=== PATIENT | male | born 1955 | race Caucasian/White ===

== ENCOUNTER 2020-04-14 16:57 | Outpatient (REF) | payer MEDICARE, MEDICAID, SELFPAY ==
--- NOTE | 2020-04-14 | XR_ITS ---
EXAMINATION: XR CHEST CLINICAL INFORMATION: Cough COMPARISON: 08/19/2018 TECHNIQUE: 2 views of the chest were obtained. FINDINGS: The cardiomediastinal silhouette is stable. There is some linear atelectasis in the lung bases and right middle lobe which is unchanged. There is no dense consolidation, pleural effusion or pneumothorax. No acute osseous abnormality. XR/XR chest 2V IMPRESSION: No acute cardiopulmonary process.
[2020-04-14 17:56] LABS: MANUAL DIFF FLAG NO
[2020-04-14 17:58] LABS: Basophils Percent Auto 0.3 % (0-2); Eosinophils Absolute Auto 0.2 X10*3/uL (0.0-0.4); Eosinophils Percent Auto 3.3 % (0-4); Hematocrit 42.4 % (42-52); Hemoglobin 14.4 g/dl (14.0-18.0); Imm Gran Abs Auto 0.02 X10*3/uL (0.00-0.03); Imm Gran Pct Auto 0.3 % (0.0-0.4); Lymphocytes Absolute Auto 2.2 X10*3/uL (1.2-4.9); Lymphocytes Percent Auto 29.6 % (20-40); Mean Corpuscular Hemoglobin 31.6 pg (27.0-33.0); Mean Corpuscular Volume 93.2 fL (80-98); Mean Platelet Volume 9.5 fL (9.4-12.4); Monocytes Absolute Auto 0.4 X10*3/uL (0.1-1.2); Monocytes Percent Auto 5.6 % (2-11); Neutrophils Absolute Auto 4.5 X10*3/uL (2.0-8.3); Neutrophils Percent Auto 60.9 % (45-73); Platelet Count 159 X10*3/uL (160-400); Red Blood Count 4.55 X10*6/uL (4.60-5.80); Red Cell Distribution Width 12.9 % (11.0-16.0); White Blood Count 7.3 X10*3/uL (4.8-10.8)
[2020-04-14 18:07] LABS: D Dimer 369 NG/ML
[2020-04-14 18:22] LABS: Alanine Aminotransferase 66 U/L (0-40); Albumin Level 4.2 g/dL (3.5-5.0); Alkaline Phosphatase 66 U/L (39-117); Anion Gap 14 (12-20); Aspartate Amino Transferase 54 U/L (5-37); Bilirubin Total 0.2 mg/dL (0.0-1.0); Blood Urea Nitrogen 17 mg/dL (9-16); Calcium 9.2 mg/dL (8.4-10.2); Carbon Dioxide 26 mmol/L (22-29); Chloride 100 mmol/L (96-108); Estimated Glomerular Filt Rate > 60; Glucose Random 133 mg/dL (60-115); Potassium 4.4 mmol/l (3.3-5.1); Sodium 136 mmol/L (135-145); Total Protein 6.9 g/dL (6.5-8.0)
== END 2020-04-14 16:58 | disposition home or self-care (01) ==
LOC: HO.LAB 16:57
PROVIDERS: PCP Internal Medicine; Visit Provider Internal Medicine
DX: E78.00 Pure hypercholesterolemia, unspecified (principal); I10 Essential (primary) hypertension; R07.9 Chest pain, unspecified; R05 Cough
CPT/HCPCS: 36415; 71046; 80053; 85025; 85379; 86140

== ENCOUNTER 2020-07-14 11:06 | Outpatient (REF) | payer MEDICARE, MEDICAID, SELFPAY ==
[2020-07-14 13:48] LABS: MANUAL DIFF FLAG NO
[2020-07-14 14:00] LABS: Basophils Percent Auto 0.4 % (0-2); Eosinophils Absolute Auto 0.3 X10*3/uL (0.0-0.4); Eosinophils Percent Auto 3.6 % (0-4); Hematocrit 42.8 % (42-52); Hemoglobin 14.3 g/dl (14.0-18.0); Imm Gran Abs Auto 0.04 X10*3/uL (0.00-0.03); Imm Gran Pct Auto 0.6 % (0.0-0.4); Lymphocytes Absolute Auto 2.1 X10*3/uL (1.2-4.9); Lymphocytes Percent Auto 30.6 % (20-40); Mean Corpuscular HGB Conc 33.4 g/dl (31.0-36.0); Mean Corpuscular Hemoglobin 31.2 pg (27.0-33.0); Mean Corpuscular Volume 93.2 fL (80-98); Mean Platelet Volume 9.6 fL (9.4-12.4); Monocytes Absolute Auto 0.3 X10*3/uL (0.1-1.2); Monocytes Percent Auto 4.8 % (2-11); Neutrophils Absolute Auto 4.2 X10*3/uL (2.0-8.3); Platelet Count 211 X10*3/uL (160-400); Red Blood Count 4.59 X10*6/uL (4.60-5.80); White Blood Count 6.9 X10*3/uL (4.8-10.8)
[2020-07-14 14:38] LABS: Creatinine Urine 155.72 mg/dL
[2020-07-14 14:46] LABS: Estimated Average Glucose 134 mg/dL; Hemoglobin A1c % 6.3 %
[2020-07-14 14:47] LABS: Alanine Aminotransferase 85 U/L (0-40); Albumin Level 4.4 g/dL (3.5-5.0); Alkaline Phosphatase 66 U/L (39-117); Anion Gap 15 (12-20); Aspartate Amino Transferase 68 U/L (5-37); Bilirubin Total 0.3 mg/dL (0.0-1.0); Blood Urea Nitrogen 19 mg/dL (9-16); Calcium 9.3 mg/dL (8.4-10.2); Carbon Dioxide 28 mmol/L (22-29); Chloride 99 mmol/L (96-108); Cholesterol 184 mg/dL; Estimated Glomerular Filt Rate > 60; Glucose Fasting 127 mg/dL (60-99); HDL Cholesterol 40 mg/dL; LDL Cholesterol Calculated 73 mg/dl; Potassium 4.6 mmol/L (3.3-5.1); Sodium 137 mmol/L (135-145); Total Protein 7.3 g/dL (6.5-8.0); Triglycerides 359 mg/dL
== END 2020-07-14 11:07 | disposition home or self-care (01) ==
LOC: HO.10HDL 11:06
PROVIDERS: Visit Provider Internal Medicine
DX: I10 Essential (primary) hypertension (principal); R94.5 Abnormal results of liver function studies; E78.00 Pure hypercholesterolemia, unspecified; E11.9 Type 2 diabetes mellitus without complications
CPT/HCPCS: 36415; 80053; 80061; 82043; 83036; 85025

== ENCOUNTER 2020-08-21 10:14 | Outpatient (REF) | payer MEDICARE, MEDICAID, SELFPAY ==
--- NOTE | ~2020-08-21 | XR_ITS ---
EXAMINATION: XR PELVIS CLINICAL INFORMATION: Pain in the hip COMPARISON: 06/01/2014 TECHNIQUE: AP view of the pelvis. FINDINGS: No fracture or dislocation. The hips are well aligned. Joint spaces are maintained. Mild subchondral sclerosis of the acetabula. The sacroiliac joints are symmetric. Degenerative changes at the lower lumbar spine noted. The bowel gas pattern is unremarkable. Vascular calcifications are seen. XR/XR pelvis 1-2V IMPRESSION: Mild degenerative changes of the hips.
== END 2020-08-21 10:15 | disposition home or self-care (01) ==
LOC: HO.HOSX 10:14
PROVIDERS: PCP Internal Medicine; Visit Provider Orthopaedic Surgery
DX: S76.312A Strain of muscle, fascia and tendon of the posterior muscle group at thigh level, left thigh, initial encounter (principal); M16.12 Unilateral primary osteoarthritis, left hip
CPT/HCPCS: 72170; 99202

== ENCOUNTER 2020-10-02 08:55 | Outpatient (REF) | payer MEDICARE, MEDICAID, SELFPAY ==
[2020-10-02 10:23] LABS: MANUAL DIFF FLAG NO
[2020-10-02 10:30] LABS: Basophils Percent Auto 0.5 % (0-2); Eosinophils Absolute Auto 0.3 X10*3/uL (0.0-0.4); Hematocrit 42.2 % (42-52); Hemoglobin 13.9 g/dl (14.0-18.0); Imm Gran Abs Auto 0.03 X10*3/uL (0.00-0.03); Imm Gran Pct Auto 0.5 % (0.0-0.4); Lymphocytes Absolute Auto 1.7 X10*3/uL (1.2-4.9); Lymphocytes Percent Auto 28.6 % (20-40); Mean Corpuscular HGB Conc 32.9 g/dl (31.0-36.0); Mean Corpuscular Hemoglobin 31.4 pg (27.0-33.0); Mean Corpuscular Volume 95.3 fL (80-98); Mean Platelet Volume 9.5 fL (9.4-12.4); Monocytes Absolute Auto 0.3 X10*3/uL (0.1-1.2); Monocytes Percent Auto 5.3 % (2-11); Neutrophils Absolute Auto 3.6 X10*3/uL (2.0-8.3); Neutrophils Percent Auto 60.1 % (45-73); Platelet Count 148 X10*3/uL (160-400); Red Blood Count 4.43 X10*6/uL (4.60-5.80); Red Cell Distribution Width 13.3 % (11.0-16.0)
[2020-10-02 10:47] LABS: Creatinine Urine 100.41 mg/dL; Microalbum/Creatinine Ratio Ur 186.2 ug/mg cr
[2020-10-02 10:51] LABS: Alanine Aminotransferase 79 U/L (0-40); Albumin Level 4.1 g/dL (3.5-5.0); Alkaline Phosphatase 59 U/L (39-117); Anion Gap 13 (12-20); Aspartate Amino Transferase 61 U/L (5-37); Bilirubin Total 0.3 mg/dL (0.0-1.0); Blood Urea Nitrogen 20 mg/dL (9-16); Carbon Dioxide 28 mmol/L (22-29); Chloride 101 mmol/L (96-108); Cholesterol 176 mg/dL; Estimated Glomerular Filt Rate > 60; Glucose Fasting 140 mg/dL (60-99); HDL Cholesterol 40 mg/dL; LDL Cholesterol Calculated 65 mg/dl; Potassium 4.5 mmol/L (3.3-5.1); Sodium 137 mmol/L (135-145); Total Protein 6.7 g/dL (6.5-8.0); Triglycerides 357 mg/dL
[2020-10-02 11:05] LABS: Estimated Average Glucose 134 mg/dL; Hemoglobin A1c % 6.3 %
[2020-10-02 11:24] LABS: Prostate Specific Antigen Scr 0.52 ng/mL (<0.05-4.0)
[2020-10-03 13:11] LABS: Absolute CD3 Count 1429 cells/uL (840-3060); Absolute CD4 Count 686 cells/uL (490-1740); Absolute CD8 Count 745 cells/uL (180-1170); Absolute Lymphocytes 1757 cells/uL (850-3900); CD4 CD8 Ratio 0.92 (0.86-5.00); Percent CD3 Cells 81 % (57-85); Percent CD4 Cells 39 % (30-61); Percent CD8 Cells 42 % (12-42)
[2020-10-03 17:41] LABS: HIV RNA PCR Qn Copies <20 NOT DETECTED copies/mL (NOT DETECTED); HIV RNA PCR Qn Log Copies <1.30 NOT DETECTED (NOT DETECTED)
== END 2020-10-02 08:56 | disposition home or self-care (01) ==
LOC: HO.10HDL 08:55
PROVIDERS: Visit Provider Internal Medicine
DX: S76.312D Strain of muscle, fascia and tendon of the posterior muscle group at thigh level, left thigh, subsequent encounter (principal); I10 Essential (primary) hypertension; E78.00 Pure hypercholesterolemia, unspecified; E11.9 Type 2 diabetes mellitus without complications; N40.0 Benign prostatic hyperplasia without lower urinary tract symptoms; B20 Human immunodeficiency virus [HIV] disease; Z12.5 Encounter for screening for malignant neoplasm of prostate
CPT/HCPCS: 36415; 80053; 80061; 82043; 83036; 84153; 85025; 86359; 86360; 87536; 99212

== ENCOUNTER 2020-11-20 11:00 | Outpatient (RCR) | payer MEDICARE, MEDICAID, SELFPAY ==
[2020-09-01 09:07] VITALS: BP 113/69; PULSE 75
--- NOTE | 2020-09-01 10:05 | MHC.PT.EP ---
[facility] [place] Office [place] Office [place] Office [address] Katherin Ortegamiesha [address] [phone] F: [phone] F: [phone] F: [phone] F: [phone] Physical Therapy Plan of Care Date of Evaluation: 08/29/20 Date of Surgery: NA Diagnosis: TEAR OF LEFT HAMSTRING (576.312A) Assessment: BORA IS A PLEASANT 65 YO GENTLEMAN WHO PRESENTS WITH PARTIAL TEAR OF HAMSTRING. UPON EXAM HE DEMONSTRATES DECREASED LE STRENGTH, DECREASED ROM, ALTERED GAIT AND BALANCE, INCREASED PAIN. 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 Manual therapy to restore motion and function. Therapeutic exercise to improve strength and flexibility. Neuromuscular re-education for posture and balance. Therapeutic activities to return to functional activities of daily living. Electronically signed by: BARRY LEBLANC PT, DPT Please sign and return to therapist. Thank you for your referral.
--- NOTE | 2020-11-28 08:51 | MHC.PT.DC ---
[facility] [place] Office [place] Office [place] Office [address] Lorena Cardoza [address] [phone] F: [phone] F: [phone] F: [phone] F: [phone] Physical Therapy Discharge Report Diagnosis: TEAR OF LEFT HAMSTRING (576.312A) Date of Surgery: DOI 07/05/2020 Date of Evaluation: 08/29/20 Date of Discharge: Treatments to Date: 16 Cancellations to Date: 0 No Shows to Date: 0 Discharge Status: Improved Function Independent with HEP Discharge Summary: Sneha progressed well in therapy. Progress was slow but he continued to work on range and strength and at this time has improved both areas. He also demonstrates improved transfers and gait with decreased reliance on assistive device. He does still report continued discomfort with more high demand functional tasks but is able to self manage any resideual symptoms at this time. He is independent with a home program and is to contact us with any questions or concerns. Electronically signed by: Vivien Mix PT, DPT Please sign and return to therapist. Thank you for your referral.
== END 2020-11-28 08:51 | disposition home or self-care (01) ==
LOC: HO.PT 11:00
PROVIDERS: PCP Internal Medicine; Visit Provider Orthopaedic Surgery
DX: S76.312A Strain of muscle, fascia and tendon of the posterior muscle group at thigh level, left thigh, initial encounter (principal)
CPT/HCPCS: 97014; 97110; 97140; 97161

== ENCOUNTER 2020-12-15 10:07 | Emergency (ER) | payer MEDICARE, MEDICAID, SELFPAY ==
--- NOTE | ~2020-12-15 | XR_ITS ---
EXAMINATION: XR CHEST CLINICAL INFORMATION: Chest pain/pressure COMPARISON: None TECHNIQUE: Frontal view of the chest was obtained. FINDINGS: The lungs are well-expanded and clear. There is minimal atelectatic changes in the right middle lobe. The heart size is enlarged. Pulmonary vascularity is normal. No gross bony abnormality seen. XR/XR chest 1V IMPRESSION: Minimal atelectatic changes right middle lobe. No acute consolidation seen.
--- NOTE | ~2020-12-15 | CT_ITS ---
EXAMINATION: CT ANGIOGRAM OF THE CHEST WITH AND WITHOUT CONTRAST (CT PULMONARY ANGIOGRAM FOR PE) CLINICAL INFORMATION: Reason for Exam troponin, D-dimer positive. PE? COMPARISON: None TECHNIQUE: Prior to contrast administration, noncontrast localization images were obtained. Subsequently, multidetector volumetric imaging was performed from the thoracic inlet to below the diaphragms following the administration of 80 mL Omnipaque 350 intravenous contrast. No contrast reaction reported Sagittal, coronal, and MIP oblique sagittal reformatted images were obtained on the CT workstation, uploaded to PACS, and reviewed. This CT examination was performed using dose optimization techniques as appropriate, variously including the following: *Automated exposure control *Adjustment of mA and/or kV according to patient size (this includes techniques or standardized protocols for targeted exams where dose is matched to indication/reason for exam; i.e. extremities or head) *Use of iterative reconstruction technique Total exam dose-length product 549 mGy-cm FINDINGS: QUALITY OF STUDY/CONTRAST BOLUS: Satisfactory. PULMONARY ARTERIES: No central or segmental pulmonary emboli. THORACIC AORTA: No aneurysm or dissection. LUNG: There is a 2.4 cm pleural-based lesion in the right upper lobe axial image 15/5 measuring -28 Hounsfield units likely a small pleural-based lipoma. Minimal atelectatic changes are seen in the right middle lobe. PLEURA: There is a bilateral lower lobe dependent scarring and/or atelectasis. MEDIASTINUM: Normal heart size. No pericardial effusion. No hilar or mediastinal lymphadenopathy. No evidence of septal bowing or right heart strain. CHEST WALL/AXILLA: No axillary or internal mammary lymphadenopathy. OSSEOUS STRUCTURES: No acute or suspicious osseous abnormality. UPPER ABDOMEN: Visualized liver, spleen, pancreas and bilateral adrenal glands unremarkable. There is evidence of previous cholecystectomy changes. A lobulated left adrenal gland is seen with small nodules in the range of 1 cm, approximately 3 in number. The right adrenal gland is normal. No reflux of contrast into the hepatic veins to suggest elevated right heart pressures. CT/CT angio chest PE protocol IMPRESSION: No evidence of PE. No evidence of aortic dissection or aneurysm. Subpleural based nodule right upper lobe likely small lipoma, pleural-based. Bilateral lower lobe dependent atelectasis/scarring. Nodular appearing left adrenal gland, stable. VTE: negative
[2020-12-15 10:11] VITALS: BP 114/80; BP 155/00; PULSE 95; RESP 18; TEMP 36.7; O2SAT 94; BMI 42.3
--- NOTE | 2020-12-15 10:18 | ECG_ITS ---
Test Reason : CHEST PAIN Blood Pressure : / mmHG Vent. Rate : 089 BPM Atrial Rate : 089 BPM P-R Int : 202 ms QRS Dur : 148 ms QT Int : 398 ms P-R-T Axes : 069 -71 000 degrees QTc Int : 484 ms Normal sinus rhythm Right bundle branch block Left anterior fascicular block Bifascicular block Abnormal ECG When compared with ECG of 12-AUG-2018 10:23, No significant changes seen Referred By: Generic ED Physician Electronically Signed By:ANDI MIRELES
[2020-12-15 10:22] VITALS: PULSE 92
[2020-12-15 10:52] LABS: MANUAL DIFF FLAG NO
[2020-12-15 10:55] LABS: Basophils Percent Auto 0.3 % (0-2); Eosinophils Absolute Auto 0.1 X10*3/uL (0.0-0.4); Eosinophils Percent Auto 2.3 % (0-4); Hematocrit 42.1 % (42-52); Hemoglobin 14.2 g/dl (14.0-18.0); Imm Gran Abs Auto 0.03 X10*3/uL (0.00-0.03); Imm Gran Pct Auto 0.5 % (0.0-0.4); Lymphocytes Absolute Auto 1.5 X10*3/uL (1.2-4.9); Lymphocytes Percent Auto 25.3 % (20-40); Mean Corpuscular HGB Conc 33.7 g/dl (31.0-36.0); Mean Corpuscular Hemoglobin 31.8 pg (27.0-33.0); Mean Corpuscular Volume 94.2 fL (80-98); Mean Platelet Volume 9.8 fL (9.4-12.4); Monocytes Absolute Auto 0.3 X10*3/uL (0.1-1.2); Monocytes Percent Auto 5.4 % (2-11); Neutrophils Absolute Auto 3.8 X10*3/uL (2.0-8.3); Neutrophils Percent Auto 66.2 % (45-73); Platelet Count 149 X10*3/uL (160-400); Red Blood Count 4.47 X10*6/uL (4.60-5.80); Red Cell Distribution Width 13.3 % (11.0-16.0); White Blood Count 5.7 X10*3/uL (4.8-10.8)
[2020-12-15 11:08] VITALS: BP 123/72; PULSE 88
[2020-12-15] MEDS: Nitroglycerin 0.4 MG TAB.SUBL SUBLINGUAL (11:08)
[2020-12-15 11:18] LABS: Anion Gap 16 (12-20); Blood Urea Nitrogen 17 mg/dL (9-16); Calcium 8.7 mg/dL (8.4-10.2); Carbon Dioxide 24 mmol/L (22-29); Chloride 102 mmol/L (96-108); Creatinine Clr Calc Pharmacy 108.4; Estimated Glomerular Filt Rate > 60; Glucose Random 162 mg/dL (60-115); Potassium 4.6 mmol/L (3.3-5.1); Sodium 137 mmol/L (135-145)
[2020-12-15 11:26] LABS: Troponin-I High Sensitivity 79.9 ng/L (<3.5-35.0)
[2020-12-15 11:33] LABS: INTERNATIONAL NORM RATIO 0.9 (0.9-1.1); Prothrombin Time 10.3 SEC (9.9-13.0)
[2020-12-15 11:34] LABS: B Type Natriuretic Peptide 31 pg/mL (<100)
[2020-12-15 11:35] LABS: Partial Thromboplastin Time 30.3 SEC (24.1-38.0)
[2020-12-15 11:44] LABS: D Dimer 4678 NG/ML
[2020-12-15] MEDS: Morphine Sulfate 4 MG/ML CARTRIDGE IVPUSH ×2 (11:49→13:56)
--- NOTE | 2020-12-15 11:50 | ED_ITS ---
HPI - Chest Pain General Chief Complaint: Chest Pain Stated Complaint: cp Time Seen by Provider: 12/15/20 10:54 Source: patient Mode of arrival: ambulatory Limitations: no limitations History of Present Illness HPI narrative: Patient presents to ED for left-sided chest pain since 06:00. Patient states he woke up with pressure-like chest pain that then went into sharp stabbing pain. Patient states he took 81 mg of aspirin at home and did not improve so he called EMS. EMS gave him 2 nitro pills and 325 of aspirin. Patient states chest pain went down from a 8 to a 4. Patient states presently chest pain goes between pressure and sharp. Patient states he stopped smoking 7 years ago but is diabetic and hypertensive. Patient states no history of heart attack in the past Related Data Home Medications Medication Instructions Recorded Confirmed lisinopril 2.5 mg tablet 2.5 mg PO DAILY 08/21/20 metformin 500 mg tablet 500 mg PO DAILY 08/21/20 omeprazole 10 mg capsule,delayed 10 mg PO DAILY 08/21/20 release simvastatin 5 mg tablet 5 mg PO DAILY 08/21/20 terazosin 1 mg capsule 1 mg PO DAILY 08/21/20 Previous Rx's Medication Instructions Recorded ibuprofen 800 mg tablet 800 mg PO TID PRN #90 tab 08/21/20 Allergies Allergy/AdvReac Type Severity Reaction Status Date / Time No Known Allergies Allergy Verified 10/02/20 10:27 Review of Systems Review of Systems: Yes all other systems are reviewed and are negative Constitutional: Constitutional: Reports as per HPI and Reports no additional constitutional complaints Eyes: Eyes: Reports as per HPI, Reports no additional eye complaints and Reports blind spots ENT: Reports system reviewed and no additional complaints, except as documented and Reports as per HPI Cardiovascular: Cardiovascular: Reports as per HPI, Reports no additional cardiovascular complaints, Reports chest pain and Reports chest pain with activity Respiratory: Respiratory: Reports as per HPI and Reports no additional respiratory complaints Gastrointestinal: Gastrointestinal: Reports as per HPI and Reports no additional gastrointestinal complaints Genitourinary: Genitourinary: Reports no additional male genitourinary complaints and Reports as per HPI Musculoskeletal: Musculoskeletal: Reports no additional musculoskeletal complaints and Reports as per HPI Neurologic: Reports system reviewed and no additional complaints, except as documented and Reports as per HPI Psychiatric: Psychiatric: Reports no additional psychiatric complaints and Reports as per HPI [facility] Past Medical History Medical History Diabetes High blood pressure High cholesterol Tear of left hamstring Social History Social History (Updated 08/21/20 @ 10:31 by Alexandria Gayle) Patient Tobacco Use Status: Former Tobacco user Substance Use Type: Marijuana Substance Use Frequency: Daily Advance Directives: Yes Advance Directives Information Provided: Yes Advance Directives on File: No Current occupational status: retired Current occupation: rt handed Physical Exam Vital Signs: Vital Signs: Last Vital Signs Temp 97.8 F 12/15/20 13:56 Pulse 82 12/15/20 15:14 Resp 18 12/15/20 15:14 BP 135/83 12/15/20 15:14 Pulse Ox 96 12/15/20 15:14 Body Mass Index 42.3 Const: General: cooperative, healthy appearing, comfortable, no acute distress, well developed, alert, awake and acute distress Orientation /consciousness: patient oriented x3 HENMT: Head: Yes normal to inspection, Yes No palpable skull fracture present, Yes normocephalic, Yes atraumatic and No abrasion Eyes: General: appearance normal, both eyes and all related structures Neck: Neck: Yes normal visual inspection, Yes full ROM, Yes no lymphadenopathy, Yes no meningeal signs, Yes trachea midline, Yes supple and No tender Chest: Chest palpation & inspection: normal inspection of the chest and normal palpation of entire chest wall Resp: Effort & Inspection: normal respiratory effort and able to speak in complete sentences Auscultation: clear to auscultation bilaterally Cardio: Jugular venous distension: no JVD Heart sounds: S1 normal heart sound present and S2 normal heart sound present GI: Inspection: Yes normal to inspection and No abdominal wall ecchymosis Palpation (GI): Soft to palpation, not firm, nontender, no guarding and not rigid : General: No CVA tenderness and Yes no CVA tenderness Back/Spine/Pelvis: Back: no CVA tenderness, No CVA tenderness and No back tenderness Skin: General skin exam: no rashes or lesions noted and elasticity normal Neuro: General: patient oriented x3, gait normal, no meningeal signs and CN's II-XI intact bilaterally Cranial nerves: Yes CN's II-XII intact bilaterally Extrem: Other: Lower extremities negative for any swelling, pitting edema, calf tenderness Psych: Appearance: grossly normal, well kempt and not disheveled Course Course Course Narrative: Due to risk factors patient will have a cardiac evaluation. Reevaluation(s) Reevaluation #1: EKG negative for STEMI and no new changes. Patient's 1st troponin came back positive. Patient given nitrates and morphine for pain relief. BNP came back negative. Chest x-ray does not show any pneumonia. Patient D-dimer elevated over 4000. Patient will be sent for chest CT A. Will contact Cardiology wants chest CT results come back Time: 12:04 Reevaluation #2: Dr. Brewer cardiology recommended IV heparin to be started in for patient to be transferred at [facility]. Patient still having pain after 3 rounds of nitro and [address] came back negative for PE Time: 13:50 Reevaluation #3: IV heparin drip started. Spoke with Dr. mallory of cardiology he was informed of patient's history, physical exam, and diagnostics he states patient may need to go to CCU. He called CCU and discussed with the senior resident and he agreed patient to be transferred to [facility] CCU. Accepting attending is . Patient's troponin increased to 400. Repeat EKG does not show any new changes. Dr. mallory recommended patient to be started on nitro drip. Patient states pain is at a 6 and doing Musa's sign Time: 15:23 MDM - Chest Pain MDM Narrative Medical decision making narrative: NSTEMI Lab Data Result diagrams: 12/15/20 10:28 12/15/20 10:28 Labs: Lab Results 12/15/20 12/15/20 12/15/20 Range/Units 10:28 10:28 10:28 WBC 5.7 (4.8-10.8) X10*3/uL RBC 4.47 L (4.60-5.80) X10*6/uL Hgb 14.2 (14.0-18.0) g/dl Hct 42.1 (42-52) % MCV 94.2 (80-98) fL MCH 31.8 (27.0-33.0) pg MCHC 33.7 (31.0-36.0) g/dl RDW 13.3 (11.0-16.0) % Plt Count 149 L (160-400) X10*3/uL MPV 9.8 (9.4-12.4) fL Immature Gran % (Auto) 0.5 H (0.0-0.4) % Neut % (Auto) 66.2 (45-73) % Lymph % (Auto) 25.3 (20-40) % [place] % (Auto) 5.4 (2-11) % Eos % (Auto) 2.3 (0-4) % Baso % (Auto) 0.3 (0-2) % Lymph # (Auto) 1.5 (1.2-4.9) X10*3/uL [place] # (Auto) 0.3 (0.1-1.2) X10*3/uL Eos # (Auto) 0.1 (0.0-0.4) X10*3/uL Baso # (Auto) 0.0 (0.0-0.2) X10*3/uL Abs Immat Gran (auto) 0.03 (0.00-0.03) X10*3/uL Absolute Neuts (auto) 3.8 (2.0-8.3) X10*3/uL Absolute Nucleated RBC 0.000 (0.0-0.012) X10*3/uL Nucleated RBC % (auto) 0.0 (0.0-0.2) /100WBC PT (9.9-13.0) SEC INR (0.9-1.1) APTT (24.1-38.0) SEC D-Dimer NG/ML Sodium 137 (135-145) mmol/L Potassium 4.6 (3.3-5.1) mmol/L Chloride 102 (96-108) mmol/L Carbon Dioxide 24 (22-29) mmol/L Anion Gap 16 (12-20) BUN 17 H (9-16) mg/dL Creatinine 0.84 (0.5-1.4) mg/dL Estim Creat Clear Calc 108.4 Estimated GFR > 60 Random Glucose 162 H (60-115) mg/dL Calcium 8.7 (8.4-10.2) mg/dL Troponin I High Sens 79.9 H* (<3.5-35.0) ng/L B-Natriuretic Peptide 31 (<100) pg/mL COVID-19 ([facility]) (Negative) COVID-19 Clin Com 07/12/15/20 12/15/20 Range/Units 11:15 13:41 15:15 WBC (4.8-10.8) X10*3/uL RBC (4.60-5.80) X10*6/uL Hgb (14.0-18.0) g/dl Hct (42-52) % MCV (80-98) fL MCH (27.0-33.0) pg MCHC (31.0-36.0) g/dl RDW (11.0-16.0) % Plt Count (160-400) X10*3/uL MPV (9.4-12.4) fL Immature Gran % (Auto) (0.0-0.4) % Neut % (Auto) (45-73) % Lymph % (Auto) (20-40) % [place] % (Auto) (2-11) % Eos % (Auto) (0-4) % Baso % (Auto) (0-2) % Lymph # (Auto) (1.2-4.9) X10*3/uL [place] # (Auto) (0.1-1.2) X10*3/uL Eos # (Auto) (0.0-0.4) X10*3/uL Baso # (Auto) (0.0-0.2) X10*3/uL Abs Immat Gran (auto) (0.00-0.03) X10*3/uL Absolute Neuts (auto) (2.0-8.3) X10*3/uL Absolute Nucleated RBC (0.0-0.012) X10*3/uL Nucleated RBC % (auto) (0.0-0.2) /100WBC PT 10.3 (9.9-13.0) SEC INR 0.9 (0.9-1.1) APTT 30.3 (24.1-38.0) SEC D-Dimer 4678 NG/ML Sodium (135-145) mmol/L Potassium (3.3-5.1) mmol/L Chloride (96-108) mmol/L Carbon Dioxide (22-29) mmol/L Anion Gap (12-20) BUN (9-16) mg/dL Creatinine (0.5-1.4) mg/dL Estim Creat Clear Calc Estimated GFR Random Glucose (60-115) mg/dL Calcium (8.4-10.2) mg/dL Troponin I High Sens 487.1 H* D (<3.5-35.0) ng/L B-Natriuretic Peptide (<100) pg/mL COVID-19 ([facility]) Negative (Negative) COVID-19 Clin Com See Note ECG Data ECG #1: Interpretation: EKG 1: Normal sinus rhythm. Bifascicular block. Ventricular rate 89. Parent of a 202. QRS 148. QTC 484. Negative STEMI EKG 2: Sinus rhythm with first-degree AV block. Bifascicular block. Ventricular rate 81. Pr interval 210. QRS 158. QTC 480. Negative STEMI Critical Care Time Critical Care Time Critical Care Time: Yes Total Critical Care Time: 60 Attestation: Patient's troponin came back positive and continued to have chest pain. Cardiology was consulted and recommended IV heparin. [facility] as400 administrator was contacted and recommended transfer to [facility] CCU. Patient started on heparin drip and nitro glycerin drip as recommended by 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 Discharge Plan Discharge Clinical Impression: Non-ST elevation OR (NSTEMI) Patient Disposition: Xfer Acute Care Hospital Transfer Details: [facility] Prescriptions: No Action ibuprofen 800 mg tablet 800 mg PO TID PRN (Reason: pain) Qty: 90 RF: 1
--- NOTE | 2020-12-15 11:56 | PC.NURSE ---
Morphine given for pain. Pt aware of labs per PA and aware for plan for CTA. EMS tubing changed to hospital tubing.
[2020-12-15 11:57] VITALS: BP 113/79; PULSE 83; RESP 19; O2SAT 98
[2020-12-15] MEDS: iohexoL 350 MG/ML 100 ML INFUS..BTL 71 ML IV (12:37)
[2020-12-15 13:56] VITALS: BP 113/69; PULSE 80; RESP 18; TEMP 36.6; O2SAT 98
--- NOTE | 2020-12-15 14:00 | PC.NURSE ---
Pt medicated for pain. Second troponin drawn and pending at this time.
[2020-12-15 14:27] LABS: Troponin-I High Sensitivity 487.1 ng/L (<3.5-35.0)
[2020-12-15] MEDS: Heparin Sodium,Porcine/1/2NS 25,000 UNIT/250 ML IV.SOLN 10 UNIT IVCONT (14:39)
[2020-12-15] MEDS: Heparin Sodium,Porcine 5,000 UNIT/ML VIAL 4000 UNIT IVPUSH (14:39)
--- NOTE | 2020-12-15 15:13 | PC.NURSE ---
Heparin drip started. VS remain stable. Nitro drip ordered and to be started per orders.
[2020-12-15 15:14] VITALS: BP 135/83; PULSE 82; RESP 18; O2SAT 96
[2020-12-15 15:37] LABS: COVID-19 Test Negative (Negative)
[2020-12-15] MEDS: Nitroglycerin/D5W 100 MG/250 ML INFUS..BTL IVCONT (15:44)
--- NOTE | 2020-12-15 16:05 | PC.NURSE ---
Report given to [facility] RN at [facility]. Awaiting EMS transport at this time.
== END 2020-12-15 16:39 | disposition short-term general hospital (02) ==
PROVIDERS: Physician Assistant; Emergency Provider Emergency Medicine; PCP Internal Medicine
DX: I21.4 Non-ST elevation (NSTEMI) myocardial infarction (principal); E11.9 Type 2 diabetes mellitus without complications; I10 Essential (primary) hypertension; E78.5 Hyperlipidemia, unspecified; Z79.84 Long term (current) use of oral hypoglycemic drugs; Z79.899 Other long term (current) drug therapy; Z79.02 Long term (current) use of antithrombotics/antiplatelets; F12.90 Cannabis use, unspecified, uncomplicated; Z87.891 Personal history of nicotine dependence; Z20.822 Contact with and (suspected) exposure to COVID-19
CPT/HCPCS: 36415; 71045; 71275; 80048; 83880; 84484; 85025; 85379; 85610; 85730; 87635; 93005; 96365; 96366; 96368; 96375; 99285; 99291; J2270; Q9967

== ENCOUNTER 2020-12-23 09:41 | Outpatient (REF) | payer MEDICARE, MEDICAID, SELFPAY ==
[2020-12-23 10:19] LABS: MANUAL DIFF FLAG NO
[2020-12-23 10:44] LABS: Basophils Percent Auto 0.3 % (0-2); Eosinophils Absolute Auto 0.3 X10*3/uL (0.0-0.4); Eosinophils Percent Auto 4.2 % (0-4); Hematocrit 41.6 % (42-52); Hemoglobin 13.8 g/dl (14.0-18.0); Imm Gran Abs Auto 0.02 X10*3/uL (0.00-0.03); Imm Gran Pct Auto 0.3 % (0.0-0.4); Lymphocytes Percent Auto 33.8 % (20-40); Mean Corpuscular HGB Conc 33.2 g/dl (31.0-36.0); Mean Corpuscular Hemoglobin 31.5 pg (27.0-33.0); Mean Platelet Volume 9.6 fL (9.4-12.4); Monocytes Absolute Auto 0.4 X10*3/uL (0.1-1.2); Monocytes Percent Auto 6.9 % (2-11); Neutrophils Absolute Auto 3.2 X10*3/uL (2.0-8.3); Neutrophils Percent Auto 54.5 % (45-73); Platelet Count 165 X10*3/uL (160-400); Red Blood Count 4.38 X10*6/uL (4.60-5.80); Red Cell Distribution Width 13.1 % (11.0-16.0); White Blood Count 5.9 X10*3/uL (4.8-10.8)
[2020-12-23 10:56] LABS: Estimated Average Glucose 137 mg/dL; Hemoglobin A1c % 6.4 %
[2020-12-23 11:20] LABS: Alanine Aminotransferase 99 U/L (0-40); Albumin Level 4.3 g/dL (3.5-5.0); Alkaline Phosphatase 61 U/L (39-117); Anion Gap 15 (12-20); Aspartate Amino Transferase 77 U/L (5-37); Bilirubin Total 0.4 mg/dL (0.0-1.0); Blood Urea Nitrogen 17 mg/dL (9-16); Calcium 9.2 mg/dL (8.4-10.2); Carbon Dioxide 26 mmol/L (22-29); Chloride 103 mmol/L (96-108); Cholesterol 142 mg/dL; Estimated Glomerular Filt Rate > 60; Glucose Fasting 120 mg/dL (60-99); HDL Cholesterol 36 mg/dL; LDL Cholesterol Calculated 77 mg/dl; Potassium 4.8 mmol/L (3.3-5.1); Sodium 139 mmol/L (135-145); Total Protein 7.1 g/dL (6.5-8.0); Triglycerides 146 mg/dL
[2020-12-23 11:50] LABS: Creatinine Urine 78.21 mg/dL; Microalbum/Creatinine Ratio Ur 44.7 ug/mg cr
== END 2020-12-23 09:42 | disposition home or self-care (01) ==
LOC: HO.10HDL 09:41
PROVIDERS: PCP Internal Medicine; Visit Provider Internal Medicine
DX: E11.9 Type 2 diabetes mellitus without complications (principal); I10 Essential (primary) hypertension; E78.5 Hyperlipidemia, unspecified
CPT/HCPCS: 36415; 80053; 80061; 82043; 83036; 85025

== ENCOUNTER 2021-01-27 11:16 | Outpatient (REF) | payer MEDICARE, MEDICAID, SELFPAY ==
--- NOTE | ~2021-01-27 | XR_ITS ---
EXAMINATION: XR KNEE, RIGHT CLINICAL INFORMATION: Right knee pain. COMPARISON: None TECHNIQUE: Four views of the right knee. FINDINGS: There is loss of tricompartment joint space with periarticular spurring. There is calcification of medial and lateral menisci. No fracture or bony erosive changes seen. There is minimal suprapatellar joint effusion. XR/XR knee RT 4V IMPRESSION: Degenerative arthritic changes right knee with mild periapical spurring. Minimal suprapatellar joint effusion. Chondrocalcinosis.
[2021-01-27 12:56] LABS: Alanine Aminotransferase 58 U/L (0-40); Albumin Level 4.3 g/dL (3.5-5.0); Alkaline Phosphatase 61 U/L (39-117); Aspartate Amino Transferase 42 U/L (5-37); Bilirubin Direct 0.2 mg/dL (0.0-0.5); Bilirubin Total 0.4 mg/dL (0.0-1.0)
== END 2021-01-27 11:17 | disposition home or self-care (01) ==
LOC: HO.XRAY 11:16
PROVIDERS: PCP Internal Medicine; Visit Provider Internal Medicine
DX: M25.561 Pain in right knee (principal); R79.89 Other specified abnormal findings of blood chemistry; I25.10 Atherosclerotic heart disease of native coronary artery without angina pectoris
CPT/HCPCS: 36415; 73564; 80076

== ENCOUNTER 2021-03-18 09:12 | Outpatient (REF) | payer MEDICARE, MEDICAID, SELFPAY ==
[2021-03-18 10:31] LABS: Blood Urea Nitrogen 17 mg/dL (9-16); Estimated Glomerular Filt Rate > 60
== END 2021-03-18 09:13 | disposition home or self-care (01) ==
LOC: HO.10HDL 09:12
PROVIDERS: Absent Provider Internal Medicine; Visit Provider Nurse Practitioner Family
DX: I21.4 Non-ST elevation (NSTEMI) myocardial infarction (principal)
CPT/HCPCS: 36415; 82565; 84520

== ENCOUNTER 2021-05-26 09:29 | Outpatient (REF) | payer MEDICARE, MEDICAID, SELFPAY ==
[2021-05-26 10:14] LABS: MANUAL DIFF FLAG NO
[2021-05-26 10:18] LABS: Basophils Percent Auto 0.5 % (0-2); Eosinophils Absolute Auto 0.2 X10*3/uL (0.0-0.4); Eosinophils Percent Auto 3.6 % (0-4); Hematocrit 43.3 % (42.0-52.0); Hemoglobin 14.6 g/dl (14.0-18.0); Imm Gran Abs Auto 0.03 X10*3/uL (0.00-0.03); Imm Gran Pct Auto 0.5 % (0.0-0.4); Lymphocytes Percent Auto 30.3 % (20-40); Mean Corpuscular HGB Conc 33.7 g/dl (31.0-36.0); Mean Corpuscular Hemoglobin 31.4 pg (27.0-33.0); Mean Corpuscular Volume 93.1 fL (80.0-98.0); Mean Platelet Volume 9.2 fL (9.4-12.4); Monocytes Absolute Auto 0.5 X10*3/uL (0.1-1.2); Monocytes Percent Auto 7.5 % (2-11); Neutrophils Absolute Auto 3.7 x10*3/uL (2.0-8.3); Neutrophils Percent Auto 57.6 % (45-73); Platelet Count 163 X10*3/uL (160-400); Red Blood Count 4.65 X10*6/uL (4.60-5.80); Red Cell Distribution Width 13.2 % (11.0-16.0); White Blood Count 6.4 X10*3/uL (4.8-10.8)
[2021-05-26 10:39] LABS: Estimated Average Glucose 140 mg/dL; Hemoglobin A1c % 6.5 %
[2021-05-26 11:20] LABS: Alanine Aminotransferase 99 U/L (0-40); Albumin Level 4.2 g/dL (3.5-5.0); Alkaline Phosphatase 61 U/L (39-117); Anion Gap 13 (12-20); Aspartate Amino Transferase 70 U/L (5-37); Blood Urea Nitrogen 26 mg/dL (9-16); Calcium 9.5 mg/dL (8.4-10.2); Carbon Dioxide 27 mmol/L (22-29); Chloride 101 mmol/L (96-108); Estimated Glomerular Filt Rate > 60; Glucose Random 129 mg/dL (60-115); Potassium 4.5 mmol/L (3.3-5.1); Sodium 136 mmol/L (135-145); Total Protein 7.3 g/dL (6.5-8.0)
[2021-05-26 11:36] LABS: Bilirubin Total 0.3 mg/dL (0.0-1.0)
[2021-05-26 12:41] LABS: Influenza A PCR NEGATIVE (Negative); Influenza B PCR NEGATIVE (Negative); Resp Syncy Virus RNA Qual PCR NEGATIVE (Negative); SARS COV2 PCR INHOUSE NEGATIVE (Negative)
== END 2021-05-26 09:30 | disposition home or self-care (01) ==
LOC: HO.10HDL 09:29
PROVIDERS: PCP Internal Medicine; Visit Provider Internal Medicine
DX: Z20.822 Contact with and (suspected) exposure to COVID-19 (principal); E11.9 Type 2 diabetes mellitus without complications; I10 Essential (primary) hypertension; I25.10 Atherosclerotic heart disease of native coronary artery without angina pectoris; J44.9 Chronic obstructive pulmonary disease, unspecified
CPT/HCPCS: 0241U; 36415; 80053; 83036; 85025

== ENCOUNTER 2021-08-24 13:04 | Outpatient (REF) | payer MEDICARE, MEDICAID, SELFPAY ==
--- NOTE | ~2021-08-24 | CT_ITS ---
EXAMINATION: CT ABDOMEN AND PELVIS WITHOUT CONTRAST CLINICAL INFORMATION: Abdominal pain. Question hernia. COMPARISON: None TECHNIQUE: Multidetector volumetric imaging was performed from the superior aspect of the liver through the pubic symphysis. Sagittal and coronal reformatted images were obtained on the technologist's workstation. This CT examination was performed using dose optimization techniques as appropriate, variously including the following: *Automated exposure control *Adjustment of mA and/or kV according to patient size (this includes techniques or standardized protocols for targeted exams where dose is matched to indication/reason for exam; i.e. extremities or head) *Use of iterative reconstruction technique DLP: 836 mGy-cm FINDINGS: LUNG BASES: The visualized lung bases are unremarkable. LIVER, GALLBLADDER, AND BILIARY TREE: The liver is normal in size, shape, and attenuation. No focal hepatic lesion or biliary ductal dilatation is present. The gallbladder has been surgically removed. PANCREAS: Unremarkable. SPLEEN: Unremarkable. ADRENAL GLANDS: A lobulated appearing left adrenal gland with small nodules are noted. The right adrenal gland is unremarkable. KIDNEYS AND URETERS: The kidneys are normal in size, shape, and attenuation. No hydronephrosis, hydroureter, or calculi seen. No perinephric stranding. There is a punctate calcification along the left renal hilum. There is a left lower pole dilated pelvic 1.9 cm cyst. BLADDER: Unremarkable. GASTROINTESTINAL TRACT: There is diffuse sigmoid colon diverticulosis with minimal mural thickening but no pericolic fat stranding seen. Few scattered diverticuli seen in the rest of the colon without colonic distention. The small bowel loops are normal caliber. Appendix is not visualized with certainty. ABDOMINAL WALL: No significant hernia is appreciated. LYMPH NODES: Normal. VASCULAR: The abdominal aorta is of normal caliber with mild atherosclerosis. PELVIC VISCERA: There is no free air or free fluid. No abnormal pelvic lymph nodes. OSSEOUS STRUCTURES: There are degenerative disc changes with vacuum disc phenomena and spondylosis at every disc level for lower thoracic to lumbosacral junction. No aggressive lytic or sclerotic process seen. CT/CT abdomen pelvis wo con IMPRESSION: Diffuse sigmoid colon diverticulosis with mild mural thickening but no pericolic fat stranding question early diverticulitis. Left peripelvic renal cysts. No radiopaque urolith or hydronephrosis. Fleischner guidelines were followed.
[2021-08-24 13:21] LABS: MANUAL DIFF FLAG NO
[2021-08-24 13:41] LABS: Basophils Percent Auto 0.1 % (0-2); Eosinophils Absolute Auto 0.2 X10*3/uL (0.0-0.4); Hematocrit 42.3 % (42.0-52.0); Hemoglobin 13.9 g/dl (14.0-18.0); Imm Gran Abs Auto 0.03 X10*3/uL (0.00-0.03); Imm Gran Pct Auto 0.4 % (0.0-0.4); Lymphocytes Absolute Auto 2.2 X10*3/uL (1.2-4.9); Mean Corpuscular HGB Conc 32.9 g/dl (31.0-36.0); Mean Corpuscular Hemoglobin 30.8 pg (27.0-33.0); Mean Corpuscular Volume 93.8 fL (80.0-98.0); Mean Platelet Volume 9.3 fL (9.4-12.4); Monocytes Absolute Auto 0.5 X10*3/uL (0.1-1.2); Monocytes Percent Auto 6.6 % (2-11); Neutrophils Percent Auto 57.9 % (45-73); Platelet Count 168 X10*3/uL (160-400); Red Blood Count 4.51 X10*6/uL (4.60-5.80); Red Cell Distribution Width 13.3 % (11.0-16.0); White Blood Count 6.9 X10*3/uL (4.8-10.8)
[2021-08-24 13:51] LABS: Estimated Average Glucose 137 mg/dL; Hemoglobin A1c % 6.4 %
[2021-08-24 14:15] LABS: Alanine Aminotransferase 86 U/L (0-40); Albumin Level 4.4 g/dL (3.5-5.0); Alkaline Phosphatase 59 U/L (39-117); Anion Gap 14 (12-20); Aspartate Amino Transferase 58 U/L (5-37); Bilirubin Total 0.3 mg/dL (0.0-1.0); Blood Urea Nitrogen 25 mg/dL (9-16); C Reactive Protein 0.35 mg/dL (< or = 0.50); Calcium 9.7 mg/dL (8.4-10.2); Carbon Dioxide 27 mmol/L (22-29); Chloride 101 mmol/L (96-108); Estimated Glomerular Filt Rate > 60; Glucose Random 105 mg/dL (60-115); Potassium 4.5 mmol/L (3.3-5.1); Sodium 137 mmol/L (135-145); Total Protein 7.3 g/dL (6.5-8.0)
== END 2021-08-24 13:05 | disposition home or self-care (01) ==
LOC: HO.CT 13:04
PROVIDERS: PCP Internal Medicine; Visit Provider Internal Medicine
DX: R10.9 Unspecified abdominal pain (principal); I10 Essential (primary) hypertension; R79.89 Other specified abnormal findings of blood chemistry
CPT/HCPCS: 36415; 74176; 80053; 83036; 85025; 86140

== ENCOUNTER 2021-12-18 09:39 | Outpatient (REF) | payer MEDICARE, MEDICAID, SELFPAY ==
[2021-12-18 11:05] LABS: Estimated Average Glucose 134 mg/dL; Hemoglobin A1c % 6.3 %
[2021-12-18 11:09] LABS: Alanine Aminotransferase 71 U/L (0-40); Albumin Level 4.4 g/dL (3.5-5.0); Alkaline Phosphatase 61 U/L (39-117); Anion Gap 14 (12-20); Aspartate Amino Transferase 65 U/L (5-37); Bilirubin Total 0.3 mg/dL (0.0-1.0); Blood Urea Nitrogen 22 mg/dL (9-16); Calcium 9.6 mg/dL (8.4-10.2); Carbon Dioxide 25 mmol/L (22-29); Chloride 103 mmol/L (96-108); Estimated Glomerular Filt Rate > 60; Glucose Random 120 mg/dL (60-115); Potassium 4.7 mmol/L (3.3-5.1); Sodium 137 mmol/L (135-145); Total Protein 7.4 g/dL (6.5-8.0)
[2021-12-18 11:31] LABS: Prostate Specific Antigen Scr 0.39 ng/mL (<0.05-4.0)
== END 2021-12-18 09:40 | disposition home or self-care (01) ==
LOC: HO.10HDL 09:39
PROVIDERS: Visit Provider Internal Medicine
DX: E11.9 Type 2 diabetes mellitus without complications (principal); J44.9 Chronic obstructive pulmonary disease, unspecified; I10 Essential (primary) hypertension; R35.1 Nocturia; Z12.5 Encounter for screening for malignant neoplasm of prostate
CPT/HCPCS: 36415; 80053; 83036; 84153

== ENCOUNTER 2022-03-26 09:35 | Outpatient (REF) | payer MEDICARE, MEDICAID, SELFPAY ==
[2022-03-26 10:37] LABS: MANUAL DIFF FLAG NO
[2022-03-26 10:42] LABS: Basophils Percent Auto 0.4 % (0-2); Eosinophils Absolute Auto 0.2 X10*3/uL (0.0-0.4); Eosinophils Percent Auto 3.5 % (0-4); Hematocrit 40.4 % (42.0-52.0); Hemoglobin 13.4 g/dl (14.0-18.0); Imm Gran Abs Auto 0.03 X10*3/uL (0.00-0.03); Imm Gran Pct Auto 0.6 % (0.0-0.4); Lymphocytes Absolute Auto 1.5 X10*3/uL (1.2-4.9); Lymphocytes Percent Auto 28.9 % (20-40); Mean Corpuscular HGB Conc 33.2 g/dl (31.0-36.0); Mean Corpuscular Hemoglobin 31.5 pg (27.0-33.0); Mean Corpuscular Volume 94.8 fL (80.0-98.0); Mean Platelet Volume 9.2 fL (9.4-12.4); Monocytes Absolute Auto 0.3 X10*3/uL (0.1-1.2); Monocytes Percent Auto 6.1 % (2-11); Neutrophils Absolute Auto 3.1 x10*3/uL (2.0-8.3); Neutrophils Percent Auto 60.5 % (45-73); Platelet Count 171 X10*3/uL (160-400); Red Blood Count 4.26 X10*6/uL (4.60-5.80); Red Cell Distribution Width 13.9 % (11.0-16.0); White Blood Count 5.1 X10*3/uL (4.8-10.8)
[2022-03-26 10:59] LABS: Estimated Average Glucose 128 mg/dL; Hemoglobin A1C 149.4554 umol/L; Hemoglobin A1c % 6.1 %
[2022-03-26 11:17] LABS: Alanine Aminotransferase 80 U/L (0-40); Albumin Level 4.2 g/dL (3.5-5.0); Alkaline Phosphatase 61 U/L (39-117); Anion Gap 17 (12-20); Aspartate Amino Transferase 66 U/L (5-37); Bilirubin Total 0.4 mg/dL (0.0-1.0); Blood Urea Nitrogen 19 mg/dL (9-16); Calcium 8.7 mg/dL (8.4-10.2); Carbon Dioxide 24 mmol/L (22-29); Chloride 101 mmol/L (96-108); Cholesterol 206 mg/dL; Estimated Glomerular Filt Rate > 60; Glucose Fasting 146 mg/dL (60-99); HDL Cholesterol 45 mg/dL; LDL Cholesterol Calculated 101 mg/dl; Potassium 4.6 mmol/L (3.3-5.1); Sodium 137 mmol/L (135-145); Total Protein 7.1 g/dL (6.5-8.0); Triglycerides 300 mg/dL
[2022-03-29 11:10] LABS: Appearance Urine Clear; Color Urine Dark Yellow; Glucose Urine UA Negative (Negative); Leukocyte Esterase Urine Negative (Negative); Nitrite Urine Negative (Negative); PH 5.5 (5.0-9.0); Specific Gravity - Urine >= 1.030 (1.005-1.025); UMIC TRIGGER UA YES; Urine Blood Negative (Negative); Urine Ketones Negative (Negative); Urine Protein 30 (1+) mg/dL (Neg-Trace)
[2022-03-29 11:16] LABS: Bacteria Urine None Seen (None Seen); Hyaline Casts Urine 0-2 /LPF (0-2); RBC Urine 0-2 /HPF (0-2); Squamous Epithelial Cell Urine 0-2 /HPF (0-2); WBC Urine 0-5 /HPF (0-5)
[2022-03-29 11:19] LABS: Creatinine Urine 132.19 mg/dL; Microalbum/Creatinine Ratio Ur 164.1 ug/mg cr
[2022-03-29 13:02] LABS: Absolute CD3 Count 1310 cells/uL (840-3060); Absolute CD4 Count 611 cells/uL (490-1740); Absolute CD8 Count 700 cells/uL (180-1170); Absolute Lymphocytes 1574 cells/uL (850-3900); CD4 CD8 Ratio 0.87 (0.86-5.00); Percent CD3 Cells 83 % (57-85); Percent CD4 Cells 39 % (30-61); Percent CD8 Cells 44 % (12-42)
[2022-03-30 09:21] LABS: HIV RNA PCR Qn Copies NOT DETECTED copies/mL (NOT DETECTED); HIV RNA PCR Qn Log Copies NOT DETECTED (NOT DETECTED)
== END 2022-03-26 09:36 | disposition home or self-care (01) ==
LOC: HO.10HDL 09:35
PROVIDERS: Visit Provider Internal Medicine
DX: Z11.4 Encounter for screening for human immunodeficiency virus [HIV] (principal); E11.9 Type 2 diabetes mellitus without complications; J44.9 Chronic obstructive pulmonary disease, unspecified; I25.10 Atherosclerotic heart disease of native coronary artery without angina pectoris; I10 Essential (primary) hypertension; N40.0 Benign prostatic hyperplasia without lower urinary tract symptoms; R75 Inconclusive laboratory evidence of human immunodeficiency virus [HIV]
CPT/HCPCS: 36415; 80053; 80061; 81001; 81003; 82043; 83036; 85025; 86359; 86360; 87536

== ENCOUNTER 2022-07-29 09:08 | Outpatient (REF) | payer MEDICARE, MEDICAID, SELFPAY ==
[2022-07-29 10:46] LABS: MANUAL DIFF FLAG NO
[2022-07-29 11:07] LABS: Basophils Percent Auto 0.5 % (0-2); Eosinophils Absolute Auto 0.2 X10*3/uL (0.0-0.4); Eosinophils Percent Auto 3.2 % (0-4); Hematocrit 43.3 % (42.0-52.0); Hemoglobin 14.3 g/dl (14.0-18.0); Imm Gran Abs Auto 0.02 X10*3/uL (0.00-0.03); Imm Gran Pct Auto 0.4 % (0.0-0.4); Lymphocytes Percent Auto 35.4 % (20-40); Mean Corpuscular Hemoglobin 31.4 pg (27.0-33.0); Mean Corpuscular Volume 95.2 fL (80.0-98.0); Mean Platelet Volume 9.5 fL (9.4-12.4); Monocytes Absolute Auto 0.3 X10*3/uL (0.1-1.2); Monocytes Percent Auto 5.9 % (2-11); Neutrophils Percent Auto 54.6 % (45-73); Platelet Count 172 X10*3/uL (160-400); Red Blood Count 4.55 X10*6/uL (4.60-5.80); Red Cell Distribution Width 13.1 % (11.0-16.0); White Blood Count 5.6 X10*3/uL (4.8-10.8)
[2022-07-29 11:31] LABS: Estimated Average Glucose 134 mg/dL; Hemoglobin A1c % 6.3 %
[2022-07-29 12:49] LABS: Creatinine Urine 108.95 mg/dL; Microalbum/Creatinine Ratio Ur 57.8 ug/mg cr
[2022-07-29 15:23] LABS: Alanine Aminotransferase 74 U/L (0-40); Albumin Level 4.2 g/dL (3.5-5.0); Alkaline Phosphatase 62 U/L (39-117); Anion Gap 16 (12-20); Aspartate Amino Transferase 55 U/L (5-37); Bilirubin Total 0.3 mg/dL (0.0-1.0); Blood Urea Nitrogen 18 mg/dL (9-16); Calcium 8.8 mg/dL (8.4-10.2); Carbon Dioxide 26 mmol/L (22-29); Chloride 102 mmol/L (96-108); Estimated Glomerular Filt Rate > 60; Glucose Random 155 mg/dL (60-115); Potassium 4.4 mmol/L (3.3-5.1); Sodium 140 mmol/L (135-145); Total Protein 6.7 g/dL (6.5-8.0)
== END 2022-07-29 09:09 | disposition home or self-care (01) ==
LOC: HO.10HDL 09:08
PROVIDERS: Visit Provider Internal Medicine
DX: Z13.89 Encounter for screening for other disorder (principal)
CPT/HCPCS: 36415; 80053; 82043; 83036; 85025

== ENCOUNTER 2022-10-14 07:37 | Outpatient (REF) | payer MEDICARE, MEDICAID, SELFPAY ==
[2022-10-14 10:43] LABS: MANUAL DIFF FLAG NO
[2022-10-14 10:45] LABS: Appearance Urine Clear; Color Urine Yellow; Glucose Urine UA Negative (Negative); Leukocyte Esterase Urine Negative (Negative); Nitrite Urine Negative (Negative); Specific Gravity - Urine 1.025 (1.005-1.025); Urine Blood Negative (Negative); Urine Ketones Negative (Negative); Urine Protein Trace mg/dL (Neg-Trace)
[2022-10-14 10:45] LABS: Basophils Percent Auto 0.3 % (0-2); Eosinophils Absolute Auto 0.2 X10*3/uL (0.0-0.4); Eosinophils Percent Auto 2.9 % (0-4); Hematocrit 41.7 % (42.0-52.0); Imm Gran Abs Auto 0.02 X10*3/uL (0.00-0.03); Imm Gran Pct Auto 0.3 % (0.0-0.4); Lymphocytes Absolute Auto 2.3 X10*3/uL (1.2-4.9); Lymphocytes Percent Auto 34.1 % (20-40); Mean Corpuscular HGB Conc 33.6 g/dl (31.0-36.0); Mean Corpuscular Hemoglobin 31.9 pg (27.0-33.0); Mean Platelet Volume 9.7 fL (9.4-12.4); Monocytes Absolute Auto 0.4 X10*3/uL (0.1-1.2); Monocytes Percent Auto 5.9 % (2-11); Neutrophils Absolute Auto 3.9 x10*3/uL (2.0-8.3); Neutrophils Percent Auto 56.5 % (45-73); Platelet Count 188 X10*3/uL (160-400); Red Blood Count 4.39 X10*6/uL (4.60-5.80); Red Cell Distribution Width 13.4 % (11.0-16.0); White Blood Count 6.8 X10*3/uL (4.8-10.8)
== END 2022-10-14 07:38 | disposition home or self-care (01) ==
LOC: HO.10HDL 07:37
PROVIDERS: Visit Provider Internal Medicine
DX: R30.0 Dysuria (principal)
CPT/HCPCS: 36415; 81003; 85025; 87086

== ENCOUNTER 2022-12-28 08:41 | Outpatient (REF) | payer OTHER, SELFPAY ==
--- NOTE | ~2022-12-28 | XR_ITS ---
EXAMINATION: XR WRIST, RIGHT CLINICAL INFORMATION: Right wrist pain COMPARISON: None available. TECHNIQUE: PA, lateral, and oblique views of the right wrist. FINDINGS: No evidence for acute fracture or dislocation. Scaphoid and lunate appear to be intact. Chondrocalcinosis is observed. No distinct erosive abnormality. There is slight narrowing at the first CMC joint on one view. There is mild eccentric narrowing laterally at the radiocarpal joint. XR/XR wrist RT min 3V IMPRESSION: 1. No acute process. Degenerative changes as noted above. 2. Chondrocalcinosis.
[2022-12-28 11:05] LABS: MANUAL DIFF FLAG NO
[2022-12-28 11:09] LABS: Basophils Percent Auto 0.4 % (0-2); Eosinophils Absolute Auto 0.2 X10*3/uL (0.0-0.4); Eosinophils Percent Auto 3.6 % (0-4); Hematocrit 39.5 % (42.0-52.0); Hemoglobin 13.3 g/dl (14.0-18.0); Imm Gran Abs Auto 0.02 X10*3/uL (0.00-0.03); Imm Gran Pct Auto 0.4 % (0.0-0.4); Lymphocytes Absolute Auto 1.8 X10*3/uL (1.2-4.9); Lymphocytes Percent Auto 34.1 % (20-40); Mean Corpuscular HGB Conc 33.7 g/dl (31.0-36.0); Mean Corpuscular Hemoglobin 31.5 pg (27.0-33.0); Mean Corpuscular Volume 93.6 fL (80.0-98.0); Mean Platelet Volume 9.8 fL (9.4-12.4); Monocytes Absolute Auto 0.3 X10*3/uL (0.1-1.2); Monocytes Percent Auto 5.6 % (2-11); Neutrophils Percent Auto 55.9 % (45-73); Platelet Count 168 X10*3/uL (160-400); Red Blood Count 4.22 X10*6/uL (4.60-5.80); Red Cell Distribution Width 13.4 % (11.0-16.0); White Blood Count 5.3 X10*3/uL (4.8-10.8)
[2022-12-28 11:50] LABS: Erythrocyte Sedimentation Rate 14 MM/HR (0-15)
[2022-12-28 11:52] LABS: Anion Gap 14 (12-20); Blood Urea Nitrogen 19 mg/dL (9-16); C Reactive Protein 0.32 mg/dL (< or = 0.50); Calcium 9.4 mg/dL (8.4-10.2); Carbon Dioxide 25 mmol/L (22-29); Chloride 102 mmol/L (96-108); Estimated Glomerular Filt Rate > 60; Glucose Random 169 mg/dL (60-115); Potassium 4.1 mmol/L (3.3-5.1); Sodium 137 mmol/L (135-145); Uric Acid 7.3 mg/dL (3.4-7.0)
== END 2022-12-28 08:42 | disposition home or self-care (01) ==
LOC: HO.10HDL 08:41
PROVIDERS: PCP Internal Medicine; Visit Provider Internal Medicine
DX: M25.531 Pain in right wrist (principal)
CPT/HCPCS: 36415; 73110; 80048; 84550; 85025; 85652; 86140

== ENCOUNTER 2023-03-02 08:32 | Outpatient (REF) | payer OTHER, SELFPAY ==
[2023-03-02 10:46] LABS: MANUAL DIFF FLAG NO
[2023-03-02 10:50] LABS: Basophils Percent Auto 0.4 % (0-2); Eosinophils Absolute Auto 0.2 X10*3/uL (0.0-0.4); Eosinophils Percent Auto 3.1 % (0-4); Hematocrit 42.5 % (42.0-52.0); Imm Gran Abs Auto 0.02 X10*3/uL (0.00-0.03); Imm Gran Pct Auto 0.4 % (0.0-0.4); Lymphocytes Absolute Auto 1.8 X10*3/uL (1.2-4.9); Lymphocytes Percent Auto 34.5 % (20-40); Mean Corpuscular HGB Conc 32.9 g/dl (31.0-36.0); Mean Corpuscular Hemoglobin 31.7 pg (27.0-33.0); Mean Corpuscular Volume 96.4 fL (80.0-98.0); Mean Platelet Volume 9.9 fL (9.4-12.4); Monocytes Absolute Auto 0.3 X10*3/uL (0.1-1.2); Monocytes Percent Auto 6.4 % (2-11); Neutrophils Absolute Auto 2.9 x10*3/uL (2.0-8.3); Neutrophils Percent Auto 55.2 % (45-73); Platelet Count 162 X10*3/uL (160-400); Red Blood Count 4.41 X10*6/uL (4.60-5.80); Red Cell Distribution Width 13.5 % (11.0-16.0); White Blood Count 5.2 X10*3/uL (4.8-10.8)
[2023-03-02 10:55] LABS: Appearance Urine Clear; Color Urine Yellow; Glucose Urine UA Negative (Negative); Leukocyte Esterase Urine Negative (Negative); Nitrite Urine Negative (Negative); PH 5.5 (5.0-9.0); Urine Blood Negative (Negative); Urine Ketones Negative (Negative); Urine Protein Trace mg/dL (Neg-Trace)
[2023-03-02 11:02] LABS: Estimated Average Glucose 131 mg/dL; Hemoglobin A1c % 6.2 % (<6.0)
[2023-03-02 11:11] LABS: Alanine Aminotransferase 92 U/L (0-40); Alkaline Phosphatase 56 U/L (39-117); Anion Gap 15 (12-20); Aspartate Amino Transferase 75 U/L (5-37); Bilirubin Total 0.3 mg/dL (0.0-1.0); Blood Urea Nitrogen 13 mg/dL (9-16); Calcium 9.3 mg/dL (8.4-10.2); Carbon Dioxide 23 mmol/L (22-29); Chloride 102 mmol/L (96-108); Cholesterol 136 mg/dL (<200); Estimated Glomerular Filt Rate > 60; Glucose Fasting 160 mg/dL (60-99); HDL Cholesterol 36 mg/dL (>40); Iron 84 mcg/dL (45-160); LDL Cholesterol Calculated 28 mg/dL (<100); Percent Iron Saturation 28 % (15-50); Potassium 4.3 mmol/L (3.3-5.1); Sodium 136 mmol/L (135-145); Total Iron Binding Capacity 296 mcg/dL (228-428); Triglycerides 361 mg/dL (<150); Unsaturated Iron Binding 212 ug/dL
[2023-03-02 11:20] LABS: Creatinine Urine 102.59 mg/dL; Microalbum/Creatinine Ratio Ur 136.4 ug/mg cr (<30)
[2023-03-02 11:31] LABS: Prostate Specific Antigen Scr 0.42 ng/mL (<0.05-4.0); Vitamin B12 516 pg/mL (200-900)
== END 2023-03-02 08:33 | disposition home or self-care (01) ==
LOC: HO.10HDL 08:32
PROVIDERS: Visit Provider Internal Medicine
DX: I25.10 Atherosclerotic heart disease of native coronary artery without angina pectoris (principal); E78.00 Pure hypercholesterolemia, unspecified; E11.9 Type 2 diabetes mellitus without complications; I10 Essential (primary) hypertension; D64.9 Anemia, unspecified; N40.0 Benign prostatic hyperplasia without lower urinary tract symptoms; Z12.5 Encounter for screening for malignant neoplasm of prostate
CPT/HCPCS: 36415; 80053; 80061; 81003; 82043; 82570; 82607; 83036; 83540; 84153; 85025

== ENCOUNTER 2023-06-15 10:12 | Inpatient (IN) | payer OTHER, SELFPAY ==
[2023-06-15] VITALS (10 sets, daily range): BP systolic 104–129; BP diastolic 65–89; PULSE 73–145; RESP 12–21; TEMP 36.3–36.8; O2SAT 92–97; BMI 42.8; BMI 42.7
--- NOTE | 2023-06-15 | ECG_ITS ---
Test Reason : TACHY Blood Pressure : / mmHG Vent. Rate : 140 BPM Atrial Rate : 000 BPM P-R Int : 000 ms QRS Dur : 146 ms QT Int : 364 ms P-R-T Axes : 000 264 057 degrees QTc Int : 555 ms Atrial flutter with variable block Right bundle branch block Abnormal ECG When compared with ECG of 15-JUN-2023 10:26, No significant change was found Referred By: France Tijerina Electronically Signed By:Erasmo Acosta
--- NOTE | ~2023-06-15 | XR_ITS ---
EXAMINATION: XR CHEST CLINICAL INFORMATION: Tachycardia COMPARISON: 12/15/2020 TECHNIQUE: Frontal view of the chest was obtained. FINDINGS: Heart mildly enlarged with left ventricular prominence. Slight distention of the pulmonary vessels. Mild congestive change could've such an appearance. No focal consolidations. There is degenerative change of both shoulder joints. XR/XR chest 1V IMPRESSION: Mild congestive change possibly exaggerated in appearance to upright lordotic technique. Recommend follow-up will centered PA and lateral when clinically feasible.
--- NOTE | ~2023-06-15 | CT_ITS ---
EXAMINATION: CT ABDOMEN AND PELVIS WITH CONTRAST CLINICAL INFORMATION: Abdominal pain. Diarrhea. COMPARISON: 08/24/2021 TECHNIQUE: Multidetector volumetric images were obtained from the superior aspect of the liver through the pubic symphysis following administration 85 mL of Omnipaque 350 intravenous contrast. Sagittal and coronal reformatted images were obtained on the technologist's workstation. Oral contrast: No This CT examination was performed using dose optimization techniques as appropriate, variously including the following: *Automated exposure control *Adjustment of mA and/or kV according to patient size (this includes techniques or standardized protocols for targeted exams where dose is matched to indication/reason for exam; i.e. extremities or head) *Use of iterative reconstruction technique DLP: 722 mGy-cm FINDINGS: LUNG BASES: Small hiatal hernia. Marked coronary artery calcifications. LIVER, GALLBLADDER, AND BILIARY TREE: The liver is enlarged and decreased in attenuation. No focal hepatic lesion or biliary ductal dilatation is present. The gallbladder is surgically absent. PANCREAS: Unremarkable. SPLEEN: Not enlarged. ADRENAL GLANDS: Stable 1.7 x 2.6 cm left adrenal nodule. Additional smaller nodules are also stable. Right adrenal gland is unremarkable. KIDNEYS AND URETERS: The kidneys are normal in size, shape, and attenuation. Bilateral renal cysts. No further routine follow-up is needed. No hydronephrosis or perinephric stranding. BLADDER: Decompressed. GASTROINTESTINAL TRACT: Wall thickening of the mid sigmoid colon with pericolonic stranding. There is extensive underlying diverticular disease. No small bowel obstruction. ABDOMINAL WALL: No significant hernia is appreciated. LYMPH NODES: No bulky lymphadenopathy. VASCULAR: Normal caliber abdominal aorta. PELVIC VISCERA: Unremarkable. OSSEOUS STRUCTURES: T12 vertebral body hemangioma. No destructive bone lesions. CT/CT abdomen pelvis w IV con IMPRESSION: Acute diverticulitis of the sigmoid colon. Follow-up imaging after treatment is advised. Hepatomegaly and hepatic steatosis. Indeterminate dominant left adrenal nodule with few smaller nodules also unchanged from 06/01/2014.
--- NOTE | 2023-06-15 10:17 | ECG_ITS ---
Test Reason : TACHY Blood Pressure : / mmHG Vent. Rate : 129 BPM Atrial Rate : 000 BPM P-R Int : 000 ms QRS Dur : 154 ms QT Int : 366 ms P-R-T Axes : 000 269 049 degrees QTc Int : 536 ms Atrial fibrillation with rapid ventricular response Right bundle branch block Abnormal ECG When compared with ECG of 15-DEC-2020 14:33, Atrial fibrillation has replaced Sinus rhythm Vent. rate has increased BY 48 BPM Nonspecific T wave abnormality has replaced inverted T waves in Inferior leads Referred By: Chet Gaitan Electronically Signed By:Erasmo Acosta
--- NOTE | 2023-06-15 10:17 | ED.GENADULT ---
HPI - General Adult General Chief complaint: Chest Pain Stated complaint: TACHY Time Seen by Provider: 06/15/23 10:17 Source: patient and EMS Mode of arrival: EMS Limitations: no limitations History of Present Illness HPI narrative: 68 year old male hx of HTN, DM, HLD, presenting w/ high blood pressure, L arm pain, and a racing heart described as a twitch in his chest all of which started this morning after waking up. Took his blood pressure and noted that his systolic pressure was high in the 140s and his heart was racing. Decided to call EMS and sx have not gone away. Denies CP, sob, nausea, vomiting, headache, vision changes, dizziness, weakness. Related Data Home Medications Medication Instructions Recorded Confirmed lisinopril 2.5 mg tablet 2.5 mg PO DAILY 08/21/20 metformin 500 mg tablet 500 mg PO DAILY 08/21/20 omeprazole 10 mg capsule,delayed 10 mg PO DAILY 08/21/20 release simvastatin 5 mg tablet 5 mg PO DAILY 08/21/20 terazosin 1 mg capsule 1 mg PO DAILY 08/21/20 Previous Rx's Medication Instructions Recorded ibuprofen 800 mg tablet 800 mg PO TID PRN pain #90 tabs 08/21/20 Allergies Allergy/AdvReac Type Severity Reaction Status Date / Time No Known Allergies Allergy Verified 06/15/23 10:21 Review of Systems Review of Systems: Yes all other systems are reviewed and are negative [facility] Past Medical History Attestation statement: The following information was validated with the patient. Source: old records reviewed and nursing notes reviewed Medical History Tear of left hamstring Diabetes High cholesterol High blood pressure Social History Social History Patient Tobacco Use Status: Former Tobacco user Smoked in Last 30 Days: No Use of substances other than those prescribed or required for medical reasons: Yes Substance Use Type: Marijuana Advance Directives: No Advance Directives Information Provided: Yes Current occupational status: retired Current occupation: rt handed Physical Exam ED Vital Signs: Vital Signs - 24 hr 06/15/23 10:21 06/15/23 10:36 06/15/23 10:48 Temperature 98.1 F Pulse Rate 140 H 131 H Respiratory Rate 16 18 Blood Pressure 127/89 Pulse Oximetry 97 96 96 Oxygen Delivery Method Room Air Nasal Cannula Nasal Cannula Oxygen Flow Rate 2 2 06/15/23 13:04 06/15/23 13:10 Temperature 98.1 F Pulse Rate 124 H 127 H Respiratory Rate 12 16 Blood Pressure 104/78 112/78 Pulse Oximetry 96 96 Oxygen Delivery Method Room Air Room Air Oxygen Flow Rate BMI result Body Mass Index 42.8 vss Appearance: Alert.? Oriented X3.? No acute distress.? Head: Normocephalic, atraumatic, no step-offs or deformities Eyes: Pupils equal, round and reactive to light.? CVS: tachycardia w/ irregularly irregular rythem noted. 140-150 beats per minute.? Pulses normal.? Respiratory: No respiratory distress.? Breath sounds normal.? Abdomen: Soft and nontender.? Skin: Skin warm and dry.? Normal skin color.? Normal skin turgor.? Extremities: No lower extremity edema.? No calf ttp. 5/5 strength to bilateral upper and lower extremities Neuro: Oriented X 3.? No motor deficit.? No sensory deficit. CN 2-12 intact Course Reevaluation(s) Reevaluation #1: EKG was immediately obtained upon arrival this is likely atrial flutter. Right bundle-branch block noted. Patient has no history of this in the past. He is not anticoagulated. Labs pending Time: 10:32 Reevaluation #2: CBC unremarkable. Chemistry no acute findings. BNP unremarkable. Troponin 18.7 repeat pending slight increase likely due to demand. EKG with atrial flutter versus atrial fib. Cardizem has been given slowed the rate down however not ideal will start Cardizem drip and admit patient to the hospitalist. I did discuss this with cardiology who will follow him while in the hospital. Time: 13:26 Medications Administered Generic Name Dose Route Start Last Admin Trade Name Freq PRN Reason Stop Dose Admin Diltiazem HCl 125 mg/ Sodium 125 mls @ 0 mls/hr 06/15/23 13:15 06/15/23 13:24 Chloride IVCONT 10 mg/hr .Q0M BETH 10 mls/hr Administration Protocol Per Protocol Discontinued Medications Generic Name Dose Route Start Last Admin Trade Name Freq PRN Reason Stop Dose Admin Diltiazem HCl 10 mg 06/15/23 10:29 06/15/23 10:40 Diltiazem Hcl 50 Mg/10 Ml Vial IVPUSH 06/15/23 10:30 10 mg STAT STA Administration Diltiazem HCl 10 mg 06/15/23 10:34 06/15/23 11:26 Diltiazem Hcl 50 Mg/10 Ml Vial IVPUSH 06/15/23 10:35 10 mg STAT STA Administration Diltiazem HCl 10 mg 06/15/23 12:23 06/15/23 13:03 Diltiazem Hcl 50 Mg/10 Ml Vial IVPUSH 06/15/23 12:24 10 mg STAT STA Administration Medical Decision Making Medical Decision Making [facility] Narrative: 1021 68 year old male presents w/ high blood pressure systolic pressure 140 and fast heart rate PE tachycardia w/ irregularly irregular rythem noted. History and physical exam concerning for poorly controlled hypertension versus afib/flutter vs anxiety versus noncardiac related chest pain. Will rule out ACS. Unlikely dissection, pulmonary embolism CHS. No signs of acute respiratory distress. Plan labs, EKG, imaging Differential Diagnosis Differential Diagnoses: The differential diagnosis associated with the presentation includes History and physical exam concerning for poorly controlled hypertension versus afib/flutter vs anxiety versus noncardiac related chest pain. Will rule out ACS. Unlikely dissection, pulmonary embolism CHS. No signs of acute respiratory distress. Admission/Observation Consideration of admission/observation: Escalation of care including admission/observation considered possible Consult Healthcare Provider Management of the patient was discussed with: Railroad Engineer (cardiology ) Lab Data [facility] Lab Attestation statement: I reviewed the patient's lab results. 06/15/23 10:29 06/15/23 10:29 Labs: Lab Results 06/15/23 Range/Units 10:29 WBC 5.6 (4.8-10.8) X10*3/uL RBC 4.71 (4.60-5.80) X10*6/uL Hgb 14.6 (14.0-18.0) g/dl Hct 43.1 (42.0-52.0) % MCV 91.5 (80.0-98.0) fL MCH 31.0 (27.0-33.0) pg MCHC 33.9 (31.0-36.0) g/dl RDW 13.1 (11.0-16.0) % Plt Count 147 L (160-400) X10*3/uL MPV 9.1 L (9.4-12.4) fL Immature Gran % (Auto) 0.4 (0.0-0.4) % Neut % (Auto) 58.6 (45-73) % Lymph % (Auto) 30.8 (20-40) % [place] % (Auto) 6.8 (2-11) % Eos % (Auto) 2.9 (0-4) % Baso % (Auto) 0.5 (0-2) % Lymph # (Auto) 1.7 (1.2-4.9) X10*3/uL [place] # (Auto) 0.4 (0.1-1.2) X10*3/uL Eos # (Auto) 0.2 (0.0-0.4) X10*3/uL Baso # (Auto) 0.0 (0.0-0.2) X10*3/uL Abs Immat Gran (auto) 0.02 (0.00-0.03) X10*3/uL Absolute Neuts (auto) 3.3 (2.0-8.3) x10*3/uL Absolute Nucleated RBC 0.000 (0.0-0.012) X10*3/uL Nucleated RBC % (auto) 0.0 (0.0-0.2) /100WBC PT 11.3 (11.1-13.3) SEC INR 0.9 (0.9-1.1) D-Dimer High Sensitivty < 150 NG/ML Sodium 136 (135-145) mmol/L Potassium 4.7 (3.3-5.1) mmol/L Chloride 100 (96-108) mmol/L Carbon Dioxide 24 (22-29) mmol/L Anion Gap 17 (12-20) BUN 13 (9-16) mg/dL Creatinine 0.77 (0.5-1.4) mg/dL Estim Creat Clear Calc 118.0 Estimated GFR > 60 Random Glucose 155 H (60-115) mg/dL Calcium 9.2 (8.4-10.2) mg/dL Magnesium 1.6 (1.6-2.6) mg/dL Total Bilirubin 0.4 (0.0-1.0) mg/dL AST 79 H (5-37) U/L ALT 88 H (0-40) U/L Alkaline Phosphatase 62 (39-117) U/L Troponin I High Sens 18.7 (<3.5-35.0) ng/L B-Natriuretic Peptide 31 (<100) pg/mL Total Protein 7.2 (6.5-8.0) g/dL Albumin 3.9 (3.5-5.0) g/dL Independent Interpretation I performed an independent interpretation of an: EKG (New afib vs flutter ) and Plain X-Ray (XR/XR chest 1V IMPRESSION: Mild congestive change possibly exaggerated in appearance to upright lordotic technique. Recommend follow-up will centered PA and lateral when clinically feasible.) Radiology Impression Discussion of test interpretation with radiology: I have reviewed the radiologist's reading. External Record Review External record reviewed: Inpatient record, Office record, Outpatient record, Prior outpatient labs, Prior outpatient radiology, Primary care record and Outside ED record Chronic Conditions Patient?s care impacted by: Hypertension and Other (obesity ) Core Measures AMI core measures followed: Yes Measure exclusions: not indicated Critical Care Time Critical Care Time Critical Care Time: Yes Total Critical Care Time: 45 Attestation: I attest to this time spent taking care of the patient, obtaining history, physical, reviewing labs, imaging, speaking to my attending, speaking to specialist. Discharge Plan Discharge Clinical Impression: Atrial fibrillation Patient Disposition: Admitted As Inpatient Prescriptions: No Action ibuprofen 800 mg tablet 800 mg PO TID PRN (Reason: pain) Qty: 90 1RF
[2023-06-15 10:33] LABS: MANUAL DIFF FLAG NO
[2023-06-15 10:35] LABS: Basophils Percent Auto 0.5 % (0-2); Eosinophils Absolute Auto 0.2 X10*3/uL (0.0-0.4); Eosinophils Percent Auto 2.9 % (0-4); Hematocrit 43.1 % (42.0-52.0); Hemoglobin 14.6 g/dl (14.0-18.0); Imm Gran Abs Auto 0.02 X10*3/uL (0.00-0.03); Imm Gran Pct Auto 0.4 % (0.0-0.4); Lymphocytes Absolute Auto 1.7 X10*3/uL (1.2-4.9); Lymphocytes Percent Auto 30.8 % (20-40); Mean Corpuscular HGB Conc 33.9 g/dl (31.0-36.0); Mean Corpuscular Volume 91.5 fL (80.0-98.0); Mean Platelet Volume 9.1 fL (9.4-12.4); Monocytes Absolute Auto 0.4 X10*3/uL (0.1-1.2); Monocytes Percent Auto 6.8 % (2-11); Neutrophils Absolute Auto 3.3 x10*3/uL (2.0-8.3); Neutrophils Percent Auto 58.6 % (45-73); Platelet Count 147 X10*3/uL (160-400); Red Blood Count 4.71 X10*6/uL (4.60-5.80); Red Cell Distribution Width 13.1 % (11.0-16.0); White Blood Count 5.6 X10*3/uL (4.8-10.8)
--- NOTE | 2023-06-15 10:36 | PC.NURSE ---
a&ox4. vss and up to date aside from being tachycardic. afib/sinus tachy displaying on potline monitor bedside at this time. pt presents to the ED w/ sudden onset of not feeling well, twitching in left side of chest that radiates to LUE and headache. pt denies n/v/d. pt verbalizes taking all home medications as prescribed. pt originally came in on RA w/o difficulties. sudden onset of feeling sob while conversating w/ pt. ED provider bedside verbalizing ok to place pt on 2L via NC to promote comfort. slight wob noted. respirations even/slightly labored. pt repositioned upward/to comfort. labs/obtained sent to lab. ekg performed by tech. plan of care ongoing. call guzman placed within reach.
[2023-06-15] MEDS: dilTIAZem HCL 50 MG/10 ML VIAL 10 MG IVPUSH ×3 (10:40→13:03)
--- NOTE | 2023-06-15 10:44 | PC.NURSE ---
medication administered per provider order. pt speaking w/ ED provider at this time.
[2023-06-15 10:51] LABS: Alanine Aminotransferase 88 U/L (0-40); Albumin Level 3.9 g/dL (3.5-5.0); Alkaline Phosphatase 62 U/L (39-117); Anion Gap 17 (12-20); Aspartate Amino Transferase 79 U/L (5-37); Bilirubin Total 0.4 mg/dL (0.0-1.0); Blood Urea Nitrogen 13 mg/dL (9-16); Calcium 9.2 mg/dL (8.4-10.2); Carbon Dioxide 24 mmol/L (22-29); Chloride 100 mmol/L (96-108); Estimated Glomerular Filt Rate > 60; Glucose Random 155 mg/dL (60-115); Magnesium 1.6 mg/dL (1.6-2.6); Potassium 4.7 mmol/L (3.3-5.1); Sodium 136 mmol/L (135-145); Total Protein 7.2 g/dL (6.5-8.0)
[2023-06-15 10:57] LABS: B Type Natriuretic Peptide 31 pg/mL (<100); Troponin-I High Sensitivity 18.7 ng/L (<3.5-35.0)
[2023-06-15 11:03] LABS: INTERNATIONAL NORM RATIO 0.9 (0.9-1.1); Prothrombin Time 11.3 SEC (11.1-13.3)
[2023-06-15 11:19] LABS: D Dimer High Sensitivity < 150 NG/ML
--- NOTE | 2023-06-15 11:19 | PC.NURSE ---
pt's HR slowly starting to decrease post cardizem IVP administration. resting between 115-125 but still displaying afib at this time. provider aware at this time. wob decreasing at this time. respirations even and unlabored. call guzman placed within reach.
--- NOTE | 2023-06-15 11:27 | PC.NURSE ---
2nd round of cardizem administered via IVP per provider order. plan of care ongoing.
--- NOTE | 2023-06-15 12:21 | PC.NURSE ---
HR continues to stay between 120s-130s on the bus driver/monitor. pt still in afib/sinus tachy on the bus driver/monitor. family now bedside w/ pt for support. call guzman placed within reach.
[2023-06-15] MEDS: dilTIAZem HCL 125 MG in 0.9 % Sodium Chloride 100 ML 10 MG IVCONT (13:24)
--- NOTE | 2023-06-15 13:24 | PC.NURSE ---
vss and up to date. sinus tachy/afib on the environmental monitoring specialist. medication administered per provider order. cardizem drip initiated per protocol. family remains bedside. call guzman placed within reach.
--- NOTE | 2023-06-15 13:55 | PHA.MEDREC ---
Pharmacy Consult ? Medication Reconciliation Pharmacy has completed the medication reconciliation. Patient able to name most medications unprompted with dosing, states he is adamant about taking them correctly every day.
--- NOTE | 2023-06-15 13:56 | PC.NURSE ---
cardizem drip titrated/increased per protocol at this time.
--- NOTE | 2023-06-15 14:52 | PC.NURSE ---
pt able to ambulate independently w/ steady gait w/o assistance. pt states that he became lightheaded upon ambulation but was able to get back to his room without difficulty. pt now sitting in his bed in no apparent distress. respirations remain even and unlabored. pt aware of plan of care at this time in regards to admission. call guzman placed within reach.
[2023-06-15 15:08] LABS: Troponin-I High Sensitivity 50.2 ng/L (<3.5-35.0)
--- NOTE | 2023-06-15 15:27 | PM.IMHP ---
History of Present Illness Date of Service: 06/15/23 Attending physician on admission: Eron Em Chief Complaint: Tachycardia Pt is a 68-year-old male with a PMH significant for?HTN, CAD, hx of [place] 2021, HIV, hoo-eqrlctv-fssdtbnxg diabetes type 2, KENYON not on CPAP, and GERD who presents to the ED with?tachycardia into the 140s and constant ?fluttering? in his chest since this morning. Patient states that he is noticed an intermittent ?weird? sensation in the left side of his chest the past couple of weeks. Reports would come and go. This morning pt was monitoring his BP and noticed his HR was up into the 140s. Also reported the weird/fluttering feeling in his chest was more persistent and that he didn't feel right , which prompted his visit to the ED for further evaluation. Has also had increased fatigue lately. Chronic SOB and CASANOVA at baseline. Denies chest pain/pressure. No fever, chills, N/V, abd pain. Pt also notes he was diagnosed with KENYON two years ago but never fitted with or given CPAP. In the ED pt was tachycardic up to 140 with all either vital signs WNL. Labs were significant for initial troponin 18.7 with repeat 50.2, otherwise grossly unremarkable. No leukocytosis. Stable H&H. No electrolyte abnormalities. Renal and hepatic function baseline. CXR showed mild congestive change possibly exaggerated in appearance from upright lordotic technique. EKG demonstrated AFib with RVR of 129 and RBBB but no significant ST elevations or depressions. Pt was treated with diltiazem 10 mg IV push x3 doses and then started on a diltiazem drip. Pt will be admitted to the hospital for treatment and further evaluation of new onset AFib with RVR. [facility] Medical History (Updated 06/15/23 @ 16:56 by JASPAL Hooper) Non-insulin dependent type 2 diabetes mellitus CAD (coronary artery disease) HIV (human immunodeficiency virus infection) KENYON (obstructive sleep apnea) Tear of left hamstring Diabetes High cholesterol High blood pressure Social History Patient Tobacco Use Status: Former Tobacco user Substance Use Type: Marijuana Current occupational status: retired Current occupation: rt handed Meds Allergies Allergy/AdvReac Type Severity Reaction Status Date / Time No Known Allergies Allergy Verified 06/15/23 10:21 Active Medications: Current Medications Diltiazem HCl 125 mg/ Sodium (Chloride) 125 mls @ 0 mls/hr IVCONT .Q0M [facility]; Protocol Last Titration: 06/15/23 13:55 Dose: 15 mg/hr, 15 mls/hr Home Medications Medication Instructions Recorded Confirmed Last Taken Type aspirin 81 mg tablet,delayed 81 mg PO DAILY 06/15/23 06/15/23 06/15/23 History release efavirenz 600 mg-emtricitabine 200 1 tab PO BEDTIME 06/15/23 06/15/23 06/14/23 History mg-tenofovir disoprox 300 mg tablet lisinopril 40 mg tablet 40 mg PO DAILY 06/15/23 06/15/23 06/15/23 History melatonin 3 mg tablet 9 mg PO BEDTIME PRN Sleep 06/15/23 06/15/23 06/14/23 History metformin 500 mg tablet 500 mg PO DAILY 06/15/23 06/15/23 06/15/23 History metoprolol tartrate 50 mg tablet 50 mg PO BID 06/15/23 06/15/23 06/15/23 History multivitamin 1 tab PO DAILY 06/15/23 06/15/23 06/15/23 History omega 5-jnn-uak-fish oil 60 mg-90 2 cap PO DAILY 06/15/23 06/15/23 06/15/23 History mg-500 mg capsule (Fish Oil) omeprazole 20 mg capsule,delayed 20 mg PO DAILY@0630 06/15/23 06/15/23 06/15/23 History release rosuvastatin 20 mg tablet 20 mg PO BEDTIME 06/15/23 06/15/23 06/14/23 History terazosin 5 mg capsule 5 mg PO BEDTIME 06/15/23 06/15/23 06/14/23 History Physical Exam Vital Signs and Narrative: Vital Signs: Last Vital Signs Temp 98.1 F 06/15/23 13:04 Pulse 127 H 06/15/23 13:10 Resp 16 06/15/23 13:10 BP 112/78 06/15/23 13:10 Pulse Ox 96 06/15/23 13:10 O2 Del Method Room Air 06/15/23 13:10 O2 Flow Rate 2 06/15/23 10:48 BMI result Body Mass Index 42.8 Results Labs 06/15/23 10:29 06/15/23 10:29 Labs: Laboratory Results - last 24 hr 06/15/23 10:29 MCV 91.5 MCH 31.0 MCHC 33.9 RDW 13.1 Plt Count 147 L MPV 9.1 L Immature Gran % (Auto) 0.4 Neut % (Auto) 58.6 Lymph % (Auto) 30.8 [place] % (Auto) 6.8 Eos % (Auto) 2.9 Baso % (Auto) 0.5 Lymph # (Auto) 1.7 [place] # (Auto) 0.4 Eos # (Auto) 0.2 Baso # (Auto) 0.0 Abs Immat Gran (auto) 0.02 Absolute Neuts (auto) 3.3 Absolute Nucleated RBC 0.000 Nucleated RBC % (auto) 0.0 PT 11.3 INR 0.9 D-Dimer High Sensitivty < 150 Anion Gap 17 Estim Creat Clear Calc 118.0 Estimated GFR > 60 Random Glucose 155 H Calcium 9.2 Magnesium 1.6 Total Bilirubin 0.4 AST 79 H ALT 88 H Alkaline Phosphatase 62 B-Natriuretic Peptide 31 Total Protein 7.2 Albumin 3.9 Imaging Radiologist's Impressions: Impressions Chest X-Ray 06/15/23 11:14 IMPRESSION: Mild congestive change possibly exaggerated in appearance to upright lordotic technique. Recommend follow-up will centered PA and lateral when clinically feasible. Assessment and Plan (1) Atrial fibrillation with RVR: Status: Acute Plan Pt is a 68-year-old male with a PMH significant for?HTN, CAD, hx of [place] 2021, HIV, wml-cywjrvg-ovcocgbbm diabetes type 2, KENYON not on CPAP, and GERD who presents to the ED with?tachycardia into the 140s and constant ?fluttering? in his chest since this morning. Pt will be admitted to the hospital for treatment and further evaluation of new onset AFib with RVR. AFib with RVR Pt with weird fluttering sensation in chest on and off past few weeks, persistent since this morning with HR in the 140s EKG showed AFib with RVR of 129 Patient received diltiazem 10 mg IV in ED x3 doses with little rate improvement and placed on diltiazem drip Continue diltiazem drip Will start on Eliquis 5 mg b.i.d. Echocardiogram Cardiology consult Will keep NPO for now, possible SHAWNA tomorrow with cardioversion, per Cardiology Monitor on telemetry Elevated troponins Likely type 2 in the setting of increased demand Pt without chest pain/pressure, no significant EKG changes Monitor on telemetry HLD/CAD Continue aspirin, statin HTN Continue lisinopril, metoprolol Vjd-nridsfc-qqoojeoon diabetes type [address] on sliding scale insulin Diabetic diet KENYON Diagnosed 2 years ago, not on CPAP Will have to f/u outpatient to get fitted with CPAP BPH Continue terazosin GERD Continue omeprazole Full Code Attending:?Dr. Em DVT Prophylaxis: On Eliquis Pt will require a hospitalization of at least two nights for treatment of?new onset AFib with RVR that failed initial ED management with diltiazem IV push. Pt will require in-hospital treatment with IV diltiazem drip, additional cardiac monitoring and testing, and specialist consultation. Quality Stroke Does the patient have a stroke diagnosis?: No VTE Prior VTE?: No VTE Risk Level:: Medical - moderate - high VTE Device Contraindication: Treatment Not Indicated VTE Drug Contraindication: N/A - Med Ordered
--- NOTE | 2023-06-15 16:24 | PC.NURSE ---
vss and up to date. pt remains sinus tachy on the ekg monitor tech between 120s-130s. pt denies chest pain/palpitations at. denies any other sx. cardizem continues to infuse via pump at this time. respirations remain even and unlabored. pt pending admission at this time. call guzman placed within reach.
--- NOTE | 2023-06-15 18:59 | PC.NURSE ---
pt's remains sinus tachy/afib on the awake overnight monitor despite while at rest. repeat ekg performed by tech. admitting provider notified/aware of ekg results. plan of care ongoing.
[2023-06-15] MEDS: Metoprolol Tartrate 50 MG TABLET PO (19:41)
[2023-06-15] MEDS: Apixaban 5 MG TABLET PO (19:41)
--- NOTE | 2023-06-15 19:44 | PC.NURSE ---
pt medicated per mar. pt tolerated well with water. per give medications earlier than Jul.
--- NOTE | 2023-06-15 21:14 | PC.NURSE ---
pt transported upstairs by this rn.
[2023-06-15 21:27] LABS: Glucose, Whole Blood 128 mg/dL (60-115)
[2023-06-15] MEDS: Atorvastatin Calcium 80 MG TABLET PO (21:30)
[2023-06-15] MEDS: Doxazosin Mesylate 2 MG TABLET 4 MG PO (21:30)
[2023-06-15] MEDS: Melatonin 3 MG TABLET 6 MG PO (21:30)
[2023-06-15] MEDS: dilTIAZem HCL 125 MG in 0.9 % Sodium Chloride 100 ML 15 MG IVCONT (21:31)
[2023-06-15] MEDS: 0.9 % Sodium Chloride Flush 3 ML SYRINGE IVFLUSH (21:33)
[2023-06-16] VITALS (7 sets, daily range): BP systolic 96–148; BP diastolic 63–88; PULSE 72–136; RESP 18–21; TEMP 36.2–36.7; O2SAT 92–96
--- NOTE | 2023-06-16 | ECG_ITS ---
Test Reason : AFIB Blood Pressure : / mmHG Vent. Rate : 075 BPM Atrial Rate : 286 BPM P-R Int : 000 ms QRS Dur : 164 ms QT Int : 430 ms P-R-T Axes : 000 -73 001 degrees QTc Int : 480 ms Atrial flutter with variable A-V block Left axis deviation Right bundle branch block Abnormal ECG When compared with ECG of 15-JUN-2023 18:52, Vent. rate has decreased BY 65 BPM Referred By: France Tijerina Electronically Signed By:Erasmo Acosta
[2023-06-16] MEDS: Omeprazole 20 MG CAPSULE.DR PO (05:37)
[2023-06-16] MEDS: Metoprolol Tartrate 50 MG TABLET PO ×2 (05:37→20:07)
[2023-06-16] MEDS: dilTIAZem HCL 125 MG in 0.9 % Sodium Chloride 100 ML 15 MG IVCONT ×2 (05:38→13:57)
--- NOTE | 2023-06-16 07:00 | CA_ITS ---
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 There is severely increased left ventricular wall thickness. The left ventricular systolic function is normal. The visually estimated ejection fraction is between 55-60%. - Mildly increased right ventricular cavity size. There is borderline right ventricular systolic function. - There is mild dilatation of the ascending aorta measuring 4.10 cm. Findings Procedure Information Contrast agent, definity, is being given per protocol without apparent complications. The quality of the study was technically difficult. The study quality is limited by patients body habitus. Left Ventricle Normal left ventricular cavity size. There is severely increased left ventricular wall thickness. The left ventricular systolic function is normal. The visually estimated ejection fraction is between 55-60%. There is no evidence of regional wall motion abnormalities. Diastolic function is indeterminate on the basis of available data. There is severe septal asymmetric hypertrophy. Right Ventricle Mildly increased right ventricular cavity size. There is borderline right ventricular systolic function. Atria The left atrium is normal in size. Aortic Valve There is a normal trileaflet aortic valve. There is mild calcification of the aortic valve. There is no aortic valve stenosis. There is no aortic valve regurgitation. Mitral Valve The mitral valve appears normal. There is no mitral valve regurgitation. There is no mitral valve stenosis. Pulmonic Valve The pulmonic valve is likely normal. Tricuspid Valve Likely normal tricuspid valve structure and function. Tricuspid regurgitation envelope is inadequate for calculation of right ventricular systolic pressure. Normal right atrial pressure. Great Vessels There is mild dilatation of the ascending aorta measuring 4.10 cm. The visualized portions of the pulmonary artery and branches are normal. Venous The inferior vena cava was not well visualized. Pericardium/Pleural Prominent epicardial adipose tissue noted. There is no evidence of pericardial effusion. Prior Study Comparison No prior study available for comparison. Measurements 2D Linear Measurements IVSd: 2.15 0.6-0.9/0.6-1.0 cm LVIDd: 4.70 3.9-5.3/4.2-5.9 cm LVIDd Index: 1.99 2.4-3.2/2.2-3.1 cm/m2 LVIDs: 3.41 2.0-3.6 cm LVPWd: 1.63 0.7-1.1 cm LA Diam: 3.80 2.7-3.8/3.0-4.0 cm LAIDs Index: 1.61 1.5-2.3 cm/m2 LV Mass: 526.22 67-162/88-224 g LV Mass Index: 222.97 43-95/49-115 g/m2 LVOT Diam: 2.60 3.0+(-)1.3 cm 2D Systolic Function EF 4C: 58.00 >55% Mitral Valve MV Pk E: 0.88 MV PK A: 0.40 MV Decel Time: 157.00 E/A: 2.20 E'Medial: 4.68 E/E' Med: 18.80 PHT: 46.00 MVA PHT: 4.78 Decel Sutton: 5.61 Aortic Valve AoV Pk Kumar: 1.28 AoV Pk Grad: 7.00 DIAZ: 4.64 LVOT LVOT Pk Kumar: 1.14 LVOT Mn Kumar: 0.80 LVOT VTI: 0.19 LVOT Pk Grad: 5.00 LVOT Mn Grad: 3.00 LVOT Diam: 2.60 LVOT Area: 5.31 Diastolic Function MV Pk E: 0.88 MV Pk A: 0.40 E/A: 2.20 E'Medial: 4.68 E/E' Med: 18.80 Right Ventricle TAPSE (mm): 15.20 TVS' Kumar: 14.50 Tricuspid Valve TR Pk Kumar: 2.23 TR Pk Grad: 20.00 Great Vessels Aorta Sinus of Valsalva: 3.70 2.0-3.5 cm Ao Asc: 4.10 2.1-3.4 cm Pulmonary Valve PV Pk Kumar: 0.80 Peak PV Grad: 3.00 Updated in Other Vendor System with Status of Final Erasmo Acosta MD electronically signed on 06/16/2023 3:52:43 PM with status of Final
[2023-06-16 07:51] LABS: Glucose, Whole Blood 152 mg/dL (60-115)
--- NOTE | 2023-06-16 07:52 | PC.NURSE ---
Patient arrived from ED to [facility] at 21:00 on dilt gtt max rate for new onset afib. A&Ox4. Denied symptoms including chest pain, sob, n/v, dizziness, h/a. HR controlled (less than 100) while patient is at rest, though HR increases up to 140's when up to the bathroom which resolves with return to bed. Pt was educated on HR with activity and was offered a urinal and bedside commode though he refused, insisting to ambulate to the bathroom. Pt is on scheduled eliquis. This morning pt's HR began sustaining in 140's at rest, c/o palpitations though otherwise asymptomatic with even and unlabored breathing, no chest pain. BP obtained and MD notified; written orders to give scheduled morning metoprolol early. +Effect, HR improved to 80's. HS POC on arrival was 128, no ISS given though diabetic snack was given, tolerated without n/v. Patient has been NPO since midnight as ordered. Echo previously ordered and pending obtaining in morning. 06:36 Pt made new complaints of LUQ pain, abdomen soft, appropriately tender to palpation. Denies n/v. Imaging reviewed, showing only CXR had been previously obtained. Dr. Neal Tijerina notified. Further imaging deferred by provider to attending MD, due to arrive soon. EKG ordered though due to equipment malfunction of unit machine, cardiology was called and requested and on their way to bedside to obtain. Pain meds ordered and pending pharmacy verification at time of nursing handoff report 06:45.
[2023-06-16] MEDS: HYDROmorphone HCl 0.5 MG/0.5 ML SYRINGE IVPUSH (08:47)
[2023-06-16] MEDS: Multivitamin TABLET 1 TAB PO (08:48)
[2023-06-16] MEDS: lisinopriL 40 MG TABLET PO (08:48)
[2023-06-16] MEDS: Aspirin Enteric Coated 81 MG TABLET.DR PO (08:48)
[2023-06-16] MEDS: Apixaban 5 MG TABLET PO ×2 (08:48→20:07)
[2023-06-16 11:46] LABS: Glucose, Whole Blood 143 mg/dL (60-115)
--- NOTE | 2023-06-16 13:35 | HO.PM.IMPN ---
Subjective Subjective Date of Service: 06/16/23 Interval History: Seen and evaluated this morning A.Flutter heart rate better controlled on cardizem drip denies any chest pain but reports abdominal pain no other events Review of Systems Review of Systems: Yes all other systems are reviewed and are negative Physical Exam Vital Signs: Vital Signs: Last Vital Signs Temp 97.5 F 06/16/23 11:04 Pulse 78 06/16/23 11:04 Resp 20 06/16/23 11:04 BP 115/67 06/16/23 11:04 Pulse Ox 96 06/16/23 11:04 O2 Del Method Room Air 06/16/23 11:04 O2 Flow Rate 2 06/15/23 10:48 BMI result Body Mass Index 42.7 Const: Other: Constitutional : Awake, interactive, not in distress Neck : Normal inspection, Supple Cardiovascular : irregular irregular, no JVP, no lower extremity edema Respiratory : good bilateral air entry, no crackles, wheezes or rhonchi Gastrointestinal: soft, lax, Normal bowel sounds, mild epigastric tenderness Skin : Warm, Dry Neurological : Alert & oriented x3, No focal deficit Objective Data Active Medications Acetaminophen (Acetaminophen 325 Mg Tablet) 650 mg PO Q6H PRN PRN Reason: Pain, Mild (Pain Scale 1-3) Apixaban (Apixaban 5 Mg Tablet) 5 mg PO BID [facility] Last Admin: 06/16/23 08:48 Dose: 5 mg Documented By: GARY Aspirin (Aspirin Enteric Coated 81 Mg Tablet.) 81 mg PO DAILY [facility] Last Admin: 06/16/23 08:48 Dose: 81 mg Documented By: GARY Atorvastatin Calcium (Atorvastatin Calcium 80 Mg Tablet) 80 mg PO BEDTIME [facility] Last Admin: 06/15/23 21:30 Dose: 80 mg Documented By: MIRIAN Benzonatate (Benzonatate 100 Mg Capsule) 100 mg PO TID PRN PRN Reason: Cough Dextrose (Dextrose 50 % 25 Gm/50 Ml Syringe) 25 gm IVPUSH Q15M PRN; Protocol PRN Reason: per Hypoglycemia Standing Ord. Docusate Sodium (Docusate Sodium 100 Mg Capsule) 100 mg PO DAILY PRN PRN Reason: Constipation Doxazosin Mesylate (Doxazosin Mesylate 2 Mg Tablet) 4 mg PO BEDTIME [facility] Last Admin: 06/15/23 21:30 Dose: 4 mg Documented By: MIRIAN Efavirenz/Emtricitabine/Tenofovir (Efavirenz/Emtricitab/Tenof Df 600/200/300 Tablet) 1 tab PO BEDTIME [facility] Last Admin: 06/15/23 21:30 Dose: 1 tab Documented By: MIRIAN Glucose (Glucose Gel 15 Gm Gel..Gram.) 15 gm PO Q15M PRN; Protocol PRN Reason: per Hypoglycemia Standing Ord. Diltiazem HCl 125 mg/ Sodium (Chloride) 125 mls @ 0 mls/hr IVCONT .Q0M [facility]; Protocol Last Admin: 06/16/23 05:38 Dose: 15 mg/hr, 15 mls/hr Documented By: MIRIAN Insulin Human Lispro (Insulin Lispro 100 Unit/Ml 3 Ml Vial) 0 unit SUBCUT QIDACHS [facility]; Protocol Last Admin: 06/16/23 11:49 Dose: Not Given Documented By: GARY Non-Admin Reason: No Insulin Coverage Lisinopril (Lisinopril 40 Mg Tablet) 40 mg PO DAILY [facility]; Protocol Last Admin: 06/16/23 08:48 Dose: 40 mg Documented By: GARY Melatonin (Melatonin 3 Mg Tablet) 6 mg PO BEDTIME PRN PRN Reason: Insomnia Last Admin: 06/15/23 21:30 Dose: 6 mg Documented By: MIRIAN Metoprolol Tartrate (Metoprolol Tartrate 50 Mg Tablet) 50 mg PO BID [facility]; Protocol Last Admin: 06/16/23 05:37 Dose: 50 mg Documented By: MIRIAN Multivitamins/Vitamin C (Multivitamin Tablet) 1 tab PO DAILY [facility] Last Admin: 06/16/23 08:48 Dose: 1 tab Documented By: GARY Omeprazole (Omeprazole 20 Mg Capsule.Dr) 20 mg PO DAILY@0630 [facility] Last Admin: 06/16/23 05:37 Dose: 20 mg Documented By: MIRIAN Ondansetron HCl (Ondansetron Hcl 4 Mg/2 Ml Vial) 4 mg IVPUSH Q8H PRN PRN Reason: Nausea and Vomiting Sodium Chloride (0.9 % Sodium Chloride Flush 3 Ml Syringe) 3 ml IVFLUSH QSHIFT [facility] Last Admin: 06/16/23 07:42 Dose: Not Given Documented By: GARY Non-Admin Reason: IV Running Labs 06/15/23 10:29 06/15/23 10:29 Labs: Laboratory Results - last 24 hr 06/15/23 06/16/23 06/16/23 21:17 07:30 11:02 POC Glucose 128 H 152 H 143 H Assessment and Plan (1) Atrial fibrillation with RVR: Status: Acute Plan Pt is a 68-year-old male with a PMH significant for?HTN, CAD, hx of DC 2021, HIV, [id number]-uyqxcofgc diabetes type 2, KENYON not on CPAP, and GERD who presents to the ED with?tachycardia into the 140s and constant ?fluttering? in his chest since this morning. Pt will be admitted to the hospital for treatment and further evaluation of new onset AFib with RVR. New onset A.Fib\Flutter with RVR rate better control wean down diltiazem drip, start PO Cardizem Eliquis 5 mg b.i.d. Echo pending Cardiology input appreciated Monitor on telemetry Elevated troponins Likely type 2 in the setting of increased demand no significant EKG changes Monitor on telemetry Cardiology consult, likely type II HLD/CAD Continue aspirin, statin HTN Continue lisinopril, metoprolol Mwg-oywdlqg-gazjsbcvt diabetes type [address] on sliding scale insulin Diabetic diet KENYON Diagnosed 2 years ago, not on CPAP Will have to f/u outpatient to get fitted with CPAP BPH Continue terazosin GERD Continue omeprazole Full Code DVT Prophylaxis: On Eliquis Pt will require a hospitalization of overnight for treatment of?new onset AFib with RVR on IV Cardizem drip pending clinical improvement. Quality Stroke Does the patient have a stroke diagnosis?: No VTE Prior VTE?: No VTE Risk Level:: Medical - moderate - high VTE Device Contraindication: Treatment Not Indicated VTE Drug Contraindication: N/A - Med Ordered
--- NOTE | 2023-06-16 14:46 | MHC.CM.PN ---
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 PT REPORTS HIS GOAL FOR DC IS HOME NO SERVICES. PT REPORTS TO CM THAT HIS AFIB W/RVR IS CAUSED D/T NOT GETTING HIS CPAP AND THAT HE HAD A SLEEP STUDY 2 YRS AGO AND NO ONE TOLD HIM HE HAD SLEEP APNEA, CM OFFERED TO SEE IF HE IS A CANDIDATE FOR AN INPT SLEEP STUDY SO HE COULD HAVE A CPAP DELIVERED ON DAY OF DC HOWEVER PT ADAMANTLY DECLINES REPORTING HE SAW HIS CARDILOGIST TUESDAY AT [facility] AND THEY ARE ARRANGING FOR CPAP FOR PT. PT'S PCP ON FILE VERIFIED AND PT EDUCATED ON AND DECLINES TO COMPLETE A HCP.
--- NOTE | 2023-06-16 15:11 | P.CONCA_ITS ---
History of Present Illness History of Present Illness Date of Service: 06/16/23 Requesting physician: Daquan Palacios Chief complaint: New onset atrial flutter Narrative: 59-year-old gentleman who follows up with Dr. Swain at [facility]. He has background history of hypertrophic cardiomyopathy and as per his notes at [facility] had a cardiac MRI which showed septal thickness of 1.9 cm. He never had any arrhythmia or aborted sudden in the past. He has obesity and obstructive sleep apnea. He is in the process of getting a CPAP mask. He said he randomly checked his heart rate and was 140s and he called his java developer architect office and was advised to go to the emergency department. He called EMS and came to [facility]. Here his EKG showed atrial flutter. He was started on Cardizem drip. His home dose of metoprolol 50 mg twice a day was continued as before. He has history of previous inferior wall SD and PCI. No bleeding issues. No chest discomfort or shortness of breath. Not clinically in heart failure. [facility] Past Medical History Medical History (Updated 06/16/23 @ 15:14 by Erasmo Acosta MD) Non-insulin dependent type 2 diabetes mellitus CAD (coronary artery disease) HIV (human immunodeficiency virus infection) KENYON (obstructive sleep apnea) Tear of left hamstring Diabetes High cholesterol High blood pressure Social History Social History Household Members: None Household Members Other:: none; lives alone with his cat (Conrad) Housing: Apartment Do you presently have visiting nurse or other home services: No Comment: pt refuses bed alarm Patient Tobacco Use Status: Former Tobacco user Smoked in Last 30 Days: No Use of substances other than those prescribed or required for medical reasons: No Substance Use Type: Marijuana Substance Use Type Other:: nightly marijuana use Currently Displaying Signs/Symptoms of Drug Intoxication Withdrawal: No Any prior treatment program specific to substance use: No Have you been hit, kicked, punched, or otherwise hurt by someone within the past year? If so, by whom?: No Do you feel safe in your current relationship?: No Current Relationship Is there a partner from a previous relationship who is making you feel unsafe now?: No Are you made to feel afraid or neglected: No Amish Healthcare Practices: Yazidi Advance Directives: No Advance Directives Information Provided: Yes Do you have thoughts of harming others: None Do you have a plan to hurt others: No Plan Recently lost weight without trying: No How much weight loss: Not applicable Eating poorly because of decreased appetite: No Nutrition screen score: 0 Nutrition Risks: No Nutritional Risk Poor oral hygiene: No service: No Current occupational status: retired Current occupation: rt handed Meds Allergies Allergy/AdvReac Type Severity Reaction Status Date / Time No Known Allergies Allergy Verified 06/15/23 10:21 Active Medications: Current Medications Acetaminophen (Acetaminophen 325 Mg Tablet) 650 mg PO Q6H PRN PRN Reason: Pain, Mild (Pain Scale 1-3) Apixaban (Apixaban 5 Mg Tablet) 5 mg PO BID [facility] Last Admin: 06/16/23 08:48 Dose: 5 mg Aspirin (Aspirin Enteric Coated 81 Mg Tablet.) 81 mg PO DAILY [facility] Last Admin: 06/16/23 08:48 Dose: 81 mg Atorvastatin Calcium (Atorvastatin Calcium 80 Mg Tablet) 80 mg PO BEDTIME [facility] Last Admin: 06/15/23 21:30 Dose: 80 mg Benzonatate (Benzonatate 100 Mg Capsule) 100 mg PO TID PRN PRN Reason: Cough Dextrose (Dextrose 50 % 25 Gm/50 Ml Syringe) 25 gm IVPUSH Q15M PRN; Protocol PRN Reason: per Hypoglycemia Standing Ord. Diltiazem HCl (Diltiazem Hcl 30 Mg Tablet) 30 mg PO QID [facility]; Protocol Docusate Sodium (Docusate Sodium 100 Mg Capsule) 100 mg PO DAILY PRN PRN Reason: Constipation Doxazosin Mesylate (Doxazosin Mesylate 2 Mg Tablet) 4 mg PO BEDTIME [facility] Last Admin: 06/15/23 21:30 Dose: 4 mg Efavirenz/Emtricitabine/Tenofovir (Efavirenz/Emtricitab/Tenof Df 600/200/300 Tablet) 1 tab PO BEDTIME [facility] Last Admin: 06/15/23 21:30 Dose: 1 tab Glucose (Glucose Gel 15 Gm Gel..Gram.) 15 gm PO Q15M PRN; Protocol PRN Reason: per Hypoglycemia Standing Ord. Diltiazem HCl 125 mg/ Sodium (Chloride) 125 mls @ 0 mls/hr IVCONT .Q0M [facility]; Protocol Last Admin: 06/16/23 13:57 Dose: 15 mg/hr, 15 mls/hr Insulin Human Lispro (Insulin Lispro 100 Unit/Ml 3 Ml Vial) 0 unit SUBCUT QIDACHS [facility]; Protocol Last Admin: 06/16/23 11:49 Dose: Not Given Lisinopril (Lisinopril 40 Mg Tablet) 40 mg PO DAILY [facility]; Protocol Last Admin: 06/16/23 08:48 Dose: 40 mg Melatonin (Melatonin 3 Mg Tablet) 6 mg PO BEDTIME PRN PRN Reason: Insomnia Last Admin: 06/15/23 21:30 Dose: 6 mg Metoprolol Tartrate (Metoprolol Tartrate 50 Mg Tablet) 50 mg PO BID [facility]; Protocol Last Admin: 06/16/23 05:37 Dose: 50 mg Morphine Sulfate (Morphine Sulfate 2 Mg/Ml Cartridge) 2 mg IVPUSH Q4H PRN; Protocol PRN Reason: Pain, Severe (Pain Scale 7-10) Multivitamins/Vitamin C (Multivitamin Tablet) 1 tab PO DAILY [facility] Last Admin: 06/16/23 08:48 Dose: 1 tab Omeprazole (Omeprazole 20 Mg Capsule.Dr) 20 mg PO DAILY@0630 [facility] Last Admin: 06/16/23 05:37 Dose: 20 mg Ondansetron HCl (Ondansetron Hcl 4 Mg/2 Ml Vial) 4 mg IVPUSH Q8H PRN PRN Reason: Nausea and Vomiting Sodium Chloride (0.9 % Sodium Chloride Flush 3 Ml Syringe) [facility] Last Admin: 06/16/23 07:42 Dose: Not Given Home Medications Medication Instructions Recorded Confirmed Last Taken Type aspirin 81 mg tablet,delayed 81 mg PO DAILY 06/15/23 06/15/23 06/15/23 History release efavirenz 600 mg-emtricitabine 200 1 tab PO BEDTIME 06/15/23 06/15/23 06/14/23 History mg-tenofovir disoprox 300 mg tablet lisinopril 40 mg tablet 40 mg PO DAILY 06/15/23 06/15/23 06/15/23 History melatonin 3 mg tablet 9 mg PO BEDTIME PRN Sleep 06/15/23 06/15/23 06/14/23 History metformin 500 mg tablet 500 mg PO DAILY 06/15/23 06/15/23 06/15/23 History metoprolol tartrate 50 mg tablet 50 mg PO BID 06/15/23 06/15/23 06/15/23 History multivitamin 1 tab PO DAILY 06/15/23 06/15/23 06/15/23 History omega 4-biq-awg-fish oil 60 mg-90 2 cap PO DAILY 06/15/23 06/15/23 06/15/23 History mg-500 mg capsule (Fish Oil) omeprazole 20 mg capsule,delayed 20 mg PO DAILY@0630 06/15/23 06/15/23 06/15/23 History release rosuvastatin 20 mg tablet 20 mg PO BEDTIME 06/15/23 06/15/23 06/14/23 History terazosin 5 mg capsule 5 mg PO BEDTIME 06/15/23 06/15/23 06/14/23 History Physical Exam 2 Vital Signs: Vital Signs: Last Vital Signs Temp 97.5 F 06/16/23 11:04 Pulse 78 06/16/23 11:04 Resp 20 06/16/23 11:04 BP 115/67 06/16/23 11:04 Pulse Ox 96 06/16/23 11:04 O2 Del Method Room Air 06/16/23 11:04 O2 Flow Rate 2 06/15/23 10:48 BMI result Body Mass Index 42.7 GENERAL APPEARANCE: in no acute distress, obese. NECK: no carotid bruit, no jugular venous distention. SKIN: no suspicious lesions, warm and dry. HEART: no murmurs, regular rate and rhythm. LUNGS: clear to auscultation bilaterally. ABDOMEN: soft, left-sided abdominal tenderness. EXTREMITIES: no edema. PERIPHERAL PULSES: equal. NEUROLOGIC: No gross deficits, AAO X 3 Objective Labs and Meds 06/15/23 10:29 06/15/23 10:29 Lab results: Laboratory Results - last 24 hr 06/15/23 06/16/23 06/16/23 21:17 07:30 11:02 POC Glucose 128 H 152 H 143 H Assessment and Plan (1) Atrial flutter: Status: Acute Plan Pleasant 68 gentleman presenting for tachycardia and was diagnosed with atrial flutter. He has been started on Cardizem drip with good rate control at this point. Continue metoprolol 50 mg twice a day. Stop the Cardizem drip and start him on oral Cardizem 240 mg daily. Agree with Eliquis for anticoagulation. We have discussed with the patient and he prefers to do rate control strategy for now. He can follow-up with Dr. Swain and consider cardioversion in 4-6 weeks while staying on Eliquis. Given history of coronary disease, would favor leaving him on baby aspirin as he does not have any significant bleeding issues. If any concerns arise about leading then would stop the aspirin and leave him on apixaban monotherapy. Thank you for allowing me to participate in the care of your patient. Please feel free to contact me if you have any questions. Procedures Date of Service Date of Service: 06/16/23
[2023-06-16] MEDS: iohexoL 350 MG/ML 100 ML INFUS..BTL IV (15:22)
[2023-06-16] MEDS: dilTIAZem HCL 30 MG TABLET PO ×3 (15:40→22:06)
[2023-06-16] MEDS: 0.9 % Sodium Chloride Flush 3 ML SYRINGE IVFLUSH ×2 (15:41→23:56)
[2023-06-16 16:21] LABS: Glucose, Whole Blood 135 mg/dL (60-115)
[2023-06-16] MEDS: cefTRIAXone sodium 2 GM in 0.9 % Sodium Chloride 50 ML IV (17:47)
[2023-06-16] MEDS: metroNIDAZOLE/NS 500 MG/100 ML PIGGYBACK 100 MG IV (18:24)
[2023-06-16] MEDS: Atorvastatin Calcium 80 MG TABLET PO (20:07)
[2023-06-16] MEDS: Doxazosin Mesylate 2 MG TABLET 4 MG PO (20:07)
[2023-06-16 20:09] LABS: Glucose, Whole Blood 131 mg/dL (60-115)
[2023-06-16] MEDS: Morphine Sulfate 2 MG/ML CARTRIDGE IVPUSH (22:26)
--- NOTE | 2023-06-16 22:56 | PC.RT ---
Pt placed on overnight sleep study on RA. Pt sats 94% HR 107. RN aware
[2023-06-17] VITALS (8 sets, daily range): BP systolic 92–138; BP diastolic 59–91; PULSE 58–136; RESP 18–20; TEMP 36.1–37.1; O2SAT 92–98
--- NOTE | 2023-06-17 | ECG_ITS ---
Test Reason : tachycardia Blood Pressure : / mmHG Vent. Rate : 129 BPM Atrial Rate : 000 BPM P-R Int : 000 ms QRS Dur : 166 ms QT Int : 362 ms P-R-T Axes : 000 268 046 degrees QTc Int : 530 ms Atrial flutter with variable block Right bundle branch block Abnormal ECG When compared with ECG of 16-JUN-2023 07:04, Vent. rate has increased BY 54 BPM T wave inversion now evident in Anterior leads Referred By: France Tijerina Electronically Signed By:Erasmo Acosta
[2023-06-17] MEDS: metroNIDAZOLE/NS 500 MG/100 ML PIGGYBACK 100 MG IV ×3 (01:49→17:05)
[2023-06-17] MEDS: Morphine Sulfate 2 MG/ML CARTRIDGE IVPUSH ×5 (01:54→22:39)
[2023-06-17] MEDS: Omeprazole 20 MG CAPSULE.DR PO (05:32)
[2023-06-17] MEDS: dilTIAZem HCL 30 MG TABLET PO (05:37)
[2023-06-17] MEDS: Acetaminophen 325 MG TABLET 650 MG PO (05:39)
[2023-06-17] MEDS: Metoprolol Tartrate 5 MG in 0.9 % Sodium Chloride 50 ML 220 MG IV (05:47)
--- NOTE | 2023-06-17 06:00 | PC.NURSE ---
pt's HR was in the 140's. tiger text to Dr. De Jesus, 5 mg of IV metoprolol given, and 0900 PO cardizem given early. IV morphine given for 8/10 pain in abdomen. EKG done.
[2023-06-17] MEDS: LORazepam 0.5 MG TABLET PO ×2 (06:35→17:04)
[2023-06-17 06:55] LABS: Hematocrit 44.4 % (42.0-52.0); Hemoglobin 14.9 g/dl (14.0-18.0); Mean Corpuscular HGB Conc 33.6 g/dl (31.0-36.0); Mean Corpuscular Hemoglobin 31.4 pg (27.0-33.0); Mean Corpuscular Volume 93.7 fL (80.0-98.0); Mean Platelet Volume 9.2 fL (9.4-12.4); Platelet Count 166 X10*3/uL (160-400); Red Blood Count 4.74 X10*6/uL (4.60-5.80); Red Cell Distribution Width 13.4 % (11.0-16.0)
[2023-06-17 07:06] LABS: Anion Gap 17 (12-20); Blood Urea Nitrogen 15 mg/dL (9-16); Calcium 9.3 mg/dL (8.4-10.2); Carbon Dioxide 23 mmol/L (22-29); Chloride 103 mmol/L (96-108); Creatinine Clr Calc Pharmacy 93.5; Estimated Glomerular Filt Rate > 60; Glucose Random 149 mg/dL (60-115); Potassium 4.2 mmol/L (3.3-5.1); Sodium 139 mmol/L (135-145)
[2023-06-17 07:17] LABS: Troponin-I High Sensitivity 33.2 ng/L (<3.5-35.0)
[2023-06-17 07:37] LABS: Glucose, Whole Blood 154 mg/dL (60-115)
[2023-06-17] MEDS: lisinopriL 40 MG TABLET PO (08:17)
[2023-06-17] MEDS: Multivitamin TABLET 1 TAB PO (08:17)
[2023-06-17] MEDS: Apixaban 5 MG TABLET PO ×2 (08:17→20:04)
[2023-06-17] MEDS: Aspirin Enteric Coated 81 MG TABLET.DR PO (08:17)
[2023-06-17] MEDS: Metoprolol Tartrate 50 MG TABLET PO ×2 (08:17→20:04)
[2023-06-17] MEDS: 0.9 % Sodium Chloride Flush 3 ML SYRINGE IVFLUSH ×3 (08:22→20:06)
[2023-06-17] MEDS: dilTIAZem HCL 125 MG in 0.9 % Sodium Chloride 100 ML 10 MG IVCONT (09:24)
--- NOTE | 2023-06-17 10:36 | HO.PM.IMPN ---
Subjective Subjective Date of Service: 06/17/23 Interval History: Seen and evaluated this morning rate was fairly controlled on night, now back to tachycardia in 140s this morning Improving abdominal pain , tolerating liquids no other events Review of Systems Review of Systems: Yes all other systems are reviewed and are negative Physical Exam Vital Signs: Vital Signs: Last Vital Signs Temp 98.7 F 06/17/23 07:24 Pulse 86 06/17/23 07:24 Resp 18 06/17/23 07:24 BP 115/63 06/17/23 07:24 Pulse Ox 98 06/17/23 07:24 O2 Del Method Room Air 06/17/23 07:24 O2 Flow Rate 2 06/15/23 10:48 BMI result Body Mass Index 42.7 Const: Other: Constitutional : Awake, interactive, not in distress Neck : Normal inspection, Supple Cardiovascular : irregular irregular, no JVP, no lower extremity edema Respiratory : good bilateral air entry, no crackles, wheezes or rhonchi Gastrointestinal: soft, lax, Normal bowel sounds, no significant tenderness Skin : Warm, Dry Neurological : Alert & oriented x3, No focal deficit Objective Data Active Medications Acetaminophen (Acetaminophen 325 Mg Tablet) 650 mg PO Q6H PRN PRN Reason: Pain, Mild (Pain Scale 1-3) Last Admin: 06/17/23 05:39 Dose: 650 mg Documented By: BANDAR Apixaban (Apixaban 5 Mg Tablet) 5 mg PO BID [facility] Last Admin: 06/17/23 08:17 Dose: 5 mg Documented By: MELITON Aspirin (Aspirin Enteric Coated 81 Mg Tablet.) 81 mg PO DAILY [facility] Last Admin: 06/17/23 08:17 Dose: 81 mg Documented By: MELITON Atorvastatin Calcium (Atorvastatin Calcium 80 Mg Tablet) 80 mg PO BEDTIME [facility] Last Admin: 06/16/23 20:07 Dose: 80 mg Documented By: TERRI Benzonatate (Benzonatate 100 Mg Capsule) 100 mg PO TID PRN PRN Reason: Cough Dextrose (Dextrose 50 % 25 Gm/50 Ml Syringe) 25 gm IVPUSH Q15M PRN; Protocol PRN Reason: per Hypoglycemia Standing Ord. Diltiazem HCl (Diltiazem Hcl Cd 240 Mg Cap.Er.Deg) 240 mg PO DAILY [facility]; Protocol Docusate Sodium (Docusate Sodium 100 Mg Capsule) 100 mg PO DAILY PRN PRN Reason: Constipation Doxazosin Mesylate (Doxazosin Mesylate 2 Mg Tablet) 4 mg PO BEDTIME [facility] Last Admin: 06/16/23 20:07 Dose: 4 mg Documented By: TERRI Efavirenz/Emtricitabine/Tenofovir (Efavirenz/Emtricitab/Tenof Df 600/200/300 Tablet) 1 tab PO BEDTIME BETH Last Admin: 06/16/23 20:08 Dose: 1 tab Documented By: TERRI Glucose (Glucose Gel 15 Gm Gel..Gram.) 15 gm PO Q15M PRN; Protocol PRN Reason: per Hypoglycemia Standing Ord. Diltiazem HCl 125 mg/ Sodium (Chloride) 125 mls @ 0 mls/hr IVCONT .Q0M [facility]; Protocol Last Titration: 06/17/23 10:22 Dose: 5 mg/hr, 5 mls/hr Documented By: MELITON Ceftriaxone Sodium 2 gm/ (Sodium Chloride) 50 mls @ 100 mls/hr IV Q24H [facility] Last Infusion: 06/16/23 18:48 Dose: Infused Documented By: TERRI Metronidazole (Flagyl) 500 mg in 100 mls @ 100 mls/hr IV Q8H [facility] Last Infusion: 06/17/23 02:56 Dose: Infused Documented By: BANDAR Insulin Human Lispro (Insulin Lispro 100 Unit/Ml 3 Ml Vial) 0 unit SUBCUT QIDACHS [facility]; Protocol Last Admin: 06/17/23 08:23 Dose: Not Given Documented By: MELITON Non-Admin Reason: No Insulin Coverage Lisinopril (Lisinopril 40 Mg Tablet) 40 mg PO DAILY [facility]; Protocol Last Admin: 06/17/23 08:17 Dose: 40 mg Documented By: MELITON Melatonin (Melatonin 3 Mg Tablet) 6 mg PO BEDTIME PRN PRN Reason: Insomnia Last Admin: 06/15/23 21:30 Dose: 6 mg Documented By: MIRIAN Metoprolol Tartrate (Metoprolol Tartrate 50 Mg Tablet) 50 mg PO BID [facility]; Protocol Last Admin: 06/17/23 08:17 Dose: 50 mg Documented By: MELITON Morphine Sulfate (Morphine Sulfate 2 Mg/Ml Cartridge) 2 mg IVPUSH Q4H PRN; Protocol PRN Reason: Pain, Severe (Pain Scale 7-10) Last Admin: 06/17/23 05:58 Dose: 2 mg Documented By: BANDAR Multivitamins/Vitamin C (Multivitamin Tablet) 1 tab PO DAILY [facility] Last Admin: 06/17/23 08:17 Dose: 1 tab Documented By: MELITON Omeprazole (Omeprazole 20 Mg Capsule.Dr) 20 mg PO DAILY@0630 [facility] Last Admin: 06/17/23 05:32 Dose: 20 mg Documented By: JANICE Ondansetron HCl (Ondansetron Hcl 4 Mg/2 Ml Vial) 4 mg IVPUSH Q8H PRN PRN Reason: Nausea and Vomiting Sodium Chloride (0.9 % Sodium Chloride Flush 3 Ml Syringe) 3 ml IVFLUSH QSHIFT [facility] Last Admin: 06/17/23 08:22 Dose: 3 ml Documented By: MELITON Labs 06/17/23 06:41 06/17/23 06:41 Labs: Laboratory Results - last 24 hr 06/16/23 06/16/23 06/16/23 11:02 16:07 20:05 MCV MCH MCHC RDW Plt Count MPV Absolute Nucleated RBC Nucleated RBC % (auto) Anion Gap Estim Creat Clear Calc Estimated GFR POC Glucose 143 H 135 H 131 H Random Glucose Calcium 06/17/23 06/17/23 06:41 07:32 MCV 93.7 MCH 31.4 MCHC 33.6 RDW 13.4 Plt Count 166 MPV 9.2 L Absolute Nucleated RBC 0.000 Nucleated RBC % (auto) 0.0 Anion Gap 17 Estim Creat Clear Calc 93.5 Estimated GFR > 60 POC Glucose 154 H Random Glucose 149 H Calcium 9.3 Assessment and Plan (1) Atrial flutter: Status: Acute (2) Atrial flutter with rapid ventricular response: Status: Acute (3) Acute diverticulitis: Status: Acute Plan Pt is a 68-year-old male with a PMH significant for?HTN, CAD, hx of [place] 2021, HIV, [id number] diabetes type 2, KENYON not on CPAP, and GERD who presents to the ED with?tachycardia into the 140s and constant ?fluttering? in his chest since this morning. Pt will be admitted to the hospital for treatment and further evaluation of new onset AFib with RVR. New onset A.Fib\Flutter with RVR went back to 140s this morning wean down diltiazem drip, Start long acting PO Cardizem Eliquis 5 mg b.i.d. Echo showing LVH w EF 55-60% Cardiology input appreciated Monitor on telemetry Acute diverticulitis seen on CT scan abd. treat with IV Ceftriaxone and Flagyl pain meds advance diet as tolerated Elevated troponins Likely type 2 in the setting of increased demand no significant EKG changes Monitor on telemetry Cardiology consult, likely type II HLD/CAD Continue aspirin, statin HTN Continue lisinopril, metoprolol [id number] diabetes type [address] on sliding scale insulin Diabetic diet KENYON Diagnosed 2 years ago, not on CPAP Will have to f/u outpatient to get fitted with CPAP BPH Continue terazosin GERD Continue omeprazole Full Code DVT Prophylaxis: On Eliquis Pt will require a hospitalization of overnight for treatment of?new onset AFib with RVR on IV Cardizem drip and acute diverticulitis on IV antibiotics pending clinical improvement. Quality Stroke Does the patient have a stroke diagnosis?: No VTE Prior VTE?: No VTE Risk Level:: Medical - moderate - high VTE Device Contraindication: Treatment Not Indicated VTE Drug Contraindication: N/A - Med Ordered
[2023-06-17 10:38] LABS: Troponin-I High Sensitivity 32.6 ng/L (<3.5-35.0)
[2023-06-17 11:10] LABS: Glucose, Whole Blood 152 mg/dL (60-115)
[2023-06-17] MEDS: dilTIAZem HCL CD 240 MG CAP.ER.DEG PO (11:21)
--- NOTE | 2023-06-17 11:52 | PM.PNCARD ---
Subjective Subjective Date of Service: 06/17/23 Interval history: Saying abdominal pain is better. Diagnosed with diverticulitis. Heart rate was fast this morning and is currently on 5 mg of Cardizem drip. Physical Exam Vital Signs: Last Vital Signs Temp 98.7 F 06/17/23 07:24 Pulse 86 06/17/23 07:24 Resp 18 06/17/23 07:24 BP 115/63 06/17/23 07:24 Pulse Ox 98 06/17/23 07:24 O2 Del Method Room Air 06/17/23 07:24 O2 Flow Rate 2 06/15/23 10:48 BMI result Body Mass Index 42.7 GENERAL APPEARANCE: in no acute distress, obese. NECK: no carotid bruit, no jugular venous distention. SKIN: no suspicious lesions, warm and dry. HEART: no murmurs, regular rate and rhythm. LUNGS: clear to auscultation bilaterally. ABDOMEN: soft, no tenderness. EXTREMITIES: no edema. PERIPHERAL PULSES: equal. NEUROLOGIC: No gross deficits, AAO X 3 Objective Labs and Meds 06/17/23 06:41 06/17/23 06:41 Lab results: Laboratory Results - last 24 hr 06/16/23 06/16/23 06/17/23 16:07 20:05 06:41 WBC 8.0 RBC 4.74 Hgb 14.9 Hct 44.4 MCV 93.7 MCH 31.4 MCHC 33.6 RDW 13.4 Plt Count 166 MPV 9.2 L Absolute Nucleated RBC 0.000 Nucleated RBC % (auto) 0.0 Sodium 139 Potassium 4.2 Chloride 103 Carbon Dioxide 23 Anion Gap 17 BUN 15 Creatinine 0.97 Estim Creat Clear Calc 93.5 Estimated GFR > 60 POC Glucose 135 H 131 H Random Glucose 149 H Calcium 9.3 Troponin I High Sens 33.2 06/17/23 06/17/23 06/17/23 07:32 09:37 11:06 WBC RBC Hgb Hct MCV MCH MCHC RDW Plt Count MPV Absolute Nucleated RBC Nucleated RBC % (auto) Sodium Potassium Chloride Carbon Dioxide Anion Gap BUN Creatinine Estim Creat Clear Calc Estimated GFR POC Glucose 154 H 152 H Random Glucose Calcium Troponin I High Sens 32.6 Imaging Radiologist's impression: Impressions Abdomen/Pelvis CT 06/16/23 15:20 IMPRESSION: Acute diverticulitis of the sigmoid colon. Follow-up imaging after treatment is advised. Hepatomegaly and hepatic steatosis. Indeterminate dominant left adrenal nodule with few smaller nodules also unchanged from 06/01/2014. Progress Note: A&P Assessment and plan (1) Atrial flutter with rapid ventricular response: Status: Acute (2) Hypertrophic cardiomyopathy: Status: Acute Plan [age] gentleman with known hypertrophic cardiomyopathy presenting for atrial flutter. He has been diagnosed with acute diverticulitis and is on antibiotics. It is possible that diverticulitis triggered the tachycardia. Other possibility is that he has sleep apnea which is untreated currently. Advise 240 mg of Cardizem. Cardizem drip can be stopped. Continue oral metoprolol. Plan is rate control strategy specially in the setting of infection. As he improves and heart rates are stable he can be discharged in can see Dr. Jayda Swain at [facility]. Thank you for allowing me to participate in the care of your patient. Please feel free to contact me if you have any questions. Time Spent With Patient Time: Total time managing care of this patient today ____ minutes. Progress Note: Quality Stroke Does the patient have a stroke diagnosis?: No Procedures Date of Service Date of Service: 06/17/23
--- NOTE | 2023-06-17 13:34 | P.CDIM_ITS ---
PROVIDER RESPONSE TEXT: To clarify, the appropriate diagnosis supported by the clinical indicators: Type 2 OH QUERY TEXT: PHYSICIAN'S DOCUMENTATION REQUEST Date of Query: 06/17/2023 08:25 AM EST Patient Name: Sneha Buenrostro Admit Date: 06/15/2023 Dear Daquan Palacios, A review of the medical record indicates additional documentation may be needed. Please review below and update the documentation accordingly. Clinical Indicators: Progress note dated 06/16 - Elevated troponins likely type 2 in the setting of increased demand No significant EKG changes Monitor on telemetry Cardiology consult, likely Type 2 Troponins 50.2 H History of Myocardial infarction Please clarify the specifics of the type 2 elevated troponin if possible: Type 2 OH Elevated troponins Other diagnosis related to the lab results Other (explain) Clinically unable to determine (explain) Thank you, Clara Montiel, CCS, CDIS Use of terms such as suspected, likely, concern for, or probable (associated with a specific diagnosi s that is being evaluated, monitored, or treated as if it exists) are acceptable and can be coded in the inpatient se tting, when documented at the time of discharge. Please use your independent medical judgment in providing your response. THIS QUERY IS PART OF THE PERMANENT MEDICAL RECORD
--- NOTE | 2023-06-17 13:34 | P.CDIM_ITS ---
PROVIDER RESPONSE TEXT: To clarify, the appropriate diagnosis supported by the clinical indicators: Obesity Due to excess calories QUERY TEXT: PHYSICIAN'S DOCUMENTATION REQUEST Date of Query: 06/17/2023 08:30 AM EST Patient Name: Sneha Buenrostro Admit Date: 06/15/2023 Dear Daquan Palacios, A review of the medical record indicates additional documentation may be needed. Please review below and update the documentation accordingly. Clinical Indicators: Nursing notes Height and Weight: Extreme obesity class III with BMI 42.8 127.4kg If possible, please provide an associated diagnosis related to the abnormal BMI, such as: Obesity Due to excess calories Obesity Drug induced Obesity Due to other cause Specify the other cause Severe or Morbid Obesity With alveolar hypoventilation Severe or Morbid Obesity Without alveolar hypoventilation Other (explain) Clinically unable to determine (explain) Thank you, Clara Montiel, CCS, CDIS Use of terms such as suspected, likely, concern for, or probable (associated with a specific diagnosi s that is being evaluated, monitored, or treated as if it exists) are acceptable and can be coded in the inpatient se tting, when documented at the time of discharge. Please use your independent medical judgment in providing your response. THIS QUERY IS PART OF THE PERMANENT MEDICAL RECORD
--- NOTE | 2023-06-17 13:50 | MHC.CM.PN ---
EMR REVIEWED, PER CARDIO PT CHANGED FROM CARDIZEM DRIP TO ORAL CARDIZEM, PT IMPROVING HOWEVER NOT READY FOR DC, CM WILL CONT TO FOLLOW DC NEEDS.
[2023-06-17 16:06] LABS: Glucose, Whole Blood 131 mg/dL (60-115)
[2023-06-17] MEDS: cefTRIAXone sodium 2 GM in 0.9 % Sodium Chloride 50 ML IV (16:17)
[2023-06-17] MEDS: dilTIAZem HCL 50 MG/10 ML VIAL IVPUSH (17:05)
--- NOTE | 2023-06-17 17:52 | PC.NURSE ---
Pt resting comfortably in bed. HR improving. Denies pain
[2023-06-17] MEDS: Atorvastatin Calcium 80 MG TABLET PO (20:02)
[2023-06-17] MEDS: Doxazosin Mesylate 2 MG TABLET 4 MG PO (20:04)
[2023-06-17 20:14] LABS: Glucose, Whole Blood 132 mg/dL (60-115)
[2023-06-18] VITALS (7 sets, daily range): BP systolic 90–129; BP diastolic 62–89; PULSE 76–148; RESP 16–19; TEMP 36–36.6; O2SAT 94–98
[2023-06-18] MEDS: metroNIDAZOLE/NS 500 MG/100 ML PIGGYBACK 100 MG IV ×3 (02:17→17:30)
[2023-06-18] MEDS: Morphine Sulfate 2 MG/ML CARTRIDGE IVPUSH ×3 (03:04→18:36)
[2023-06-18] MEDS: Omeprazole 20 MG CAPSULE.DR PO (05:28)
[2023-06-18] MEDS: Metoprolol Tartrate 50 MG TABLET PO (06:12)
[2023-06-18 07:42] LABS: Glucose, Whole Blood 146 mg/dL (60-115)
[2023-06-18] MEDS: Multivitamin TABLET 1 TAB PO (08:30)
[2023-06-18] MEDS: dilTIAZem HCL 50 MG/10 ML VIAL 10 MG IVPUSH (08:30)
[2023-06-18] MEDS: LORazepam 0.5 MG TABLET PO (08:30)
[2023-06-18] MEDS: 0.9 % Sodium Chloride Flush 3 ML SYRINGE IVFLUSH ×2 (08:31→17:31)
[2023-06-18] MEDS: Aspirin Enteric Coated 81 MG TABLET.DR PO (08:31)
[2023-06-18] MEDS: Apixaban 5 MG TABLET PO ×2 (08:31→20:30)
--- NOTE | 2023-06-18 08:41 | P.PNIM_ITS ---
Subjective Subjective Date of Service: 06/18/23 Interval History: Seen and evaluated this morning Feels anxious and worried Was fairly controlled on night, now back to tachycardia in 140s this morning Improving abdominal pain , tolerating regular diet no other events Review of Systems Review of Systems: Yes all other systems are reviewed and are negative Physical Exam 2 Vital Signs: Vital Signs: Last Vital Signs Temp 96.9 F 06/18/23 08:00 Pulse 145 H 06/18/23 08:00 Resp 18 06/18/23 08:00 BP 111/62 06/18/23 08:00 Pulse Ox 96 06/18/23 08:00 O2 Del Method Room Air 06/18/23 08:00 O2 Flow Rate 2 06/15/23 10:48 BMI result Body Mass Index 42.7 Const: Other: Constitutional : Awake, interactive, not in distress Neck : Normal inspection, Supple Cardiovascular : irregular irregular, no JVP, no lower extremity edema, tachycardia Respiratory : good bilateral air entry, no crackles, wheezes or rhonchi Gastrointestinal: soft, lax, Normal bowel sounds, no significant tenderness Skin : Warm, Dry Neurological : Alert & oriented x3, No focal deficit Objective Data Active Medications Acetaminophen (Acetaminophen 325 Mg Tablet) 650 mg PO Q6H PRN PRN Reason: Pain, Mild (Pain Scale 1-3) Last Admin: 06/17/23 05:39 Dose: 650 mg Documented By: BANDAR Apixaban (Apixaban 5 Mg Tablet) 5 mg PO BID [facility] Last Admin: 06/18/23 08:31 Dose: 5 mg Documented By: LEYDA Aspirin (Aspirin Enteric Coated 81 Mg Tablet.) 81 mg PO DAILY [facility] Last Admin: 06/18/23 08:31 Dose: 81 mg Documented By: LEYDA Atorvastatin Calcium (Atorvastatin Calcium 80 Mg Tablet) 80 mg PO BEDTIME [facility] Last Admin: 06/17/23 20:02 Dose: 80 mg Documented By: DARRELL Benzonatate (Benzonatate 100 Mg Capsule) 100 mg PO TID PRN PRN Reason: Cough Dextrose (Dextrose 50 % 25 Gm/50 Ml Syringe) 25 gm IVPUSH Q15M PRN; Protocol PRN Reason: per Hypoglycemia Standing Ord. Diltiazem HCl (Diltiazem Hcl Cd 240 Mg Cap.Er.Deg) 240 mg PO DAILY [facility]; Protocol Last Admin: 06/18/23 07:48 Dose: Not Given Documented By: LEYDA Non-Admin Reason: IV push given Docusate Sodium (Docusate Sodium 100 Mg Capsule) 100 mg PO DAILY PRN PRN Reason: Constipation Doxazosin Mesylate (Doxazosin Mesylate 2 Mg Tablet) 4 mg PO BEDTIME BETH Last Admin: 06/17/23 20:04 Dose: 4 mg Documented By: DARRELL Efavirenz/Emtricitabine/Tenofovir (Efavirenz/Emtricitab/Tenof Df 600/200/300 Tablet) 1 tab PO BEDTIME BETH Last Admin: 06/17/23 20:04 Dose: 1 tab Documented By: DARRELL Glucose (Glucose Gel 15 Gm Gel..Gram.) 15 gm PO Q15M PRN; Protocol PRN Reason: per Hypoglycemia Standing Ord. Ceftriaxone Sodium 2 gm/ (Sodium Chloride) 50 mls @ 100 mls/hr IV Q24H [facility] Last Infusion: 06/17/23 17:05 Dose: Infused Documented By: TUSHAR Metronidazole (Flagyl) 500 mg in 100 mls @ 100 mls/hr IV Q8H [facility] Last Infusion: 06/18/23 03:17 Dose: Infused Documented By: DARRELL Insulin Human Lispro (Insulin Lispro 100 Unit/Ml 3 Ml Vial) 0 unit SUBCUT QIDACHS [facility]; Protocol Last Admin: 06/18/23 07:40 Dose: Not Given Documented By: LEYDA Non-Admin Reason: No Insulin Coverage Lisinopril (Lisinopril 40 Mg Tablet) 40 mg PO DAILY [facility]; Protocol Last Admin: 06/17/23 08:17 Dose: 40 mg Documented By: BROAlida Lorazepam (Lorazepam 0.5 Mg Tablet) 0.5 mg PO Q8H PRN PRN Reason: anxiety/restlessness Melatonin (Melatonin 3 Mg Tablet) 6 mg PO BEDTIME PRN PRN Reason: Insomnia Last Admin: 06/15/23 21:30 Dose: 6 mg Documented By: MIRIAN Metoprolol Succinate (Metoprolol Succinate Er 100 Mg Tab.Er.24h) 100 mg PO DAILY [facility]; Protocol Morphine Sulfate (Morphine Sulfate 2 Mg/Ml Cartridge) 2 mg IVPUSH Q4H PRN; Protocol PRN Reason: Pain, Severe (Pain Scale 7-10) Last Admin: 06/18/23 03:04 Dose: 2 mg Documented By: DARRELL Multivitamins/Vitamin C (Multivitamin Tablet) 1 tab PO DAILY [facility] Last Admin: 06/18/23 08:30 Dose: 1 tab Documented By: LEYDA Omeprazole (Omeprazole 20 Mg Capsule.Dr) 20 mg PO DAILY@0630 [facility] Last Admin: 06/18/23 05:28 Dose: 20 mg Documented By: DARRELL Ondansetron HCl (Ondansetron Hcl 4 Mg/2 Ml Vial) 4 mg IVPUSH Q8H PRN PRN Reason: Nausea and Vomiting Sodium Chloride (0.9 % Sodium Chloride Flush 3 Ml Syringe) 3 ml IVFLUSH QSHIFT [facility] Last Admin: 06/18/23 08:31 Dose: 3 ml Documented By: LEYDA Labs 06/17/23 06:41 06/17/23 06:41 Labs: Laboratory Results - last 24 hr 06/17/23 06/17/23 06/17/23 11:06 15:54 20:10 POC Glucose 152 H 131 H 132 H 06/18/23 07:38 POC Glucose 146 H Assessment and Plan (1) Hypertrophic cardiomyopathy: Status: Acute (2) Acute diverticulitis: Status: Acute (3) Atrial flutter with rapid ventricular response: Status: Acute Plan Pt is a 68-year-old male with a PMH significant for?HTN, CAD, hx of [place] 2021, HIV, [id number]-ioacmczyk diabetes type 2, KENYON not on CPAP, and GERD who presents to the ED with?tachycardia into the 140s and constant ?fluttering? in his chest since this morning. Pt will be admitted to the hospital for treatment and further evaluation of new onset AFib with RVR. New onset A.Fib\Flutter with RVR went back to 140s this morning IV Cardizem once PO Cardizem CD 240 mg Change Metoprolol to Toprol XL 100 mg Eliquis 5 mg b.i.d. Echo showing LVH w EF 55-60% Cardiology input appreciated Monitor on telemetry today Acute diverticulitis Improving seen on CT scan abd. IV Ceftriaxone and Flagyl pain meds advance diet as tolerated Elevated troponins Likely type 2 in the setting of increased demand no significant EKG changes Monitor on telemetry Cardiology consult, likely type II HLD/CAD Continue aspirin, statin HTN Continue lisinopril, metoprolol [id number] diabetes type [address] on sliding scale insulin Diabetic diet KENYON Diagnosed 2 years ago, not on CPAP Will have to f/u outpatient to get fitted with CPAP BPH Continue terazosin GERD Continue omeprazole Full Code DVT Prophylaxis: On Eliquis Pt will require a hospitalization of overnight for treatment of?new onset AFib with RVR on IV Cardizem drip and acute diverticulitis on IV antibiotics pending clinical improvement. Quality Stroke Does the patient have a stroke diagnosis?: No VTE Prior VTE?: No VTE Risk Level:: Medical - moderate - high VTE Device Contraindication: Treatment Not Indicated VTE Drug Contraindication: N/A - Med Ordered
[2023-06-18] MEDS: Digoxin 0.5 MG/2 ML AMPUL 0.25 MG IVPUSH ×2 (11:05→17:31)
--- NOTE | 2023-06-18 11:12 | PM.PNCARD ---
Subjective Subjective Date of Service: 06/18/23 Interval history: Seen examined at bedside. He has been tachycardic. He said he tried to walk to bathroom and became really tachycardic after that. He is saying his abdomen is feeling better. His appetite is improving. Physical Exam Vital Signs: Last Vital Signs Temp 96.9 F 06/18/23 08:00 Pulse 145 H 06/18/23 08:00 Resp 18 06/18/23 08:00 BP 111/62 06/18/23 08:00 Pulse Ox 96 06/18/23 08:00 O2 Del Method Room Air 06/18/23 08:00 O2 Flow Rate 2 06/15/23 10:48 BMI result Body Mass Index 42.7 GENERAL APPEARANCE: in no acute distress, obese. NECK: no carotid bruit, no jugular venous distention. SKIN: no suspicious lesions, warm and dry. HEART: no murmurs, regular rate and rhythm. Tachycardic. LUNGS: clear to auscultation bilaterally. ABDOMEN: soft, no tenderness. EXTREMITIES: no edema. PERIPHERAL PULSES: equal. NEUROLOGIC: No gross deficits, AAO X 3 Objective Labs and Meds 06/17/23 06:41 06/17/23 06:41 Lab results: Laboratory Results - last 24 hr 06/17/23 06/17/23 06/18/23 15:54 20:10 07:38 POC Glucose 131 H 132 H 146 H Progress Note: A&P Assessment and plan (1) Atrial flutter with rapid ventricular response: Status: Acute (2) Hypertrophic cardiomyopathy: Status: Acute Plan [age] gentleman with known hypertrophic cardiomyopathy presenting for atrial flutter. He has been diagnosed with acute diverticulitis and is on antibiotics. It is possible that diverticulitis triggered the tachycardia. Other possibility is that he has sleep apnea which is untreated currently. He was initially on Cardizem drip with good rate control and we transitioned him to p.o. Cardizem 240 mg along with his home metoprolol dose of 50 twice a day. Heart rate today are quite uncontrolled. This happened after ambulation. He has not received any metoprolol today. Our plan is to change Toprol-XL in the evening. We will avoid further Cardizem. Give him a load of digoxin. I discussed with him that his rates are difficult to control and although we discussed before about cardioversion, maybe that is what will be the best way to go forward. He is agreeable and we will arrange this for Tuesday as he will require SHAWNA cardioversion. Usually a combination of digoxin and metoprolol works better for atrial flutter, we will try this. Thank you for allowing me to participate in the care of your patient. Please feel free to contact me if you have any questions. Time Spent With Patient Time: Total time managing care of this patient today ____ minutes. Progress Note: Quality Stroke Does the patient have a stroke diagnosis?: No Procedures Date of Service Date of Service: 06/18/23
[2023-06-18 11:44] LABS: Glucose, Whole Blood 132 mg/dL (60-115)
[2023-06-18 12:04] LABS: Magnesium 1.7 mg/dL (1.6-2.6)
[2023-06-18] MEDS: diazePAM 10 MG/2 ML CARTRIDGE 5 MG IVPUSH (12:06)
[2023-06-18] MEDS: Magnesium Sulfate/H2O 2 GM/50 ML PIGGYBACK IV (12:06)
[2023-06-18] MEDS: Metoprolol Tartrate 5 MG/5 ML VIAL IVPUSH (12:06)
[2023-06-18] MEDS: Metoprolol Tartrate 25 MG TABLET PO (14:57)
[2023-06-18 16:35] LABS: Glucose, Whole Blood 123 mg/dL (60-115)
[2023-06-18] MEDS: cefTRIAXone sodium 2 GM in 0.9 % Sodium Chloride 50 ML IV (17:30)
[2023-06-18 19:48] LABS: Glucose, Whole Blood 146 mg/dL (60-115)
[2023-06-18] MEDS: Atorvastatin Calcium 80 MG TABLET PO (20:29)
[2023-06-18] MEDS: Doxazosin Mesylate 2 MG TABLET 4 MG PO (20:29)
[2023-06-18] MEDS: Metoprolol Succinate ER 100 MG TAB.ER.24H PO (20:30)
[2023-06-19] MEDS: Morphine Sulfate 2 MG/ML CARTRIDGE IVPUSH ×4 (00:26→21:13)
[2023-06-19] MEDS: metroNIDAZOLE/NS 500 MG/100 ML PIGGYBACK 100 MG IV ×3 (00:27→17:22)
[2023-06-19] MEDS: 0.9 % Sodium Chloride Flush 3 ML SYRINGE IVFLUSH ×3 (03:11→17:23)
[2023-06-19 03:35] VITALS: BP 107/65; PULSE 80; RESP 16; TEMP 36.4; O2SAT 96
[2023-06-19] MEDS: Omeprazole 20 MG CAPSULE.DR PO (05:49)
[2023-06-19] MEDS: Metoprolol Tartrate 5 MG/5 ML VIAL IVPUSH ×2 (05:50→08:56)
[2023-06-19 07:05] VITALS: BP 100/62; PULSE 88; RESP 20; TEMP 36.4; O2SAT 95
[2023-06-19 07:28] LABS: Glucose, Whole Blood 138 mg/dL (60-115)
[2023-06-19 07:44] LABS: Anion Gap 14 (12-20); Blood Urea Nitrogen 19 mg/dL (9-16); Calcium 9.1 mg/dL (8.4-10.2); Carbon Dioxide 23 mmol/L (22-29); Chloride 105 mmol/L (96-108); Creatinine Clr Calc Pharmacy 97.5; Estimated Glomerular Filt Rate > 60; Glucose Random 131 mg/dL (60-115); Potassium 4.2 mmol/L (3.3-5.1); Sodium 138 mmol/L (135-145)
[2023-06-19 07:45] LABS: Magnesium 1.9 mg/dL (1.6-2.6)
[2023-06-19 08:15] LABS: Digoxin 0.4 ng/mL (0.8-2.0)
[2023-06-19] MEDS: FLUoxetine HCl 10 MG CAPSULE PO (08:56)
[2023-06-19] MEDS: Apixaban 5 MG TABLET PO ×2 (08:56→21:14)
[2023-06-19] MEDS: Aspirin Enteric Coated 81 MG TABLET.DR PO (08:56)
[2023-06-19] MEDS: Multivitamin TABLET 1 TAB PO (08:56)
[2023-06-19] MEDS: diazePAM 10 MG/2 ML CARTRIDGE 5 MG IVPUSH (08:56)
[2023-06-19] MEDS: Digoxin 0.25 MG TABLET PO (10:03)
[2023-06-19 10:49] VITALS: BP 143/79; PULSE 81; RESP 20; TEMP 36.1; O2SAT 96
[2023-06-19] MEDS: Metoprolol Succinate ER 100 MG TAB.ER.24H PO (11:05)
[2023-06-19 11:25] LABS: Glucose, Whole Blood 119 mg/dL (60-115)
--- NOTE | 2023-06-19 11:49 | P.PNIM_ITS ---
Subjective Subjective Date of Service: 06/19/23 Interval History: Seen and evaluated this morning Controlled overnight back to tachycardia in 140s this morning Improving abdominal pain , tolerating regular diet no other events Review of Systems Review of Systems: Yes all other systems are reviewed and are negative Physical Exam 2 Vital Signs: Vital Signs: Last Vital Signs Temp 96.9 F 06/19/23 10:49 Pulse 81 06/19/23 10:49 Resp 20 06/19/23 10:49 BP 143/79 H 06/19/23 10:49 Pulse Ox 96 06/19/23 10:49 O2 Del Method Room Air 06/19/23 10:49 O2 Flow Rate 2 06/15/23 10:48 BMI result Body Mass Index 42.7 Const: Other: Constitutional : Awake, interactive, not in distress Neck : Normal inspection, Supple Cardiovascular : irregular irregular, no JVP, no lower extremity edema, tachycardia Respiratory : good bilateral air entry, no crackles, wheezes or rhonchi Gastrointestinal: soft, lax, Normal bowel sounds, no significant tenderness Skin : Warm, Dry Neurological : Alert & oriented x3, No focal deficit Objective Data Active Medications Acetaminophen (Acetaminophen 325 Mg Tablet) 650 mg PO Q6H PRN PRN Reason: Pain, Mild (Pain Scale 1-3) Last Admin: 06/17/23 05:39 Dose: 650 mg Documented By: BANDAR Apixaban (Apixaban 5 Mg Tablet) 5 mg PO BID [facility] Last Admin: 06/19/23 08:56 Dose: 5 mg Documented By: LEYDA Aspirin (Aspirin Enteric Coated 81 Mg Tablet.) 81 mg PO DAILY [facility] Last Admin: 06/19/23 08:56 Dose: 81 mg Documented By: LEYDA Atorvastatin Calcium (Atorvastatin Calcium 80 Mg Tablet) 80 mg PO BEDTIME [facility] Last Admin: 06/18/23 20:29 Dose: 80 mg Documented By: TERRI Benzonatate (Benzonatate 100 Mg Capsule) 100 mg PO TID PRN PRN Reason: Cough Dextrose (Dextrose 50 % 25 Gm/50 Ml Syringe) 25 gm IVPUSH Q15M PRN; Protocol PRN Reason: per Hypoglycemia Standing Ord. Digoxin (Digoxin 0.25 Mg Tablet) 0.25 mg PO DAILY [facility] Last Admin: 06/19/23 10:03 Dose: 0.25 mg Documented By: LEYDA Docusate Sodium (Docusate Sodium 100 Mg Capsule) 100 mg PO DAILY PRN PRN Reason: Constipation Doxazosin Mesylate (Doxazosin Mesylate 2 Mg Tablet) 4 mg PO BEDTIME [facility] Last Admin: 06/18/23 20:29 Dose: 4 mg Documented By: TERRI Efavirenz/Emtricitabine/Tenofovir (Efavirenz/Emtricitab/Tenof Df 600/200/300 Tablet) 1 tab PO BEDTIME [facility] Last Admin: 06/18/23 20:28 Dose: 1 tab Documented By: TERRI Fluoxetine HCl (Fluoxetine Hcl 10 Mg Capsule) 10 mg PO DAILY [facility] Last Admin: 06/19/23 08:56 Dose: 10 mg Documented By: LEYDA Glucose (Glucose Gel 15 Gm Gel..Gram.) 15 gm PO Q15M PRN; Protocol PRN Reason: per Hypoglycemia Standing Ord. Ceftriaxone Sodium 2 gm/ (Sodium Chloride) 50 mls @ 100 mls/hr IV Q24H [facility] Last Infusion: 06/18/23 18:03 Dose: Infused Documented By: LEYDA Metronidazole (Flagyl) 500 mg in 100 mls @ 100 mls/hr IV Q8H [facility] Last Infusion: 06/19/23 10:00 Dose: Infused Documented By: LEYDA Insulin Human Lispro (Insulin Lispro 100 Unit/Ml 3 Ml Vial) 0 unit SUBCUT QIDACHS [facility]; Protocol Last Admin: 06/19/23 11:32 Dose: Not Given Documented By: LEYDA Non-Admin Reason: No Insulin Coverage Lisinopril (Lisinopril 40 Mg Tablet) 40 mg PO DAILY [facility]; Protocol Last Admin: 06/17/23 08:17 Dose: 40 mg Documented By: BROAlida Lorazepam (Lorazepam 0.5 Mg Tablet) 0.5 mg PO Q8H PRN PRN Reason: anxiety/restlessness Melatonin (Melatonin 3 Mg Tablet) 6 mg PO BEDTIME PRN PRN Reason: Insomnia Last Admin: 06/15/23 21:30 Dose: 6 mg Documented By: MIRIAN Metoprolol Succinate (Metoprolol Succinate Er 100 Mg Tab.Er.24h) 100 mg PO DAILY [facility]; Protocol Last Admin: 06/19/23 11:05 Dose: 100 mg Documented By: LEYDA Metoprolol Tartrate (Metoprolol Tartrate 5 Mg/5 Ml Vial) 5 mg IVPUSH Q6H PRN PRN Reason: HR >140 Morphine Sulfate (Morphine Sulfate 2 Mg/Ml Cartridge) 2 mg IVPUSH Q4H PRN; Protocol PRN Reason: Pain, Severe (Pain Scale 7-10) Last Admin: 06/19/23 10:05 Dose: 2 mg Documented By: LEYDA Multivitamins/Vitamin C (Multivitamin Tablet) 1 tab PO DAILY [facility] Last Admin: 06/19/23 08:56 Dose: 1 tab Documented By: LEYDA Omeprazole (Omeprazole 20 Mg Capsule.) 20 mg PO DAILY@0630 [facility] Last Admin: 06/19/23 05:49 Dose: 20 mg Documented By: SHREYAS Ondansetron HCl (Ondansetron Hcl 4 Mg/2 Ml Vial) 4 mg IVPUSH Q8H PRN PRN Reason: Nausea and Vomiting Sodium Chloride (0.9 % Sodium Chloride Flush 3 Ml Syringe) 3 ml IVFLUSH QSHIFT [facility] Last Admin: 06/19/23 08:57 Dose: 3 ml Documented By: LEYDA Labs 06/17/23 06:41 06/19/23 06:53 Labs: Laboratory Results - last 24 hr 06/18/23 06/18/23 06/18/23 06:41 16:29 19:35 Anion Gap Estim Creat Clear Calc Estimated GFR POC Glucose 123 H 146 H Random Glucose Calcium Magnesium 1.7 Digoxin 06/19/23 06/19/23 06/19/23 06:53 07:21 11:18 Anion Gap 14 Estim Creat Clear Calc 97.5 Estimated GFR > 60 POC Glucose 138 H 119 H Random Glucose 131 H Calcium 9.1 Magnesium 1.9 Digoxin 0.4 L Assessment and Plan (1) Acute diverticulitis: Status: Acute (2) Atrial flutter with rapid ventricular response: Status: Acute Plan Pt is a 68-year-old male with a PMH significant for?HTN, CAD, hx of [place] 2021, HIV, [id number] diabetes type 2, KENYON not on CPAP, and GERD who presents to the ED with?tachycardia into the 140s and constant ?fluttering? in his chest since this morning. Pt will be admitted to the hospital for treatment and further evaluation of new onset AFib with RVR. New onset A.Fib\Flutter with RVR went back to 140s this morning IV Metoprolol Loaded with Digoxin, continue 0.25 mg daily DC Cardizem CD 240 mg Toprol XL 100 mg Eliquis 5 mg b.i.d. Echo showing LVH w EF 55-60% Cardiology input appreciated, keep NPO post midnight for cardioversion tomorrow Monitor on telemetry today Acute diverticulitis Improving seen on CT scan abd. IV Ceftriaxone and Flagyl pain meds advance diet as tolerated Elevated troponins Likely type 2 in the setting of increased demand no significant EKG changes Monitor on telemetry Cardiology consult, likely type II HLD/CAD Continue aspirin, statin HTN Continue lisinopril, metoprolol [id number] diabetes type [address] on sliding scale insulin Diabetic diet KENYON Diagnosed 2 years ago, not on CPAP Will have to f/u outpatient to get fitted with CPAP BPH Continue terazosin GERD Continue omeprazole Full Code DVT Prophylaxis: On Eliquis Pt will require a hospitalization of overnight for treatment of?new onset AFib with RVR on IV Cardizem drip and acute diverticulitis on IV antibiotics pending clinical improvement. Quality Stroke Does the patient have a stroke diagnosis?: No VTE Prior VTE?: No VTE Risk Level:: Medical - moderate - high VTE Device Contraindication: Treatment Not Indicated VTE Drug Contraindication: N/A - Med Ordered
--- NOTE | 2023-06-19 12:22 | PM.PNCARD ---
Subjective Subjective Date of Service: 06/19/23 Interval history: Seen examined at bedside. Has been having RVR with his atrial flutter. Overall feeling better. Physical Exam Vital Signs: Last Vital Signs Temp 96.9 F 06/19/23 10:49 Pulse 81 06/19/23 10:49 Resp 20 06/19/23 10:49 BP 143/79 H 06/19/23 10:49 Pulse Ox 96 06/19/23 10:49 O2 Del Method Room Air 06/19/23 10:49 O2 Flow Rate 2 06/15/23 10:48 BMI result Body Mass Index 42.7 GENERAL APPEARANCE: in no acute distress, obese. NECK: no carotid bruit, no jugular venous distention. SKIN: no suspicious lesions, warm and dry. HEART: no murmurs, regular rate and rhythm. LUNGS: clear to auscultation bilaterally. ABDOMEN: soft, no tenderness. EXTREMITIES: no edema. PERIPHERAL PULSES: equal. NEUROLOGIC: No gross deficits, AAO X 3 Objective Labs and Meds 06/17/23 06:41 06/19/23 06:53 Lab results: Laboratory Results - last 24 hr 06/18/23 06/18/23 06/19/23 16:29 19:35 06:53 Sodium 138 Potassium 4.2 Chloride 105 Carbon Dioxide 23 Anion Gap 14 BUN 19 H Creatinine 0.93 Estim Creat Clear Calc 97.5 Estimated GFR > 60 POC Glucose 123 H 146 H Random Glucose 131 H Calcium 9.1 Magnesium 1.9 Digoxin 0.4 L 06/19/23 06/19/23 07:21 11:18 Sodium Potassium Chloride Carbon Dioxide Anion Gap BUN Creatinine Estim Creat Clear Calc Estimated GFR POC Glucose 138 H 119 H Random Glucose Calcium Magnesium Digoxin Progress Note: A&P Assessment and plan (1) Hypertrophic cardiomyopathy: Status: Acute (2) Atrial flutter with rapid ventricular response: Status: Acute Plan [age] gentleman with known history of hypertrophic cardiomyopathy. No history or evidence of LVOT obstruction in the past or on echocardiography recently. Presented with atrial flutter and diverticulitis. Improving from diverticulitis at this point. Continues to have poorly controlled atrial flutter despite trying Cardizem, metoprolol and digoxin. Cardizem has been discontinued. Continue digoxin 250 mcg daily and Toprol-XL 100 mg daily. Keep NPO after midnight for potential [place] cardioversion tomorrow. Eliquis should not be interrupted. Thank you for allowing me to participate in the care of your patient. Please feel free to contact me if you have any questions. Time Spent With Patient Time: Total time managing care of this patient today ____ minutes. Progress Note: Quality Stroke Does the patient have a stroke diagnosis?: No Procedures Date of Service Date of Service: 06/19/23
[2023-06-19 15:56] VITALS: BP 107/67; PULSE 71; RESP 16; TEMP 36.1; O2SAT 96
[2023-06-19 16:12] LABS: Glucose, Whole Blood 132 mg/dL (60-115)
[2023-06-19] MEDS: cefTRIAXone sodium 2 GM in 0.9 % Sodium Chloride 50 ML IV (17:22)
[2023-06-19 19:21] VITALS: BP 152/108; PULSE 87; RESP 18; TEMP 36.1; O2SAT 96
[2023-06-19 21:14] LABS: Glucose, Whole Blood 122 mg/dL (60-115)
[2023-06-19] MEDS: Doxazosin Mesylate 2 MG TABLET 4 MG PO (21:14)
[2023-06-19] MEDS: Atorvastatin Calcium 80 MG TABLET PO (21:14)
[2023-06-19 23:53] VITALS: BP 101/66; PULSE 69; RESP 18; TEMP 36.2; O2SAT 95
[2023-06-20] VITALS (12 sets, daily range): BP systolic 107–146; BP diastolic 55–101; PULSE 69–147; RESP 16–20; TEMP 36.1–36.6; O2SAT 90–99; BMI 42.7
[2023-06-20] MEDS: metroNIDAZOLE/NS 500 MG/100 ML PIGGYBACK 100 MG IV ×3 (02:57→19:45)
[2023-06-20] MEDS: Omeprazole 20 MG CAPSULE.DR PO (06:32)
[2023-06-20 07:38] LABS: Glucose, Whole Blood 132 mg/dL (60-115)
[2023-06-20] MEDS: Multivitamin TABLET 1 TAB PO (07:58)
[2023-06-20] MEDS: Metoprolol Succinate ER 100 MG TAB.ER.24H PO (07:58)
[2023-06-20] MEDS: 0.9 % Sodium Chloride Flush 3 ML SYRINGE IVFLUSH ×2 (07:59→22:23)
[2023-06-20] MEDS: FLUoxetine HCl 10 MG CAPSULE PO (07:59)
[2023-06-20] MEDS: Apixaban 5 MG TABLET PO ×2 (07:59→19:46)
[2023-06-20] MEDS: Digoxin 0.25 MG TABLET PO (07:59)
--- NOTE | 2023-06-20 10:38 | P.PNIM_ITS ---
Subjective Subjective Date of Service: 06/20/23 Interval History: Seen and evaluated this morning Controlled overnight, back to tachycardia in 140s this morning Plan for SHAW[place] and cardioversion no other events Review of Systems Review of Systems: Yes all other systems are reviewed and are negative Physical Exam 2 Vital Signs: Vital Signs: Last Vital Signs Temp 97.5 F 06/20/23 07:12 Pulse 121 H 06/20/23 07:12 Resp 20 06/20/23 07:12 BP 146/69 H 06/20/23 07:12 Pulse Ox 93 06/20/23 07:12 O2 Del Method Room Air 06/20/23 07:12 O2 Flow Rate 2 06/15/23 10:48 BMI result Body Mass Index 42.7 Const: Other: Constitutional : Awake, interactive, not in distress Neck : Normal inspection, Supple Cardiovascular : irregular irregular, no JVP, no lower extremity edema, tachycardia Respiratory : good bilateral air entry, no crackles, wheezes or rhonchi Gastrointestinal: soft, lax, Normal bowel sounds, no significant tenderness Skin : Warm, Dry Neurological : Alert & oriented x3, No focal deficit Objective Data Active Medications Acetaminophen (Acetaminophen 325 Mg Tablet) 650 mg PO Q6H PRN PRN Reason: Pain, Mild (Pain Scale 1-3) Last Admin: 06/17/23 05:39 Dose: 650 mg Documented By: BANDAR Apixaban (Apixaban 5 Mg Tablet) 5 mg PO BID [facility] Last Admin: 06/20/23 07:59 Dose: 5 mg Documented By: MOI Aspirin (Aspirin Enteric Coated 81 Mg Tablet.) 81 mg PO DAILY [facility] Last Admin: 06/20/23 08:10 Dose: Not Given Documented By: MOI Non-Admin Reason: Physician Held Med Atorvastatin Calcium (Atorvastatin Calcium 80 Mg Tablet) 80 mg PO BEDTIME [facility] Last Admin: 06/19/23 21:14 Dose: 80 mg Documented By: ALICE Benzonatate (Benzonatate 100 Mg Capsule) 100 mg PO TID PRN PRN Reason: Cough Dextrose (Dextrose 50 % 25 Gm/50 Ml Syringe) 25 gm IVPUSH Q15M PRN; Protocol PRN Reason: per Hypoglycemia Standing Ord. Digoxin (Digoxin 0.25 Mg Tablet) 0.25 mg PO DAILY [facility] Last Admin: 06/20/23 07:59 Dose: 0.25 mg Documented By: MOI Docusate Sodium (Docusate Sodium 100 Mg Capsule) 100 mg PO DAILY PRN PRN Reason: Constipation Doxazosin Mesylate (Doxazosin Mesylate 2 Mg Tablet) 4 mg PO BEDTIME [facility] Last Admin: 06/19/23 21:14 Dose: 4 mg Documented By: ALICE Efavirenz/Emtricitabine/Tenofovir (Efavirenz/Emtricitab/Tenof Df 600/200/300 Tablet) 1 tab PO BEDTIME [facility] Last Admin: 06/19/23 21:14 Dose: 1 tab Documented By: ALICE Fluoxetine HCl (Fluoxetine Hcl 10 Mg Capsule) 10 mg PO DAILY [facility] Last Admin: 06/20/23 07:59 Dose: 10 mg Documented By: MOI Glucose (Glucose Gel 15 Gm Gel..Gram.) 15 gm PO Q15M PRN; Protocol PRN Reason: per Hypoglycemia Standing Ord. Ceftriaxone Sodium 2 gm/ (Sodium Chloride) 50 mls @ 100 mls/hr IV Q24H [facility] Last Infusion: 06/19/23 17:54 Dose: Infused Documented By: LEYDA Metronidazole (Flagyl) 500 mg in 100 mls @ 100 mls/hr IV Q8H [facility] Last Admin: 06/20/23 09:40 Dose: 100 mls/hr Documented By: MOI Insulin Human Lispro (Insulin Lispro 100 Unit/Ml 3 Ml Vial) 0 unit SUBCUT QIDACHS [facility]; Protocol Last Admin: 06/20/23 08:12 Dose: Not Given Documented By: MOI Non-Admin Reason: No Insulin Coverage Lisinopril (Lisinopril 40 Mg Tablet) 40 mg PO DAILY [facility]; Protocol Last Admin: 06/17/23 08:17 Dose: 40 mg Documented By: DOBROAlida Lorazepam (Lorazepam 0.5 Mg Tablet) 0.5 mg PO Q8H PRN PRN Reason: anxiety/restlessness Melatonin (Melatonin 3 Mg Tablet) 6 mg PO BEDTIME PRN PRN Reason: Insomnia Last Admin: 06/15/23 21:30 Dose: 6 mg Documented By: MIRIAN Metoprolol Succinate (Metoprolol Succinate Er 100 Mg Tab.Er.24h) 100 mg PO DAILY [facility]; Protocol Last Admin: 06/20/23 07:58 Dose: 100 mg Documented By: MOI Metoprolol Tartrate (Metoprolol Tartrate 5 Mg/5 Ml Vial) 5 mg IVPUSH Q6H PRN PRN Reason: HR >140 Morphine Sulfate (Morphine Sulfate 2 Mg/Ml Cartridge) 2 mg IVPUSH Q4H PRN; Protocol PRN Reason: Pain, Severe (Pain Scale 7-10) Last Admin: 06/19/23 21:13 Dose: 2 mg Documented By: ALICE Multivitamins/Vitamin C (Multivitamin Tablet) 1 tab PO DAILY [facility] Last Admin: 06/20/23 07:58 Dose: 1 tab Documented By: MOI Omeprazole (Omeprazole 20 Mg Capsule.) 20 mg PO DAILY@0630 [facility] Last Admin: 06/20/23 06:32 Dose: 20 mg Documented By: ALICE Ondansetron HCl (Ondansetron Hcl 4 Mg/2 Ml Vial) 4 mg IVPUSH Q8H PRN PRN Reason: Nausea and Vomiting Sodium Chloride (0.9 % Sodium Chloride Flush 3 Ml Syringe) 3 ml IVFLUSH QSHIFT [facility] Last Admin: 06/20/23 07:59 Dose: 3 ml Documented By: MOI Labs 06/17/23 06:41 06/19/23 06:53 Labs: Laboratory Results - last 24 hr 06/19/23 06/19/23 06/19/23 11:18 15:55 20:44 POC Glucose 119 H 132 H 122 H 06/20/23 07:09 POC Glucose 132 H Assessment and Plan (1) Atrial flutter with rapid ventricular response: Status: Acute (2) Acute diverticulitis: Status: Acute Plan Pt is a 68-year-old male with a PMH significant for?HTN, CAD, hx of [place] 2021, HIV, [id number] diabetes type 2, KENYON not on CPAP, and GERD who presents to the ED with?tachycardia into the 140s and constant ?fluttering? in his chest since this morning. Pt will be admitted to the hospital for treatment and further evaluation of new onset AFib with RVR. New onset A.Fib\Flutter with RVR went back to 140s this morning IV Metoprolol Loaded with Digoxin, continue 0.25 mg daily DC Cardizem CD 240 mg Toprol XL 100 mg Eliquis 5 mg b.i.d. Echo showing LVH w EF 55-60% Cardiology input appreciated, keep NPO post midnight for cardioversion tomorrow Monitor on telemetry today Acute diverticulitis Improving seen on CT scan abd. IV Ceftriaxone and Flagyl pain meds advance diet as tolerated Elevated troponins Likely type 2 in the setting of increased demand no significant EKG changes Monitor on telemetry Cardiology consult, likely type II HLD/CAD Continue aspirin, statin HTN Continue lisinopril, metoprolol [id number] diabetes type [address] on sliding scale insulin Diabetic diet KENYON Diagnosed 2 years ago, not on CPAP Will have to f/u outpatient to get fitted with CPAP BPH Continue terazosin GERD Continue omeprazole Full Code DVT Prophylaxis: On Eliquis Pt will require a hospitalization of overnight for treatment of?new onset AFib with RVR on IV Cardizem drip and acute diverticulitis on IV antibiotics pending clinical improvement. Quality Stroke Does the patient have a stroke diagnosis?: No VTE Prior VTE?: No VTE Risk Level:: Medical - moderate - high VTE Device Contraindication: Treatment Not Indicated VTE Drug Contraindication: N/A - Med Ordered
--- NOTE | 2023-06-20 11:34 | PC.NURSE ---
Pt returned to floor as case time is changed to 5pm. Nallely NAVARRO notified of pt return and plan for continued care.
--- NOTE | 2023-06-20 11:53 | P.CONAN_ITS ---
HPI - Anesthesia Eval Consult details Narrative: 68yo male patient for SHAWNA, [facility] Active Problems Active Problems: All Active Problems (Updated 06/20/23 @ 11:53 by Margie Henry MD) Hypertrophic cardiomyopathy (Acute) Acute diverticulitis (Acute) Atrial flutter with rapid ventricular response (Acute)- symptomatic Tear of left hamstring (Acute) CAD- cardiac cath 2020. 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 Last dose this morning 06/20/23 Morbid Obesity. BMI 42.7 Past Medical History Medical History (Updated 06/20/23 @ 16:45 by Margie Henry MD) Non-insulin dependent type 2 diabetes mellitus CAD (coronary artery disease) HIV (human immunodeficiency virus infection) KENYON (obstructive sleep apnea) Tear of left hamstring Diabetes High cholesterol High blood pressure Family History Family history of problems with anesthesia: No Surgical History History of Problems with Anesthesia: No Social History Social History (Updated 06/20/23 @ 16:48 by Margie Henry MD) Household Members: None Household Members Other:: none; lives alone with his cat () Housing: Apartment Do you presently have visiting nurse or other home services: No Comment: pt refuses bed alarm Patient Tobacco Use Status: Former Tobacco user Quit Date: 10 years ago Substance Use Type: Marijuana service: No Current occupational status: retired Current occupation: rt handed Meds Allergies Allergy/AdvReac Type Severity Reaction Status Date / Time No Known Allergies Allergy Verified 06/15/23 10:21 Active Medications: Current Medications Acetaminophen (Acetaminophen 325 Mg Tablet) 650 mg PO Q6H PRN PRN Reason: Pain, Mild (Pain Scale 1-3) Last Admin: 06/17/23 05:39 Dose: 650 mg Apixaban (Apixaban 5 Mg Tablet) 5 mg PO BID [facility] Last Admin: 06/20/23 07:59 Dose: 5 mg Aspirin (Aspirin Enteric Coated 81 Mg Tablet.) 81 mg PO DAILY [facility] Last Admin: 06/20/23 08:10 Dose: Not Given Atorvastatin Calcium (Atorvastatin Calcium 80 Mg Tablet) 80 mg PO BEDTIME [facility] Last Admin: 06/19/23 21:14 Dose: 80 mg Benzonatate (Benzonatate 100 Mg Capsule) 100 mg PO TID PRN PRN Reason: Cough Dextrose (Dextrose 50 % 25 Gm/50 Ml Syringe) 25 gm IVPUSH Q15M PRN; Protocol PRN Reason: per Hypoglycemia Standing Ord. Digoxin (Digoxin 0.25 Mg Tablet) 0.25 mg PO DAILY [facility] Last Admin: 06/20/23 07:59 Dose: 0.25 mg Docusate Sodium (Docusate Sodium 100 Mg Capsule) 100 mg PO DAILY PRN PRN Reason: Constipation Doxazosin Mesylate (Doxazosin Mesylate 2 Mg Tablet) 4 mg PO BEDTIME [facility] Last Admin: 06/19/23 21:14 Dose: 4 mg Efavirenz/Emtricitabine/Tenofovir (Efavirenz/Emtricitab/Tenof Df 600/200/300 Tablet) 1 tab PO BEDTIME [facility] Last Admin: 06/19/23 21:14 Dose: 1 tab Fluoxetine HCl (Fluoxetine Hcl 10 Mg Capsule) 10 mg PO DAILY [facility] Last Admin: 06/20/23 07:59 Dose: 10 mg Glucose (Glucose Gel 15 Gm Gel..Gram.) 15 gm PO Q15M PRN; Protocol PRN Reason: per Hypoglycemia Standing Ord. Ceftriaxone Sodium 2 gm/ (Sodium Chloride) 50 mls @ 100 mls/hr IV Q24H [facility] Last Infusion: 06/19/23 17:54 Dose: Infused Metronidazole (Flagyl) 500 mg in 100 mls @ 100 mls/hr IV Q8H [facility] Last Infusion: 06/20/23 10:52 Dose: Infused Insulin Human Lispro (Insulin Lispro 100 Unit/Ml 3 Ml Vial) 0 unit SUBCUT QIDACHS [facility]; Protocol Last Admin: 06/20/23 08:12 Dose: Not Given Lisinopril (Lisinopril 40 Mg Tablet) 40 mg PO DAILY [facility]; Protocol Last Admin: 06/17/23 08:17 Dose: 40 mg Lorazepam (Lorazepam 0.5 Mg Tablet) 0.5 mg PO Q8H PRN PRN Reason: anxiety/restlessness Melatonin (Melatonin 3 Mg Tablet) 6 mg PO BEDTIME PRN PRN Reason: Insomnia Last Admin: 06/15/23 21:30 Dose: 6 mg Metoprolol Succinate (Metoprolol Succinate Er 100 Mg Tab.Er.24h) 100 mg PO DAILY [facility]; Protocol Last Admin: 06/20/23 07:58 Dose: 100 mg Metoprolol Tartrate (Metoprolol Tartrate 5 Mg/5 Ml Vial) 5 mg IVPUSH Q6H PRN PRN Reason: HR >140 Morphine Sulfate (Morphine Sulfate 2 Mg/Ml Cartridge) 2 mg IVPUSH Q4H PRN; Protocol PRN Reason: Pain, Severe (Pain Scale 7-10) Last Admin: 06/19/23 21:13 Dose: 2 mg Multivitamins/Vitamin C (Multivitamin Tablet) 1 tab PO DAILY [facility] Last Admin: 06/20/23 07:58 Dose: 1 tab Omeprazole (Omeprazole 20 Mg Capsule.) 20 mg PO DAILY@0630 [facility] Last Admin: 06/20/23 06:32 Dose: 20 mg Ondansetron HCl (Ondansetron Hcl 4 Mg/2 Ml Vial) 4 mg IVPUSH Q8H PRN PRN Reason: Nausea and Vomiting Sodium Chloride (0.9 % Sodium Chloride Flush 3 Ml Syringe) 3 ml IVFLUSH QSHIFT [facility] Last Admin: 06/20/23 07:59 Dose: 3 ml Home Medications Medication Instructions Recorded Confirmed Last Taken Type aspirin 81 mg tablet,delayed 81 mg PO DAILY 06/15/23 06/15/23 06/15/23 History release efavirenz 600 mg-emtricitabine 200 1 tab PO BEDTIME 06/15/23 06/15/23 06/14/23 History mg-tenofovir disoprox 300 mg tablet lisinopril 40 mg tablet 40 mg PO DAILY 06/15/23 06/15/23 06/15/23 History melatonin 3 mg tablet 9 mg PO BEDTIME PRN Sleep 06/15/23 06/15/23 06/14/23 History metformin 500 mg tablet 500 mg PO DAILY 06/15/23 06/15/23 06/15/23 History metoprolol tartrate 50 mg tablet 50 mg PO BID 06/15/23 06/15/23 06/15/23 History multivitamin 1 tab PO DAILY 06/15/23 06/15/23 06/15/23 History omega 1-kcr-utz-fish oil 60 mg-90 2 cap PO DAILY 06/15/23 06/15/23 06/15/23 History mg-500 mg capsule (Fish Oil) omeprazole 20 mg capsule,delayed 20 mg PO DAILY@0630 06/15/23 06/15/23 06/15/23 History release rosuvastatin 20 mg tablet 20 mg PO BEDTIME 06/15/23 06/15/23 06/14/23 History terazosin 5 mg capsule 5 mg PO BEDTIME 06/15/23 06/15/23 06/14/23 History Exam Height,Weight and Vital Signs: Height 5 ft 8 in Weight 127.4 kg Last Vital Signs Temp 97.8 F 06/20/23 11:27 Pulse 147 H 06/20/23 11:27 Resp 16 06/20/23 11:27 BP 139/101 H 06/20/23 11:27 Pulse Ox 97 06/20/23 11:27 O2 Del Method Room Air 06/20/23 11:27 O2 Flow Rate 2 06/15/23 10:48 Vital Signs Temp Pulse Resp BP Pulse Ox O2 Del Method 06/20/23 16:11 97.8 F 111 H 16 95 Room Air 06/20/23 15:20 97.5 F 76 20 127/79 95 Room Air 06/20/23 12:00 97.3 F 92 19 134/85 94 Room Air 06/20/23 11:27 97.8 F 147 H 16 139/101 H 97 Room Air 06/20/23 07:12 97.5 F 121 H 20 146/69 H 93 Room Air 06/20/23 03:39 97.6 F 69 18 113/55 L 90 L Room Air 06/20/23 00:30 70 16 06/19/23 23:53 97.2 F 69 18 101/66 95 Room Air 06/19/23 19:21 97 F 87 18 152/108 H 96 Room Air Pertinent Lab Results Pertinent Lab Results: Laboratory Tests 06/15/23 06/15/23 06/15/23 10:29 14:36 21:17 WBC 5.6 RBC 4.71 Hgb 14.6 Hct 43.1 MCV 91.5 MCH 31.0 MCHC 33.9 RDW 13.1 Plt Count 147 L MPV 9.1 L Immature Gran % (Auto) 0.4 Neut % (Auto) 58.6 Lymph % (Auto) 30.8 [place] % (Auto) 6.8 Eos % (Auto) 2.9 Baso % (Auto) 0.5 Lymph # (Auto) 1.7 [place] # (Auto) 0.4 Eos # (Auto) 0.2 Baso # (Auto) 0.0 Abs Immat Gran (auto) 0.02 Absolute Neuts (auto) 3.3 Absolute Nucleated RBC 0.000 Nucleated RBC % (auto) 0.0 PT 11.3 INR 0.9 D-Dimer High Sensitivty < 150 Sodium 136 Potassium 4.7 Chloride 100 Carbon Dioxide 24 Anion Gap 17 BUN 13 Creatinine 0.77 Estim Creat Clear Calc 118.0 Estimated GFR > 60 POC Glucose 128 H Random Glucose 155 H Calcium 9.2 Magnesium 1.6 Total Bilirubin 0.4 AST 79 H ALT 88 H Alkaline Phosphatase 62 Troponin I High Sens 18.7 50.2 H D B-Natriuretic Peptide 31 Total Protein 7.2 Albumin 3.9 Digoxin 06/16/23 06/16/23 06/16/23 07:30 11:02 16:07 WBC RBC Hgb Hct MCV MCH MCHC RDW Plt Count MPV Immature Gran % (Auto) Neut % (Auto) Lymph % (Auto) [place] % (Auto) Eos % (Auto) Baso % (Auto) Lymph # (Auto) [place] # (Auto) Eos # (Auto) Baso # (Auto) Abs Immat Gran (auto) Absolute Neuts (auto) Absolute Nucleated RBC Nucleated RBC % (auto) PT INR D-Dimer High Sensitivty Sodium Potassium Chloride Carbon Dioxide Anion Gap BUN Creatinine Estim Creat Clear Calc Estimated GFR POC Glucose 152 H 143 H 135 H Random Glucose Calcium Magnesium Total Bilirubin AST ALT Alkaline Phosphatase Troponin I High Sens B-Natriuretic Peptide Total Protein Albumin Digoxin 06/16/23 06/17/23 06/17/23 20:05 06:41 07:32 WBC 8.0 RBC 4.74 Hgb 14.9 Hct 44.4 MCV 93.7 MCH 31.4 MCHC 33.6 RDW 13.4 Plt Count 166 MPV 9.2 L Immature Gran % (Auto) Neut % (Auto) Lymph % (Auto) [place] % (Auto) Eos % (Auto) Baso % (Auto) Lymph # (Auto) [place] # (Auto) Eos # (Auto) Baso # (Auto) Abs Immat Gran (auto) Absolute Neuts (auto) Absolute Nucleated RBC 0.000 Nucleated RBC % (auto) 0.0 PT INR D-Dimer High Sensitivty Sodium 139 Potassium 4.2 Chloride 103 Carbon Dioxide 23 Anion Gap 17 BUN 15 Creatinine 0.97 Estim Creat Clear Calc 93.5 Estimated GFR > 60 POC Glucose 131 H 154 H Random Glucose 149 H Calcium 9.3 Magnesium Total Bilirubin AST ALT Alkaline Phosphatase Troponin I High Sens 33.2 B-Natriuretic Peptide Total Protein Albumin Digoxin 06/17/23 06/17/23 06/17/23 09:37 11:06 15:54 WBC RBC Hgb Hct MCV MCH MCHC RDW Plt Count MPV Immature Gran % (Auto) Neut % (Auto) Lymph % (Auto) [place] % (Auto) Eos % (Auto) Baso % (Auto) Lymph # (Auto) [place] # (Auto) Eos # (Auto) Baso # (Auto) Abs Immat Gran (auto) Absolute Neuts (auto) Absolute Nucleated RBC Nucleated RBC % (auto) PT INR D-Dimer High Sensitivty Sodium Potassium Chloride Carbon Dioxide Anion Gap BUN Creatinine Estim Creat Clear Calc Estimated GFR POC Glucose 152 H 131 H Random Glucose Calcium Magnesium Total Bilirubin AST ALT Alkaline Phosphatase Troponin I High Sens 32.6 B-Natriuretic Peptide Total Protein Albumin Digoxin 06/17/23 06/18/23 06/18/23 20:10 06:41 07:38 WBC RBC Hgb Hct MCV MCH MCHC RDW Plt Count MPV Immature Gran % (Auto) Neut % (Auto) Lymph % (Auto) [place] % (Auto) Eos % (Auto) Baso % (Auto) Lymph # (Auto) [place] # (Auto) Eos # (Auto) Baso # (Auto) Abs Immat Gran (auto) Absolute Neuts (auto) Absolute Nucleated RBC Nucleated RBC % (auto) PT INR D-Dimer High Sensitivty Sodium Potassium Chloride Carbon Dioxide Anion Gap BUN Creatinine Estim Creat Clear Calc Estimated GFR POC Glucose 132 H 146 H Random Glucose Calcium Magnesium 1.7 Total Bilirubin AST ALT Alkaline Phosphatase Troponin I High Sens B-Natriuretic Peptide Total Protein Albumin Digoxin 06/18/23 06/18/23 06/18/23 11:06 16:29 19:35 WBC RBC Hgb Hct MCV MCH MCHC RDW Plt Count MPV Immature Gran % (Auto) Neut % (Auto) Lymph % (Auto) [place] % (Auto) Eos % (Auto) Baso % (Auto) Lymph # (Auto) [place] # (Auto) Eos # (Auto) Baso # (Auto) Abs Immat Gran (auto) Absolute Neuts (auto) Absolute Nucleated RBC Nucleated RBC % (auto) PT INR D-Dimer High Sensitivty Sodium Potassium Chloride Carbon Dioxide Anion Gap BUN Creatinine Estim Creat Clear Calc Estimated GFR POC Glucose 132 H 123 H 146 H Random Glucose Calcium Magnesium Total Bilirubin AST ALT Alkaline Phosphatase Troponin I High Sens B-Natriuretic Peptide Total Protein Albumin Digoxin 06/19/23 06/19/23 06/19/23 06:53 07:21 11:18 WBC RBC Hgb Hct MCV MCH MCHC RDW Plt Count MPV Immature Gran % (Auto) Neut % (Auto) Lymph % (Auto) [place] % (Auto) Eos % (Auto) Baso % (Auto) Lymph # (Auto) [place] # (Auto) Eos # (Auto) Baso # (Auto) Abs Immat Gran (auto) Absolute Neuts (auto) Absolute Nucleated RBC Nucleated RBC % (auto) PT INR D-Dimer High Sensitivty Sodium 138 Potassium 4.2 Chloride 105 Carbon Dioxide 23 Anion Gap 14 BUN 19 H Creatinine 0.93 Estim Creat Clear Calc 97.5 Estimated GFR > 60 POC Glucose 138 H 119 H Random Glucose 131 H Calcium 9.1 Magnesium 1.9 Total Bilirubin AST ALT Alkaline Phosphatase Troponin I High Sens B-Natriuretic Peptide Total Protein Albumin Digoxin 0.4 L 06/19/23 06/19/23 06/20/23 15:55 20:44 07:09 WBC RBC Hgb Hct MCV MCH MCHC RDW Plt Count MPV Immature Gran % (Auto) Neut % (Auto) Lymph % (Auto) [place] % (Auto) Eos % (Auto) Baso % (Auto) Lymph # (Auto) [place] # (Auto) Eos # (Auto) Baso # (Auto) Abs Immat Gran (auto) Absolute Neuts (auto) Absolute Nucleated RBC Nucleated RBC % (auto) PT INR D-Dimer High Sensitivty Sodium Potassium Chloride Carbon Dioxide Anion Gap BUN Creatinine Estim Creat Clear Calc Estimated GFR POC Glucose 132 H 122 H 132 H Random Glucose Calcium Magnesium Total Bilirubin AST ALT Alkaline Phosphatase Troponin I High Sens B-Natriuretic Peptide Total Protein Albumin Digoxin Airway Mallampati Class: II (Large tongue) TM Dist: >3cm Neck ROM: Full Denture: Upper and Lower Loose/Missing/Broken Teeth: Yes (Full dentures. At home) Heart: Irregular Lungs: CTAB Assessment and Plan Assessment Anesthesia Assessment: Anesthesia Plan Discussed and Chart Reviewed Final Anesthetic Review Family History of Problems with Anesthesia: No History of Problems with Anesthesia: No NPO: Yes ASA Class: IV and Emergency Final Preanesthetic Review: No Changes in Pt Med Stat, Meds/Allgs Chart Reviewed, Consent Obtained/Reviewed and Anes Risks/Benef Reviewed Patient Risk: High Procedure Risk: Intermediate Assessment/Block/Sedation in SS: Assess/Block/Sedation-SS Anesthetic Plan Anesthetic Plan: GA and MAC: Disposition: Standard PACU and Inp. Admit - IMC
[2023-06-20 11:58] LABS: Glucose, Whole Blood 120 mg/dL (60-115)
[2023-06-20] MEDS: Morphine Sulfate 2 MG/ML CARTRIDGE IVPUSH ×2 (12:09→19:46)
--- NOTE | 2023-06-20 12:39 | PM.PNCARD ---
Subjective Subjective Date of Service: 06/20/23 Principal diagnosis: Atrial flutter, hypertrophic cardiomyopathy, CAD Interval history: Patient remains in atrial flutter with difficult to control rate despite triple therapy. He gets symptoms when he is walking and feels palpitations. Denies any shortness of breath or lightheadedness. Diverticulitis is getting better. Patient is NPO for SHAWNA guided cardioversion. Review of Systems Constitutional: Reports no additional constitutional complaints Eyes: Reports no additional eye complaints Cardiovascular: Denies chest pain, Denies lightheadedness, Denies Loss of Consciousness, Reports palpitations and Denies dyspnea Respiratory: Reports no additional respiratory complaints and Denies dyspnea Gastrointestinal: Reports no additional gastrointestinal complaints Genitourinary: Reports no additional male genitourinary complaints Musculoskeletal: Reports no additional musculoskeletal complaints Endocrine: Reports palpitations Physical Exam Vital Signs: Last Vital Signs Temp 97.3 F 06/20/23 12:00 Pulse 92 06/20/23 12:00 Resp 19 06/20/23 12:00 BP 134/85 06/20/23 12:00 Pulse Ox 94 06/20/23 12:00 O2 Del Method Room Air 06/20/23 12:00 O2 Flow Rate 2 06/15/23 10:48 BMI result Body Mass Index 42.7 GENERAL APPEARANCE: in no acute distress, obese. NECK: no carotid bruit, no jugular venous distention. SKIN: no suspicious lesions, warm and dry. HEART: no murmurs, regular rate and rhythm. LUNGS: clear to auscultation bilaterally. ABDOMEN: soft, no tenderness. EXTREMITIES: no edema. PERIPHERAL PULSES: equal. NEUROLOGIC: No gross deficits, AAO X 3 Objective Labs and Meds 06/17/23 06:41 06/19/23 06:53 Lab results: Laboratory Results - last 24 hr 06/19/23 06/19/23 06/20/23 15:55 20:44 07:09 POC Glucose 132 H 122 H 132 H 06/20/23 11:53 POC Glucose 120 H Progress Note: A&P Assessment and plan (1) Atrial flutter with rapid ventricular response: Status: Acute Assessment and Plan: Atrial flutter with rapid ventricular response despite multiple medications. Can not discharge him home without risk for cardiac decompensation as outpatient. Given unclear etiology and duration of atrial flutter will pursue SHAWNA guided synchronized cardioversion. Will most likely require antiarrhythmic drug therapy to pursue rhythm control approach given his underlying cardiac issues including hypertrophic cardiomyopathy and CAD. Continue full oral anticoagulation, currently on Eliquis 5 mg b.i.d.. Discussed with him the SHAWNA as well as synchronized cardioversion including risk, benefits and alternatives. He understands and agrees. Please keep him NPO Will follow up with you. Time Spent With Patient Time: Total time managing care of this patient today ____ minutes. Progress Note: Quality Stroke Does the patient have a stroke diagnosis?: No Procedures Date of Service Date of Service: 06/20/23
--- NOTE | 2023-06-20 13:53 | MHC.CM.PN ---
Pt. is not yet ready for DC. He requires further treatment for new onset AFib with RVR and acute Diverticulitis. CM to follow and assist as needed with DC plan.
[2023-06-20] MEDS: LORazepam 0.5 MG TABLET PO (14:22)
[2023-06-20 16:07] LABS: Glucose, Whole Blood 124 mg/dL (60-115)
--- NOTE | 2023-06-20 16:53 | MHC.SHP ---
Pre-Procedural Eval Section A - 24 Hr Update-Section A only Date of Service: 06/20/23 The patient is an INPATIENT: Yes Changes since office visit: Yes Patient answered all questions; No Cold of Flu in the past 2 weeks, No New Medical Problems and No Changes in Medication The patient has been examined within 24 hours of the surgical procedure. The History & Physical has been completed within 30 days and I have reviewed it.: Yes Section B - Complete if H&P > 30 days Chief Complaint: New onset atrial flutter Allergies: Allergies Allergy/AdvReac Type Severity Reaction Status Date / Time No Known Allergies Allergy Verified 06/15/23 10:21 Plan I have reviewed the history and physical and performed a pertinent physical examination on my patient. No changes have occurred unless specified. Time Spent With Patient Time: Total time managing care of this patient today ____ minutes.
--- NOTE | 2023-06-20 17:01 | CA_ITS ---
Transesophageal Echocardiogram Patient (Last, First, Middle): Sneha Buenrostro H Gender: Male Date of : 1955 Age: 68 Procedure Date: 06/20/2023 Procedure Type: Transesophageal Echocardiogram [place] [facility] [place]: 172.72 cm Weight: 127.01 kg BSA: 2.36 m2 Heart Rate: bpm Tactical Air Control Party: [facility] Referring MD: Huey Alexander MD Senior Account Director: Huey Alexander MD Symptoms: Afib, Pre cardioversion Conclusion: ??? 1. No intracardiac thrombi or masses 2. Normal LV ejection fraction 55-60% with suggestion of left ventricular hypertrophy, consistent with his prior diagnosis of hypertrophic cardiomyopathy 3. Biatrial enlargement, left greater than right 4. Mild mitral regurgitation 5. No gross pericardial effusion Findings Procedure Information Consent was obtained prior to the procedure. Pre SHAWNA oral cavity was checked and revealed significant overcrowding. The adult 3D probe was passed with no difficulty. Left Ventricle Normal left ventricular size and systolic function. There is moderately increased left ventricular wall thickness. The visually estimated ejection fraction is between 55-60%. Diastolic function is indeterminate on the basis of available data. Right Ventricle Normal right ventricular cavity size. Atria The left atrium is moderately dilated. There is no evidence of interatrial shunt. There is no evidence of a patent foramen ovale. There is no evidence of an atrial septal defect. There is no evidence of thrombus or mass in the left atrium. Left atrium is dilated. Does smoke formation seen within the left atrium and left atrial appendage. There are no clots or masses seen. Left atrial appendage was also identified multiple views and there is no evidence of thrombi in the left atrial appendage. Left atrial appendage ejection velocities within normal limits. The left upper, right upper and right lower pulmonary veins drain normally into the left atrium. The right atrium is mildly dilated. The right atrial free of any thrombi or masses. The IVC and SVC drain normally into the right atrium. Aortic Valve Normal aortic valve structure and function. There is no evidence of a mass on the aortic valve. There is no aortic valve regurgitation. Mitral Valve There is mild anterior and posterior mitral leaflet thickening. There is mild mitral valve regurgitation. There is no mitral valve stenosis. There is no mass noted on the mitral valve. Pulmonic Valve The pulmonic valve is likely normal. There is trace pulmonic valve regurgitation. Tricuspid Valve Normal tricuspid valve structure. There is trace tricuspid valve regurgitation. There is no evidence of a mass on the tricuspid valve. The right ventricular systolic pressure is not calculated. Great Vessels All visible segments of the aorta are normal in size. The visualized portions of the pulmonary artery and branches are normal. Venous The inferior vena cava is normal in size and collapses greater than 50% with inspiration. Pericardium/Pleural There is no evidence of pericardial effusion. Updated by Huey Alexander on 03:37 PM with Status of Final Huey Alexander MD electronically signed on 06/22/2023 3:37:27 PM with status of Final
--- NOTE | 2023-06-20 17:43 | ECG_ITS ---
Test Reason : Status post cardioversion Blood Pressure : / mmHG Vent. Rate : 078 BPM Atrial Rate : 078 BPM P-R Int : 212 ms QRS Dur : 176 ms QT Int : 414 ms P-R-T Axes : -22 -77 071 degrees QTc Int : 471 ms Sinus rhythm with 1st degree A-V block Right bundle branch block Left anterior fascicular block Bifascicular block Abnormal ECG When compared to the previous EKG of Normal sinus rhythm has replaced atrial flutter Referred By: Huey Alexander Electronically Signed By:HUEY ALEXANDER MD
--- NOTE | 2023-06-20 17:43 | HO.CARDIVERS ---
Cardioversion Procedure Note Cardioversion Date of Procedure: Today Ordering Provider: Myself Performing Provider: Myself Indication for Procedure: Persistent atrial flutter with difficult control rate with hypertrophic cardiomyopathy Pre-Op Diagnosis: Same Post-Op Diagnosis: Same Performed with Transesophageal Echo: Yes SHAWNA findings (if SHAWNA Performed): Dictated separately History: See the consult note Consent: Verbal and Written consent was obtained from the patient before starting and after confirming oral anticoagulation use and performing SHAWNA. The patient was made aware of the risk of synchronized cardioversion including benefits and alternatives Procedure: After consent obtained, cardioversion pads were attached in anteroposterior and the patient was sedated by the anesthesia team. Once adequate sedation achieved, patient was delivered 200 joules of biphasic synchronized energy in anteroposterior configuration x2 Complications: None Impression: Unsuccessful conversion Recommendations: 1. 12 lead EKG 2. Start on IV amiodarone protocol 3. Continue full oral anticoagulation 4. Continue other rate control regimen as well.
[2023-06-20] MEDS: cefTRIAXone sodium 2 GM in 0.9 % Sodium Chloride 50 ML IV (18:24)
[2023-06-20] MEDS: Doxazosin Mesylate 2 MG TABLET 4 MG PO (19:46)
[2023-06-20] MEDS: Atorvastatin Calcium 80 MG TABLET PO (19:46)
[2023-06-20 20:49] LABS: Glucose, Whole Blood 124 mg/dL (60-115)
[2023-06-20] MEDS: Dronedarone HCl 400 MG TABLET PO (22:32)
[2023-06-21] MEDS: metroNIDAZOLE/NS 500 MG/100 ML PIGGYBACK 100 MG IV ×2 (01:55→09:18)
[2023-06-21 03:15] VITALS: BP 130/61; PULSE 71; RESP 20; TEMP 36.8; O2SAT 95
[2023-06-21] MEDS: Omeprazole 20 MG CAPSULE.DR PO (05:34)
[2023-06-21 06:59] LABS: Glucose, Whole Blood 126 mg/dL (60-115)
[2023-06-21 07:06] VITALS: BP 136/77; PULSE 74; RESP 20; TEMP 36.7; O2SAT 94
[2023-06-21 07:33] LABS: Anion Gap 13 (12-20); Blood Urea Nitrogen 17 mg/dL (9-16); Calcium 9.2 mg/dL (8.4-10.2); Carbon Dioxide 25 mmol/L (22-29); Chloride 105 mmol/L (96-108); Creatinine Clr Calc Pharmacy 98.6; Estimated Glomerular Filt Rate > 60; Glucose Random 118 mg/dL (60-115); Sodium 139 mmol/L (135-145)
--- NOTE | 2023-06-21 08:44 | HO.POSTANES ---
Post Anesthesia Evaluation Post Anesthesia Evaluation Date of Service: 06/21/23 Vital Signs: Vital Signs Temp Pulse Resp BP Pulse Ox O2 Del Method 06/21/23 07:06 98.1 F 74 20 136/77 94 Room Air 06/21/23 03:15 98.3 F 71 20 130/61 95 CPAP 06/20/23 23:06 97.6 F 75 20 111/55 L 92 Room Air Anesthesia: Monitored Mental Status: Awake Pain Control: Satisfactory Nausea/Vomiting: None Hydration: Adequate Anesthesia-Related Issues: No Anes. Related Issues
[2023-06-21] MEDS: Digoxin 0.25 MG TABLET PO (09:18)
[2023-06-21] MEDS: Dronedarone HCl 400 MG TABLET PO (09:18)
[2023-06-21] MEDS: FLUoxetine HCl 10 MG CAPSULE PO (09:18)
[2023-06-21] MEDS: Aspirin Enteric Coated 81 MG TABLET.DR PO (09:18)
[2023-06-21] MEDS: Apixaban 5 MG TABLET PO (09:18)
[2023-06-21] MEDS: Multivitamin TABLET 1 TAB PO (09:18)
[2023-06-21] MEDS: 0.9 % Sodium Chloride Flush 3 ML SYRINGE IVFLUSH (09:18)
[2023-06-21] MEDS: Metoprolol Succinate ER 100 MG TAB.ER.24H PO (09:18)
--- NOTE | 2023-06-21 09:56 | P.DS_ITS ---
DS: Providers Provider Date of Service: 06/21/23 Date of admission: 06/15/23 16:21 Primary care physician: Harris Ash MD Consults: 06/15/23 16:34 Consult to Cardiology Routine Consulting Provider: [facility] Cardiovascular Services Reason for consultation: New onset AFib w/RVR DS: Diagnosis Discharge Diagnosis (1) Atrial flutter with rapid ventricular response: Status: Acute (2) Acute diverticulitis: Status: Acute DS: Summary Hospital Course Hospital Course: from initial hpi: 68-year-old male with a PMH significant for?HTN, CAD, hx of FL 2021, HIV, non -insulin-dependent diabetes type 2, KENYON not on CPAP, and GERD who presents to the ED with?tachycardia into the 140s and constant ?fluttering? in his chest since this morning. Patient states that he is noticed an intermittent ?weird? sensation in the left side of his chest the past couple of weeks. Reports would come and go. This morning pt was monitoring his BP and noticed his HR was up into the 140s. Also reported the weird/fluttering feeling in his chest was more persistent and that he didn't feel right , which prompted his visit to the ED for further evaluation. Has also had increased fatigue lately. Chronic SOB and CASANOVA at baseline. Denies chest pain/pressure. No fever, chills, N/V, abd pain. Pt also notes he was diagnosed with KENYON two years ago but never fitted with or given CPAP. In the ED pt was tachycardic up to 140 with all either vital signs WNL. Labs were significant for initial troponin 18.7 with repeat 50.2, otherwise grossly unremarkable. No leukocytosis. Stable H&H. No electrolyte abnormalities. Renal and hepatic function baseline. CXR showed mild congestive change possibly exaggerated in appearance from upright lordotic technique. EKG demonstrated AFib with RVR of 129 and RBBB but no significant ST elevations or depressions. Pt was treated with diltiazem 10 mg IV push x3 doses and then started on a diltiazem drip. Pt will be admitted to the hospital for treatment and further evaluation of new onset AFib with RVR. hospital course: Patient was admitted for new onset atrial fib/flutter with rapid ventricular response. He was treated with metoprolol, digoxin, apixaban. Continued to be symptomatic and poorly controlled, underwent SHAWNA and cardioversion successfully. Started on Multaq. Also noted to have acute diverticulitis. Was treated with ceftriaxone Flagyl with significant improvement. Will be discharged on 7 more days of Augmentin. Patient noted to have elevated troponin, likely demand ischemia from AFib and diverticulitis. For hyperlipidemia/coronary disease was continued on aspirin statin. For hypertension was continued on lisinopril metoprolol. For diabetes was given insulin sliding scale. For KENYON he will follow-up outpatient to get fitted for CPAP. For BPH was continued on terazosin. For GERD was continue on omeprazole. Patient is feeling better will be discharged home. Time Attestation Discharge coordination time: Greater than 30 minutes Quality: Safe Use of Opioids Does Pt have an Active Cancer Diagnosis on the Problem List?: No Quality: Stroke Does the patient have a stroke diagnosis?: No Physical Exam Vital Signs: Vital Signs: Last Vital Signs Temp 98.1 F 06/21/23 07:06 Pulse 74 06/21/23 07:06 Resp 20 06/21/23 07:06 BP 136/77 06/21/23 07:06 Pulse Ox 94 06/21/23 07:06 O2 Del Method Room Air 06/21/23 07:06 O2 Flow Rate 2 06/20/23 19:17 BMI result Body Mass Index 42.7 General: AO X 3, no acute distress Resp: CTA bilateral, no accessory muscles used CVS: S1,S2,RRR GI: soft, non tender, non distended Neuro: motor grossly intact, alert Psych: appropriate affect, appropriate insight DS: Data Data Completed and Pending Labs on day of discharge: Laboratory Results - last 24 hr 06/20/23 06/20/23 06/20/23 11:53 16:03 20:42 Hold Purple Top Sodium Potassium Chloride Carbon Dioxide Anion Gap BUN Creatinine Estim Creat Clear Calc Estimated GFR POC Glucose 120 H 124 H 124 H Random Glucose Calcium 06/21/23 06/21/23 06:08 06:55 Hold Purple Top SEE NOTE Sodium 139 Potassium 4.0 Chloride 105 Carbon Dioxide 25 Anion Gap 13 BUN 17 H Creatinine 0.92 Estim Creat Clear Calc 98.6 Estimated GFR > 60 POC Glucose 126 H Random Glucose 118 H Calcium 9.2 Discharge Plan Discharge Anticipated Discharge Date/Time: 06/21/23 09:53 Patient Disposition: Home, Self-Care Discharge Diagnosis: afib, diverticulitis Referrals: Harris Ash MD [Primary Care Provider] - 1 Week Discharge Medications: New Eliquis 5 mg Tablet 5 mg PO BID Qty: 60 0RF digoxin 250 mcg (0.25 mg) Tablet 0.25 mg PO DAILY Qty: 30 0RF Multaq 400 mg Tablet 400 mg PO BID Qty: 60 0RF metoprolol succinate 100 mg Tablet Extended Release 24 Hr 100 mg PO DAILY Qty: 30 0RF Protocol: Hold for SBP/HR < HOLD for SBP < : 90 HOLD for HR < : 60 amoxicillin-pot clavulanate 875-125 mg tablet 1 tab PO BID Qty: 14 0RF Continued multivitamin Tablet 1 tab PO DAILY terazosin 5 mg capsule 5 mg PO BEDTIME metformin 500 mg tablet 500 mg PO DAILY melatonin 3 mg Tablet 9 mg PO BEDTIME PRN (Reason: Sleep) aspirin 81 mg Tablet,Delayed Release (Dr/Ec) 81 mg PO DAILY omeprazole 20 mg capsule,delayed release(DR/EC) 20 mg PO DAILY@0630 lisinopril 40 mg tablet 40 mg PO DAILY rosuvastatin 20 mg tablet 20 mg PO BEDTIME facacowzy-dkkzojpzotdd-bkczojj 600-200-300 mg tablet 1 tab PO BEDTIME omega 1-vjf-jwu-fish oil [Fish Oil] 60-90-500 mg Capsule 2 cap PO DAILY Discontinued metoprolol tartrate 50 mg tablet 50 mg PO BID Discharge Orders: Discharge Order (Routine); Ordered 06/21/23 Ordered By: Cale Denny Diet: Advance to usual diet Activity on Discharge: As tolerated Stand Alone Forms: Patient Portal Discharge page Care Plan Goals: stay in [facility] Concerns: afib, diverticulitis Plan of Treatment: meds as prescribed, follow up with cardiology Assessment: see above
--- NOTE | 2023-06-21 10:29 | P.PNCA_ITS ---
Subjective Subjective Date of Service: 06/21/23 Principal diagnosis: Atrial flutter, hypertrophic cardiomyopathy, CAD Interval history: Patient feeling a lot better today. Underwent SHAWNA with no thrombus and to attempt to synchronized cardioversion which failed. However after half an hour he converted on his own to sinus rhythm. Was started on Multaq today. Tolerating this therapy well. Feeling better. Review of Systems Constitutional: Reports no additional constitutional complaints Eyes: Reports no additional eye complaints Cardiovascular: Reports no additional cardiovascular complaints Respiratory: Reports no additional respiratory complaints Gastrointestinal: Reports no additional gastrointestinal complaints Genitourinary: Reports no additional male genitourinary complaints Musculoskeletal: Reports no additional musculoskeletal complaints Skin/Breast: Reports system reviewed and no additional complaints, except as docu Physical Exam Vital Signs: Last Vital Signs Temp 98.1 F 06/21/23 07:06 Pulse 74 06/21/23 07:06 Resp 20 06/21/23 07:06 BP 136/77 06/21/23 07:06 Pulse Ox 94 06/21/23 07:06 O2 Del Method Room Air 06/21/23 07:06 O2 Flow Rate 2 06/20/23 19:17 BMI result Body Mass Index 42.7 Const General: cooperative, comfortable, no acute distress, alert and awake Nutritional Appearance: obese Orientation/consciousness: patient oriented x3 Neck Neck: Yes trachea midline, Yes supple and Yes no JVD Resp Effort & Inspection: normal respiratory effort Auscultation: clear to auscultation bilaterally Cardio Jugular venous distension: no JVD Palpation: normal PMI Rate: regular rate Rhythm: regular rhythm Heart sounds: S1 normal heart sound present, S2 normal heart sound present, no click, no gallops and no murmurs Skin General skin exam: no rashes or lesions noted Neuro General: patient oriented x3 and no focal motor deficits Extrem General: Yes no clubbing, cyanosis or edema Objective Labs and Meds 06/17/23 06:41 06/21/23 06:08 Lab results: Laboratory Results - last 24 hr 06/20/23 06/20/23 06/20/23 11:53 16:03 20:42 Hold Purple Top Sodium Potassium Chloride Carbon Dioxide Anion Gap BUN Creatinine Estim Creat Clear Calc Estimated GFR POC Glucose 120 H 124 H 124 H Random Glucose Calcium 06/21/23 06/21/23 06:08 06:55 Hold Purple Top SEE NOTE Sodium 139 Potassium 4.0 Chloride 105 Carbon Dioxide 25 Anion Gap 13 BUN 17 H Creatinine 0.92 Estim Creat Clear Calc 98.6 Estimated GFR > 60 POC Glucose 126 H Random Glucose 118 H Calcium 9.2 Progress Note: A&P Assessment and plan (1) Atrial flutter: Status: Acute Assessment and Plan: Atrial flutter with difficult control rate with underlying hypertrophic cardiomyopathy. Status post SHAWNA guided cardioversion. Currently maintaining rhythm. Would continue with Multaq 400 mg b.i.d.. Lifelong oral anticoagulation given his underlying hypertrophic cardiomyopathy with Eliquis. This was discussed with him. Most likely etiology being also underlying untreated sleep apnea. Recommend starting CPAP therapy as soon as possible. Aggressive weight loss program to be pursued. Continue aggressive blood pressure control as well. Continue metoprolol therapy. Discontinue aspirin therapy. (2) Hypertrophic cardiomyopathy: Status: Acute Assessment and Plan: Hypertrophic cardiomyopathy with no obstructive physiology. Continue aggressive blood pressure control. Continue aggressive weight loss program. 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 Will sign of the case Time Spent With Patient Time: Total time managing care of this patient today ____ minutes. Progress Note: Quality Stroke Does the patient have a stroke diagnosis?: No Procedures Date of Service Date of Service: 06/21/23
--- NOTE | 2023-06-21 10:30 | MHC.CM.PN ---
Second IMM 06/21/23, Pt has been medically cleared for DC. He is arranging transport home, and no home care services were referred, patient is able to care for himself.
[2023-06-21 10:51] LABS: Glucose, Whole Blood 110 mg/dL (60-115)
[2023-06-21 10:56] VITALS: BP 149/80; PULSE 77; RESP 20; TEMP 36.7; O2SAT 95
== END 2023-06-21 11:53 | disposition home or self-care (01) | DRG 281 ==
LOC: HO.ED 13:29 → HO.EDOVER 16:34 → HO.IMC 19:15
PROVIDERS: Internal Medicine; Internal Medicine Cardiovascular Disease; Physician Assistant; Student in an Organized Health Care Education/Training Program; Admitting Provider Student in an Organized Health Care Education/Training Program; Emergency Provider Emergency Medicine; PCP Internal Medicine; Visit Provider Internal Medicine
PROC: 5A2204Z Restoration of Cardiac Rhythm, Single (ICD-10-PCS; CPT 93312; principal; 2023-06-20 17:00)
PROC: 5A2204Z Restoration of Cardiac Rhythm, Single (ICD-10-PCS; 2023-06-20 17:00)
DX: I48.92 Unspecified atrial flutter (principal); I21.A1 Myocardial infarction type 2; K57.32 Diverticulitis of large intestine without perforation or abscess without bleeding; Z68.41 Body mass index [BMI] 40.0-44.9, adult; I48.91 Unspecified atrial fibrillation; E66.09 Other obesity due to excess calories; G47.33 Obstructive sleep apnea (adult) (pediatric); E78.5 Hyperlipidemia, unspecified; E11.9 Type 2 diabetes mellitus without complications; I42.2 Other hypertrophic cardiomyopathy; N40.0 Benign prostatic hyperplasia without lower urinary tract symptoms; K21.9 Gastro-esophageal reflux disease without esophagitis; I25.10 Atherosclerotic heart disease of native coronary artery without angina pectoris; Z21 Asymptomatic human immunodeficiency virus [HIV] infection status; Z79.84 Long term (current) use of oral hypoglycemic drugs; Z79.899 Other long term (current) drug therapy
CPT/HCPCS: 36415; 71045; 74177; 80048; 80053; 80162; 82947; 83735; 83880; 84484; 85025; 85027; 85379; 85610; 92960; 93005; 93306; 94660; 94799; 95806; 99285; J0696; J1160; J1170; J1836; J2270; J2704; J3010; J3360; J3475; Q9957; Q9967

== ENCOUNTER → 2023-06-15 10:17 | Outpatient (BNV) | payer OTHER, SELFPAY | PROVIDERS: Emergency Provider Emergency Medicine; PCP Internal Medicine; Visit Provider Internal Medicine Cardiovascular Disease | DX: R94.31 Abnormal electrocardiogram [ECG] [EKG] (principal) | CPT/HCPCS: 93010 ==

== ENCOUNTER 2023-06-15 16:21 | Outpatient (BNV) | payer OTHER, SELFPAY | END 2023-06-20 17:43 | PROVIDERS: Admitting Provider Student in an Organized Health Care Education/Training Program; Emergency Provider Emergency Medicine; PCP Internal Medicine; Visit Provider Internal Medicine Cardiovascular Disease | DX: R94.31 Abnormal electrocardiogram [ECG] [EKG] (principal) | CPT/HCPCS: 93010; 93312; 93320; 93325 ==

== ENCOUNTER 2023-06-15 16:21 | Outpatient (BNV) | payer OTHER, SELFPAY | END 2023-06-17 05:41 | PROVIDERS: Admitting Provider Student in an Organized Health Care Education/Training Program; Emergency Provider Emergency Medicine; PCP Internal Medicine; Visit Provider Internal Medicine Cardiovascular Disease | DX: I48.0 Paroxysmal atrial fibrillation (principal); I45.10 Unspecified right bundle-branch block; R94.31 Abnormal electrocardiogram [ECG] [EKG] | CPT/HCPCS: 93010 ==

== ENCOUNTER 2023-06-15 16:21 | Outpatient (BNV) | payer OTHER, SELFPAY | END 2023-06-16 13:45 | PROVIDERS: Admitting Provider Student in an Organized Health Care Education/Training Program; Emergency Provider Emergency Medicine; PCP Internal Medicine; Visit Provider Internal Medicine | DX: G47.33 Obstructive sleep apnea (adult) (pediatric) (principal) | CPT/HCPCS: 95806 ==

== ENCOUNTER 2023-06-15 16:21 | Outpatient (BNV) | payer OTHER, SELFPAY | END 2023-06-16 07:00 | PROVIDERS: Admitting Provider Student in an Organized Health Care Education/Training Program; Emergency Provider Emergency Medicine; PCP Internal Medicine; Visit Provider Internal Medicine Cardiovascular Disease | DX: I48.0 Paroxysmal atrial fibrillation (principal) | CPT/HCPCS: 93010; 93306 ==

== ENCOUNTER → 2023-06-15 16:21 | Outpatient (BNV) | payer OTHER, SELFPAY | PROVIDERS: Admitting Provider Student in an Organized Health Care Education/Training Program; Emergency Provider Emergency Medicine; PCP Internal Medicine; Visit Provider Student in an Organized Health Care Education/Training Program | DX: I48.91 Unspecified atrial fibrillation (principal); I48.92 Unspecified atrial flutter; K57.92 Diverticulitis of intestine, part unspecified, without perforation or abscess without bleeding; E11.8 Type 2 diabetes mellitus with unspecified complications | CPT/HCPCS: 99223; 99232; 99233; 99239 ==

== ENCOUNTER → 2023-06-15 16:21 | Outpatient (BNV) | payer OTHER, SELFPAY | PROVIDERS: Admitting Provider Student in an Organized Health Care Education/Training Program; Emergency Provider Emergency Medicine; PCP Internal Medicine; Visit Provider Internal Medicine Cardiovascular Disease | DX: I48.92 Unspecified atrial flutter (principal); I42.2 Other hypertrophic cardiomyopathy | CPT/HCPCS: 92960; 99223; 99232; 99233 ==

== ENCOUNTER 2023-07-14 08:56 | Outpatient (REF) | payer OTHER, SELFPAY ==
[2023-07-14 10:30] LABS: MANUAL DIFF FLAG NO
[2023-07-14 10:35] LABS: Basophils Percent Auto 0.6 % (0-2); Eosinophils Absolute Auto 0.2 X10*3/uL (0.0-0.4); Eosinophils Percent Auto 4.1 % (0-4); Hematocrit 39.1 % (42.0-52.0); Hemoglobin 13.6 g/dl (14.0-18.0); Imm Gran Abs Auto 0.03 X10*3/uL (0.00-0.03); Imm Gran Pct Auto 0.6 % (0.0-0.4); Lymphocytes Absolute Auto 1.8 X10*3/uL (1.2-4.9); Lymphocytes Percent Auto 32.3 % (20-40); Mean Corpuscular HGB Conc 34.8 g/dl (31.0-36.0); Mean Corpuscular Hemoglobin 31.8 pg (27.0-33.0); Mean Corpuscular Volume 91.4 fL (80.0-98.0); Monocytes Absolute Auto 0.3 X10*3/uL (0.1-1.2); Monocytes Percent Auto 5.9 % (2-11); Neutrophils Absolute Auto 3.1 x10*3/uL (2.0-8.3); Neutrophils Percent Auto 56.5 % (45-73); Platelet Count 140 X10*3/uL (160-400); Red Blood Count 4.28 X10*6/uL (4.60-5.80); Red Cell Distribution Width 13.2 % (11.0-16.0); White Blood Count 5.4 X10*3/uL (4.8-10.8)
[2023-07-14 10:59] LABS: Digoxin 1.7 ng/mL (0.8-2.0)
[2023-07-14 11:03] LABS: Estimated Average Glucose 137 mg/dL; Hemoglobin A1c % 6.4 % (<6.0)
[2023-07-14 11:25] LABS: Alanine Aminotransferase 84 U/L (0-40); Albumin Level 3.9 g/dL (3.5-5.0); Alkaline Phosphatase 59 U/L (39-117); Anion Gap 17 (12-20); Aspartate Amino Transferase 67 U/L (5-37); Bilirubin Total 0.3 mg/dL (0.0-1.0); Blood Urea Nitrogen 15 mg/dL (9-16); Calcium 9.4 mg/dL (8.4-10.2); Carbon Dioxide 27 mmol/L (22-29); Chloride 99 mmol/L (96-108); Estimated Glomerular Filt Rate > 60; Glucose Random 230 mg/dL (60-115); Sodium 139 mmol/L (135-145); Total Protein 6.8 g/dL (6.5-8.0)
== END 2023-07-14 08:57 | disposition home or self-care (01) ==
LOC: HO.10HDL 08:56
PROVIDERS: Visit Provider Internal Medicine
DX: E11.9 Type 2 diabetes mellitus without complications (principal); I10 Essential (primary) hypertension; J44.9 Chronic obstructive pulmonary disease, unspecified; K57.90 Diverticulosis of intestine, part unspecified, without perforation or abscess without bleeding; I48.0 Paroxysmal atrial fibrillation
CPT/HCPCS: 36415; 80053; 80162; 83036; 85025

== ENCOUNTER 2023-09-25 14:08 | Emergency (ER) | payer OTHER, SELFPAY ==
--- NOTE | ~2023-09-25 | XR_ITS ---
EXAMINATION: XR CHEST CLINICAL INFORMATION: Cough, Covid positive COMPARISON: Chest radiograph 06/15/2023. TECHNIQUE: Frontal view of the chest was obtained. FINDINGS: Mild hazy bilateral lower lung predominant reticular opacities with suggestion of bronchial wall thickening. No confluent consolidation.. No pleural effusion or pneumothorax. Cardiomediastinal silhouette is unchanged. XR/XR chest 1V IMPRESSION: Mild hazy bilateral lower lung predominant reticular opacities with suggestion of bronchial wall thickening, which can be seen in the setting of of atypical and/or airways infection.
[2023-09-25 14:24] VITALS: PULSE 77; O2SAT 95
[2023-09-25 14:28] VITALS: BP 131/69; PULSE 74; RESP 23; TEMP 36.9; O2SAT 97; BMI 91.6
--- NOTE | 2023-09-25 14:34 | ED.URI ---
HPI - URI/Sore Throat General Chief Complaint: Upper Respiratory Symptoms Stated Complaint: Covid + Time Seen by Provider: 09/25/23 14:12 Source: patient and EMS Mode of arrival: EMS Limitations: no limitations History of Present Illness HPI Narrative: 68-year-old male with history of morbid obesity, KENYON on CPAP, hypertension, AFib on Eliquis, history of diverticulitis, HIV on HAART and hypertrophic cardiomyopathy who presents to the ER from home via EMS for evaluation of not feeling well for the last 8 days. Patient states he has had COVID for the last 8 days with shortness of breath, fatigue, weakness, cough, general malaise. 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 When he went to change his sheets today he became lightheaded and dizzy, felt like he was going to pass out. No shortness of breath or chest pain but he has had chest tightness with coughing. Not bringing up any phlegm. He has had a headache and generalized body aches. He was only able to tolerate his CPAP for a couple hours at a time last night because of shortness of breath and congestion. He is up-to-date on his COVID vaccines and this is his 1st time having the illness. MD elicited complaint: cough and other (Chest congestion, lightheadedness, weakness) Pertinent past history: HIV and other (KENYON, AFib) Onset (ago): day(s) (8) Consistency: constant Description of mucous: clear Able to tolerate fluids by mouth: Yes Exacerbating factors: exertion Relieving factors: rest Associated symptoms: chills, myalgias, headache, nasal congestion, cough, shortness of breath and other (Decreased appetite) Treatments prior to arrival: none Related Data Home Medications ?Medication ?Instructions ?Recorded ?Confirmed aspirin 81 mg tablet,delayed 81 mg PO DAILY 06/15/23 06/15/23 release efavirenz 600 mg-emtricitabine 200 1 tab PO BEDTIME 06/15/23 06/15/23 mg-tenofovir disoprox 300 mg tablet lisinopril 40 mg tablet 40 mg PO DAILY 06/15/23 06/15/23 melatonin 3 mg tablet 9 mg PO BEDTIME PRN Sleep 06/15/23 06/15/23 metformin 500 mg tablet 500 mg PO DAILY 06/15/23 06/15/23 multivitamin 1 tab PO DAILY 06/15/23 06/15/23 omega 1-aty-mbz-fish oil 60 mg-90 2 cap PO DAILY 06/15/23 06/15/23 mg-500 mg capsule (Fish Oil) omeprazole 20 mg capsule,delayed 20 mg PO DAILY@0630 06/15/23 06/15/23 release rosuvastatin 20 mg tablet 20 mg PO BEDTIME 06/15/23 06/15/23 terazosin 5 mg capsule 5 mg PO BEDTIME 06/15/23 06/15/23 Previous Rx's ?Medication ?Instructions ?Recorded amoxicillin 875 mg-potassium 1 tab PO BID #14 tabs 06/21/23 clavulanate 125 mg tablet apixaban 5 mg tablet (Eliquis) 5 mg PO BID #60 tabs 06/21/23 digoxin 250 mcg (0.25 mg) tablet 0.25 mg PO DAILY #30 tabs 06/21/23 dronedarone 400 mg tablet (Multaq) 400 mg PO BID #60 tabs 06/21/23 metoprolol succinate 100 mg 100 mg PO DAILY #30 tabs 06/21/23 tablet,extended release 24 hr Allergies Allergy/AdvReac Type Severity Reaction Status Date / Time No Known Allergies Allergy Verified 09/25/23 14:29 Review of Systems Review of Systems: Yes all other systems are reviewed and are negative [facility] Past Medical History Medical History (Updated 09/25/23 @ 15:41 by JASPAL Glynn) Non-insulin dependent type 2 diabetes mellitus CAD (coronary artery disease) HIV (human immunodeficiency virus infection) KENYON (obstructive sleep apnea) Tear of left hamstring Diabetes High cholesterol High blood pressure Social History Social History (Updated 06/20/23 @ 16:48 by Margie Henry MD) Household Members: None Household Members Other:: none; lives alone with his cat () Housing: Apartment Do you presently have visiting nurse or other home services: No Comment: pt refuses bed alarm Patient Tobacco Use Status: Former Tobacco user Quit Date: 10 years ago Smoked in Last 30 Days: No Use of substances other than those prescribed or required for medical reasons: No Substance Use Type: Marijuana Advance Directives: No Advance Directives Information Provided: Yes service: No Current occupational status: retired Current occupation: rt handed Physical Exam Vital Signs: Vital Signs: Last Vital Signs Temp 98.4 F 09/25/23 14:28 Pulse 74 09/25/23 14:28 Resp 21 H 09/25/23 14:35 BP 131/69 09/25/23 14:28 Pulse Ox 96 09/25/23 14:35 O2 Del Method Room Air 09/25/23 14:35 BMI result Body Mass Index 91.6 Appearance: Alert. Oriented X3. No acute distress. Head: normocephalic, atraumatic. Eyes: Pupils equal, round and reactive to light. ENT: Pharynx normal. No tonsillar swelling or exudate. Neck: Normal inspection. Neck supple. CVS: Normal heart rate and rhythm. Pulses normal. Respiratory: No respiratory distress. Breath sounds diminished throughout. Abdomen: Morbidly obese, Soft and nontender. +BS x4 Skin: Skin warm and dry. Normal skin color. Normal skin turgor. No rashes. Extremities: No lower extremity edema. No joint swelling. No calf tenderness Neuro/psych: Oriented X 3. No motor deficit. No sensory deficit. CN II-XII intact. Normal speech and cognition. Medical Decision Making Medical Decision Making [facility] Narrative: 68-year-old male with multiple comorbidities presents the ER for evaluation after he has been home with COVID for the last 8 days. He wanted to make sure ?everything was okay? after he felt like he was going to pass out today while changing his bed she is. He feels weak and fatigued. He denies any current chest pain or difficulty breathing. He has had difficulty wearing a CPAP due to shortness of breath and cough along with congestion. On arrival to the ER SpO2 96%. Speaking in complete sentences. No wheezing or rhonchi on examination. Heart rates in the 70s normal sinus. Low clinical suspicion for PE given he started anticoagulated. Differential Diagnosis Differential Diagnoses: The differential diagnosis associated with the presentation includes COVID, viral pneumonia, bacterial pneumonia, decompensated heart failure, COPD exacerbation, CHF exacerbation Admission/Observation Consideration of admission/observation: Escalation of care including admission/observation considered Multiple comorbidity used, elderly male with COVID, however reassured with workup and oxygenation remained stable Lab Data [facility] Lab Attestation statement: I reviewed the patient's lab results. 09/25/23 15:28 09/25/23 15:28 Labs: Lab Results 05/05/24 Range/Units 15:28 WBC 6.8 (4.8-10.8) X10*3/uL RBC 3.97 L (4.60-5.80) X10*6/uL Hgb 12.7 L (14.0-18.0) g/dl Hct 36.7 L (42.0-52.0) % MCV 92.4 (80.0-98.0) fL MCH 32.0 (27.0-33.0) pg MCHC 34.6 (31.0-36.0) g/dl RDW 13.1 (11.0-16.0) % Plt Count 149 L (160-400) X10*3/uL MPV 9.0 L (9.4-12.4) fL Immature Gran % (Auto) 0.6 H (0.0-0.4) % Neut % (Auto) 66.0 (45-73) % Lymph % (Auto) 23.7 (20-40) % [place] % (Auto) 5.6 (2-11) % Eos % (Auto) 3.8 (0-4) % Baso % (Auto) 0.3 (0-2) % Lymph # (Auto) 1.6 (1.2-4.9) X10*3/uL [place] # (Auto) 0.4 (0.1-1.2) X10*3/uL Eos # (Auto) 0.3 (0.0-0.4) X10*3/uL Baso # (Auto) 0.0 (0.0-0.2) X10*3/uL Abs Immat Gran (auto) 0.04 H (0.00-0.03) X10*3/uL Absolute Neuts (auto) 4.5 (2.0-8.3) x10*3/uL Absolute Nucleated RBC 0.000 (0.0-0.012) X10*3/uL Nucleated RBC % (auto) 0.0 (0.0-0.2) /100WBC Sodium 137 (135-145) mmol/L Potassium 4.3 (3.3-5.1) mmol/L Chloride 105 (96-108) mmol/L Carbon Dioxide 21 L (22-29) mmol/L Anion Gap 15 (12-20) BUN 17 H (9-16) mg/dL Creatinine 0.84 (0.5-1.4) mg/dL Estim Creat Clear Calc 171.1 Estimated GFR > 60 Random Glucose 172 H (60-115) mg/dL Calcium 9.8 (8.4-10.2) mg/dL Troponin I High Sens 17.4 (<3.5-35.0) ng/L B-Natriuretic Peptide 44 (<100) pg/mL Independent Interpretation I performed an independent interpretation of an: EKG and Plain X-Ray Interpretation: Normal sinus rhythm, P waves present, ventricular rate 61 beats per minute, bifascicular block, no ST segment elevations or depressions Chest x-ray with no focal pneumonia, agree with radiology read Radiology Impression Discussion of test interpretation with radiology: I have reviewed the radiologist's reading. Radiologist Impression: EXAMINATION: XR CHEST CLINICAL INFORMATION: Cough, Covid positive COMPARISON: Chest radiograph 06/15/2023. TECHNIQUE: Frontal view of the chest was obtained. FINDINGS: Mild hazy bilateral lower lung predominant reticular opacities with suggestion of bronchial wall thickening. No confluent consolidation.. No pleural effusion or pneumothorax. Cardiomediastinal silhouette is unchanged. XR/XR chest 1V IMPRESSION: Mild hazy bilateral lower lung predominant reticular opacities with suggestion of bronchial wall thickening, which can be seen in the setting of of atypical and/or airways infection. Independent Historian Clinical information obtained from an independent historian. History obtained from or confirmed by: EMS External Record Review External record reviewed: Office record, Outpatient record, Prior outpatient labs and Prior outpatient radiology Prescription Management I considered prescription management with: Antiviral Too late in his symptoms/disease process for [facility] Chronic Conditions Patient?s care impacted by: Hypertension and Other (KENYON, HIV, AFib) Critical Care Time Critical Care Time Critical Care Time: No Discharge Plan Discharge Clinical Impression: COVID-19 Patient Disposition: Home, Self-Care Instructions: COVID-19 (Coronavirus Disease 2019) (ED) Additional Instructions: Your lab workup was reassuring today. Your x-ray showed findings consistent with COVID, no evidence of bacterial pneumonia. Continue over the counter cold/flu medications as needed for your symptoms. Rest and drink plenty of fluids. Follow up with your doctor next week If you develop new or worsening symptoms call 911 or come back to the ER for further evaluation. Prescriptions: No Action multivitamin Tablet 1 tab PO DAILY terazosin 5 mg capsule 5 mg PO BEDTIME metformin 500 mg tablet 500 mg PO DAILY melatonin 3 mg Tablet 9 mg PO BEDTIME PRN (Reason: Sleep) aspirin 81 mg Tablet,Delayed Release (Dr/Ec) 81 mg PO DAILY omeprazole 20 mg capsule,delayed release(DR/EC) 20 mg PO DAILY@0630 lisinopril 40 mg tablet 40 mg PO DAILY rosuvastatin 20 mg tablet 20 mg PO BEDTIME smmfrgclf-ltatkqzgtnyk-kqlazaz 600-200-300 mg tablet 1 tab PO BEDTIME omega 1-tuu-jky-fish oil [Fish Oil] 60-90-500 mg Capsule 2 cap PO DAILY Eliquis 5 mg Tablet 5 mg PO BID Qty: 60 0RF digoxin 250 mcg (0.25 mg) Tablet 0.25 mg PO DAILY Qty: 30 0RF Multaq 400 mg Tablet 400 mg PO BID Qty: 60 0RF metoprolol succinate 100 mg Tablet Extended Release 24 Hr 100 mg PO DAILY Qty: 30 0RF Protocol: Hold for SBP/HR < HOLD for SBP < : 90 HOLD for HR < : 60 amoxicillin-pot clavulanate 875-125 mg tablet 1 tab PO BID Qty: 14 0RF Referrals: Harris Ash MD [Primary Care Provider] - Print Language: Kazakh
[2023-09-25 14:35] VITALS: RESP 21; O2SAT 96
[2023-09-25 14:41] VITALS: PULSE 68
--- NOTE | 2023-09-25 15:05 | ECG_ITS ---
Test Reason : SOB Blood Pressure : / mmHG Vent. Rate : 061 BPM Atrial Rate : 061 BPM P-R Int : 236 ms QRS Dur : 178 ms QT Int : 438 ms P-R-T Axes : 000 -78 -03 degrees QTc Int : 440 ms Sinus rhythm with marked sinus arrhythmia with 1st degree A-V block Right bundle branch block Left anterior fascicular block Bifascicular block Abnormal ECG When compared with ECG of 20-JUN-2023 18:38, T wave inversion now evident in Inferior leads Referred By: Carmen Mcguire Electronically Signed By:Erasmo Acosta
--- NOTE | 2023-09-25 15:09 | PC.NURSE ---
Pt VIKRAMA, from home, took an at home covid test last tuesday, showing positive results. Pt has been showing increase symptoms for past week. Reports SOB/Chest tightness/nasal sinus.
[2023-09-25 15:34] LABS: MANUAL DIFF FLAG NO
[2023-09-25 15:35] LABS: Basophils Percent Auto 0.3 % (0-2); Eosinophils Absolute Auto 0.3 X10*3/uL (0.0-0.4); Eosinophils Percent Auto 3.8 % (0-4); Hematocrit 36.7 % (42.0-52.0); Hemoglobin 12.7 g/dl (14.0-18.0); Imm Gran Abs Auto 0.04 X10*3/uL (0.00-0.03); Imm Gran Pct Auto 0.6 % (0.0-0.4); Lymphocytes Absolute Auto 1.6 X10*3/uL (1.2-4.9); Lymphocytes Percent Auto 23.7 % (20-40); Mean Corpuscular HGB Conc 34.6 g/dl (31.0-36.0); Mean Corpuscular Volume 92.4 fL (80.0-98.0); Monocytes Absolute Auto 0.4 X10*3/uL (0.1-1.2); Monocytes Percent Auto 5.6 % (2-11); Neutrophils Absolute Auto 4.5 x10*3/uL (2.0-8.3); Platelet Count 149 X10*3/uL (160-400); Red Blood Count 3.97 X10*6/uL (4.60-5.80); Red Cell Distribution Width 13.1 % (11.0-16.0); White Blood Count 6.8 X10*3/uL (4.8-10.8)
[2023-09-25 15:57] LABS: Anion Gap 15 (12-20); Blood Urea Nitrogen 17 mg/dL (9-16); Calcium 9.8 mg/dL (8.4-10.2); Carbon Dioxide 21 mmol/L (22-29); Chloride 105 mmol/L (96-108); Creatinine Clr Calc Pharmacy 171.1; Estimated Glomerular Filt Rate > 60; Glucose Random 172 mg/dL (60-115); Potassium 4.3 mmol/L (3.3-5.1); Sodium 137 mmol/L (135-145)
[2023-09-25 16:01] LABS: B Type Natriuretic Peptide 44 pg/mL (<100)
[2023-09-25 16:05] LABS: Troponin-I High Sensitivity 17.4 ng/L (<3.5-35.0)
[2023-09-25 16:34] VITALS: BP 135/81; PULSE 77; RESP 20; TEMP 36.7; O2SAT 95
== END 2023-09-25 16:39 | disposition home or self-care (01) ==
PROVIDERS: Physician Assistant; Emergency Provider Emergency Medicine; PCP Internal Medicine
DX: U07.1 COVID-19 (principal); I10 Essential (primary) hypertension; E11.9 Type 2 diabetes mellitus without complications; I48.91 Unspecified atrial fibrillation; Z21 Asymptomatic human immunodeficiency virus [HIV] infection status; Z79.01 Long term (current) use of anticoagulants; Z79.899 Other long term (current) drug therapy
CPT/HCPCS: 36415; 71045; 80048; 83880; 84484; 85025; 93005; 99283; 99285

== ENCOUNTER → 2023-09-25 15:05 | Outpatient (BNV) | payer OTHER, SELFPAY | PROVIDERS: Emergency Provider Emergency Medicine; PCP Internal Medicine; Visit Provider Internal Medicine Cardiovascular Disease | DX: I45.2 Bifascicular block (principal) | CPT/HCPCS: 93010 ==

== ENCOUNTER 2023-09-30 09:43 | Outpatient (REF) | payer OTHER, SELFPAY ==
[2023-09-30 10:53] LABS: MANUAL DIFF FLAG NO
[2023-09-30 11:07] LABS: Basophils Percent Auto 0.3 % (0-2); Eosinophils Absolute Auto 0.2 X10*3/uL (0.0-0.4); Eosinophils Percent Auto 3.2 % (0-4); Hematocrit 38.2 % (42.0-52.0); Imm Gran Abs Auto 0.03 X10*3/uL (0.00-0.03); Imm Gran Pct Auto 0.5 % (0.0-0.4); Lymphocytes Absolute Auto 1.7 X10*3/uL (1.2-4.9); Lymphocytes Percent Auto 27.6 % (20-40); Mean Corpuscular Hemoglobin 31.3 pg (27.0-33.0); Mean Platelet Volume 9.1 fL (9.4-12.4); Monocytes Absolute Auto 0.3 X10*3/uL (0.1-1.2); Monocytes Percent Auto 4.5 % (2-11); Neutrophils Absolute Auto 3.8 x10*3/uL (2.0-8.3); Neutrophils Percent Auto 63.9 % (45-73); Platelet Count 179 X10*3/uL (160-400); Red Blood Count 4.15 X10*6/uL (4.60-5.80); Red Cell Distribution Width 13.1 % (11.0-16.0)
[2023-09-30 11:24] LABS: Estimated Average Glucose 157 mg/dL; Hemoglobin A1c % 7.1 % (<6.0)
[2023-09-30 12:02] LABS: Alanine Aminotransferase 64 U/L (0-40); Albumin Level 4.1 g/dL (3.5-5.0); Alkaline Phosphatase 51 U/L (39-117); Anion Gap 18 (12-20); Aspartate Amino Transferase 61 U/L (5-37); Bilirubin Total 0.3 mg/dL (0.0-1.0); Blood Urea Nitrogen 18 mg/dL (9-16); Calcium 9.9 mg/dL (8.4-10.2); Carbon Dioxide 21 mmol/L (22-29); Chloride 101 mmol/L (96-108); Estimated Glomerular Filt Rate > 60; Glucose Random 252 mg/dL (60-115); Potassium 4.2 mmol/L (3.3-5.1); Sodium 136 mmol/L (135-145); Total Protein 7.4 g/dL (6.5-8.0)
== END 2023-09-30 09:44 | disposition home or self-care (01) ==
LOC: HO.10HDL 09:43
PROVIDERS: Visit Provider Internal Medicine
DX: E11.9 Type 2 diabetes mellitus without complications (principal); I10 Essential (primary) hypertension; J44.9 Chronic obstructive pulmonary disease, unspecified; K21.9 Gastro-esophageal reflux disease without esophagitis; N40.0 Benign prostatic hyperplasia without lower urinary tract symptoms
CPT/HCPCS: 36415; 80053; 82043; 82570; 83036; 85025

== ENCOUNTER 2023-10-18 18:23 | Inpatient (IN) | payer OTHER, SELFPAY ==
--- NOTE | ~2023-10-18 | XR_ITS ---
EXAMINATION: XR CHEST CLINICAL INFORMATION: Chest pain. COMPARISON: Chest radiograph dated 09/25/2023. TECHNIQUE: Frontal view of the chest was obtained. FINDINGS: The cardiac silhouette appears mildly enlarged, although this may be secondary to portable AP technique. There is no consolidation within either lung. There is no large pleural effusion. No pneumothorax. No acute osseous abnormality. XR/XR chest 1V IMPRESSION: Apparent cardiomegaly may be secondary to portable AP technique and low inspiratory volumes. Otherwise no acute disease.
--- NOTE | ~2023-10-18 | CT_ITS ---
EXAMINATION: CT ANGIOGRAM OF THE CHEST WITH AND WITHOUT CONTRAST (CT PULMONARY ANGIOGRAM FOR PE) CLINICAL INFORMATION: Reason for Exam Hypoxia COMPARISON: CT angiogram chest from 12/15/2020 TECHNIQUE: Prior to contrast administration, noncontrast localization images were obtained. Subsequently, multidetector volumetric imaging was performed from the thoracic inlet to below the diaphragms following the administration of 80 mL Omnipaque 350 intravenous contrast. No contrast reaction reported Sagittal, coronal, and MIP oblique sagittal reformatted images were obtained on the CT workstation, uploaded to PACS, and reviewed. This CT examination was performed using dose optimization techniques as appropriate, variously including the following: *Automated exposure control *Adjustment of mA and/or kV according to patient size (this includes techniques or standardized protocols for targeted exams where dose is matched to indication/reason for exam; i.e. extremities or head) *Use of iterative reconstruction technique Total exam dose-length product 573 mGy-cm FINDINGS: QUALITY OF STUDY/CONTRAST BOLUS: Satisfactory. PULMONARY ARTERIES: No pulmonary emboli. THORACIC AORTA: Aneurysmal dilatation of the ascending aorta measuring up to 4.1 cm at the level of main pulmonary artery. Descending aorta at this level measures 2.3 cm. LUNG/PLEURA: Redemonstrated lobular pleural-based nodular focus along the anterior aspect of the right lung apex (series 7, image 108) measuring 1.6 cm demonstrating fat attenuation potentially representing herniated intercostal fat versus lipoma. Additional pleural-based nodular focus along the lateral aspect of the right upper lobe (series 7, image 150) measuring 2.3 cm demonstrating fat attenuation, also potentially representing a lipoma. Emphysematous changes. No new enlarged or suspicious pulmonary nodules or masses are noted. Central airways are patent. No pneumothorax. No large pleural effusion. Bibasilar atelectasis. MEDIASTINUM: Heart is not enlarged. No pericardial effusion. Coronary calcifications are noted. No enlarged lymph nodes per size criteria. Visualized portions of the thyroid are unremarkable. No evidence of septal bowing or right heart strain. CHEST WALL/AXILLA: No axillary or internal mammary lymphadenopathy. OSSEOUS STRUCTURES: Multilevel degenerative changes of the thoracolumbar spine. UPPER ABDOMEN: Liver is enlarged measuring at least 28 cm AP dimension. Decreased hepatic attenuation suggesting hepatic steatosis. Spleen is enlarged measuring at least 14.1 cm. Status post cholecystectomy. Nonnodular thickening of the left adrenal gland. Small hiatal hernia. No reflux of contrast into the hepatic veins to suggest elevated right heart pressures. CT/CT angio chest PE protocol IMPRESSION: 1. No pulmonary emboli. 2. Aneurysmal dilatation of the ascending aorta measuring up to 4.1 cm at the level of main pulmonary artery. 3. Redemonstrated lobular pleural-based nodular focus along the anterior aspect of the right lung apex measuring 1.6 cm demonstrating fat attenuation potentially representing herniated intercostal fat versus lipoma. Additional pleural-based nodular focus along the lateral aspect of the right upper lobe measuring 2.3 cm demonstrating fat attenuation, also potentially representing a lipoma. 4. No new enlarged or suspicious pulmonary nodules or masses are noted. 5. Liver is enlarged measuring at least 28 cm AP dimension. Decreased hepatic attenuation suggesting hepatic steatosis. 6. Spleen is enlarged measuring at least 14.1 cm. 7. Status post cholecystectomy. 8. Small hiatal hernia.
--- NOTE | 2023-10-18 18:30 | ECG_ITS ---
Test Reason : Chest pain Blood Pressure : / mmHG Vent. Rate : 065 BPM Atrial Rate : 065 BPM P-R Int : 258 ms QRS Dur : 174 ms QT Int : 444 ms P-R-T Axes : 045 -70 020 degrees QTc Int : 461 ms Sinus rhythm with 1st degree A-V block Left axis deviation Right bundle branch block Septal infarct , age undetermined Abnormal ECG When compared with ECG of 25-SEP-2023 15:12, No significant changes seen Referred By: Opal Bhatti Electronically Signed By:ANDI MIRELES
[2023-10-18 18:31] VITALS: BP 140/79; BP 147/73; PULSE 70; RESP 15; TEMP 37; O2SAT 93; BMI 42.6
--- NOTE | 2023-10-18 19:08 | ED_ITS ---
HPI - Chest Pain General Chief Complaint: Chest Pain Stated Complaint: CHEST PRESSURE L ARM PAIN Time Seen by Provider: 10/18/23 18:29 History of Present Illness HPI narrative: 68 y/o M patient; PMH atrial flutter on Eliquis, hypertrophic cardiomyopathy, KENYON on CPAP, HTN, CAD, hx [place] 2021, T2DM, GERD; presents from home reporting left-sided chest pain radiating into his left arm. He states it feels similar to his prior [place] but less intense. He states his symptoms started while he was grilling and he had to sit down. He took his blood pressure and noticed it was high. Then took his oxygen and noticed it was lower than normal. He denies: nausea/vomiting, diaphoresis, shortness of breath, cough/congestion, fever. He is an ex-smoker, quit over 10 years ago. He was diagnosed with COVID at the beginning of this month. Related Data Home Medications ?Medication ?Instructions ?Recorded ?Confirmed aspirin 81 mg tablet,delayed 81 mg PO DAILY 06/15/23 06/15/23 release efavirenz 600 mg-emtricitabine 200 1 tab PO BEDTIME 06/15/23 06/15/23 mg-tenofovir disoprox 300 mg tablet lisinopril 40 mg tablet 40 mg PO DAILY 06/15/23 06/15/23 melatonin 3 mg tablet 9 mg PO BEDTIME PRN Sleep 06/15/23 06/15/23 metformin 500 mg tablet 500 mg PO DAILY 06/15/23 06/15/23 multivitamin 1 tab PO DAILY 06/15/23 06/15/23 omega 2-ezt-puv-fish oil 60 mg-90 2 cap PO DAILY 06/15/23 06/15/23 mg-500 mg capsule (Fish Oil) omeprazole 20 mg capsule,delayed 20 mg PO DAILY@0630 06/15/23 06/15/23 release rosuvastatin 20 mg tablet 20 mg PO BEDTIME 06/15/23 06/15/23 terazosin 5 mg capsule 5 mg PO BEDTIME 06/15/23 06/15/23 Previous Rx's ?Medication ?Instructions ?Recorded amoxicillin 875 mg-potassium 1 tab PO BID #14 tabs 06/21/23 clavulanate 125 mg tablet apixaban 5 mg tablet (Eliquis) 5 mg PO BID #60 tabs 01/30/24 digoxin 250 mcg (0.25 mg) tablet 0.25 mg PO DAILY #30 tabs 06/21/23 dronedarone 400 mg tablet (Multaq) 400 mg PO BID #60 tabs 06/21/23 metoprolol succinate 100 mg 100 mg PO DAILY #30 tabs 06/21/23 tablet,extended release 24 hr Allergies Allergy/AdvReac Type Severity Reaction Status Date / Time No Known Allergies Allergy Verified 10/18/23 18:42 Review of Systems 2 Review of Systems: Yes all other systems are reviewed and are negative [facility] Past Medical History Attestation statement: The following information was validated with the patient. Source: old records reviewed Medical History Non-insulin dependent type 2 diabetes mellitus CAD (coronary artery disease) HIV (human immunodeficiency virus infection) KENYON (obstructive sleep apnea) Tear of left hamstring Diabetes High cholesterol High blood pressure Social History Social History Household Members: None Household Members Other:: none; lives alone with his cat () Housing: Apartment Do you presently have visiting nurse or other home services: No Comment: pt refuses bed alarm Patient Tobacco Use Status: Former Tobacco user Quit Date: 10 years ago Substance Use Type: Marijuana Advance Directives: No Advance Directives Information Provided: No Do you have a plan to hurt others: No Plan service: No Current occupational status: retired Current occupation: rt handed Physical Exam 2 Vital Signs: Vital Signs: Last Vital Signs Temp 98.6 F 10/18/23 18:31 Pulse 70 10/18/23 18:31 Resp 15 10/18/23 18:31 BP 147/73 H 10/18/23 18:31 Pulse Ox 93 10/18/23 18:31 O2 Del Method Room Air 10/18/23 18:31 BMI result Body Mass Index 42.6 Patient is afebrile, with mild hypertension and severe hypoxia requiring 6L NC. Const: General: cooperative Orientation/consciousness: patient oriented x3 HEENT: Head: Yes normal to inspection and Yes atraumatic Eyes: General: appearance normal, both eyes and all related structures Neck: Neck: Yes normal visual inspection, Yes full ROM, Yes supple and No tender Chest: Chest palpation & inspection: normal inspection of the chest and normal palpation of entire chest wall Resp: Effort & Inspection: normal respiratory effort, able to speak in complete sentences, no cough and no respiratory distress Auscultation: clear to auscultation bilaterally Cardio: Rate: Other (irregular) Rhythm: other (irregular) Peripheral pulses: Peripheral pulses 2+ throughout GI: Inspection: No Abdominal wall edema and No distended Palpation (GI): S oft to palpation, not firm, nontender, no guarding and not rigid A uscultation: normal bowel sounds Neuro: General: patient oriented x3 Course Course Course Narrative: Patient is afebrile, mildly hypertensive, severely hypoxic requiring 6L NC. Ordered for EKG, laboratory studies, CXR, d-dimer with CTA Chest. Reevaluation(s) Reevaluation #1: Laboratory studies reviewed. No leukocytosis. Baseline Hgb. Baseline thrombocytopenia. VBG with respiratory alkalosis. Troponin 15.9. Provided additional ASA as patient took 81mg at home. Baseline transaminitis. Possible infectious component with severe hypoxia. CXR appears to have new infiltrates. Will treat with Ceftriaxone and Azithromycin pending CTA Chest. Plan: Transition care to Dr. Rivas pending CTA Chest, re-evaluation, and admission. Condition: Stable Medications Administered Discontinued Medications Generic Name Dose Route Start Last Admin Trade Name Freq PRN Reason Stop Dose Admin Iohexol 100 ml 10/18/23 20:37 10/18/23 20:37 Iohexol 350 Mg/Ml 100 Ml Infus..Btl IV 10/18/23 20:38 65 ml ONCE ONE Administration Medical Decision Making Lab Data 10/18/23 19:22 10/18/23 19:22 Labs: Lab Results 10/18/23 10/18/23 Range/Units 19:22 19:23 WBC 7.1 (4.8-10.8) X10*3/uL RBC 4.10 L (4.60-5.80) X10*6/uL Hgb 12.8 L (14.0-18.0) g/dl Hct 37.9 L (42.0-52.0) % MCV 92.4 (80.0-98.0) fL MCH 31.2 (27.0-33.0) pg MCHC 33.8 (31.0-36.0) g/dl RDW 13.6 (11.0-16.0) % Plt Count 142 L (160-400) X10*3/uL MPV 9.5 (9.4-12.4) fL Immature Gran % (Auto) 0.6 H (0.0-0.4) % Neut % (Auto) 65.2 (45-73) % Lymph % (Auto) 24.2 (20-40) % [place] % (Auto) 6.6 (2-11) % Eos % (Auto) 3.1 (0-4) % Baso % (Auto) 0.3 (0-2) % Lymph # (Auto) 1.7 (1.2-4.9) X10*3/uL [place] # (Auto) 0.5 (0.1-1.2) X10*3/uL Eos # (Auto) 0.2 (0.0-0.4) X10*3/uL Baso # (Auto) 0.0 (0.0-0.2) X10*3/uL Abs Immat Gran (auto) 0.04 H (0.00-0.03) X10*3/uL Absolute Neuts (auto) 4.7 (2.0-8.3) x10*3/uL Absolute Nucleated RBC 0.000 (0.0-0.012) X10*3/uL Nucleated RBC % (auto) 0.0 (0.0-0.2) /100WBC D-Dimer High Sensitivty < 150 NG/ML VBG pH 7.56 H (7.32-7.43) VBG pCO2 26 mmHg VBG pO2 122 mmHg VBG HCO3 24 (22-26) mmol/L VBG O2 Saturation 100.0 % VBG Base Excess 3.4 mmol/L Sodium 137 (135-145) mmol/L Potassium 4.8 (3.3-5.1) mmol/L Chloride 106 (96-108) mmol/L Carbon Dioxide 20 L (22-29) mmol/L Anion Gap 16 (12-20) BUN 22 H (9-16) mg/dL Creatinine 0.96 (0.5-1.4) mg/dL Estim Creat Clear Calc 91.4 Estimated GFR > 60 Random Glucose 142 H (60-115) mg/dL Calcium 9.3 D (8.4-10.2) mg/dL Magnesium 1.8 (1.6-2.6) mg/dL Total Bilirubin 0.2 (0.0-1.0) mg/dL Direct Bilirubin < 0.2 (0.0-0.5) mg/dL AST 89 H (5-37) U/L ALT 77 H (0-40) U/L Alkaline Phosphatase 45 (39-117) U/L Troponin I High Sens 15.9 (<3.5-35.0) ng/L Total Protein 7.0 (6.5-8.0) g/dL Albumin 3.9 (3.5-5.0) g/dL Lipase 55 (8-78) U/L Radiology Impression Discussion of test interpretation with radiology: I have reviewed the radiologist's reading. Radiologist Impression: EXAMINATION: XR CHEST CLINICAL INFORMATION: Chest pain. COMPARISON: Chest radiograph dated 09/25/2023. TECHNIQUE: Frontal view of the chest was obtained. FINDINGS: The cardiac silhouette appears mildly enlarged, although this may be secondary to portable AP technique. There is no consolidation within either lung. There is no large pleural effusion. No pneumothorax. No acute osseous abnormality. XR/XR chest 1V IMPRESSION: Apparent cardiomegaly may be secondary to portable AP technique and low inspiratory volumes. Otherwise no acute disease. Discharge Plan Discharge Clinical Impression: Chest pain, Hypoxia Patient Disposition: Still a Patient Prescriptions: No Action multivitamin Tablet 1 tab PO DAILY terazosin 5 mg capsule 5 mg PO BEDTIME metformin 500 mg tablet 500 mg PO DAILY melatonin 3 mg Tablet 9 mg PO BEDTIME PRN (Reason: Sleep) aspirin 81 mg Tablet,Delayed Release (Dr/Ec) 81 mg PO DAILY omeprazole 20 mg capsule,delayed release(DR/EC) 20 mg PO DAILY@0630 lisinopril 40 mg tablet 40 mg PO DAILY rosuvastatin 20 mg tablet 20 mg PO BEDTIME esxcnhiov-bnafwnsmsiec-ywsebnd 600-200-300 mg tablet 1 tab PO BEDTIME omega 8-nkd-iwk-fish oil [Fish Oil] 60-90-500 mg Capsule 2 cap PO DAILY Eliquis 5 mg Tablet 5 mg PO BID Qty: 60 0RF digoxin 250 mcg (0.25 mg) Tablet 0.25 mg PO DAILY Qty: 30 0RF Multaq 400 mg Tablet 400 mg PO BID Qty: 60 0RF metoprolol succinate 100 mg Tablet Extended Release 24 Hr 100 mg PO DAILY Qty: 30 0RF Protocol: Hold for SBP/HR < HOLD for SBP < : 90 HOLD for HR < : 60 amoxicillin-pot clavulanate 875-125 mg tablet 1 tab PO BID Qty: 14 0RF Print Language: Frisian
[2023-10-18 19:27] LABS: Basophils Percent Auto 0.3 % (0-2); Eosinophils Absolute Auto 0.2 X10*3/uL (0.0-0.4); Eosinophils Percent Auto 3.1 % (0-4); Hematocrit 37.9 % (42.0-52.0); Hemoglobin 12.8 g/dl (14.0-18.0); Imm Gran Abs Auto 0.04 X10*3/uL (0.00-0.03); Imm Gran Pct Auto 0.6 % (0.0-0.4); Lymphocytes Absolute Auto 1.7 X10*3/uL (1.2-4.9); Lymphocytes Percent Auto 24.2 % (20-40); MANUAL DIFF FLAG NO; Mean Corpuscular HGB Conc 33.8 g/dl (31.0-36.0); Mean Corpuscular Hemoglobin 31.2 pg (27.0-33.0); Mean Corpuscular Volume 92.4 fL (80.0-98.0); Mean Platelet Volume 9.5 fL (9.4-12.4); Monocytes Absolute Auto 0.5 X10*3/uL (0.1-1.2); Monocytes Percent Auto 6.6 % (2-11); Neutrophils Absolute Auto 4.7 x10*3/uL (2.0-8.3); Neutrophils Percent Auto 65.2 % (45-73); Platelet Count 142 X10*3/uL (160-400); Red Cell Distribution Width 13.6 % (11.0-16.0); White Blood Count 7.1 X10*3/uL (4.8-10.8)
[2023-10-18 19:31] LABS: VBG Base Excess 3.4 mmol/L; VBG HCO3 24 mmol/L (22-26); VBG pCO2 26 mmHg; VBG pH 7.56 (7.32-7.43); VBG pO2 122 mmHg
[2023-10-18 19:35] LABS: Venous Blood Gas Refer to POC result
[2023-10-18 19:47] LABS: Alanine Aminotransferase 77 U/L (0-40); Albumin Level 3.9 g/dL (3.5-5.0); Alkaline Phosphatase 45 U/L (39-117); Anion Gap 16 (12-20); Aspartate Amino Transferase 89 U/L (5-37); Bilirubin Direct < 0.2 mg/dL (0.0-0.5); Bilirubin Total 0.2 mg/dL (0.0-1.0); Blood Urea Nitrogen 22 mg/dL (9-16); Calcium 9.3 mg/dL (8.4-10.2); Carbon Dioxide 20 mmol/L (22-29); Chloride 106 mmol/L (96-108); Creatinine Clr Calc Pharmacy 91.4; D Dimer High Sensitivity < 150 NG/ML; Estimated Glomerular Filt Rate > 60; Glucose Random 142 mg/dL (60-115); Lipase 55 U/L (8-78); Magnesium 1.8 mg/dL (1.6-2.6); Potassium 4.8 mmol/L (3.3-5.1); Sodium 137 mmol/L (135-145)
[2023-10-18 19:49] LABS: Troponin-I High Sensitivity 15.9 ng/L (<3.5-35.0)
--- NOTE | 2023-10-18 20:01 | PC.NURSE ---
PT sating ay 80-87% on 8L NC, t moved to bed 11. RT at bedside. Lung sounds clear so MD Bhatti declined nebu tx
[2023-10-18] MEDS: iohexoL 350 MG/ML 100 ML INFUS..BTL IV (20:37)
[2023-10-18] MEDS: Aspirin 81 MG TAB.CHEW 243 MG PO (21:06)
[2023-10-18] MEDS: cefTRIAXone sodium 1 GM in 0.9 % Sodium Chloride 50 ML IV (21:09)
[2023-10-18] MEDS: Azithromycin 500 MG in 0.9 % Sodium Chloride 250 ML 125 MG IV (22:11)
[2023-10-18 22:32] VITALS: BP 142/62; PULSE 87; RESP 13; TEMP 36.6; O2SAT 97
[2023-10-18] MEDS: Nitroglycerin 2 % Oint 1 GM Packet 1 INCH TRANSDERMA (23:41)
[2023-10-18 23:49] LABS: Troponin-I High Sensitivity 46.4 ng/L (<3.5-35.0)
--- NOTE | 2023-10-19 00:05 | ECG_ITS ---
Test Reason : NON STEMI Blood Pressure : / mmHG Vent. Rate : 070 BPM Atrial Rate : 070 BPM P-R Int : 240 ms QRS Dur : 174 ms QT Int : 450 ms P-R-T Axes : 000 -73 014 degrees QTc Int : 486 ms Sinus rhythm with 1st degree A-V block Left axis deviation Right bundle branch block Abnormal ECG When compared with ECG of 18-OCT-2023 18:30, No significant changes seen Referred By: Al Bowers Electronically Signed By:ANDI MIRELES
[2023-10-19 00:30] LABS: Prothrombin Time 12.6 SEC (11.1-13.3)
[2023-10-19 00:33] LABS: Partial Thromboplastin Time 31.6 SEC (26.0-36.8)
--- NOTE | 2023-10-19 01:45 | P.HPHOSP_ITS ---
History of Present Illness Date of Service: 10/19/23 Attending physician on admission: France Tijerina Chief Complaint: Chest pain Sneha Buenrostro is a 68 years old man with past medical history significant for Aflutter on chronic anticoagulation with Eliquis, KENYON on CPAP, HCM, hyperlipidemia, obesity, coronary artery disease (hx of CA and PCI) and type 2 diabetes mellitus on metformin was brought to the emergency department via EMS due to left-sided chest pain that started 1 hour prior to presentation to the emergency department. Pain is described as a pressure and similar to the chest pain that he had when he was diagnosed with CA. It radiates to the left arm. He received treatment with nitroglycerin which improved the pain. He denied any associated symptoms such as cough, shortness for breath, palpitations, nausea, diaphoresis, fevers or chills. He denied tobacco smoking, alcohol abuse or illicit drug use. In the ED, he was found to have stable vital signs. Blood workup showed no leukocytosis. There is anemia of 12.8 (similar to baseline) and thrombocytopenia 142. There are no significant electrolyte imbalances. Glucose is 142. Transaminases are elevated. Lipase is normal. Troponin increased from 15.9-46.4. ECG showed right bundle eder block and first-degree AV block; no obvious ischemic changes. Chest CTA showed no pulmonary emboli and aneurysmal dilatation of the ascending aorta measuring up to 4.1 cm at the level of the main pulmonary artery, no new enlarged or suspicious pulmonary nodules or masses, hepatomegaly suggesting hepatic steatosis, splenomegaly and small hiatal hernia. ED tx: Ceftriaxone 1 g IV, azithromycin 500 mg IV, aspirin 243 mg p.o., IV contrast, nitro ointment Review of Systems 2 Review of Systems: All 12 systems were reviewed and normal except as noted in HPI. [facility] Medical History Non-insulin dependent type 2 diabetes mellitus CAD (coronary artery disease) HIV (human immunodeficiency virus infection) KENYON (obstructive sleep apnea) Tear of left hamstring Diabetes High cholesterol High blood pressure Social History Household Members: None Household Members Other:: none; lives alone with his cat (Conrad) Housing: Apartment Do you presently have visiting nurse or other home services: No Comment: pt refuses bed alarm Patient Tobacco Use Status: Former Tobacco user Quit Date: 10 years ago Substance Use Type: Marijuana Advance Directives: No Advance Directives Information Provided: No Do you have a plan to hurt others: No Plan service: No Current occupational status: retired Current occupation: rt handed Meds Allergies Allergy/AdvReac Type Severity Reaction Status Date / Time No Known Allergies Allergy Verified 10/18/23 18:42 Active Medications: Current Medications Acetaminophen (Acetaminophen 325 Mg Tablet) 975 mg PO Q6H PRN PRN Reason: Pain, Mild (Pain Scale 1-3) Aspirin (Aspirin Enteric Coated 81 Mg Tablet.) 81 mg PO DAILY BETH Glucose (Glucose Gel 15 Gm Gel..Gram.) 15 gm PO Q15M PRN; Protocol PRN Reason: per Hypoglycemia Standing Ord. Heparin Sodium (Porcine) (Heparin Sodium,Porcine 5,000 Unit/Ml Vial) 4,900 unit 40 unit/kg (4900 unit) IVPUSH PROTOCOL BOLUS PRN; Protocol PRN Reason: 40 unit/kg - Heparin Protocol Heparin Sodium (Porcine) (Heparin Sodium,Porcine 5,000 Unit/Ml Vial) 9,900 unit 80 unit/kg (9900 unit) IVPUSH PROTOCOL BOLUS PRN; Protocol PRN Reason: 80 unit/kg - Heparin Protocol Heparin Sodium/Sodium Chloride (Heparin Sodium,Porcine/1/2ns) 25,000 unit in 250 mls @ 0 mls/hr IVCONT .Q0M BETH; Protocol Dextrose (D10) 250 mls @ 750 mls/hr IV Q15M PRN; Protocol PRN Reason: per Hypoglycemia Standing Ord. Insulin Human Lispro (Insulin Lispro 100 Unit/Ml 3 Ml Vial) 0 unit SUBCUT QIDACHS [facility]; Protocol Lisinopril (Lisinopril 40 Mg Tablet) 40 mg PO ONCE ONE; Protocol Stop: 10/19/23 08:01 Metoprolol Succinate (Metoprolol Succinate Er 100 Mg Tab.Er.24h) 100 mg PO ONCE ONE; Protocol Stop: 10/19/23 09:01 Nitroglycerin (Nitroglycerin 0.4 Mg Tab.Subl) 0.4 mg SUBLINGUAL Q5MX3 PRN PRN Reason: Chest Pain Omeprazole (Omeprazole 40 Mg Capsule.) 40 mg PO ONCE ONE Stop: 10/19/23 09:01 Sodium Chloride (0.9 % Sodium Chloride Flush 3 Ml Syringe) 3 ml IVFLUSH QSHIFT [facility] Home Medications ?Medication ?Instructions ?Recorded ?Confirmed ?Last Taken ?Type aspirin 81 mg tablet,delayed 81 mg PO DAILY 06/15/23 06/15/23 06/15/23 History release efavirenz 600 mg-emtricitabine 200 1 tab PO BEDTIME 06/15/23 06/15/23 06/14/23 History mg-tenofovir disoprox 300 mg tablet lisinopril 40 mg tablet 40 mg PO DAILY 06/15/23 06/15/23 06/15/23 History melatonin 3 mg tablet 9 mg PO BEDTIME PRN Sleep 06/15/23 06/15/23 06/14/23 History metformin 500 mg tablet 500 mg PO DAILY 06/15/23 06/15/23 06/15/23 History multivitamin 1 tab PO DAILY 06/15/23 06/15/23 06/15/23 History omega 6-cgl-hku-fish oil 60 mg-90 2 cap PO DAILY 06/15/23 06/15/23 06/15/23 History mg-500 mg capsule (Fish Oil) omeprazole 20 mg capsule,delayed 20 mg PO DAILY@0630 06/15/23 06/15/23 06/15/23 History release rosuvastatin 20 mg tablet 20 mg PO BEDTIME 06/15/23 06/15/23 06/14/23 History terazosin 5 mg capsule 5 mg PO BEDTIME 06/15/23 06/15/23 06/14/23 History Physical Exam 2 Vital Signs and Narrative: Vital Signs: Last Vital Signs Temp 97.8 F 10/18/23 22:32 Pulse 87 10/18/23 22:32 Resp 13 10/18/23 22:32 BP 142/62 H 10/18/23 22:32 Pulse Ox 97 10/18/23 22:32 O2 Del Method Oxymask 10/18/23 22:32 O2 Flow Rate 2 10/18/23 22:32 BMI result Body Mass Index 42.6 Constitutional - Awake and Alert, No apparent distress. Pleasant. Cooperative. Obese. HEENT - Pupils equally round. Normal sclerae. Heart - S1S2, RRR. Lungs - Normal lung expansion, Normal respiratory effort, No respiratory distress, CTA bilaterally Abdomen - NT / ND; +BS; No rebound or guarding Extremities - no calf tenderness bilaterally, no swelling Skin - Warm/Dry Neurological - Alert & oriented x3. No focal weakness grossly noted. Normal speech. Psychological - Appropriate affect Results Labs 10/18/23 19:22 10/18/23 19:22 Labs: Laboratory Results - last 24 hr 10/18/23 10/18/23 10/18/23 19:22 19:23 23:21 MCV 92.4 MCH 31.2 MCHC 33.8 RDW 13.6 Plt Count 142 L MPV 9.5 Immature Gran % (Auto) 0.6 H Neut % (Auto) 65.2 Lymph % (Auto) 24.2 [place] % (Auto) 6.6 Eos % (Auto) 3.1 Baso % (Auto) 0.3 Lymph # (Auto) 1.7 [place] # (Auto) 0.5 Eos # (Auto) 0.2 Baso # (Auto) 0.0 Abs Immat Gran (auto) 0.04 H Absolute Neuts (auto) 4.7 Absolute Nucleated RBC 0.000 Nucleated RBC % (auto) 0.0 PT INR APTT D-Dimer High Sensitivty < 150 VBG pH 7.56 H VBG pCO2 26 VBG pO2 122 VBG HCO3 24 VBG O2 Saturation 100.0 VBG Base Excess 3.4 Anion Gap 16 Estim Creat Clear Calc 91.4 Estimated GFR > 60 Random Glucose 142 H Calcium 9.3 D Magnesium 1.8 Total Bilirubin 0.2 Direct Bilirubin < 0.2 AST 89 H ALT 77 H Alkaline Phosphatase 45 Troponin I High Sens 15.9 46.4 H D Total Protein 7.0 Albumin 3.9 Lipase 55 10/19/23 00:16 MCV MCH MCHC RDW Plt Count MPV Immature Gran % (Auto) Neut % (Auto) Lymph % (Auto) [place] % (Auto) Eos % (Auto) Baso % (Auto) Lymph # (Auto) [place] # (Auto) Eos # (Auto) Baso # (Auto) Abs Immat Gran (auto) Absolute Neuts (auto) Absolute Nucleated RBC Nucleated RBC % (auto) PT 12.6 INR 1.0 APTT 31.6 D-Dimer High Sensitivty VBG pH VBG pCO2 VBG pO2 VBG HCO3 VBG O2 Saturation VBG Base Excess Anion Gap Estim Creat Clear Calc Estimated GFR Random Glucose Calcium Magnesium Total Bilirubin Direct Bilirubin AST ALT Alkaline Phosphatase Troponin I High Sens Total Protein Albumin Lipase Imaging Radiologist's Impressions: Impressions Chest X-Ray 10/18/23 18:56 IMPRESSION: Apparent cardiomegaly may be secondary to portable AP technique and low inspiratory volumes. Otherwise no acute disease. Chest CTA 10/18/23 20:36 IMPRESSION: 1. No pulmonary emboli. 2. Aneurysmal dilatation of the ascending aorta measuring up to 4.1 cm at the level of main pulmonary artery. 3. Redemonstrated lobular pleural-based nodular focus along the anterior aspect of the right lung apex measuring 1.6 cm demonstrating fat attenuation potentially representing herniated intercostal fat versus lipoma. Additional pleural-based nodular focus along the lateral aspect of the right upper lobe measuring 2.3 cm demonstrating fat attenuation, also potentially representing a lipoma. 4. No new enlarged or suspicious pulmonary nodules or masses are noted. 5. Liver is enlarged measuring at least 28 cm AP dimension. Decreased hepatic attenuation suggesting hepatic steatosis. 6. Spleen is enlarged measuring at least 14.1 cm. 7. Status post cholecystectomy. 8. Small hiatal hernia. Assessment and Plan (1) Hypertrophic cardiomyopathy: Status: Acute Plan Sneha Buenrostro is a 68 y/o man with PMHx significant for CAD/CA s/p PCI admitted with: * NSTEMI. Admit to hospitalist service. Telemetry. Start therapy with heparin IV infusion ( cardiology) per protocol. Eliquis on hold as the patient will receive heparin IV infusion. Continue aspirin, statin, TIMA-inhibitor and beta-blockers. Check TTE. Recheck troponin. Cardiology consult. * History of A-flutter, currently rate and rhythm controlled. Continue home rate control agents. Eliquis on hold for now as the patient will be receiving tx with heparin IV infusion. Telemetry. * Essential hypertension. Continue metoprolol and lisinopril. * Hyperlipidemia. Continue statin. * Type 2 diabetes mellitus. Metformin hold -recent administration of IV contrast. BG checks before meals at bedtime. Insulin sliding scale. Diabetic diet. * Morbid obesity. BMI 42.6 kg/m2. Weight loss. * KENYON. Nocturnal CPAP. * GERD. Continue omeprazole. * Herniated intercostal fat versus lipoma. * Chronic anemia. Continue to monitor. * Mild thrombocytopenia. Likely due to splenomegaly. Continue to monitor * Ascending aorta aneurysm, 4.1 cm. Outpatient follow up. * Elevated transaminases. Likely secondary to hepatic steatosis. Continue to monitor. DVT prophylaxis: Heparin IV infusion GI prophylaxis: PPI Code status: Full Precautions: Fall Patient will need hospitalization for at least 2 midnights for non STEMI treatment with IV heparin, aspirin, statin, TIMA inhibitors and beta blockers; close cardiac monitoring. Patient will also need evaluation by subspecialty. Quality Stroke Does the patient have a stroke diagnosis?: No VTE Prior VTE?: No VTE Risk Level:: Medical - moderate - high VTE Device Contraindication: Treatment Not Indicated VTE Drug Contraindication: N/A - Med Ordered
[2023-10-19] MEDS: Heparin Sodium,Porcine/1/2NS 25,000 UNIT/250 ML IV.SOLN 10 UNIT IVCONT (01:48)
[2023-10-19] MEDS: Dronedarone HCl 400 MG TABLET PO (02:32)
[2023-10-19 04:09] VITALS: BP 139/61; PULSE 80; RESP 20; TEMP 36.4; O2SAT 94
[2023-10-19 05:25] LABS: MANUAL DIFF FLAG NO
[2023-10-19 05:27] LABS: Basophils Percent Auto 0.3 % (0-2); Eosinophils Absolute Auto 0.2 X10*3/uL (0.0-0.4); Eosinophils Percent Auto 3.5 % (0-4); Hematocrit 35.6 % (42.0-52.0); Hemoglobin 12.2 g/dl (14.0-18.0); Imm Gran Abs Auto 0.04 X10*3/uL (0.00-0.03); Imm Gran Pct Auto 0.6 % (0.0-0.4); Lymphocytes Absolute Auto 1.9 X10*3/uL (1.2-4.9); Mean Corpuscular HGB Conc 34.3 g/dl (31.0-36.0); Mean Corpuscular Hemoglobin 31.5 pg (27.0-33.0); Mean Platelet Volume 9.4 fL (9.4-12.4); Monocytes Absolute Auto 0.4 X10*3/uL (0.1-1.2); Monocytes Percent Auto 5.7 % (2-11); Neutrophils Absolute Auto 4.2 x10*3/uL (2.0-8.3); Neutrophils Percent Auto 61.9 % (45-73); Platelet Count 141 X10*3/uL (160-400); Red Blood Count 3.87 X10*6/uL (4.60-5.80); Red Cell Distribution Width 13.7 % (11.0-16.0); White Blood Count 6.8 X10*3/uL (4.8-10.8)
[2023-10-19 05:44] LABS: Alanine Aminotransferase 73 U/L (0-40); Albumin Level 3.8 g/dL (3.5-5.0); Alkaline Phosphatase 46 U/L (39-117); Anion Gap 14 (12-20); Aspartate Amino Transferase 88 U/L (5-37); Bilirubin Total 0.3 mg/dL (0.0-1.0); Blood Urea Nitrogen 17 mg/dL (9-16); Carbon Dioxide 25 mmol/L (22-29); Chloride 105 mmol/L (96-108); Creatinine Clr Calc Pharmacy 100.9; Estimated Glomerular Filt Rate > 60; Glucose Random 140 mg/dL (60-115); Potassium 4.2 mmol/L (3.3-5.1); Sodium 140 mmol/L (135-145); Total Protein 6.7 g/dL (6.5-8.0)
[2023-10-19 05:47] LABS: Troponin-I High Sensitivity 41.8 ng/L (<3.5-35.0)
[2023-10-19 06:17] VITALS: BP 124/55; PULSE 63; RESP 16; TEMP 36.7; O2SAT 96
--- NOTE | 2023-10-19 06:28 | PC.NURSE ---
It appears that previous [facility] lab order was entered for incorrect time. Lab draw should be obtained by 0748 (6 hours after admin time- per protocol)
[2023-10-19 07:20] LABS: Glucose, Whole Blood 131 mg/dL (60-115)
[2023-10-19 08:10] LABS: PTT Heparin Drip 36.1 SEC (53-77.9)
[2023-10-19 08:41] VITALS: BP 134/79; PULSE 72; RESP 17; O2SAT 97
[2023-10-19 08:43] VITALS: BP 134/79; PULSE 64
[2023-10-19] MEDS: Metoprolol Succinate ER 100 MG TAB.ER.24H PO (08:43)
[2023-10-19] MEDS: Omeprazole 40 MG CAPSULE.DR PO (08:43)
[2023-10-19] MEDS: lisinopriL 40 MG TABLET PO (08:43)
[2023-10-19] MEDS: Aspirin Enteric Coated 81 MG TABLET.DR PO (08:43)
[2023-10-19] MEDS: Heparin Sodium,Porcine 5,000 UNIT/ML VIAL 9900 UNIT IVPUSH (08:44)
--- NOTE | 2023-10-19 09:22 | PM.CNCAR ---
History of Present Illness History of Present Illness Date of Service: 10/19/23 Chief complaint: NSTEMI Narrative: This is a cardiology consultation regarding chest pain. Patient is seen at [facility] cardiology. He has a history of coronary artery disease, paroxysmal atrial flutter, status post cardioversion in 06/11/2023, hypertrophic cardiomyopathy, diabetes and many comorbidities. He presents to the hospital with left-sided chest discomfort since last night. He feels like it is similar to the prior episode of chest pain that he had in 2020 when he had a myocardial infarction. There is some left arm numbness/radiation. He got nitroglycerin and there was improvement in pain. No other symptoms at this time. He just states that he feels tired after being in the ER. Apart from the current episode of chest pain, he states he has not had any other recent episodes. Review of Systems Review of Systems: Yes all other systems are reviewed and are negative Constitutional: Constitutional: Reports as per HPI and Reports no additional constitutional complaints Eyes: Eyes: Reports as per HPI and Denies no additional eye complaints ENT: Denies system reviewed and no additional complaints, except as documented and Reports as per HPI Cardiovascular: Cardiovascular: Reports as per HPI, Reports no additional cardiovascular complaints, Denies acrocyanosis, Denies cool extremities, Reports chest pain, Denies leg edema, Denies lightheadedness, Denies palpitations and Denies dyspnea Respiratory: Respiratory: Reports as per HPI, Denies no additional respiratory complaints and Denies dyspnea Gastrointestinal: Gastrointestinal: Reports as per HPI and Denies no additional gastrointestinal complaints Genitourinary: Genitourinary: Reports no additional male genitourinary complaints and Reports as per HPI Musculoskeletal: Musculoskeletal: Reports no additional musculoskeletal complaints and Reports as per HPI Integumentary/Breasts: Skin/Breast: Reports system reviewed and no additional complaints, except as docu Neurologic: Reports system reviewed and no additional complaints, except as documented and Reports as per HPI Psychiatric: Psychiatric: Reports no additional psychiatric complaints and Reports as per HPI Endocrine: Endocrine: Reports no additional endocrine complaints, Reports as per HPI and Denies palpitations Hematologic/Lymphatic: Hematologic/Lymphatic: Reports no additional hematologic/lymphatic complaints and Reports as per HPI Allergic/Immunologic: Allergic/Immunologic: Reports no additional allergic/immunologic complaints and Reports as per HPI [facility] Past Medical History Medical History Non-insulin dependent type 2 diabetes mellitus CAD (coronary artery disease) HIV (human immunodeficiency virus infection) KENYON (obstructive sleep apnea) Tear of left hamstring Diabetes High cholesterol High blood pressure Family History Pertinent family history: No pertinent family history Social History Social History Household Members: None Household Members Other:: none; lives alone with his cat () Housing: Apartment Do you presently have visiting nurse or other home services: No Alcohol intake: former Comment: pt refuses bed alarm Patient Tobacco Use Status: Former Tobacco user Quit Date: 10 years ago Smoked in Last 30 Days: No Use of substances other than those prescribed or required for medical reasons: No Substance Use Type: Marijuana Advance Directives: No Advance Directives Information Provided: No Do you have a plan to hurt others: No Plan service: No Current occupational status: retired Current occupation: rt handed Meds Allergies Allergy/AdvReac Type Severity Reaction Status Date / Time No Known Allergies Allergy Verified 10/18/23 18:42 Active Medications: Current Medications Acetaminophen (Acetaminophen 325 Mg Tablet) 975 mg PO Q6H PRN PRN Reason: Pain, Mild (Pain Scale 1-3) Aspirin (Aspirin Enteric Coated 81 Mg Tablet.Dr) 81 mg PO DAILY [facility] Last Admin: 10/19/23 08:43 Dose: 81 mg Glucose (Glucose Gel 15 Gm Gel..Gram.) 15 gm PO Q15M PRN; Protocol PRN Reason: per Hypoglycemia Standing Ord. Heparin Sodium (Porcine) (Heparin Sodium,Porcine 5,000 Unit/Ml Vial) 4,900 unit 40 unit/kg (4900 unit) IVPUSH PROTOCOL BOLUS PRN; Protocol PRN Reason: 40 unit/kg - Heparin Protocol Heparin Sodium (Porcine) (Heparin Sodium,Porcine 5,000 Unit/Ml Vial) 9,900 unit 80 unit/kg (9900 unit) IVPUSH PROTOCOL BOLUS PRN; Protocol PRN Reason: 80 unit/kg - Heparin Protocol Last Admin: 10/19/23 08:44 Dose: 9,900 unit Heparin Sodium/Sodium Chloride (Heparin Sodium,Porcine/1/2ns) 25,000 unit in 250 mls @ 0 mls/hr IVCONT .Q0M BETH; Protocol Last Titration: 10/19/23 08:44 Dose: 12.097 units/kg/hr, 14.94 mls/hr Dextrose (D10) 250 mls @ 750 mls/hr IV Q15M PRN; Protocol PRN Reason: per Hypoglycemia Standing Ord. Insulin Human Lispro (Insulin Lispro 100 Unit/Ml 3 Ml Vial) [facility]; Protocol Last Admin: 10/19/23 08:20 Dose: Not Given Nitroglycerin (Nitroglycerin 0.4 Mg Tab.Subl) 0.4 mg SUBLINGUAL Q5MX3 PRN PRN Reason: Chest Pain Sodium Chloride (0.9 % Sodium Chloride Flush 3 Ml Syringe) [facility] Last Admin: 10/19/23 08:43 Dose: Not Given Home Medications ?Medication ?Instructions ?Recorded ?Confirmed ?Last Taken ?Type aspirin 81 mg tablet,delayed 81 mg PO DAILY 06/15/23 06/15/23 06/15/23 History release efavirenz 600 mg-emtricitabine 200 1 tab PO BEDTIME 06/15/23 06/15/23 06/14/23 History mg-tenofovir disoprox 300 mg tablet lisinopril 40 mg tablet 40 mg PO DAILY 06/15/23 06/15/23 06/15/23 History melatonin 3 mg tablet 9 mg PO BEDTIME PRN Sleep 06/15/23 06/15/23 06/14/23 History metformin 500 mg tablet 500 mg PO DAILY 06/15/23 06/15/23 06/15/23 History multivitamin 1 tab PO DAILY 06/15/23 06/15/23 06/15/23 History omega 8-pli-she-fish oil 60 mg-90 2 cap PO DAILY 06/15/23 06/15/23 06/15/23 History mg-500 mg capsule (Fish Oil) omeprazole 20 mg capsule,delayed 20 mg PO DAILY@0630 06/15/23 06/15/23 06/15/23 History release rosuvastatin 20 mg tablet 20 mg PO BEDTIME 06/15/23 06/15/23 06/14/23 History terazosin 5 mg capsule 5 mg PO BEDTIME 06/15/23 06/15/23 06/14/23 History Physical Exam Vital Signs: Vital Signs: Last Vital Signs Temp 98.1 F 10/19/23 06:17 Pulse 64 10/19/23 08:43 Resp 17 10/19/23 08:41 BP 134/79 10/19/23 08:43 Pulse Ox 97 10/19/23 08:41 O2 Del Method Room Air 10/19/23 08:41 O2 Flow Rate 2 10/18/23 22:32 BMI result Body Mass Index 42.6 Const: General: comfortable and no acute distress Orientation/consciousness: patient oriented x3 HEENT: Other: Unremarkable Head: Yes normal to inspection Neck: Neck: Yes normal visual inspection Chest: Chest palpation & inspection: normal inspection of the chest Resp: Auscultation: clear to auscultation bilaterally Cardio: Palpation: normal PMI Heart sounds: S1 normal heart sound present, S2 normal heart sound present, no gallops, no murmurs and no rubs GI: Palpation (GI): Soft to palpation Back/Spine/Pelvis: Other: unremarkable Skin: General skin exam: no rashes or lesions noted Neuro: General: patient oriented x3 Extrem: General: Yes normal to inspection Psych: Mental Status: mental status grossly normal Objective Labs and Meds 10/19/23 05:19 10/19/23 05:19 Lab results: Laboratory Results - last 24 hr 10/18/23 10/18/23 10/18/23 19:22 19:23 23:21 WBC 7.1 RBC 4.10 L Hgb 12.8 L Hct 37.9 L MCV 92.4 MCH 31.2 MCHC 33.8 RDW 13.6 Plt Count 142 L MPV 9.5 Immature Gran % (Auto) 0.6 H Neut % (Auto) 65.2 Lymph % (Auto) 24.2 Esmeralda % (Auto) 6.6 Eos % (Auto) 3.1 Baso % (Auto) 0.3 Lymph # (Auto) 1.7 Esmeralda # (Auto) 0.5 Eos # (Auto) 0.2 Baso # (Auto) 0.0 Abs Immat Gran (auto) 0.04 H Absolute Neuts (auto) 4.7 Absolute Nucleated RBC 0.000 Nucleated RBC % (auto) 0.0 PT INR APTT aPTT Heparin Protocol D-Dimer High Sensitivty < 150 VBG pH 7.56 H VBG pCO2 26 VBG pO2 122 VBG HCO3 24 VBG O2 Saturation 100.0 VBG Base Excess 3.4 Sodium 137 Potassium 4.8 Chloride 106 Carbon Dioxide 20 L Anion Gap 16 BUN 22 H Creatinine 0.96 Estim Creat Clear Calc 91.4 Estimated GFR > 60 POC Glucose Random Glucose 142 H Calcium 9.3 D Magnesium 1.8 Total Bilirubin 0.2 Direct Bilirubin < 0.2 AST 89 H ALT 77 H Alkaline Phosphatase 45 Troponin I High Sens 15.9 46.4 H D Total Protein 7.0 Albumin 3.9 Lipase 55 10/19/23 10/19/23 10/19/23 00:16 05:19 07:16 WBC 6.8 RBC 3.87 L Hgb 12.2 L Hct 35.6 L MCV 92.0 MCH 31.5 MCHC 34.3 RDW 13.7 Plt Count 141 L MPV 9.4 Immature Gran % (Auto) 0.6 H Neut % (Auto) 61.9 Lymph % (Auto) 28.0 Esmeralda % (Auto) 5.7 Eos % (Auto) 3.5 Baso % (Auto) 0.3 Lymph # (Auto) 1.9 Esmeralda # (Auto) 0.4 Eos # (Auto) 0.2 Baso # (Auto) 0.0 Abs Immat Gran (auto) 0.04 H Absolute Neuts (auto) 4.2 Absolute Nucleated RBC 0.000 Nucleated RBC % (auto) 0.0 PT 12.6 INR 1.0 APTT 31.6 aPTT Heparin Protocol TNP D-Dimer High Sensitivty VBG pH VBG pCO2 VBG pO2 VBG HCO3 VBG O2 Saturation VBG Base Excess Sodium 140 Potassium 4.2 Chloride 105 Carbon Dioxide 25 Anion Gap 14 BUN 17 H Creatinine 0.87 Estim Creat Clear Calc 100.9 Estimated GFR > 60 POC Glucose 131 H Random Glucose 140 H Calcium 9.0 Magnesium Total Bilirubin 0.3 Direct Bilirubin AST 88 H ALT 73 H Alkaline Phosphatase 46 Troponin I High Sens 41.8 H Total Protein 6.7 Albumin 3.8 Lipase 10/19/23 07:49 WBC RBC Hgb Hct MCV MCH MCHC RDW Plt Count MPV Immature Gran % (Auto) Neut % (Auto) Lymph % (Auto) Esmeralda % (Auto) Eos % (Auto) Baso % (Auto) Lymph # (Auto) Esmeralda # (Auto) Eos # (Auto) Baso # (Auto) Abs Immat Gran (auto) Absolute Neuts (auto) Absolute Nucleated RBC Nucleated RBC % (auto) PT INR APTT aPTT Heparin Protocol 36.1 L D-Dimer High Sensitivty VBG pH VBG pCO2 VBG pO2 VBG HCO3 VBG O2 Saturation VBG Base Excess Sodium Potassium Chloride Carbon Dioxide Anion Gap BUN Creatinine Estim Creat Clear Calc Estimated GFR POC Glucose Random Glucose Calcium Magnesium Total Bilirubin Direct Bilirubin AST ALT Alkaline Phosphatase Troponin I High Sens Total Protein Albumin Lipase ECG Interpretation: EKG with sinus rhythm at 65/Min; WI prolongation to 258 millisecond; right bundle-branch block pattern and leftward axis. Overall, similar to prior. Imaging Radiologist's impression: Impressions Chest X-Ray 10/18/23 18:56 IMPRESSION: Apparent cardiomegaly may be secondary to portable AP technique and low inspiratory volumes. Otherwise no acute disease. Chest CTA 10/18/23 20:36 IMPRESSION: 1. No pulmonary emboli. 2. Aneurysmal dilatation of the ascending aorta measuring up to 4.1 cm at the level of main pulmonary artery. 3. Redemonstrated lobular pleural-based nodular focus along the anterior aspect of the right lung apex measuring 1.6 cm demonstrating fat attenuation potentially representing herniated intercostal fat versus lipoma. Additional pleural-based nodular focus along the lateral aspect of the right upper lobe measuring 2.3 cm demonstrating fat attenuation, also potentially representing a lipoma. 4. No new enlarged or suspicious pulmonary nodules or masses are noted. 5. Liver is enlarged measuring at least 28 cm AP dimension. Decreased hepatic attenuation suggesting hepatic steatosis. 6. Spleen is enlarged measuring at least 14.1 cm. 7. Status post cholecystectomy. 8. Small hiatal hernia. Assessment and Plan (1) Non-ST elevation [place] (NSTEMI): Status: Acute Plan Cardiac catheterization 2020-occluded right coronary artery, treated by medical therapy only. Otherwise mild disease. In the echocardiogram from May of this year, LVEF is 55-60%. Severely increased left ventricular wall thickness. Severe septal hypertrophy. No significant valvular findings and ascending aortic size 4.1 cm. High sensitivity troponin levels are 15.9 followed by 46.4 and 41.8. There is a rise and fall. Overall, many comorbidities, acute episode of chest pain/left arm pain and according to him, similar to the last episode of prior myocardial infarction. Recommended diagnostic catheterization for further evaluation. Discussed with the patient and he is agreeable. He is generally on Eliquis and last dose was today. Now he is on IV heparin. Otherwise, it seems he is comfortable at this time and pain-free. Will coordinate with [facility] [place]. Primary manager consumer-Dr. Swain. Procedures Date of Service Date of Service: 10/19/23
--- NOTE | 2023-10-19 10:03 | PC.NURSE ---
Attempted to call nurse to nurse report to [facility], RN currently unavailable.
[2023-10-19 10:36] VITALS: BP 134/79; PULSE 64; RESP 17; TEMP 36.7; O2SAT 97
--- NOTE | 2023-10-19 10:38 | P.DS_ITS ---
DS: Providers Provider Date of Service: 10/19/23 Date of admission: 10/19/23 01:34 Date of discharge: 10/19/23 Primary care physician: Harris Ash MD Consults: 10/19/23 01:41 Consult to Cardiology Routine Consulting Provider: [facility] Reason for consultation: NSTEMI Has provider been notified: Yes Attending physician on discharge: Dong Melgoza Discharging clinician: Dong Melgoza DS: Diagnosis Discharge Diagnosis (1) Non-ST elevation MT (NSTEMI): Status: Acute DS: Summary Hospital Course Hospital Course: 68 years old man with past medical history significant for Aflutter on chronic anticoagulation with Eliquis, hiv,KENYON on CPAP, HCM, hyperlipidemia, obesity, coronary artery disease (hx of MT and PCI) and type 2 diabetes mellitus on metformin was brought to the emergency department via EMS due to left-sided chest pain that started 1 hour prior to presentation to the emergency departm ent. Pain is described as a pressure and similar to the chest pain that he had when he was diagnosed with MT. It radiates to the left arm. He received treatment with nitroglycerin which improved the pain. He denied any associated symptoms such as cough, shortness for breath, palpitations, nausea, diaphoresis, fevers or chills. He denied tobacco smoking, alcohol abuse or illicit drug use. In the ED, he was found to have stable vital signs. Blood workup showed no leukocytosis. There is anemia of 12.8 (similar to baseline) and thrombocytopenia 142. There are no significant electrolyte imbalances. Glucose is 142. Transaminases are elevated. Lipase is normal. Troponin increased from 15.9-46.4. ECG showed right bundle eder block and first-degree AV block; no obvious ischemic changes. Chest CTA showed no pulmonary emboli and aneurysmal dilatation of the ascending aorta measuring up to 4.1 cm at the level of the main pulmonary artery, no new enlarged or suspicious pulmonary nodules or masses, hepatomegaly suggesting hepatic steatosis, splenomegaly and small hiatal hernia. ED tx: Ceftriaxone 1 g IV, azithromycin 500 mg IV, aspirin 243 mg p.o., IV contrast, nitro ointment. Hospital course: Patient admitted to the hospital because of left-sided chest pain has history of CAD and PCI-found to have elevated troponin in 40's , patient was started on IV heparin drip and Eliquis was placed on hold since on IV heparin drip. CTA negative for pulmonary embolism, Continued aspirin, nitrobid,statin, beta- blockers. Seen by Cardiology recommended transfer patient to the [facility] [place] cardiac workup possible cardiac catheterization. History of A-flutter, currently rate and rhythm controlled. Continue home rate control agents. Eliquis on hold for now as the patient will be receiving tx with heparin IV infusion and continue Telemetry monitering . Patient also has chronically elevated LFTs,cta-showed : hepatomegaly suggesting hepatic steatosis, splenomegaly . moniter lft ,consider further workup as needed. Chronic thrombocytopenia: Platelets fluctuating from 140-180 range. Monitor CBC closely. Type 2 diabetes mellitus. Metformin hold -recent administration of IV contrast. BG checks before meals at bedtime. Insulin sliding scale. Diabetic diet. Ascending aorta aneurysm, 4.1 cm. Outpatient follow up. Herniated intercostal fat versus lipoma -further management outpatient. Above management discussed with the patient detail length he understand and in agreement with the plan, time spent 50 minute. Time Attestation Total time managing care of this patient today: 50 mintues. Discharge Coordination Time (in mins): 50 min. Quality: Safe Use of Opioids Does Pt have an Active Cancer Diagnosis on the Problem List?: No Quality: Stroke Does the patient have a stroke diagnosis?: No Physical Exam Vital Signs: Vital Signs: Last Vital Signs Temp 98.1 F 10/19/23 10:36 Pulse 64 10/19/23 10:36 Resp 17 10/19/23 10:36 BP 134/79 10/19/23 10:36 Pulse Ox 97 10/19/23 10:36 O2 Del Method Room Air 10/19/23 10:36 O2 Flow Rate 2 10/18/23 22:32 BMI result Body Mass Index 42.6 Appearance: Alert.? Oriented X3. cvs: rrr, [id number] . res: air entry fair ,no rales or wheezing abd: no rebound or guarding ,nt, bs present. ext pulses present , no cyanosis,no edema . neuro: axo3 , nonfocal. DS: Data Data Completed and Pending Completed studies during hospitalization [Text1]: Procedures Taoism of Cardiac Rhythm, Single (06/15/23) Ultrasonography of Heart with Aorta, Transesophageal (06/15/23) Labs on day of discharge: Laboratory Results - last 24 hr 10/18/23 10/18/23 10/18/23 19:22 19:23 23:21 WBC 7.1 RBC 4.10 L Hgb 12.8 L Hct 37.9 L MCV 92.4 MCH 31.2 MCHC 33.8 RDW 13.6 Plt Count 142 L MPV 9.5 Immature Gran % (Auto) 0.6 H Neut % (Auto) 65.2 Lymph % (Auto) 24.2 Irion % (Auto) 6.6 Eos % (Auto) 3.1 Baso % (Auto) 0.3 Lymph # (Auto) 1.7 Irion # (Auto) 0.5 Eos # (Auto) 0.2 Baso # (Auto) 0.0 Abs Immat Gran (auto) 0.04 H Absolute Neuts (auto) 4.7 Absolute Nucleated RBC 0.000 Nucleated RBC % (auto) 0.0 PT INR APTT aPTT Heparin Protocol D-Dimer High Sensitivty < 150 VBG pH 7.56 H VBG pCO2 26 VBG pO2 122 VBG HCO3 24 VBG O2 Saturation 100.0 VBG Base Excess 3.4 Sodium 137 Potassium 4.8 Chloride 106 Carbon Dioxide 20 L Anion Gap 16 BUN 22 H Creatinine 0.96 Estim Creat Clear Calc 91.4 Estimated GFR > 60 POC Glucose Random Glucose 142 H Calcium 9.3 D Magnesium 1.8 Total Bilirubin 0.2 Direct Bilirubin < 0.2 AST 89 H ALT 77 H Alkaline Phosphatase 45 Troponin I High Sens 15.9 46.4 H D Total Protein 7.0 Albumin 3.9 Lipase 55 10/19/23 10/19/23 10/19/23 00:16 05:19 07:16 WBC 6.8 RBC 3.87 L Hgb 12.2 L Hct 35.6 L MCV 92.0 MCH 31.5 MCHC 34.3 RDW 13.7 Plt Count 141 L MPV 9.4 Immature Gran % (Auto) 0.6 H Neut % (Auto) 61.9 Lymph % (Auto) 28.0 Irion % (Auto) 5.7 Eos % (Auto) 3.5 Baso % (Auto) 0.3 Lymph # (Auto) 1.9 Irion # (Auto) 0.4 Eos # (Auto) 0.2 Baso # (Auto) 0.0 Abs Immat Gran (auto) 0.04 H Absolute Neuts (auto) 4.2 Absolute Nucleated RBC 0.000 Nucleated RBC % (auto) 0.0 PT 12.6 INR 1.0 APTT 31.6 aPTT Heparin Protocol TNP D-Dimer High Sensitivty VBG pH VBG pCO2 VBG pO2 VBG HCO3 VBG O2 Saturation VBG Base Excess Sodium 140 Potassium 4.2 Chloride 105 Carbon Dioxide 25 Anion Gap 14 BUN 17 H Creatinine 0.87 Estim Creat Clear Calc 100.9 Estimated GFR > 60 POC Glucose 131 H Random Glucose 140 H Calcium 9.0 Magnesium Total Bilirubin 0.3 Direct Bilirubin AST 88 H ALT 73 H Alkaline Phosphatase 46 Troponin I High Sens 41.8 H Total Protein 6.7 Albumin 3.8 Lipase 10/19/23 07:49 WBC RBC Hgb Hct MCV MCH MCHC RDW Plt Count MPV Immature Gran % (Auto) Neut % (Auto) Lymph % (Auto) Irion % (Auto) Eos % (Auto) Baso % (Auto) Lymph # (Auto) Irion # (Auto) Eos # (Auto) Baso # (Auto) Abs Immat Gran (auto) Absolute Neuts (auto) Absolute Nucleated RBC Nucleated RBC % (auto) PT INR APTT aPTT Heparin Protocol 36.1 L D-Dimer High Sensitivty VBG pH VBG pCO2 VBG pO2 VBG HCO3 VBG O2 Saturation VBG Base Excess Sodium Potassium Chloride Carbon Dioxide Anion Gap BUN Creatinine Estim Creat Clear Calc Estimated GFR POC Glucose Random Glucose Calcium Magnesium Total Bilirubin Direct Bilirubin AST ALT Alkaline Phosphatase Troponin I High Sens Total Protein Albumin Lipase Imaging Chest x-ray: Radiologist's impression: ITS Impressions Chest X-Ray 10/18/23 18:56 IMPRESSION: Apparent cardiomegaly may be secondary to portable AP technique and low inspiratory volumes. Otherwise no acute disease. Chest CTA 10/18/23 20:36 IMPRESSION: 1. No pulmonary emboli. 2. Aneurysmal dilatation of the ascending aorta measuring up to 4.1 cm at the level of main pulmonary artery. 3. Redemonstrated lobular pleural-based nodular focus along the anterior aspect of the right lung apex measuring 1.6 cm demonstrating fat attenuation potentially representing herniated intercostal fat versus lipoma. Additional pleural-based nodular focus along the lateral aspect of the right upper lobe measuring 2.3 cm demonstrating fat attenuation, also potentially representing a lipoma. 4. No new enlarged or suspicious pulmonary nodules or masses are noted. 5. Liver is enlarged measuring at least 28 cm AP dimension. Decreased hepatic attenuation suggesting hepatic steatosis. 6. Spleen is enlarged measuring at least 14.1 cm. 7. Status post cholecystectomy. 8. Small hiatal hernia. Discharge Plan Discharge Anticipated Discharge Date/Time: 10/19/23 10:12 Patient Disposition: Xfer Acute Care Hospital Discharge Diagnosis: nsetmi Referrals: Harris Ash MD [Primary Care Provider] - 1 Week Discharge Medications: New heparin(porcine) in 0.45% NaCl 25,000 unit/250 mL Parenteral Solution 25,000 unit continuous IV infusion .Q0M Qty: 1 0RF Nitro-Bid 2 % ointment 1 inch transdermal Q6H Qty: 1 0RF Rx Instructions: allow nitrate-free interval of approx. 10-12 hrs per 24-hour period Continued multivitamin Tablet 1 tab PO DAILY terazosin 5 mg capsule 5 mg PO BEDTIME melatonin 3 mg Tablet 9 mg PO BEDTIME PRN (Reason: Sleep) aspirin 81 mg Tablet,Delayed Release (Dr/Ec) 81 mg PO DAILY omeprazole 20 mg capsule,delayed release(DR/EC) 20 mg PO DAILY@0630 lisinopril 40 mg tablet 40 mg PO DAILY rosuvastatin 20 mg tablet 20 mg PO BEDTIME tfmstqlbi-tslxozlgxdss-thvynlr 600-200-300 mg tablet 1 tab PO BEDTIME omega 5-hmi-cix-fish oil [Fish Oil] 60-90-500 mg Capsule 2 cap PO DAILY digoxin 250 mcg (0.25 mg) Tablet 0.25 mg PO DAILY Qty: 30 0RF Multaq 400 mg Tablet 400 mg PO BID Qty: 60 0RF metoprolol succinate 100 mg Tablet Extended Release 24 Hr 100 mg PO DAILY Qty: 30 0RF Protocol: Hold for SBP/HR < HOLD for SBP < : 90 HOLD for HR < : 60 Held metformin 500 mg tablet 500 mg PO DAILY Hold Instructions: Resume on 10/26/23. Eliquis 5 mg Tablet 5 mg PO BID Qty: 60 0RF Hold Instructions: Resume on 10/28/23. hold until on iv heparin Discontinued amoxicillin-pot clavulanate 875-125 mg tablet 1 tab PO BID Qty: 14 0RF Discharge Orders: Discharge Order (Routine); Ordered 10/19/23 Ordered By: Dong Melgoza Diet: Advance to usual diet Activity on Discharge: As tolerated Stand Alone Forms: Patient Portal Discharge page Print Language: Barbadian Care Plan Goals: Patient admitted to the hospital because of left-sided chest pain has history of CAD and PCI-found to have elevated troponin, patient was started on IV heparin drip and Eliquis was placed on hold since on IV heparin drip. CTA negative for pulmonary embolism, Continued aspirin, nitrobid,statin, beta-blockers. Seen by Cardiology recommended transfer patient to the [facility] [place] further cardiac workup possible cardiac catheterization. Patient also has chronically elevated LFTs,cta-showed : hepatomegaly suggesting hepatic steatosis, splenomegaly . moniter lft ,consider further workup as needed. Chronic thrombocytopenia: Platelets fluctuating from 140-180 range. Monitor CBC closely. Above management discussed with the patient detail length he understand and in agreement with the plan, time spent 50 minute. Health Concerns: As above. Plan of Treatment: As above. Assessment: As above.
--- NOTE | 2023-10-19 11:03 | MHC.CM.PN ---
CM provided Patient with the original IMM and a copy will be placed on the chart. Patient will transfer to [facility] today.
[2023-10-19 11:39] LABS: Glucose, Whole Blood 125 mg/dL (60-115)
[2023-10-19 11:40] VITALS: BP 134/79; PULSE 64
[2023-10-19] MEDS: Nitroglycerin 2 % Oint 1 GM Packet 1 INCH TRANSDERMA (11:40)
--- NOTE | 2023-10-19 11:47 | PC.NURSE ---
Assumed care of this patient at 1100, patient c/o 8/10 chest pain per patient It feels better than before 1 in nitro paste applied as EMS arrived to take patient to [facility].
--- NOTE | 2023-10-19 11:50 | PHA.MEDREC ---
Pharmacy Consult ? Medication Reconciliation Pharmacy has completed the medication reconciliation. patient has med list with him from home. He did not take his HIV medication yesterday. He did not take his bedtime medications yesterday.
== END 2023-10-19 11:50 | disposition short-term general hospital (02) | DRG 281 ==
LOC: HO.ED 20:37 → HO.EDOVER 10-19 01:46 → HO.IMC 10-19 09:38 → HO.EDOVER 10-19 09:49
PROVIDERS: Internal Medicine; Admitting Provider Internal Medicine; Emergency Provider Emergency Medicine; PCP Internal Medicine; Visit Provider Internal Medicine
DX: I21.4 Non-ST elevation (NSTEMI) myocardial infarction (principal); I42.2 Other hypertrophic cardiomyopathy; I48.92 Unspecified atrial flutter; Z68.41 Body mass index [BMI] 40.0-44.9, adult; I25.10 Atherosclerotic heart disease of native coronary artery without angina pectoris; G47.33 Obstructive sleep apnea (adult) (pediatric); K21.9 Gastro-esophageal reflux disease without esophagitis; K76.0 Fatty (change of) liver, not elsewhere classified; I10 Essential (primary) hypertension; E78.5 Hyperlipidemia, unspecified; D64.9 Anemia, unspecified; D69.6 Thrombocytopenia, unspecified; I71.40 Abdominal aortic aneurysm, without rupture, unspecified; Z21 Asymptomatic human immunodeficiency virus [HIV] infection status; E11.22 Type 2 diabetes mellitus with diabetic chronic kidney disease; E66.01 Morbid (severe) obesity due to excess calories; Z95.1 Presence of aortocoronary bypass graft; Z87.891 Personal history of nicotine dependence; Z79.01 Long term (current) use of anticoagulants; Z79.84 Long term (current) use of oral hypoglycemic drugs; Z79.899 Other long term (current) drug therapy
CPT/HCPCS: 36415; 71045; 71275; 80048; 80053; 80076; 82803; 82947; 83690; 83735; 84484; 85025; 85379; 85610; 85730; 87040; 93005; 99285; J0456; J0696; J1644; Q9957; Q9967

== ENCOUNTER → 2023-10-18 18:30 | Outpatient (BNV) | payer OTHER, SELFPAY | PROVIDERS: Admitting Provider Internal Medicine; Emergency Provider Emergency Medicine; PCP Internal Medicine; Visit Provider Internal Medicine | DX: I44.0 Atrioventricular block, first degree (principal); I45.10 Unspecified right bundle-branch block | CPT/HCPCS: 93010 ==

== ENCOUNTER → 2023-10-19 01:34 | Outpatient (BNV) | payer OTHER, SELFPAY | PROVIDERS: Admitting Provider Internal Medicine; Emergency Provider Emergency Medicine; PCP Internal Medicine; Visit Provider Internal Medicine | DX: I21.4 Non-ST elevation (NSTEMI) myocardial infarction (principal) | CPT/HCPCS: 93010; 99223 ==

== ENCOUNTER → 2023-10-19 01:34 | Outpatient (BNV) | payer OTHER, SELFPAY | PROVIDERS: Admitting Provider Internal Medicine; Emergency Provider Emergency Medicine; PCP Internal Medicine; Visit Provider Internal Medicine | DX: I42.2 Other hypertrophic cardiomyopathy (principal); I21.4 Non-ST elevation (NSTEMI) myocardial infarction | CPT/HCPCS: 99235; 99499 ==

== ENCOUNTER 2023-12-16 11:54 | Outpatient (REF) | payer OTHER, SELFPAY ==
[2023-12-16 13:11] LABS: MANUAL DIFF FLAG NO
[2023-12-16 13:16] LABS: Basophils Percent Auto 0.4 % (0-2); Eosinophils Absolute Auto 0.3 X10*3/uL (0.0-0.4); Hematocrit 38.3 % (42.0-52.0); Hemoglobin 12.8 g/dl (14.0-18.0); Imm Gran Abs Auto 0.02 X10*3/uL (0.00-0.03); Imm Gran Pct Auto 0.3 % (0.0-0.4); Lymphocytes Absolute Auto 2.5 X10*3/uL (1.2-4.9); Lymphocytes Percent Auto 34.1 % (20-40); Mean Corpuscular HGB Conc 33.4 g/dl (31.0-36.0); Mean Corpuscular Hemoglobin 30.8 pg (27.0-33.0); Mean Corpuscular Volume 92.1 fL (80.0-98.0); Mean Platelet Volume 9.3 fL (9.4-12.4); Monocytes Absolute Auto 0.5 X10*3/uL (0.1-1.2); Monocytes Percent Auto 6.3 % (2-11); Neutrophils Absolute Auto 4.1 x10*3/uL (2.0-8.3); Neutrophils Percent Auto 54.9 % (45-73); Platelet Count 176 X10*3/uL (160-400); Red Blood Count 4.16 X10*6/uL (4.60-5.80); Red Cell Distribution Width 14.6 % (11.0-16.0); White Blood Count 7.4 X10*3/uL (4.8-10.8)
[2023-12-16 13:33] LABS: Alanine Aminotransferase 75 U/L (0-40); Albumin Level 4.5 g/dL (3.5-5.0); Alkaline Phosphatase 45 U/L (39-117); Anion Gap 16 (12-20); Aspartate Amino Transferase 85 U/L (5-37); Bilirubin Total 0.2 mg/dL (0.0-1.0); Blood Urea Nitrogen 25 mg/dL (9-16); Calcium 10.1 mg/dL (8.4-10.2); Carbon Dioxide 23 mmol/L (22-29); Chloride 107 mmol/L (96-108); Estimated Glomerular Filt Rate > 60; Glucose Random 111 mg/dL (60-115); Potassium 4.5 mmol/L (3.3-5.1); Sodium 141 mmol/L (135-145); Total Protein 7.6 g/dL (6.5-8.0)
[2023-12-16 13:37] LABS: Estimated Average Glucose 151 mg/dL; Hemoglobin A1c % 6.9 % (<6.0)
[2023-12-16 14:00] LABS: Creatinine Urine 174.65 mg/dL; Microalbum/Creatinine Ratio Ur 9.7 ug/mg cr (<30)
== END 2023-12-16 11:55 | disposition home or self-care (01) ==
LOC: HO.10HDL 11:54
PROVIDERS: Visit Provider Internal Medicine
DX: I25.10 Atherosclerotic heart disease of native coronary artery without angina pectoris (principal); I48.0 Paroxysmal atrial fibrillation; E11.9 Type 2 diabetes mellitus without complications; E78.00 Pure hypercholesterolemia, unspecified
CPT/HCPCS: 36415; 80053; 82043; 82570; 83036; 85025

== ENCOUNTER 2024-03-30 09:46 | Outpatient (REF) | payer OTHER, SELFPAY ==
[2024-03-30 10:58] LABS: Basophils Percent Auto 0.6 % (0-2); Eosinophils Absolute Auto 0.2 X10*3/uL (0.0-0.4); Hematocrit 36.3 % (42.0-52.0); Hemoglobin 12.4 g/dl (14.0-18.0); Imm Gran Abs Auto 0.02 X10*3/uL (0.00-0.03); Imm Gran Pct Auto 0.4 % (0.0-0.4); Lymphocytes Absolute Auto 1.7 X10*3/uL (1.2-4.9); Lymphocytes Percent Auto 33.7 % (20-40); MANUAL DIFF FLAG NO; Mean Corpuscular HGB Conc 34.2 g/dl (31.0-36.0); Mean Corpuscular Hemoglobin 30.8 pg (27.0-33.0); Mean Corpuscular Volume 90.1 fL (80.0-98.0); Mean Platelet Volume 9.1 fL (9.4-12.4); Monocytes Absolute Auto 0.3 X10*3/uL (0.1-1.2); Monocytes Percent Auto 5.7 % (2-11); Neutrophils Absolute Auto 2.8 x10*3/uL (2.0-8.3); Neutrophils Percent Auto 56.6 % (45-73); Platelet Count 142 X10*3/uL (160-400); Red Blood Count 4.03 X10*6/uL (4.60-5.80); Red Cell Distribution Width 14.5 % (11.0-16.0); White Blood Count 4.9 X10*3/uL (4.8-10.8)
[2024-03-30 11:24] LABS: Alanine Aminotransferase 94 U/L (0-40); Albumin Level 4.1 g/dL (3.5-5.0); Alkaline Phosphatase 50 U/L (39-117); Anion Gap 12 (12-20); Aspartate Amino Transferase 69 U/L (5-37); Bilirubin Total 0.2 mg/dL (0.0-1.0); Blood Urea Nitrogen 22 mg/dL (9-16); Calcium 8.9 mg/dL (8.4-10.2); Carbon Dioxide 23 mmol/L (22-29); Chloride 108 mmol/L (96-108); Cholesterol 103 mg/dL (<200); Estimated Glomerular Filt Rate > 60; Glucose Fasting 154 mg/dL (60-99); HDL Cholesterol 35 mg/dL (>40); LDL Cholesterol Calculated 33 mg/dL (<100); Potassium 4.4 mmol/L (3.3-5.1); Sodium 139 mmol/L (135-145); Triglycerides 177 mg/dL (<150)
[2024-03-30 12:20] LABS: Creatinine Urine 99.86 mg/dL
[2024-03-30 12:50] LABS: Prostate Specific Antigen Scr 0.48 ng/mL (<0.05-4.0)
[2024-03-30 14:23] LABS: Estimated Average Glucose 140 mg/dL; Hemoglobin A1C 152.5438 umol/L; Hemoglobin A1c % 6.5 % (<6.0); Total Hemoglobin (HGBA1C) 3196.0812 umol/L
[2024-04-02 19:58] LABS: HIV RNA PCR Qn Copies <20 DETECTED copies/mL (NOT DETECTED); HIV RNA PCR Qn Log Copies <1.30 DETECTED (NOT DETECTED)
[2024-04-04 17:12] LABS: Absolute CD3 Count 1516 cells/uL (840-3060); Absolute CD4 Count 803 cells/uL (490-1740); Absolute CD8 Count 738 cells/uL (180-1170); Absolute Lymphocytes 1811 cells/uL (850-3900); CD4 CD8 Ratio 1.09 (0.86-5.00); Percent CD3 Cells 84 % (57-85); Percent CD4 Cells 44 % (30-61); Percent CD8 Cells 41 % (12-42)
== END 2024-03-30 09:47 | disposition home or self-care (01) ==
LOC: HO.10HDL 09:46
PROVIDERS: Visit Provider Internal Medicine
DX: I10 Essential (primary) hypertension (principal); E11.9 Type 2 diabetes mellitus without complications; I25.10 Atherosclerotic heart disease of native coronary artery without angina pectoris; E78.00 Pure hypercholesterolemia, unspecified; Z12.5 Encounter for screening for malignant neoplasm of prostate
CPT/HCPCS: 36415; 80053; 80061; 82043; 82570; 83036; 84153; 85025; 86359; 86360; 87536

== ENCOUNTER 2024-04-27 15:49 | Outpatient (REF) | payer OTHER, SELFPAY ==
[2024-04-27 17:01] LABS: Appearance Urine Clear; Color Urine Yellow; Glucose Urine UA Negative (Negative); Leukocyte Esterase Urine Negative (Negative); Nitrite Urine Negative (Negative); PH 5.5 (5.0-9.0); Urine Blood Negative (Negative); Urine Ketones Negative (Negative); Urine Protein Negative (Neg-Trace)
[2024-04-27 17:07] LABS: Bacteria Urine None Seen (None Seen); Hyaline Casts Urine 0-2 /LPF (0-2); RBC Urine 0-2 /HPF (0-2); Squamous Epithelial Cell Urine 0-2 /HPF (0-2); WBC Urine 0-5 /HPF (0-5)
== END 2024-04-27 15:50 | disposition home or self-care (01) ==
LOC: HO.LAB 15:49
PROVIDERS: PCP Internal Medicine; Visit Provider Internal Medicine
DX: R30.0 Dysuria (principal)
CPT/HCPCS: 81001; 87086

== ENCOUNTER 2024-05-04 10:36 | Outpatient (REF) | payer OTHER, SELFPAY ==
--- NOTE | ~2024-05-04 | XR_ITS ---
EXAMINATION: XR FOOT, RIGHT CLINICAL INFORMATION: RIGHT FOOT DEFORMITY--RULE OUT GOUT COMPARISON: None available. TECHNIQUE: AP, lateral, and oblique views of the right foot. FINDINGS: There is a focal area of soft tissue prominence along the dorsal aspect of the foot superficial to the naviculocuneiform joint. This area extends over approximately 2.5 cm craniocaudal and measures up to 7.5 cm dorsal to plantar. No erosion of the underlying bone The remaining soft tissues are unremarkable. There is mild arthrosis of the naviculocuneiform joint. Remaining bones and joints are normal. XR/XR foot RT min 3V IMPRESSION: Focal area of soft tissue prominence along the dorsal aspect of the foot superficial to the naviculocuneiform joint with an almost masslike appearance. No associated calcification or adjacent bone erosion. Differential diagnosis includes prominent tophi adjacent to an area of arthrosis of the naviculocuneiform joint. The differential diagnosis also includes soft tissue hematoma, abscess, or other mass including ganglion cyst. Mild osteoarthritis of the naviculocuneiform joint No fracture. Electronically signed by: Sanjeev Garcia MD 05/04/2024 04:14 PM IMANI
[2024-05-04 11:58] LABS: Anion Gap 14 (12-20); Blood Urea Nitrogen 19 mg/dL (9-16); Calcium 9.4 mg/dL (8.4-10.2); Carbon Dioxide 24 mmol/L (22-29); Chloride 104 mmol/L (96-108); Estimated Glomerular Filt Rate > 60; Glucose Random 134 mg/dL (60-115); Potassium 4.7 mmol/L (3.3-5.1); Sodium 137 mmol/L (135-145); Uric Acid 6.3 mg/dL (3.4-7.0)
== END 2024-05-04 10:37 | disposition home or self-care (01) ==
LOC: HO.XRAY 10:36
PROVIDERS: PCP Internal Medicine; Visit Provider Internal Medicine
DX: M79.671 Pain in right foot (principal)
CPT/HCPCS: 36415; 73630; 80048; 84550; 86140

== ENCOUNTER 2024-09-23 16:46 | Emergency (ER) | payer OTHER, SELFPAY ==
--- NOTE | 2024-09-23 | ECG_ITS ---
Test Reason : SYNCOPE Blood Pressure : */* mmHG Vent. Rate : 72 BPM Atrial Rate : 72 BPM P-R Int : 246 ms QRS Dur : 176 ms QT Int : 440 ms P-R-T Axes : 18 -74 24 degrees QTcB Int : 481 ms Undetermined rhythm Right bundle branch block Left anterior fascicular block Bifascicular block Abnormal ECG When compared with ECG of 19-Oct-2023 00:08, No significant change was found Referred By: Generic ED Physician Electronically Signed By: ANDI MIRELES
--- NOTE | ~2024-09-23 | XR_ITS ---
CLINICAL HISTORY: syncope 1 view chest x-ray Comparison: CR/SR - XR CHEST 1V - 10/18/23 18:51 EDT Findings: No consolidation, pleural effusion or pneumothorax. Mild cardiomegaly without CHF. No acute fracture. IMPRESSION: 1. No acute findings. This document has been electronically signed by: Regina Carpenter DO on 09/23/2024 18:43:59
--- NOTE | ~2024-09-23 | CT_ITS ---
CLINICAL HISTORY: fall CT CERVICAL SPINE WITHOUT CONTRAST Comparison: None Findings: Minimal subluxation at C5-6, likely degenerative. Advanced disc degenerative changes. Mild facet degenerative changes. Please see the separate report for the CT head/brain. No cervical fluid collections or masses. Dense carotid artery calcifications. IMPRESSION: No acute fracture in the cervical spine. This document has been electronically signed by: Regina Carpenter DO on 09/23/2024 18:44:12
--- NOTE | ~2024-09-23 | CT_ITS ---
CLINICAL HISTORY: Fall, head strike on thinners CT HEAD WITHOUT CONTRAST Comparison: None Findings: No acute intracranial hemorrhage, extra-axial fluid collection, hydrocephalus or midline shift. Age appropriate generalized parenchymal atrophy. There are periventricular and subcortical white matter hypodensities which are nonspecific but most likely related to microangiopathic gliosis. Intracranial arteriosclerosis. There is opacification of multiple bilateral ethmoid air cells. Nonspecific mild mucosal thickening in the left sphenoid sinus. No mastoid fluid. Visualized orbits: No acute abnormalities. Right-sided aphakia. Mild soft tissue swelling/injury in the right parietal vertex. There is no acute fracture. IMPRESSION: 1. No acute intracranial hemorrhage. 2. Probable ethmoid sinusitis. This document has been electronically signed by: Regina Carpenter DO on 09/23/2024 18:38:24
[2024-09-23 16:46] VITALS: BP 174/78; PULSE 70; RESP 20; TEMP 37; O2SAT 98; BMI 41.3
--- NOTE | 2024-09-23 16:57 | ED_ITS ---
HPI - Fall General Chief Complaint: Fall Stated Complaint: head wound/passed out and hit his head. Time Seen by Provider: 09/23/24 17:18 Source: patient and family ( daughter) Mode of arrival: ambulatory Limitations: no limitations History of Present Illness ED Provider: DR. Rivas HPI Narrative: a 69-year-old male history of hypertension, atrial fibrillation, s/p cardiac ablation for AFib patient was taken off amiodarone secondary to side-effect on the liver, patient is taking blood thinner apixaban daily, woke up this morning at his normal health state cleaning some dishes in the kitchen when next thing he found himself on the ground for unknown period of time, likely head is a right bag side of the head, complaining of some soreness on the back of the head, no neck pain, no CP, no SOB, no abdominal pain, no bleeding a that the patient report from a rectum or with the urine. No fever, no chills, overall patient is back to his normal state of health. Related Data Home Medications ?Medication ?Instructions ?Recorded ?Confirmed aspirin 81 mg tablet,delayed 81 mg PO DAILY 06/15/23 10/19/23 release efavirenz 600 mg-emtricitabine 200 1 tab PO BEDTIME 06/15/23 10/19/23 mg-tenofovir disoprox 300 mg tablet lisinopril 40 mg tablet 40 mg PO QAM 06/15/23 10/19/23 metformin 500 mg tablet 500 mg PO DAILY 06/15/23 10/19/23 multivitamin 1 tab PO DAILY 06/15/23 10/19/23 omega 7-yjh-tmi-fish oil 60 mg-90 1 cap PO BID 06/15/23 10/19/23 mg-500 mg capsule (Fish Oil) omeprazole 20 mg capsule,delayed 20 mg PO DAILY@0630 06/15/23 10/19/23 release rosuvastatin 20 mg tablet 20 mg PO BEDTIME 06/15/23 10/19/23 digoxin 125 mcg (0.125 mg) tablet 125 mcg PO DAILY 10/19/23 10/19/23 melatonin 10 mg tablet 10 mg PO BEDTIME 10/19/23 10/19/23 metoprolol succinate 100 mg 100 mg PO QPM 10/19/23 10/19/23 tablet,extended release 24 hr Previous Rx's ?Medication ?Instructions ?Recorded apixaban 5 mg tablet (Eliquis) 5 mg PO BID #60 tabs 06/21/23 dronedarone 400 mg tablet (Multaq) 400 mg PO BID #60 tabs 06/21/23 heparin (porcine) 25,000 unit/250 25,000 unit (250 mL) continuous IV 10/19/23 mL in 0.45 % sodium chloride IV infusion .Q0M #1 mL soln nitroglycerin 2 % transdermal 1 inch transdermal Q6H #1 g 10/19/23 ointment (Nitro-Bid) metformin 500 mg tablet,extended 500 mg PO DAILY #90 tabs 08/16/24 release 24 hr terazosin 5 mg capsule 5 mg PO BEDTIME #90 caps 08/16/24 Allergies Allergy/AdvReac Type Severity Reaction Status Date / Time No Known Allergies Allergy Verified 09/23/24 16:54 Review of Systems 2 Review of Systems: All other systems are reviewed and are negative Constitutional: Reports as per HPI and Reports no additional constitutional complaints Eyes: Reports as per HPI and Reports no additional eye complaints Reports system reviewed and no additional complaints, except as documented Cardiovascular: Reports as per HPI and Reports no additional cardiovascular complaints Respiratory: Reports as per HPI and Reports no additional respiratory complaints Gastrointestinal: Reports as per HPI and Reports no additional gastrointestinal complaints Genitourinary: Reports no additional female genitourinary complaints Musculoskeletal: Reports no additional musculoskeletal complaints Skin/Breast: Reports system reviewed and no additional complaints, except as docu Psychiatric: Reports no additional psychiatric complaints Endocrine: Reports no additional endocrine complaints Hematologic/Lymphatic: Reports no additional hematologic/lymphatic complaints Allergic/Immunologic: Reports no additional allergic/immunologic complaints Reports system reviewed and no additional complaints, except as documented and Reports Abnormal speech present [facility] Past Medical History Medical History Non-insulin dependent type 2 diabetes mellitus CAD (coronary artery disease) HIV (human immunodeficiency virus infection) KENYON (obstructive sleep apnea) Tear of left hamstring Diabetes High cholesterol High blood pressure Social History Social History Household Members: None Household Members Other:: none; lives alone with his cat (Conrad) Housing: Apartment Do you presently have visiting nurse or other home services: No Alcohol intake: former Comment: pt refuses bed alarm Patient Tobacco Use Status: Former Tobacco user Smoked in Last 30 Days: No Use of substances other than those prescribed or required for medical reasons: No Substance Use Type: Marijuana Advance Directives: No Advance Directives Information Provided: Yes service: No Current occupational status: retired Current occupation: rt handed Physical Exam 2 Vital Signs: Vital Signs: Last Vital Signs Temp 98.6 F 09/23/24 16:46 Pulse 73 09/23/24 18:29 Resp 16 09/23/24 18:27 BP 152/88 H 09/23/24 18:29 Pulse Ox 96 09/23/24 18:27 O2 Del Method Room Air 09/23/24 18:27 BMI result Body Mass Index 41.3 Vital signs have been reviewed and appear to be correct. Blood pressure elevated. Heart rate normal. Respiratory rate normal. Temperature normal. Oxygen saturation normal. Appearance: Alert. Oriented X3. No acute distress. Head: Normal external exam. Normocephalic. Atraumatic. No Doss signs noted. No raccoon eyes noted Eyes: PERRLA. EOMI. Conjunctiva and sclera normal. Eyelids normal. ENT: TM's Normal. Pharynx normal. Uvula midline. Moist mucous membranes. No trismus noted. No drooling noted. No muffled voice noted. Neck: Normal inspection. Neck supple. FROM. No adenopathy. Thyroid Normal. No meningeal signs. No neck mass noted. CVS: Normal heart rate and rhythm. Heart sound normal. No murmurs noted. Pulses normal throughout. Respiratory: No respiratory distress. Painless inspiration. Breath sounds normal. No wheezes/rales/rhonchi noted. Chest nontender. No accessory muscle usage noted or decreased air movement noted. Abdomen: Soft and nontender. Bowel sounds normal in all 4 quadrants. No distention noted. No organomegaly noted. No visible injury noted. Back: No CVA tenderness. Full range of motion noted. Skin: Skin warm and dry. Normal skin color. Normal skin turgor. No rashes/lesions/lacerations noted. Extremities: No lower extremity edema. Extremities exhibit normal range of motion. Extremities nontender. Neuro: Oriented X 3. Cranial nerve exam: II-XII are grossly intact No motor deficit. No sensory deficit. Reflexes normal. Course Course Course Narrative: This is an RME: Additional HPI, ROS, PE not included below will be deferred to primary provider. RME assessment and note performed by: Ruthy Krause PA-C This is a 69-year-old male, with a past medical history of atrial flutter with RVR, NSTEMI with cardiac ablation 3 weeks ago at [facility] on apixaban by Dr. Swain, HTN, HLD, DM who presents emergency department with complaints of syncopal episode. Patient states that he was standing at the sink 2 hours ago, next thing he knew he woke up on the floor. He states that he did hit his head on the [place], striking his right side of his head. He is unable to recall any of the details of the accident. States that he woke up and felt slightly dazed. Denies any loss of bladder control. Patient was alert and oriented, neurologically intact. He is asymptomatic. Plan: Labs, EKG, CT head and neck Reevaluation(s) Reevaluation #1: slight elevation of troponin with no delta change, no EKG ischemic changes, no CP, no SOB, patient was given the advised to stay in the hospital for cardiac monitoring and getting inpatient cardiology consultation but patient wanted to sign against medical advice, patient is AAO x4, no SI, no HI, competent to make his own decision, stated that he feels nervous being in the hospital and he would like to sleep on his bed using his CPAP machine. Patient was offered or the reassurance to stay in the hospital but patient still adamant to signed himself out against medical advice. Patient fully understand risk of leaving AMA including . Time: 22:06 Medical Decision Making Differential Diagnosis Differential Diagnoses: The differential diagnosis associated with the presentation includes ( Syncope, intracranial bleed, severe anemia, electrolyte derangement, ACS, pneumonia, pneumothorax.) Admission/Observation Consideration of admission/observation: Escalation of care including admission/observation considered Lab Data MDM Lab Attestation statement: I reviewed the patient's lab results. 09/23/24 17:39 09/23/24 17:39 Labs: Lab Results 09/23/24 09/23/24 Range/Units 17:39 21:13 WBC 6.5 (4.8-10.8) X10*3/uL RBC 4.03 L (4.60-5.80) X10*6/uL Hgb 12.2 L (14.0-18.0) g/dl Hct 36.2 L (42.0-52.0) % MCV 89.8 (80.0-98.0) fL MCH 30.3 (27.0-33.0) pg MCHC 33.7 (31.0-36.0) g/dl RDW 14.9 (11.0-16.0) % Plt Count 123 L (160-400) X10*3/uL MPV 9.2 L (9.4-12.4) fL Immature Gran % (Auto) 0.3 (0.0-0.4) % Neut % (Auto) 58.7 (45-73) % Lymph % (Auto) 30.2 (20-40) % Schleicher % (Auto) 6.3 (2-11) % Eos % (Auto) 4.0 (0-4) % Baso % (Auto) 0.5 (0-2) % Lymph # (Auto) 2.0 (1.2-4.9) X10*3/uL Schleicher # (Auto) 0.4 (0.1-1.2) X10*3/uL Eos # (Auto) 0.3 (0.0-0.4) X10*3/uL Baso # (Auto) 0.0 (0.0-0.2) X10*3/uL Abs Immat Gran (auto) 0.02 (0.00-0.03) X10*3/uL Absolute Neuts (auto) 3.8 (2.0-8.3) x10*3/uL Absolute Nucleated RBC 0.000 (0.0-0.012) X10*3/uL Nucleated RBC % (auto) 0.0 (0.0-0.2) /100WBC PT 12.3 (10.9-12.4) SEC INR 1.1 (0.9-1.1) Sodium 140 (135-145) mmol/L Potassium 5.2 H (3.3-5.1) mmol/L Chloride 107 (96-108) mmol/L Carbon Dioxide 23 (22-29) mmol/L Anion Gap 15 (12-20) BUN 20 H (9-16) mg/dL Creatinine 0.89 (0.5-1.4) mg/dL Estim Creat Clear Calc 95.6 Estimated GFR > 60 Random Glucose 121 H (60-115) mg/dL Calcium 9.4 (8.4-10.2) mg/dL Magnesium 1.7 (1.6-2.6) mg/dL Total Bilirubin 0.2 (0.0-1.0) mg/dL AST 53 H (5-37) U/L ALT 68 H (0-40) U/L Alkaline Phosphatase 48 (39-117) U/L Troponin I High Sens 38.9 H 40.2 H (<3.5-35.0) ng/L B-Natriuretic Peptide 20 (<100) pg/mL Total Protein 6.7 (6.5-8.0) g/dL Albumin 4.1 (3.5-5.0) g/dL Independent Interpretation I performed an independent interpretation of an: EKG ( Normal sinus rhythm at 72 beats per minutes, first-degree AV block, right bundle branch block. No change from previous EKG.), Plain X-Ray ( Chest: No acute findings.) and CT Scan ( head/cervical CT: No acute C-spine fracture, no intracranial bleed.) Discharge Plan Discharge Clinical Impression: Syncope and collapse, Closed head injury Patient Disposition: Left Against Medical Advice Instructions: Syncope (ED) Prescriptions: No Action metformin 500 mg tablet extended release 24 hr 500 mg PO DAILY Qty: 90 3RF terazosin 5 mg capsule 5 mg PO BEDTIME Qty: 90 3RF heparin(porcine) in 0.45% NaCl 25,000 unit/250 mL Parenteral Solution 25,000 unit continuous IV infusion .Q0M Qty: 1 0RF Nitro-Bid 2 % ointment 1 inch transdermal Q6H Qty: 1 0RF Rx Instructions: allow nitrate-free interval of approx. 10-12 hrs per 24-hour period digoxin 125 mcg (0.125 mg) tablet 125 mcg PO DAILY melatonin 10 mg Tablet 10 mg PO BEDTIME metoprolol succinate 100 mg tablet extended release 24 hr 100 mg PO QPM Protocol: Hold for SBP/HR < HOLD for SBP < : 90 HOLD for HR < : 60 multivitamin Tablet 1 tab PO DAILY metformin 500 mg tablet 500 mg PO DAILY aspirin 81 mg Tablet,Delayed Release (Dr/Ec) 81 mg PO DAILY omeprazole 20 mg capsule,delayed release(DR/EC) 20 mg PO DAILY@0630 lisinopril 40 mg tablet 40 mg PO QAM rosuvastatin 20 mg tablet 20 mg PO BEDTIME xnpnfngzd-ehzfzadisxss-qlsimkh 600-200-300 mg tablet 1 tab PO BEDTIME omega 5-ytf-zls-fish oil [Fish Oil] 60-90-500 mg Capsule 1 cap PO BID Eliquis 5 mg Tablet 5 mg PO BID Qty: 60 0RF Multaq 400 mg Tablet 400 mg PO BID Qty: 60 0RF Referrals: Makayla Couch MD [Primary Care Provider] - Stand Alone Forms: Against Medical Advice Print Language: Latvian
--- NOTE | 2024-09-23 17:02 | MHC.EDTECH ---
Can not do EKG as patient went to CT scan right away
[2024-09-23 17:46] LABS: MANUAL DIFF FLAG NO
[2024-09-23 17:49] LABS: Basophils Percent Auto 0.5 % (0-2); Eosinophils Absolute Auto 0.3 X10*3/uL (0.0-0.4); Hematocrit 36.2 % (42.0-52.0); Hemoglobin 12.2 g/dl (14.0-18.0); Imm Gran Abs Auto 0.02 X10*3/uL (0.00-0.03); Imm Gran Pct Auto 0.3 % (0.0-0.4); Lymphocytes Percent Auto 30.2 % (20-40); Mean Corpuscular HGB Conc 33.7 g/dl (31.0-36.0); Mean Corpuscular Hemoglobin 30.3 pg (27.0-33.0); Mean Corpuscular Volume 89.8 fL (80.0-98.0); Mean Platelet Volume 9.2 fL (9.4-12.4); Monocytes Absolute Auto 0.4 X10*3/uL (0.1-1.2); Monocytes Percent Auto 6.3 % (2-11); Neutrophils Absolute Auto 3.8 x10*3/uL (2.0-8.3); Neutrophils Percent Auto 58.7 % (45-73); Platelet Count 123 X10*3/uL (160-400); Red Blood Count 4.03 X10*6/uL (4.60-5.80); Red Cell Distribution Width 14.9 % (11.0-16.0); White Blood Count 6.5 X10*3/uL (4.8-10.8)
[2024-09-23 17:55] LABS: INTERNATIONAL NORM RATIO 1.1 (0.9-1.1); Prothrombin Time 12.3 SEC (10.9-12.4)
[2024-09-23 18:03] LABS: Alanine Aminotransferase 68 U/L (0-40); Albumin Level 4.1 g/dL (3.5-5.0); Alkaline Phosphatase 48 U/L (39-117); Anion Gap 15 (12-20); Aspartate Amino Transferase 53 U/L (5-37); Bilirubin Total 0.2 mg/dL (0.0-1.0); Blood Urea Nitrogen 20 mg/dL (9-16); Calcium 9.4 mg/dL (8.4-10.2); Carbon Dioxide 23 mmol/L (22-29); Chloride 107 mmol/L (96-108); Creatinine Clr Calc Pharmacy 95.6; Estimated Glomerular Filt Rate > 60; Glucose Random 121 mg/dL (60-115); Magnesium 1.7 mg/dL (1.6-2.6); Potassium 5.2 mmol/L (3.3-5.1); Sodium 140 mmol/L (135-145); Total Protein 6.7 g/dL (6.5-8.0)
[2024-09-23 18:09] LABS: B Type Natriuretic Peptide 20 pg/mL (<100)
[2024-09-23 18:10] LABS: Troponin-I High Sensitivity 38.9 ng/L (<3.5-35.0)
[2024-09-23 18:27] VITALS: BP 133/71; PULSE 65; RESP 16; O2SAT 96
[2024-09-23 18:28] VITALS: BP 133/71; BP 160/88; PULSE 65; PULSE 77
[2024-09-23 18:29] VITALS: BP 152/88; PULSE 73
--- NOTE | 2024-09-23 21:05 | PC.NURSE ---
pt is asking to be able to leave, provider made aware.
[2024-09-23 21:40] LABS: Troponin-I High Sensitivity 40.2 ng/L (<3.5-35.0)
[2024-09-23 22:14] VITALS: BP 139/69; PULSE 67; RESP 15; TEMP 37; O2SAT 96
[2024-09-23 22:19] VITALS: BP 139/69; PULSE 67; RESP 15; TEMP 37; O2SAT 96
== END 2024-09-23 22:20 | disposition left against medical advice (07) ==
PROVIDERS: Emergency Provider Emergency Medicine; PCP Internal Medicine
DX: S09.90XA Unspecified injury of head, initial encounter (principal); R51.9 Headache, unspecified; R55 Syncope and collapse; I45.10 Unspecified right bundle-branch block; M54.2 Cervicalgia; R94.31 Abnormal electrocardiogram [ECG] [EKG]; R06.02 Shortness of breath; X58.XXXA Exposure to other specified factors, initial encounter; Y93.9 Activity, unspecified; Y92.9 Unspecified place or not applicable; Y99.8 Other external cause status; Z87.891 Personal history of nicotine dependence; Z79.899 Other long term (current) drug therapy
CPT/HCPCS: 36415; 70450; 71045; 72125; 80053; 83735; 83880; 84484; 85025; 85610; 93005; 99284; 99285

== ENCOUNTER → 2024-09-23 17:01 | Outpatient (BNV) | payer OTHER, SELFPAY | PROVIDERS: Emergency Provider Emergency Medicine; PCP Internal Medicine; Visit Provider Radiology Diagnostic Radiology | DX: S09.90XA Unspecified injury of head, initial encounter (principal); Z03.89 Encounter for observation for other suspected diseases and conditions ruled out; R55 Syncope and collapse | CPT/HCPCS: 70450; 71045; 72125 ==

== ENCOUNTER → 2024-09-23 17:25 | Outpatient (BNV) | payer OTHER, SELFPAY | PROVIDERS: Emergency Provider Emergency Medicine; PCP Internal Medicine; Visit Provider Internal Medicine | DX: I45.2 Bifascicular block (principal) | CPT/HCPCS: 93010 ==

== ENCOUNTER 2024-10-04 13:32 | Outpatient (AMB) | payer OTHER, SELFPAY ==
--- NOTE | 2024-10-04 13:38 | MHC.PC.OV ---
Vital Signs 10/04/24 13:40 Height 5 ft 7 in Weight 255 lb BMI 39.9 BP 135/62 Respiration 16 Pulse 60 Pulse Source Pulse Oximeter Temp 98.2 F Temp Source Temporal Artery Scan Pulse Oximetry (%) 95 Oxygen Delivery Method Room Air Intake Visit Reasons: Routine - see comments [employer] Required: No Accompanied by: Self / Same As Patient Allergies No Known Allergies Allergy (Verified 10/04/24 13:38) Tobacco use date assessed: 10/04/24 Fall risk assessment: No Falls in past year Last assessed Fall Risk: 10/04/24 Dental Screening Dental Screen Date: 10/04/24 Did you have a dental visit in the last 12 months?: No Did you have a dental problem in the last 6 months where you did not have access to dental care?: No Was dental information given to patient?: Patient has dentist (pt has dentures) HPI HPI Comments History of Present Illness Details The patient is a 69 year old female with a past medical history of diabetes, hypertension, CAD s/p NSTEMI, aflutter/afib s/p ablation, GERD CV: On eliquis, metoprolol, crestor, imdur, ASA. seeing Dr Swain in [place]. Recent history of syncopal episode. Awaiting 14 day monitor, needs order and card referral for insurance DM: on metformin 500mg daily. Last A1C 6.5%. Overdue. BPH s/p TURP. Continues terazosin COPD/KENYON; remote tobacco use HIV: on meds. Not following with ID. Says undetectable for quite some time ROS CONSTITUTIONAL: Denies weight loss, fever and chills. HEENT: Denies changes in vision and hearing. RESPIRATORY: Denies SOB and cough. CV: Denies palpitations and CP GI: Denies abdominal pain, nausea, vomiting and diarrhea. : Denies dysuria and urinary frequency. MSK: Denies new myalgia and joint pain. SKIN: Denies rash and pruritus. NEUROLOGICAL: Denies headache PSYCHIATRIC: Denies recent changes in mood. PHYSICAL EXAM: GENERAL: Alert and oriented x 3. NAD EYES: EOMI. Anicteric. HENT: Moist mucous membranes. No scleral icterus. No cervical lymphadenopathy. LUNGS: Clear to auscultation bilaterally. CARDIOVASCULAR: Regular rate and rhythm. No murmur. No JVD. ABDOMEN: Soft, non-tender +bs EXTREMITIES: No edema. Non-tender. SKIN: No rashes or lesions. Warm. NEUROLOGIC: No focal neurological deficits. CN II-XII grossly intact PSYCHIATRIC: Cooperative. Appropriate mood and affect PENDING SALE TO [facility] Medical History Non-insulin dependent type 2 diabetes mellitus CAD (coronary artery disease) HIV (human immunodeficiency virus infection) KENYON (obstructive sleep apnea) Tear of left hamstring Diabetes High cholesterol High blood pressure Family History Father No problems noted. Mother No problems noted. Social History Household Members: None Household Members Other:: none; lives alone with his cat () Housing: Apartment Do you presently have visiting nurse or other home services: No Alcohol intake: current Alcohol intake frequency: holidays/special occasions only Patient Tobacco Use Status: Former Tobacco user Substance Use Type: Marijuana service: No Current occupational status: retired Cognitive needs: No Hearing needs: No Vision needs: No Questionnaire PHQ-9 Over the last 2 weeks, how often have you been bothered by any of the following problems? 1. Little interest or pleasure in doing things: not at all 2. Feeling down, depressed, or hopeless: not at all 3. Trouble falling or staying asleep, or sleeping too much: not at all 4. Feeling tired or having little energy: not at all 5. Poor appetite or overeating: not at all 6. Feeling bad about yourself - or that you are a failure or have let yourself or your family down: not at all 7. Trouble concentrating on things, such as reading the newspaper or watching television: not at all 8. Moving or speaking so slowly that other people could have noticed. Or the opposite - being so fidgety or restless that you have been moving around a lot more than usual: not at all 9. Thoughts that you would be better off or of hurting yourself in some way: not at all Total score: 0 Depression Screening Interpretation: Negative Depression Screening Done: Yes 34856 - PHQ-9 Billing: Yes Source: Developed by Drs. Lang Ji, Martha Melendrez, Myles Macedo and colleagues, with an educational elsa from [employer]. Thrive Questionnaire Date Thrive assessed: 10/04/24 I am a: Patient What is your living situation today?: I have a steady place to live Within the past 12 months, did the food you bought not last and you didn't have the money to get more?: Never true Within the past 12 months, did you worry whether your food would run out before you got money to buy more?: Never true Do you have trouble paying for medicines?: No Do you have trouble getting transportation to medical appointments?: No Do you have trouble paying your heating and electricity bill?: No Do you have trouble taking care of your child, family member or friend?: No Do you have trouble with day-to-day activities such as bathing, preparing meals, shopping, managing finances, etc.?: No Are you currently unemployed and looking for a job?: No Are you interested in more education?: No Please select the resources that you would like help with: None THRIVE Score: 0 AUDIT C Alcohol Use Questionnaire (AUDIT-C) 1. How often do you have a drink containing alcohol?: Monthly or less 2. How many drinks containing alcohol do you have on a typical day when you are drinking?: 1 or 2 3. How often do you have six or more drinks on one occasion?: Never Total Score: 1 ISAIAS-7 AMB Questionnaire ISAIAS-7 Date ISAIAS - 7 assessed: 10/04/24 Feeling nervous, anxious, or on edge: 0 = Not at all Not being able to stop or control worryin = Not at all Worrying too much about different things: 0 = Not at all Trouble relaxin = Not at all Being so restless that it is hard to sit still: 0 = Not at all Becoming easily annoyed or irritable: 0 = Not at all Feeling afraid as if something awful might happen: 0 = Not at all Total ISAIAS-7 score (0-4 normal; 5-9 mild; 10-14 moderate; 15-21 severe): 0 Source: Developed by Martha Holley, Myles Macedo and colleagues, with an educational elsa from [employer]. Physical exam (Primary Care) Vital Signs: Last Vital Signs Temp 98.2 F 10/04/24 13:40 Pulse 60 10/04/24 13:40 Resp 16 10/04/24 13:40 BP 135/62 10/04/24 13:40 Pulse Ox 95 10/04/24 13:40 Oxygen Delivery Method Room Air 10/04/24 13:40 BMI result Body Mass Index 39.9 Tobacco/Smoking Status: Tobacco use Status Tobacco use date assessed 10/04/24 10/04/24 13:50 Patient Tobacco Use Status Former Tobacco user 10/04/24 13:50 PHQ-9: PHQ-9 Score PHQ-9: Total score 0 10/04/24 13:58 Depression Screening Interpretation: Negative Thrive Assessment: Date of Thrive Assessment Date Thrive assessed 10/04/24 10/04/24 13:50 Coding Level of Care Code New Pt Level 4 (62017) Complex EM visit Add On G2211 Diagnoses Non-insulin dependent type 2 diabetes mellitus E11.9 Hypertrophic cardiomyopathy I42.2 Atrial flutter with rapid ventricular response I48.92 Atrial flutter, unspecified type I48.92 Atrial flutter type: unspecified Additional Codes PHQ-9 - 92403 - PHQ-9 Billing: Yes ([id number]) Assessment & Plan Assessment & Plan (1) Non-insulin dependent type 2 diabetes mellitus: Code(s): E11.9 - Type 2 diabetes mellitus without complications Category: Medical (2) Hypertrophic cardiomyopathy: Code(s): I42.2 - Other hypertrophic cardiomyopathy Category: Medical (3) Atrial flutter with rapid ventricular response: Code(s): I48.92 - Unspecified atrial flutter Category: Medical (4) Atrial flutter: Code(s): I48.92 - Unspecified atrial flutter Category: Medical Qualifiers: Atrial flutter type: unspecified Qualified Code(s): I48.92 - Unspecified atrial flutter Plan 69 year old male presenting to [facility] Past medical, surgical, social history reviewed. Referral holter orders placed Labs ordered Should have ID following-order placed Orders: Orders Hemoglobin A1c 10/06/24 E11.9 - Type 2 diabetes mellitus without complications Prostate Specific Antigen 10/06/24 Z12.5 - Encounter for screening for malignant neoplasm of prostate ECG 14 day holter monitor 10/04/24 I42.2 - Other hypertrophic cardiomyopathy, I48.92 - Unspecified atrial flutter, R55 - Syncope and collapse Lipid Panel 10/06/24 E11.9 - Type 2 diabetes mellitus without complications Comprehensive Met. Panel 10/06/24 E11.9 - Type 2 diabetes mellitus without complications Referrals Cardiology Referral R07.9 - Chest pain, unspecified Infectious Disease Referral B20 - Human immunodeficiency virus [HIV] disease, R07.9 - Chest pain, unspecified
[2024-10-04 13:40] VITALS: BP 135/62; PULSE 60; RESP 16; TEMP 36.8; O2SAT 95; BMI 39.9
--- OUTSIDE RECORDS SUMMARY | 2024-10-04 14:08 | XMS_ITS | Patient Health Record ---
Author Organization [facility] Address [address] [place] [address] Care Team Providers Care Parking Meter Attendant Name Role Phone Harris Ash MD Primary Care Provider Lang Lowry Unavailable [phone] Reason For Referral No Information Medications Medication SIG (Take, Route, Fr equency, Duration) Notes Start Date End Date Status Multivitamin Active Fish Oil Active Lisinopril 20 MG TAKE 1 TABLET BY RAFAEL TH EVERY DAY Oral for 30 Active Terazosin HCl 2 MG TAKE 1 CAPSULE BY MO UTH AT BEDTIME Oral for 30 Active Atripla 600-200-300 MG TAKE 1 TABLET BY MOUTH EVERY DAY Oral for 30 Active Omeprazole 20 MG TAKE 1 CAPSULE EVERY DAY Oral for 30 Active Simvastatin 40 MG TAKE 1 TABLET BY RAFAEL TH EVERY DAY Oral for 30 Active Problems Problem Type SNOMED Code ICD Code Onset Dates Problem Status W/U Status Risk Notes Problem [id number] Encounter for screening for malignant neoplasm of colon (Z12.11) Active confirmed Problem 083109728 History of adenomatous polyp of colon (Z86.010) Active confirmed Problem Screening for malignant neoplasm of rectum (972421615) Encounter for screening for malignant neoplasm of rectum (Z12.12) Active confirmed Problem [id number] Gastroesophageal reflux disease, esophagitis presence not specified (K21.9) Active confirmed Plan Of Treatment Future Test Test Name Order Date UPPER GI ENDOSCOPY 12/30/2015 COLONOSCOPY 12/30/2015 Insurance Providers Payer Name Payer Address Payer Phone Subscriber Number Group Number Insured Name Patient Relationship to Insured Coverage Start Date Coverage End Date MEDICARE OF [place] [address] JACK[place] MEND[place] [id number] BORA HER Self - patient is the insured [facility] OF [facility] [address] [place] [address] [id number] OBRA HER Self - patient is the insured Medical (General) History Medical History History ICD Code Screening colonosocpy 10-26-19 06--one small tubular adenoma removed, sigmoid diverticulosis, and internal hemorrhoids Hypertension HIV infection Denies [place],DM,CVA,Lung disease,renal dise ase Neuropathy Hyperlipidemia BPH GERD Surgical History Surgery Date(Month/Year) cholecystectomy exploratory laparotomy for a bowel obstr uction appendectomy hernia surgery--right inguinal knee surgery teeth removed for dentures Carpal tunnel on the right
--- OUTSIDE RECORDS SUMMARY | 2024-10-04 14:08 | XMS_ITS | Clinical Summary ---
Author Organization [address] [facility] Address [address] [place] [address] Phone Care Team Providers Care Philosophy And Religion Instructor Name Role Phone Makayla Couch MD Primary Care Provider [phone] Allergies No known active allergies Medications No known medications Encounters Date Type Department Care Team Description 09/20/2024 Telephone Orthopedic Surgery [place] [address] [address] Arvind Salazar DPM wait on surgery 09/19/2024 10:45 AM EDT Office Visit Orthopedic Surgery [place] [address] [address] Arvind Salazar DPM Ganglion cyst of right foot (Primary Dx); Diabetic mononeuropathy simplex ([facility] V24, CMS/[facility] V28); Deformity of right foot; Metatarsalgia of both feet; Acquired hammer toe of right foot; Hammer toe of left foot; Corns and callosities; Type II diabetes mellitus with peripheral circulatory disorder (CMS/[facility] V24, CMS/[facility] V28) 08/14/2024 10:45 AM EDT Consult Orthopedic Surgery [place] [address] [address] Arvind Salazar DPM Ganglion cyst of right foot (Primary Dx); Deformity of right foot; Diabetic mononeuropathy simplex (CMS/[facility] V24, CMS/[facility] V28) from Last 3 Months Social History Tobacco Use Types Packs/Day Years Used Date Smoking Tobacco: Never Assessed Sex and Gender Information Value Date Recorded Sex Assigned at Not on file Legal Sex Male 9:37 AM EST Gender Identity Not on file Sexual Orientation Not on file Last Filed Vital Signs Vital Sign Reading Time Taken Comments Blood Pressure - - Pulse - - Temperature - - Respiratory Rate - - Oxygen Saturation - - Inhaled Oxygen Concentration - - Weight 120 kg (265 lb) 08/14/2024 11:07 AM EDT Height 175.3 cm (5' 9 ) 08/14/2024 11:07 AM EDT Body Mass Index 39.13 08/14/2024 11:07 AM EDT Plan of Treatment Health Maintenance Due Date Last Done Comments Diabetes: Annual GFR (Glomer ular Filtration Rate) 1954 Meningococcal ACWY Vaccine ( 1 - Risk 2-dose series) 1956 COVID-19 Vaccine (#1) 1959 Diabetes: Annual Foot Exam 1964 Diabetes: Annual Retina Eye Exam 1964 MMR Vaccines (1 of 2 - Risk 2-dose series) 1972 DTaP,Tdap,and Td Vaccines (1 - Tdap) 1973 Hepatitis A Vaccines (1 of 2 - Risk 2-dose series) 1973 Pneumococcal Vaccine: 50+ Ye ars (1 of 2 - PCV) 1973 Zoster Vaccines (1 of 2) 1973 Hepatitis B Vaccines (1 of 3 - Risk 3-dose series) 2014 RSV Immunization Adult Patie nts (1 - Risk 60-74 years 1-dose series) 2014 Abdominal Aortic Aneurysm (A AA) Screen 05/15/2024 Cholesterol Screening (Lipid Panel) 05/15/2024 Colorectal Cancer Screening: Colonoscopy 05/15/2024 Depression Screening 05/15/2024 Falls Risk Assessment 05/15/2024 Hepatitis C Screening 05/15/2024 Medicare Annual Wellness Visit 05/15/2024 Social Influencers of Health Screening 05/15/2024 Diabetes: Annual Urine Albumin-Creatinine Ratio (uACR) 08/14/2024 Diabetes: Blood Sugar Contro l Test (HGBA1C) 08/14/2024 Hypertension/CHF/CAD Annual BMP Blood Test 08/14/2024 Influenza Vaccine (Season Ended) 2025 HIB Vaccines Aged Out No longer eligi ble based on patient's age to complete this topic HPV Vaccines Aged Out No longer eligi ble based on patient's age to complete this topic IPV Vaccines Aged Out No longer eligi ble based on patient's age to complete this topic Meningococcal B Vaccine Aged Out No l onger eligible based on patient's age to complete this topic RSV Immunization Patients Un adilia 20 months Aged Out No longer eligible b ased on patient's age to complete this topic Varicella Vaccines Aged Out No longer eligible based on patient's age to complete this topic Procedures Procedure Name Priority Date/Time Associated Diagnosis Comments INJECTION TENDON OR LIGAMENT Routine 08/14/2024 10:45 AM EDT Ganglion cyst of right foot from Last 3 Months Results * Injection tendon or ligament (08/14/2024 10:45 AM EDT) Narrative Arvind Salazar DPM - 08/14/2024 10:45 AM EDT Arvind Salazar DPM ? 08/14/2024 12:27 PM Injection tendon or ligament Indications: pain Details: 25 G needle Medications: 0.5 mL lidocaine (PF) 1 %; 20 mg triamcinolone acetonide 40 mg/mL Informed Consent: ??Site: ??Foot ligament tendon Arvind Salazar DPM IN CLINIC/BEDSIDE ORDERAB LES Final Result from Last 3 Months Insurance MEDICAID - [place] [facility] MEDICARE ADV[employer]AGE Care Teams Philosophy And Religion Instructor Relationship Specialty Start Date End Date Makayla Couch MD [address] [place] [address] PCP - General Internal Medicine 08/23/24
== END 2024-10-04 14:11 | disposition home or self-care (01) ==
LOC: HO.HMCHD 13:32
PROVIDERS: PCP Internal Medicine; Visit Provider Internal Medicine
DX: E11.9 Type 2 diabetes mellitus without complications (principal); I42.2 Other hypertrophic cardiomyopathy; I48.92 Unspecified atrial flutter

== ENCOUNTER → 2024-10-04 13:32 | Outpatient (BNVA) | payer OTHER, SELFPAY | PROVIDERS: PCP Internal Medicine; Visit Provider Internal Medicine | DX: E11.9 Type 2 diabetes mellitus without complications (principal); I42.2 Other hypertrophic cardiomyopathy; I48.92 Unspecified atrial flutter; I10 Essential (primary) hypertension; I25.10 Atherosclerotic heart disease of native coronary artery without angina pectoris; N40.0 Benign prostatic hyperplasia without lower urinary tract symptoms; J44.9 Chronic obstructive pulmonary disease, unspecified; G47.33 Obstructive sleep apnea (adult) (pediatric); B20 Human immunodeficiency virus [HIV] disease; I25.2 Old myocardial infarction; Z79.01 Long term (current) use of anticoagulants; Z79.82 Long term (current) use of aspirin; Z79.84 Long term (current) use of oral hypoglycemic drugs; Z79.899 Other long term (current) drug therapy | CPT/HCPCS: 96127; 99202 ==

== ENCOUNTER 2024-10-06 07:31 | Outpatient (REF) | payer OTHER, SELFPAY ==
--- OUTSIDE RECORDS SUMMARY | 2024-10-06 07:33 | XMS_ITS | Patient Health Record ---
Author Organization [facility] Address [address] [place] [address] Care Team Providers Care Golf Cart Repairer Name Role Phone Harris Ash MD Primary Care Provider Lang Lowry Unavailable [phone] Reason For Referral No Information Medications Medication [...] Problem Status W/U Status Risk Notes Problem [id number] Encounter for screening for malignant neoplasm of colon (Z12.11) Active confirmed Problem 077626021 History of adenomatous polyp of colon (Z86.010) Active confirmed Problem Screening for malignant neoplasm of rectum (912283113) Encounter for screening for malignant neoplasm of rectum (Z12.12) Active confirmed Problem 331447989 Gastroesophageal reflux disease, esophagitis presence not specified (K21.9) Active confirmed Plan Of Treatment Future Test Test Name Order Date UPPER GI ENDOSCOPY 12/30/2015 COLONOSCOPY 12/30/2015 Insurance Providers Payer Name Payer Address Payer Phone Subscriber Number Group Number Insured Name Patient Relationship to Insured Coverage Start Date Coverage End Date MEDICARE OF [place] [address] [place] [id number] BORA HER Self - patient is the insured MEDICAID OF [facility] [address] [place] [address] [id number] BORA HER Self - patient is the insured Medical (General) History Medical History History ICD Code Screening colonosocpy 10-26-19 06--one small tubular adenoma removed, sigmoid diverticulosis, and internal hemorrhoids Hypertension HIV infection Denies [place],DM,CVA,Lung disease,renal dise ase Neuropathy Hyperlipidemia BPH GERD Surgical History Surgery Date(Month/Year) cholecystectomy exploratory laparotomy for a bowel obstr uction appendectomy hernia surgery--right inguinal knee surgery teeth removed for dentures Carpal tunnel on the right
--- OUTSIDE RECORDS SUMMARY | 2024-10-06 07:33 | XMS_ITS | Clinical Summary ---
Author Organization 175 [facility] Address [address] [place] [address] Phone Care Team Providers Care Nuclear Medicine Technologist Name Role Phone Makayla Couch MD Primary Care Provider [phone] Allergies No known active allergies Medications No known medications Encounters Date Type Department Care Team Description 09/20/2024 Telephone Orthopedic Surgery [place] [address] [address] Arvind Salazar DPM wait on surgery 09/19/2024 10:45 AM EDT Office Visit Orthopedic Surgery [place] [address] [address] Arvind Salazar DPM Ganglion cyst of right foot (Primary Dx); Diabetic mononeuropathy simplex ([facility] V24, [facility] V28); Deformity of right foot; Metatarsalgia of both feet; Acquired hammer toe of right foot; Hammer toe of left foot; Corns and callosities; Type II diabetes mellitus with peripheral circulatory disorder ([facility] V24, [facility] V28) 08/14/2024 10:45 AM EDT Consult Orthopedic Surgery [place] [address] [address] Arvind Salazar DPM Ganglion cyst of right foot (Primary Dx); Deformity of right foot; Diabetic mononeuropathy simplex ([facility] V24, [facility] V28) from Last 3 Months Social History [...] [place] [facility] [place] Care Teams Nuclear Medicine Technologist Relationship Specialty Start Date End Date Makayla Couch MD [address] [place] [address] PCP - General Internal Medicine 08/23/24
[2024-10-06 08:12] LABS: Estimated Average Glucose 140 mg/dL; Hemoglobin A1C 157.6843 umol/L; Hemoglobin A1c % 6.5 % (<6.0); Total Hemoglobin (HGBA1C) 3320.1807 umol/L
[2024-10-06 08:50] LABS: Alanine Aminotransferase 113 U/L (0-40); Albumin Level 4.3 g/dL (3.5-5.0); Alkaline Phosphatase 58 U/L (39-117); Anion Gap 14 (12-20); Aspartate Amino Transferase 76 U/L (5-37); Bilirubin Total 0.2 mg/dL (0.0-1.0); Blood Urea Nitrogen 21 mg/dL (9-16); Calcium 9.6 mg/dL (8.4-10.2); Carbon Dioxide 24 mmol/L (22-29); Chloride 106 mmol/L (96-108); Cholesterol 118 mg/dL (<200); Estimated Glomerular Filt Rate > 60; Glucose Random 148 mg/dL (60-115); HDL Cholesterol 33 mg/dL (>40); LDL Cholesterol Calculated 40 mg/dL (<100); Potassium 4.9 mmol/L (3.3-5.1); Sodium 139 mmol/L (135-145); Total Protein 7.1 g/dL (6.5-8.0); Triglycerides 225 mg/dL (<150)
[2024-10-06 09:02] LABS: Prostate Specific Antigen 0.66 ng/mL (<0.05-4.0)
== END 2024-10-06 07:32 | disposition home or self-care (01) ==
LOC: HO.LAB 07:31
PROVIDERS: PCP Internal Medicine; Visit Provider Internal Medicine
DX: E11.9 Type 2 diabetes mellitus without complications (principal); Z12.5 Encounter for screening for malignant neoplasm of prostate
CPT/HCPCS: 36415; 80053; 80061; 83036; 84153

== ENCOUNTER 2024-10-12 12:51 | Outpatient (AMB) | payer OTHER, SELFPAY ==
--- OUTSIDE RECORDS SUMMARY | 2024-10-12 12:54 | XMS_ITS | Patient Health Record ---
Author Organization [facility] Address [address] [place] [address] Care Team Providers Care Stained Glass Glazier Helper Name Role Phone Harris Ash MD Primary Care Provider Lang Lowry Unavailable [phone] Reason For Referral No Information Medications Medication [...] Problem Status W/U Status Risk Notes Problem [id number] Encounter for screening for malignant neoplasm of colon (Z12.11) Active confirmed Problem 205619048 History of adenomatous polyp of colon (Z86.010) Active confirmed Problem Screening for malignant neoplasm of rectum (283022375) Encounter for screening for malignant neoplasm of rectum (Z12.12) Active confirmed Problem 121764159 Gastroesophageal reflux disease, esophagitis presence not specified (K21.9) Active confirmed Plan Of Treatment Future Test Test Name Order Date UPPER GI ENDOSCOPY 12/30/2015 COLONOSCOPY 12/30/2015 Insurance Providers Payer Name Payer Address Payer Phone Subscriber Number Group Number Insured Name Patient Relationship to Insured Coverage Start Date Coverage End Date MEDICARE OF [place] [address] JACK[place] MEND[place] [id number] BORA HER Self - patient is the insured MEDICAID OF [facility] [address] [place] [address] [id number] BORA HER Self - patient is the insured Medical (General) History Medical History History ICD Code Screening colonosocpy 10-26-19 06--one small tubular adenoma removed, sigmoid diverticulosis, and internal hemorrhoids Hypertension HIV infection Denies [place],DM,CVA,Lung disease,renal dise ase Neuropathy Hyperlipidemia BPH GERD Surgical History Surgery Date(Month/Year) cholecystectomy exploratory laparotomy for a bowel obstr uction appendectomy hernia surgery--right inguinal knee surgery teeth removed for dentures Carpal tunnel on the right
--- NOTE | 2024-10-12 13:01 | A.OFFVIS_ITS ---
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 He has been on Atripla for many years with controlled viral load. He denies OIs or STIs and would like to continue current medication if able. [facility] Medical History Urinary hesitancy Non-insulin dependent type 2 diabetes mellitus CAD (coronary artery disease) HIV (human immunodeficiency virus infection) KENYON (obstructive sleep apnea) Tear of left hamstring Diabetes High cholesterol High blood pressure Family History Father No problems noted. Mother No problems noted. Social History Household Members: None Household Members Other:: none; lives alone with his cat () Housing: Apartment Do you presently have visiting nurse or other home services: No Alcohol intake: current Alcohol intake frequency: holidays/special occasions only Patient Tobacco Use Status: Former Tobacco user Substance Use Type: Marijuana service: No Current occupational status: retired Cognitive needs: No Hearing needs: No Vision needs: No Review of Systems Const All systems reviewed & are unremarkable except as noted in HPI and below Physical Exam Vital Signs: Last Vital Signs Pulse 74 10/12/24 13:07 Pulse Ox 95 10/12/24 13:07 Oxygen Delivery Method Room Air 10/12/24 13:07 Const General: cooperative Orientation/consciousness: patient oriented x3 HEENT Head: Yes normal to inspection Mouth: Normal oral and palatal mucosa present Eyes General: appearance normal, both eyes and all related structures Pupils: Equal, round and reactive pupils present Resp Effort & Inspection: normal respiratory effort Cardio Rate: regular rate Rhythm: regular rhythm GI Palpation (GI): Soft to palpation and nontender General: Yes no CVA tenderness Back/Spine/Pelvis Back: no CVA tenderness Skin General skin exam: no rashes or lesions noted Neuro General: patient oriented x3 Cranial nerves: Yes CN's II-XII intact bilaterally and Yes Equal, round and reactive pupils present Extrem General: Yes normal to inspection Psych Appearance: grossly normal Assessment & Plan Assessment & Plan (1) HIV (human immunodeficiency virus infection): Comment: He has been doing well with halfway HIV virus. Code(s): B20 - Human immunodeficiency virus [HIV] disease Category: Medical Plan Continue Atripla for now,I advised him he would have to switch to Biktarvy if became unavailable. See as scheduled. Orders: Orders HIV-1 RNA QN PCR Expanded 6 Months B20 - Human immunodeficiency virus [HIV] disease HIV-1 RNA QN PCR Expanded 1 Year B20 - Human immunodeficiency virus [HIV] disease Lymphocyte Subset Panel 3 6 Months B20 - Human immunodeficiency virus [HIV] disease Lymphocyte Subset Panel 3 1 Year B20 - Human immunodeficiency virus [HIV] disease PSA,Total (Free>4and<10) 10/12/24 R39.11 - Hesitancy of micturition Medications: New gcgdtuuok-gwewzdnobgfk-gkhpkya 600-200-300 mg must be taken on empty stomach 1 tab PO BEDTIME 30 tabs 11RF 30 days Coding Level of Care Code Est Pt Level 4 (69368) Diagnoses HIV (human immunodeficiency virus infection) B20
[2024-10-12 13:07] VITALS: PULSE 74; O2SAT 95
== END 2024-10-12 13:56 | disposition home or self-care (01) ==
LOC: HO.HID 12:51
PROVIDERS: PCP Internal Medicine; Visit Provider Internal Medicine
DX: B20 Human immunodeficiency virus [HIV] disease (principal)
CPT/HCPCS: 99214

== ENCOUNTER → 2024-10-12 12:51 | Outpatient (BNVA) | payer OTHER, SELFPAY | PROVIDERS: PCP Internal Medicine; Visit Provider Internal Medicine | DX: B20 Human immunodeficiency virus [HIV] disease (principal) | CPT/HCPCS: 99212 ==

== ENCOUNTER → 2024-10-18 10:16 | Outpatient (REF) | payer OTHER, SELFPAY ==
--- OUTSIDE RECORDS SUMMARY | 2024-10-18 10:35 | XMS_ITS | Patient Health Record ---
Author Organization [facility] Address [address] [place] [address] Care Team Providers Care Inspecting Machine Adjuster Name Role Phone Harris Ash MD Primary Care Provider Lang Lowry Unavailable [phone] Reason For Referral No Information Medications Medication [...] Problem Status W/U Status Risk Notes Problem 656291725 Encounter for screening for malignant neoplasm of colon (Z12.11) Active confirmed Problem 669303956 History of adenomatous polyp of colon (Z86.010) Active confirmed Problem Screening for malignant neoplasm of rectum (957482637) Encounter for screening for malignant neoplasm of rectum (Z12.12) Active confirmed Problem 102397986 Gastroesophageal reflux disease, esophagitis presence not specified (K21.9) Active confirmed Plan Of Treatment Future Test Test Name Order Date UPPER GI ENDOSCOPY 12/30/2015 COLONOSCOPY 12/30/2015 Insurance Providers Payer Name Payer Address Payer Phone Subscriber Number Group Number Insured Name Patient Relationship to Insured Coverage Start Date Coverage End Date MEDICARE OF [place] [address] JACK[place] MEND[place] [id number] BORA HER Self - patient is the insured MEDICAID OF [facility] [address] [place] [address] [id number] BORA HER Self - patient is the insured Medical (General) History Medical History History ICD Code Screening colonosocpy 10-26-19 06--one small tubular adenoma removed, sigmoid diverticulosis, and internal hemorrhoids Hypertension HIV infection Denies [place],DM,CVA,Lung disease,renal dise ase Neuropathy Hyperlipidemia BPH GERD Surgical History Surgery Date(Month/Year) cholecystectomy exploratory laparotomy for a bowel obstr uction appendectomy hernia surgery--right inguinal knee surgery teeth removed for dentures Carpal tunnel on the right
== END ==
LOC: HO.CARD 10:16
PROVIDERS: PCP Internal Medicine; Visit Provider Internal Medicine
DX: R55 Syncope and collapse (principal); I42.2 Other hypertrophic cardiomyopathy; I48.92 Unspecified atrial flutter
CPT/HCPCS: 93246

== ENCOUNTER → 2024-10-18 10:19 | Outpatient (BNV) | payer OTHER, SELFPAY | PROVIDERS: PCP Internal Medicine; Visit Provider Internal Medicine Cardiovascular Disease | DX: R00.0 Tachycardia, unspecified (principal); R55 Syncope and collapse | CPT/HCPCS: 93248 ==

== ENCOUNTER 2025-01-17 08:49 | Outpatient (AMB) | payer OTHER, SELFPAY ==
[2025-01-17 08:20] VITALS: BP 134/80; PULSE 75; TEMP 36.8; O2SAT 97; BMI 41.8
--- NOTE | 2025-01-17 08:20 | MHC.PC.OV ---
Vital Signs 01/17/25 08:20 Height 5 ft 7 in Weight 267 lb BMI 41.8 BP 134/80 Blood Pressure Location Lt brachial Position Sitting Pulse 75 Pulse Source Pulse Oximeter Temp 98.3 F Temp Source Temporal Artery Scan Pulse Oximetry (%) 97 Oxygen Delivery Method Room Air Intake Visit Reasons: 3 Month F/U - see comments Zigzagger Required: No Accompanied by: Self / Same As Patient Allergies No Known Allergies Allergy (Verified 01/17/25 08:20) Tobacco use date assessed: 01/17/25 Fall risk assessment: No Falls in past year Last assessed Fall Risk: 01/17/25 Dental Screening Dental Screen Date: 10/04/24 Did you have a dental visit in the last 12 months?: No Did you have a dental problem in the last 6 months where you did not have access to dental care?: No HPI HPI Comments History of Present Illness Details The patient is a 69 year old female with a past medical history of diabetes, hypertension, CAD s/p NSTEMI, aflutter/afib s/p ablation, GERD with interval AICD placement CV: On eliquis, metoprolol, crestor, imdur, ASA. seeing Dr Swain in [place]. s/p AICD placement. Doing well DM: on metformin 500mg daily, wegovy 0.5mg. Last A1C 6.5%. BPH s/p TURP. Continues terazosin COPD/KENYON; remote tobacco use HIV: on meds. Not following with ID. Says undetectable for quite some time Depression is stable on zoloft ROS CONSTITUTIONAL: Denies weight loss, fever and chills. HEENT: Denies changes in vision and hearing. RESPIRATORY: Denies SOB and cough. CV: Denies palpitations and CP GI: Denies abdominal pain, nausea, vomiting and diarrhea. : Denies dysuria and urinary frequency. MSK: Denies new myalgia and joint pain. SKIN: Denies rash and pruritus. NEUROLOGICAL: Denies headache PSYCHIATRIC: Denies recent changes in mood. PHYSICAL EXAM: GENERAL: Alert and oriented x 3. NAD EYES: EOMI. Anicteric. HENT: Moist mucous membranes. No scleral icterus. No cervical lymphadenopathy. LUNGS: Clear to auscultation bilaterally. CARDIOVASCULAR: Regular rate and rhythm. No murmur. No JVD. ABDOMEN: Soft, non-tender +bs EXTREMITIES: No edema. Non-tender. SKIN: No rashes or lesions. Warm. NEUROLOGIC: No focal neurological deficits. CN II-XII grossly intact PSYCHIATRIC: Cooperative. Appropriate mood and affect [facility] Medical History Urinary hesitancy Non-insulin dependent type 2 diabetes mellitus CAD (coronary artery disease) HIV (human immunodeficiency virus infection) KENYON (obstructive sleep apnea) Tear of left hamstring Diabetes High cholesterol High blood pressure Family History Father No problems noted. Mother No problems noted. Social History Household Members: None Household Members Other:: none; lives alone with his cat () Housing: Apartment Do you presently have visiting nurse or other home services: No Alcohol intake: current Alcohol intake frequency: holidays/special occasions only Patient Tobacco Use Status: Former Tobacco user e-Cigarette/Vaping Use: Former Use Substance Use Type: Marijuana service: No Current occupational status: retired Cognitive needs: No Hearing needs: No Vision needs: No Questionnaire PHQ-9 Over the last 2 weeks, how often have you been bothered by any of the following problems? 1. Little interest or pleasure in doing things: not at all 2. Feeling down, depressed, or hopeless: not at all 3. Trouble falling or staying asleep, or sleeping too much: not at all 4. Feeling tired or having little energy: not at all 5. Poor appetite or overeating: not at all 6. Feeling bad about yourself - or that you are a failure or have let yourself or your family down: not at all 7. Trouble concentrating on things, such as reading the newspaper or watching television: not at all 8. Moving or speaking so slowly that other people could have noticed. Or the opposite - being so fidgety or restless that you have been moving around a lot more than usual: not at all 9. Thoughts that you would be better off or of hurting yourself in some way: not at all Total score: 0 Depression Screening Interpretation: Negative Depression Screening Done: Yes 82492 - PHQ-9 Billing: Yes Source: Developed by Drs. Lang Ji, Myles Phipps and colleagues, with an educational elsa from [employer]. Thrive Questionnaire Date Thrive assessed: 01/17/25 I am a: Patient Within the past 12 months, did the food you bought not last and you didn't have the money to get more?: Never true Within the past 12 months, did you worry whether your food would run out before you got money to buy more?: Never true Do you have trouble paying for medicines?: No Do you have trouble getting transportation to medical appointments?: No Do you have trouble paying your heating and electricity bill?: No Do you have trouble taking care of your child, family member or friend?: No Do you have trouble with day-to-day activities such as bathing, preparing meals, shopping, managing finances, etc.?: No Are you currently unemployed and looking for a job?: No Are you interested in more education?: No THRIVE Score: 0 AUDIT C Alcohol Use Questionnaire (AUDIT-C) 1. How often do you have a drink containing alcohol?: Monthly or less 2. How many drinks containing alcohol do you have on a typical day when you are drinking?: 1 or 2 3. How often do you have six or more drinks on one occasion?: Less than monthly Total Score: 2 ISAIAS-7 AMB Questionnaire ISAIAS-7 Date ISAIAS - 7 assessed: 01/17/25 Feeling nervous, anxious, or on edge: 0 = Not at all Not being able to stop or control worryin = Not at all Worrying too much about different things: 0 = Not at all Trouble relaxin = Not at all Being so restless that it is hard to sit still: 0 = Not at all Becoming easily annoyed or irritable: 0 = Not at all Feeling afraid as if something awful might happen: 0 = Not at all Total ISAIAS-7 score (0-4 normal; 5-9 mild; 10-14 moderate; 15-21 severe): 0 Source: Developed by Drs. Lang Ji, Myles Phipps and colleagues, with an educational elsa from [employer]. Physical exam (Primary Care) Vital Signs: Last Vital Signs Temp 98.3 F 01/17/25 08:20 Pulse 75 01/17/25 08:20 BP 134/80 01/17/25 08:20 Pulse Ox 97 01/17/25 08:20 Oxygen Delivery Method Room Air 01/17/25 08:20 BMI result Body Mass Index 41.8 Tobacco/Smoking Status: Tobacco use Status Tobacco use date assessed 01/17/25 01/17/25 08:22 Patient Tobacco Use Status Former Tobacco user 01/17/25 08:22 e-Cigarette/Vaping Use Former Use 01/17/25 08:22 PHQ-9: PHQ-9 Score PHQ-9: Total score 0 01/17/25 09:09 Depression Screening Interpretation: Negative Thrive Assessment: Date of Thrive Assessment Date Thrive assessed 01/17/25 01/17/25 08:22 Coding Level of Care Code Est Pt Level 4 (52438) Diagnoses Non-insulin dependent type 2 diabetes mellitus E11.9 Atrial flutter with rapid ventricular response I48.92 Non-ST elevation AR (NSTEMI) I21.4 Additional Codes PHQ-9 - 03625 - PHQ-9 Billing: Yes ([id number]) Assessment & Plan Assessment & Plan (1) Non-insulin dependent type 2 diabetes mellitus: Code(s): E11.9 - Type 2 diabetes mellitus without complications Category: Medical (2) Atrial flutter with rapid ventricular response: Code(s): I48.92 - Unspecified atrial flutter Category: Medical (3) Non-ST elevation AR (NSTEMI): Code(s): I21.4 - Non-ST elevation (NSTEMI) myocardial infarction Category: Medical Plan 69 year old for follow up DM-well controlled. Increase wegovy to 1mg Depression-stable on zoloft Hypothyroid-check TSH Orders: Orders Comprehensive Met. Panel Today E03.9 - Hypothyroidism, unspecified, E11.9 - Type 2 diabetes mellitus without complications Hemoglobin A1c Today E11.9 - Type 2 diabetes mellitus without complications TSH reflex Free T4 Today E03.9 - Hypothyroidism, unspecified, E11.9 - Type 2 diabetes mellitus without complications Medications: New sertraline 25 mg PO DAILY 90 tabs 3RF Wegovy (semaglutide (weight loss)) 1 mg (0.5 mL) subcut QWEEK 6 mL 3RF NS rosuvastatin 40 mg PO DAILY 90 tabs 3RF Discontinued rosuvastatin Discontinued Reason: Doctor's Order 40 mg (2 x 20 mg) PO DAILY 90 tabs 1RF
--- OUTSIDE RECORDS SUMMARY | 2025-01-17 09:35 | XMS_ITS | Patient Health Record ---
Author Organization [facility] Address [address] [place] [address] Care Team Providers Care Assistant Kitchen Manager Name Role Phone Mihir (RETIRED) Harris FERNANDES Primary Care Provide r Unavailable Lang Wylie Unavailable [phone] Reason For Referral No Information Medications Medication [...] Problem Status W/U Status Risk Notes Problem [id number] Encounter for screening for malignant neoplasm of colon (Z12.11) Active confirmed Problem 801645734 History of adenomatous polyp of colon (Z86.010) Active confirmed Problem Screening for malignant neoplasm of rectum (221566081) Encounter for screening for malignant neoplasm of rectum (Z12.12) Active confirmed Problem 951909031 Gastroesophageal reflux disease, esophagitis presence not specified (K21.9) Active confirmed Plan Of Treatment Future Test Test Name Order Date UPPER GI ENDOSCOPY 12/30/2015 COLONOSCOPY 12/30/2015 Insurance Providers Payer Name Payer Address Payer Phone Subscriber Number Group Number Insured Name Patient Relationship to Insured Coverage Start Date Coverage End Date MEDICARE OF [facility] [address] [place] [id number] BORA HER Self - patient is the insured MEDICAID OF [employer] [address] [place] [phone] [id number] BORA HER Self - patient is the insured Medical (General) History Medical History History ICD Code Screening colonosocpy 10-26-19 06--one small tubular adenoma removed, sigmoid diverticulosis, and internal hemorrhoids Hypertension HIV infection Denies [place],DM,CVA,Lung disease,renal dise ase Neuropathy Hyperlipidemia BPH GERD Surgical History Surgery Date(Month/Year) cholecystectomy exploratory laparotomy for a bowel obstr uction appendectomy hernia surgery--right inguinal knee surgery teeth removed for dentures Carpal tunnel on the right
--- OUTSIDE RECORDS SUMMARY | 2025-01-17 09:35 | XMS_ITS | Clinical Summary ---
Author Organization [address] [place] [address] [address] [place] [address] Phone Care Team Providers Care Seal Delivery Vehicle Officer Name Role Phone Makayla Couch MD Primary Care Provider [phone] Allergies No known active allergies Medications No known medications Social History Tobacco Use Types Packs/Day Years [...] Panel) 05/15/2024 Colorectal Cancer Screening: Colonoscopy 05/15/2024 Falls Risk Assessment 05/15/2024 Hepatitis C Screening 05/15/2024 Medicare Annual Wellness Visit 05/15/2024 Social Influencers of Health Screening 05/15/2024 Depression Screening 05/23/2024 Diabetes: Annual Urine Albumin-Creatinine Ratio (uACR) 08/14/2024 Diabetes: Blood Sugar Contro l Test (HGBA1C) 08/14/2024 Hypertension/CHF/CAD Annual BMP Blood Test 08/14/2024 Influenza Vaccine (#1) 2025 HIB Vaccines Aged Out No longer [...] on patient's age to complete this topic Insurance MEDICAID - [place] [facility] [employer] Care Teams Seal Delivery Vehicle Officer Relationship Specialty Start Date End Date Makayla Couch MD PCP - General Internal Medicine 08/23/24
== END 2025-01-17 09:23 | disposition home or self-care (01) ==
LOC: HO.HMCHD 08:49
PROVIDERS: PCP Internal Medicine; Visit Provider Internal Medicine
DX: E11.9 Type 2 diabetes mellitus without complications (principal); I48.92 Unspecified atrial flutter; I21.4 Non-ST elevation (NSTEMI) myocardial infarction

== ENCOUNTER → 2025-01-17 08:49 | Outpatient (BNVA) | payer OTHER, SELFPAY | PROVIDERS: PCP Internal Medicine; Visit Provider Internal Medicine | DX: E11.9 Type 2 diabetes mellitus without complications (principal); I48.92 Unspecified atrial flutter; I21.4 Non-ST elevation (NSTEMI) myocardial infarction; I10 Essential (primary) hypertension; N40.0 Benign prostatic hyperplasia without lower urinary tract symptoms; Z21 Asymptomatic human immunodeficiency virus [HIV] infection status; Z95.810 Presence of automatic (implantable) cardiac defibrillator; Z79.84 Long term (current) use of oral hypoglycemic drugs; Z79.899 Other long term (current) drug therapy; Z13.31 Encounter for screening for depression; Z13.39 Encounter for screening examination for other mental health and behavioral disorders | CPT/HCPCS: 96127; 99212 ==

== ENCOUNTER 2025-02-07 08:56 | Outpatient (REF) | payer OTHER, SELFPAY ==
[2025-02-07 10:07] LABS: Hemoglobin A1C 160.9375 umol/L; Total Hemoglobin (HGBA1C) 3367.9776 umol/L
--- OUTSIDE RECORDS SUMMARY | 2025-02-07 10:17 | XMS_ITS | Patient Health Record ---
Author Organization [facility] Address [address] [place] [address] Care Team Providers Care Cell Installer Name Role Phone Mihir (RETIRED) Harris FERNANDES Primary Care Provide r Unavailable Lang Wylie Unavailable [phone] Reason For Referral No Information Medications Medication [...] Problem Status W/U Status Risk Notes Problem [id number] Encounter for screening for malignant neoplasm of colon (Z12.11) Active confirmed Problem 428322982 History of adenomatous polyp of colon (Z86.010) Active confirmed Problem Screening for malignant neoplasm of rectum (699301383) Encounter for screening for malignant neoplasm of rectum (Z12.12) Active confirmed Problem 507405058 Gastroesophageal reflux disease, esophagitis presence not specified (K21.9) Active confirmed Plan Of Treatment Future Test Test Name Order Date UPPER GI ENDOSCOPY 12/30/2015 COLONOSCOPY 12/30/2015 Insurance Providers Payer Name Payer Address Payer Phone Subscriber Number Group Number Insured Name Patient Relationship to Insured Coverage Start Date Coverage End Date MEDICARE OF [facility] [address] [place] [id number] BORA HER Self - patient is the insured MEDICAID OF [employer] [address] [place] [id number] BORA HER Self - patient is the insured Medical (General) History Medical History History ICD Code Screening colonosocpy 10-26-19 06--one small tubular adenoma removed, sigmoid diverticulosis, and internal hemorrhoids Hypertension HIV infection Denies MS,DM,CVA,Lung disease,renal dise ase Neuropathy Hyperlipidemia BPH GERD Surgical History Surgery Date(Month/Year) cholecystectomy exploratory laparotomy for a bowel obstr uction appendectomy hernia surgery--right inguinal knee surgery teeth removed for dentures Carpal tunnel on the right
--- OUTSIDE RECORDS SUMMARY | 2025-02-07 10:17 | XMS_ITS | Clinical Summary ---
Author Organization [address] [place] [address] Address [address] [place] [address] Phone Care Team Providers Care Photo Stylist Name Role Phone Makayla Couch MD Primary Care Provider [phone] Allergies No known active allergies Medications No [...] [place] [facility] [place] Care Teams Photo Stylist Relationship Specialty Start Date End Date Makayla Couch MD PCP - General Internal Medicine 08/23/24
[2025-02-07 10:19] LABS: Potassium 4.3 mmol/L (3.3-5.1); Sodium 138 mmol/L (135-145)
[2025-02-07 10:20] LABS: Alanine Aminotransferase 58 U/L (0-40); Albumin Level 4.6 g/dL (3.5-5.0); Alkaline Phosphatase 44 U/L (39-117); Anion Gap 12 (12-20); Aspartate Amino Transferase 50 U/L (5-37); Blood Urea Nitrogen 22 mg/dL (9-16); Calcium 9.7 mg/dL (8.4-10.2); Carbon Dioxide 25 mmol/L (22-29); Chloride 105 mmol/L (96-108); Estimated Glomerular Filt Rate > 60; Total Protein 7.0 g/dL (6.5-8.0)
== END 2025-02-07 08:57 | disposition home or self-care (01) ==
LOC: HO.10HDL 08:56
PROVIDERS: Visit Provider Internal Medicine
DX: E11.9 Type 2 diabetes mellitus without complications (principal); E03.9 Hypothyroidism, unspecified
CPT/HCPCS: 36415; 80053; 83036; 84443

== ENCOUNTER 2025-04-12 08:01 | Outpatient (AMB) | payer OTHER, SELFPAY ==
--- NOTE | 2025-04-12 07:37 | MHC.PC.OV ---
Intake Visit Reasons: 3 month f/u rescheduled from 04/03 Chief Station Engineer Required: No Accompanied by: Self / Same As Patient Allergies No Known Allergies Allergy (Verified 04/03/25 07:00) Tobacco use date assessed: 04/12/25 Fall risk assessment: No Falls in past year Last assessed Fall Risk: 04/12/25 Dental Screening Dental Screen Date: 04/12/25 Did you have a dental visit in the last 12 months?: Yes Did you have a dental problem in the last 6 months where you did not have access to dental care?: No [facility] Medical History Urinary hesitancy Non-insulin dependent type 2 diabetes mellitus CAD (coronary artery disease) HIV (human immunodeficiency virus infection) KENYON (obstructive sleep apnea) Tear of left hamstring Diabetes High cholesterol High blood pressure Family History Father No problems noted. Mother No problems noted. Social History Household Members: None Household Members Other:: none; lives alone with his cat () Housing: Apartment Do you presently have visiting nurse or other home services: No Alcohol intake: current Alcohol intake frequency: holidays/special occasions only Patient Tobacco Use Status: Former Tobacco user e-Cigarette/Vaping Use: Former Use Substance Use Type: Marijuana service: No Current occupational status: retired Cognitive needs: No Hearing needs: No Vision needs: No Questionnaire PHQ-9 Over the last 2 weeks, how often have you been bothered by any of the following problems? 1. Little interest or pleasure in doing things: not at all 2. Feeling down, depressed, or hopeless: not at all 3. Trouble falling or staying asleep, or sleeping too much: not at all 4. Feeling tired or having little energy: not at all 5. Poor appetite or overeating: not at all 6. Feeling bad about yourself - or that you are a failure or have let yourself or your family down: not at all 7. Trouble concentrating on things, such as reading the newspaper or watching television: not at all 8. Moving or speaking so slowly that other people could have noticed. Or the opposite - being so fidgety or restless that you have been moving around a lot more than usual: not at all 9. Thoughts that you would be better off or of hurting yourself in some way: not at all Total score: 0 Source: Developed by Drs. Lang Ji, Martha Melendrez, Myles Macedo and colleagues, with an educational elsa from [employer]. Thrive Questionnaire Date Thrive assessed: 04/12/25 I am a: Patient Within the past 12 months, did the food you bought not last and you didn't have the money to get more?: Never true Within the past 12 months, did you worry whether your food would run out before you got money to buy more?: Never true Do you have trouble paying for medicines?: No Do you have trouble getting transportation to medical appointments?: No Do you have trouble paying your heating and electricity bill?: No Do you have trouble taking care of your child, family member or friend?: No Do you have trouble with day-to-day activities such as bathing, preparing meals, shopping, managing finances, etc.?: No Are you currently unemployed and looking for a job?: No Are you interested in more education?: No THRIVE Score: 0 AUDIT C Alcohol Use Questionnaire (AUDIT-C) 1. How often do you have a drink containing alcohol?: Never 3. How often do you have six or more drinks on one occasion?: Never Total Score: 0 ISAIAS-7 AMB Questionnaire ISAIAS-7 Date ISAIAS - 7 assessed: 04/12/25 Feeling nervous, anxious, or on edge: 0 = Not at all Not being able to stop or control worryin = Not at all Worrying too much about different things: 0 = Not at all Trouble relaxin = Not at all Being so restless that it is hard to sit still: 0 = Not at all Becoming easily annoyed or irritable: 0 = Not at all Feeling afraid as if something awful might happen: 0 = Not at all Total ISAIAS-7 score (0-4 normal; 5-9 mild; 10-14 moderate; 15-21 severe): 0 Source: Developed by Martha HolleyMyles and colleagues, with an educational elsa from [employer]. Physical exam (Primary Care) Tobacco/Smoking Status: Tobacco use Status Tobacco use date assessed 10/04/24 04/03/25 07:01 Patient Tobacco Use Status Former Tobacco user 04/03/25 07:01 e-Cigarette/Vaping Use Former Use 04/03/25 07:01 Thrive Assessment: Date of Thrive Assessment Date Thrive assessed 10/04/24 04/03/25 07:01 Coding
--- OUTSIDE RECORDS SUMMARY | 2025-04-12 08:04 | XMS_ITS | Patient Health Record ---
Author Organization [facility] Address [address] [place] [address] Care Team Providers Care Public Relations Coordinator Name Role Phone Mihir (RETIRED) Harris FERNANDES Primary Care Provide r Lang Lawton Unavailable [phone] Reason For Referral No Information Medications Medication SIG (Take, Route, Frequency, Duration) Notes Start Date End Date Status Multivitamin Active Fish Oil Active Lisinopril 20 MG Tablet TAKE 1 TABLET BY MOUTH EVERY DAY Oral; Duration: 30 Active Terazosin HCl 2 MG Capsule TAKE 1 CAPSUL E BY MOUTH AT BEDTIME Oral; Duration: 30 Active Atripla 600-200-300 MG Tablet TAKE 1 TABLET BY MOUTH EVERY DAY Oral; Duration: 30 Active Omeprazole 20 MG Capsule Delayed Release TAKE 1 CAPSULE EVERY DAY Oral; Duration: 30 Active Simvastatin 40 MG Tablet TAKE 1 TABLET B Y MOUTH EVERY DAY Oral; Duration: 30 Active Social History Social History Additional Details Category Social Info Options Details Miscellaneous: Marital status: Occupation: On disability Section Notes: Stopped smoking 3 years ago- --now just occasional marijuana; no sig alcohol Problems Problem Type SNOMED Code ICD Code Onset Dates Problem Status W/U Status Risk Notes Problem Screening for malignant neoplasm of colon (066764838) Encounter for screening for malignant neoplasm of colon (Z12.11) Active confirmed Problem History of adenomatous polyp of colon (703417345) History of adenomatous polyp of colon (Z86.010) Active confirmed Problem Screening for malignant neoplasm of rectum (579546257) Encounter for screening for malignant neoplasm of rectum (Z12.12) Active confirmed Problem Gastroesophageal reflux disease (513844279) Gastroesophageal reflux disease, esophagitis presence not specified (K21.9) Active confirmed Plan Of Treatment Future Test Test Name Order Date UPPER GI ENDOSCOPY 12/30/2015 COLONOSCOPY 12/30/2015 Insurance Providers Payer Name Payer Address Payer Phone Subscriber Number Group Number Insured Name Patient Relationship to Insured Coverage Start Date Coverage End Date MEDICARE OF [place] [address] [place] [id number] OBRA HER Self - patient is the insured MEDICAID OF [facility] [address] [place] [phone] [id number] BORA HER Self - patient is the insured Medical (General) History Medical History History ICD Code Screening colonosocpy 20 06--one small tubular adenoma removed, sigmoid diverticulosis, and internal hemorrhoids Hypertension HIV infection Denies [place],DM,CVA,Lung disease,renal dise ase Neuropathy Hyperlipidemia BPH GERD Surgical History Surgery Date(Month/Year) cholecystectomy exploratory laparotomy for a bowel obstr uction appendectomy hernia surgery--right inguinal knee surgery teeth removed for dentures Carpal tunnel on the right
--- NOTE | 2025-04-12 08:09 | MHC.PC.OV ---
Vital Signs 04/12/25 08:21 Height 5 ft 6.42 in Weight 120.656 kg BMI 42.4 BP 144/76 H Blood Pressure Location Lt brachial Position Sitting Respiration 22 H Pulse 77 Pulse Source Pulse Oximeter Temp 98.7 F Pulse Oximetry (%) 96 Oxygen Delivery Method Room Air Intake Visit Reasons: 3 month f/u rescheduled from 04/03 Family And Divorce Legal Assistant Required: No Accompanied by: Self / Same As Patient Allergies No Known Allergies Allergy (Verified 04/12/25 08:09) Medication List - Last Reconciled 04/12/25 by JASPAL Downing apixaban (Eliquis) 5 mg PO BID Held on 10/19/23. Instructions: Resume on 10/28/23. hold until on iv heparin aspirin 81 mg PO DAILY pvslukhwr-buadpbep-cazzljf ala 50-200-25 mg (Biktarvy) 1 tab PO DAILY 90 days levothyroxine (Levoxyl) 75 mcg PO DAILY lisinopril 40 mg PO QAM 90 days metformin ER 500 mg PO DAILY metoprolol succinate ER 100 mg See Protocol PO QPM multivitamin 1 tab PO DAILY olopatadine 0.1% 1 drp ophthalmic (eye) BID omega 3-vyr-vzk-fish oil 60-90-500 mg (Fish Oil) 1 cap PO BID omeprazole 20 mg PO DAILY@0630 rosuvastatin 40 mg PO DAILY semaglutide (weight loss) (Wegovy) 1.7 mg (0.75 mL) subcut QWEEK sertraline 25 mg PO DAILY terazosin 5 mg PO BEDTIME Tobacco use date assessed: 10/04/24 Dental Screening Dental Screen Date: 10/04/24 HPI HPI Comments History of Present Illness Details The patient is a 69 year old female with a past medical history of diabetes, hypertension, CAD s/p NSTEMI, aflutter/afib s/p ablation, GERD with interval AICD placement CV: On eliquis, metoprolol, crestor, imdur, ASA. seeing Dr Swain in [place]. s/p AICD placement. Doing well DM: on metformin 500mg daily, wegovy 0.5mg. Last A1C 6.7%. BPH: s/p TURP. Continues terazosin COPD/KENYON; remote tobacco use. Uses cpap HIV: on meds. Follows with Dr. Polanco. Says undetectable for quite some time Depression: is stable on zoloft Concerns: Bilateral eye redness- ongoing chronically. No vision changes. No eye doctor. Hx cataracts. Occ watery. Use optimum eye drugs. ROS: General: No fevers, malaise, unintentional weight loss HEENT: see hpi. No blurred vision, diplopia. No sore throat, nasal congestion, rhinorrhea, sinus pain, ear pain Cardiovascular: No chest pain, palpitations, or leg edema Respiratory: No shortness of breath, wheezing, cough GI: No abdominal pain, nausea, vomiting, diarrhea, constipation, melena, hematochezia : No dysuria, hematuria, increased urinary frequency, decreased urinary output MSK: No myalgia, back pain Neuro: No headaches, weakness, paresthesias Skin: No rashes or lesions EXAM: Constitutional - Awake and Alert, No apparent distress Eyes - PERRL. Bilateral conjunctival injection. No purulent drainage Cardiovascular - S1S2, RRR, No edema Respiratory - Normal lung expansion, Normal respiratory effort, No respiratory distress, CTA bilaterally Extremities - no calf tenderness bilaterally, no swelling Skin - Warm/Dry Neurological - Alert & oriented x3 Psychological - Appropriate affect [facility] Medical History (Updated 04/12/25 @ 08:33 by JASPAL Downing) Allergic conjunctivitis Urinary hesitancy Non-insulin dependent type 2 diabetes mellitus CAD (coronary artery disease) HIV (human immunodeficiency virus infection) KENYON (obstructive sleep apnea) Tear of left hamstring Diabetes High cholesterol High blood pressure Family History Father No problems noted. Mother No problems noted. Social History Household Members: None Household Members Other:: none; lives alone with his cat (Conrad) Housing: Apartment Do you presently have visiting nurse or other home services: No Alcohol intake: current Alcohol intake frequency: holidays/special occasions only Patient Tobacco Use Status: Former Tobacco user e-Cigarette/Vaping Use: Former Use Substance Use Type: Marijuana service: No Current occupational status: retired Cognitive needs: No Hearing needs: No Vision needs: No Questionnaire Thrive Questionnaire Date Thrive assessed: 10/04/24 AUDIT C Alcohol Use Questionnaire (AUDIT-C) 1. How often do you have a drink containing alcohol?: Never 3. How often do you have six or more drinks on one occasion?: Never Total Score: 0 ISAIAS-7 AMB Questionnaire ISAIAS-7 Date ISAIAS - 7 assessed: 10/04/24 Source: Developed by Drs. Lang Ji, Martha Melendrez, Myles Macedo and colleagues, with an educational elsa from [employer]. Physical exam (Primary Care) Vital Signs: Last Vital Signs Temp 98.7 F 04/12/25 08:21 Pulse 77 04/12/25 08:21 Resp 22 H 04/12/25 08:21 BP 144/76 H 04/12/25 08:21 Pulse Ox 96 04/12/25 08:21 Oxygen Delivery Method Room Air 04/12/25 08:21 BMI result Body Mass Index 42.4 Tobacco/Smoking Status: Tobacco use Status Tobacco use date assessed 10/04/24 04/12/25 08:13 Patient Tobacco Use Status Former Tobacco user 04/12/25 08:13 e-Cigarette/Vaping Use Former Use 04/12/25 08:13 Thrive Assessment: Date of Thrive Assessment Date Thrive assessed 10/04/24 04/12/25 08:13 Coding Level of Care Code Complex visit Add On G2211 Diagnoses Atrial flutter, unspecified type I48.92 Atrial flutter type: unspecified Non-insulin dependent type 2 diabetes mellitus E11.9 Hypothyroid E03.9 Class 3 obesity E66.01 Allergic conjunctivitis H10.10 Assessment & Plan Assessment & Plan (1) Atrial flutter: Code(s): I48.92 - Unspecified atrial flutter Category: Medical Qualifiers: Atrial flutter type: unspecified Qualified Code(s): I48.92 - Unspecified atrial flutter Plan: Rate controlled. Continue Eliquis 5 mg twice daily and Toprol 100 mg nightly. (2) Non-insulin dependent type 2 diabetes mellitus: Code(s): E11.9 - Type 2 diabetes mellitus without complications Category: Medical Plan: Controlled. Continue metformin and Wegovy. Counseled on diabetic diet. Referred for diabetic eye exam (3) Hypothyroid: Code(s): E03.9 - Hypothyroidism, unspecified Category: Medical Plan: TSH ordered. Continue levothyroxine (4) Class 3 obesity: Code(s): E66.01 - Morbid (severe) obesity due to excess calories Category: Medical Plan: Counseled on weight loss. Recommend diet lower in calories with emphasis on increased fruits, vegetables, proteins with limiting of refined sugars, simple carbohydrates, highly processed foods. Recommend initiating exercise routine again (5) Allergic conjunctivitis: Code(s): H10.10 - Acute atopic conjunctivitis, unspecified eye Category: Medical Plan: Trial of Pataday. Referral to Ophthalmology placed Plan Follow-up in the office in 4 months. Orders: Orders Basic Metabolic Panel Today B20 - Human immunodeficiency virus [HIV] disease, E11.9 - Type 2 diabetes mellitus without complications, E66.01 - Morbid (severe) obesity due to excess calories, I48.92 - Unspecified atrial flutter Hemoglobin A1c Today B20 - Human immunodeficiency virus [HIV] disease, E11.9 - Type 2 diabetes mellitus without complications, E66.01 - Morbid (severe) obesity due to excess calories, I48.92 - Unspecified atrial flutter Liver Panel Today B20 - Human immunodeficiency virus [HIV] disease, E11.9 - Type 2 diabetes mellitus without complications, E66.01 - Morbid (severe) obesity due to excess calories, I48.92 - Unspecified atrial flutter Microalbumin, Random (w Creat) Today B20 - Human immunodeficiency virus [HIV] disease, E11.9 - Type 2 diabetes mellitus without complications, E66.01 - Morbid (severe) obesity due to excess calories, I48.92 - Unspecified atrial flutter Lipid Panel Today B20 - Human immunodeficiency virus [HIV] disease, E11.9 - Type 2 diabetes mellitus without complications, E66.01 - Morbid (severe) obesity due to excess calories, I48.92 - Unspecified atrial flutter TSH reflex Free T4 Today E03.9 - Hypothyroidism, unspecified Referrals Ophthalmology Referral B20 - Human immunodeficiency virus [HIV] disease, E11.9 - Type 2 diabetes mellitus without complications, E66.01 - Morbid (severe) obesity due to excess calories, H10.10 - Acute atopic conjunctivitis, unspecified eye, I48.92 - Unspecified atrial flutter, Z01.00 - Encounter for examination of eyes and vision without abnormal findings Medications: New olopatadine 0.1% separate doses by at least 6-8 hours 1 drp ophthalmic (eye) BID 5 mL 2RF Refilled semaglutide (weight loss) (Celia) administer weeks 13 through 16 of therapy 1.7 mg (0.75 mL) subcut QWEEK 3 mL 0RF E11.9 - Type 2 diabetes mellitus without complications, E66.01 - Morbid (severe) obesity due to excess calories
[2025-04-12 08:21] VITALS: BP 144/76; PULSE 77; RESP 22; TEMP 37.1; O2SAT 96; BMI 42.4
== END 2025-04-12 08:49 | disposition home or self-care (01) ==
LOC: HO.HMCHD 08:01
PROVIDERS: PCP Physician Assistant; Visit Provider Physician Assistant
DX: I48.92 Unspecified atrial flutter (principal); E11.9 Type 2 diabetes mellitus without complications; E03.9 Hypothyroidism, unspecified; E66.01 Morbid (severe) obesity due to excess calories; H10.10 Acute atopic conjunctivitis, unspecified eye

== ENCOUNTER 2025-04-12 08:52 | Outpatient (REF) | payer OTHER, SELFPAY ==
--- OUTSIDE RECORDS SUMMARY | 2025-04-12 08:58 | XMS_ITS | Clinical Summary ---
Author Organization [address] [place] [address] Address [address] [place] [address] Phone Care Team Providers Care Domestic Violence Counselor Name Role Phone Maakyla Couch MD Primary Care Provider [phone] Allergies No known active allergies Medications No [...] Health Maintenance Due Date Last Done Comments Colorectal Cancer Screening: Colonoscopy 1954 Diabetes: Annual GFR (Glomer ular Filtration Rate) [...] 1973 Zoster Vaccines (1 of 2) 1973 RSV Immunization Adult Patie nts (1 - Risk 50-74 years 1-dose series) 2004 Hepatitis B Vaccines (1 of 3 - Risk 3-dose series) 2014 Abdominal Aortic Aneurysm (A AA) Screen 05/15/2024 Cholesterol Screening (Lipid Panel) 05/15/2024 Falls Risk Assessment 05/15/2024 Hepatitis C [...] [place] [facility] Care Teams Domestic Violence Counselor Relationship Specialty Start Date End Date Makayla Couch MD PCP - General Internal Medicine 08/23/24
[2025-04-12 11:01] LABS: Microalbum/Creatinine Ratio Ur 31.8 ug/mg cr (<30)
[2025-04-12 11:11] LABS: Alanine Aminotransferase 85 U/L (0-40); Albumin Level 4.4 g/dL (3.5-5.0); Alkaline Phosphatase 51 U/L (39-117); Anion Gap 11 (12-20); Aspartate Amino Transferase 81 U/L (5-37); Blood Urea Nitrogen 15 mg/dL (9-16); Calcium 9.3 mg/dL (8.4-10.2); Carbon Dioxide 25 mmol/L (22-29); Chloride 108 mmol/L (96-108); Cholesterol 109 mg/dL (<200); Estimated Glomerular Filt Rate > 60; HDL Cholesterol 36 mg/dL (>40); Potassium 4.3 mmol/L (3.3-5.1); Sodium 140 mmol/L (135-145); Total Protein 7.0 g/dL (6.5-8.0); Triglycerides 325 mg/dL (<150)
[2025-04-16 03:53] LABS: HIV RNA PCR Qn Copies NOT DETECTED copies/mL (NOT DETECTED); HIV RNA PCR Qn Log Copies NOT DETECTED (NOT DETECTED)
[2025-04-19 13:02] LABS: Absolute CD3 Count 1144 cells/uL (840-3060); Absolute CD8 Count 489 cells/uL (180-1170); Percent CD3 Cells 83 % (57-85); Percent CD8 Cells 35 % (12-42)
== END 2025-04-12 08:53 | disposition home or self-care (01) ==
LOC: HO.10HDL 08:52
PROVIDERS: Internal Medicine; Visit Provider Physician Assistant
DX: E11.9 Type 2 diabetes mellitus without complications (principal); E66.01 Morbid (severe) obesity due to excess calories; B20 Human immunodeficiency virus [HIV] disease; I48.92 Unspecified atrial flutter; E03.9 Hypothyroidism, unspecified
CPT/HCPCS: 36415; 80048; 80061; 80076; 82043; 82570; 83036; 84443; 86359; 86360; 87536; 99212

== ENCOUNTER 2025-04-29 14:33 | Outpatient (REF) | payer OTHER, SELFPAY ==
[2025-04-29 15:31] LABS: MANUAL DIFF FLAG NO
[2025-04-29 17:08] LABS: Hematocrit 41.3 % (42.0-52.0); Hemoglobin 13.8 g/dl (14.0-18.0); Imm Gran Abs Auto 0.03 X10*3/uL (0.00-0.03); Imm Gran Pct Auto 0.3 % (0.0-0.4); Lymphocytes Absolute Auto 2.9 X10*3/uL (1.2-4.9); Mean Corpuscular HGB Conc 33.4 g/dl (31.0-36.0); Mean Corpuscular Hemoglobin 29.9 pg (27.0-33.0); Mean Corpuscular Volume 89.6 fL (80.0-98.0); NRBC Abs Auto 0.000 X10*3/uL (0.0-0.012); NRBC Pct Auto 0.0 /100WBC (0.0-0.2); Platelet Count 184 X10*3/uL (160-400); Red Blood Count 4.61 X10*6/uL (4.60-5.80); White Blood Count 8.7 X10*3/uL (4.8-10.8)
--- OUTSIDE RECORDS SUMMARY | 2025-04-30 00:51 | XMS_ITS | Patient Health Record ---
Author Organization [facility] Address [address] [place] [address] Care Team Providers Care Windows Desktop Engineer Name Role Phone Mihir (RETIRED) Harris FERNANDES Primary Care Provide r Lang Lawton Unavailable [phone] Reason For Referral No Information Medications Medication [...] Problem Screening for malignant neoplasm of colon (442577891) Encounter for screening for malignant neoplasm of colon (Z12.11) Active confirmed Problem History of adenomatous polyp of colon (571097975) History of adenomatous polyp of colon (Z86.010) Active confirmed Problem Screening for malignant neoplasm of rectum (016884929) Encounter for screening for malignant neoplasm of rectum (Z12.12) Active confirmed Problem Gastroesophageal reflux disease (674852609) Gastroesophageal reflux disease, esophagitis presence not specified (K21.9) Active confirmed Plan Of Treatment Future Test Test Name Order Date UPPER GI ENDOSCOPY 12/30/2015 COLONOSCOPY 12/30/2015 Insurance Providers Payer Name Payer Address Payer Phone Subscriber Number Group Number Insured Name Patient Relationship to Insured Coverage Start Date Coverage End Date MEDICARE OF [place] [address] JACKY MENDES [id number] BORA HER Self - patient is the insured MEDICAID OF [facility] [address] [place] [address] [id number] BORA HER Self - patient is the [...]
== END 2025-04-29 14:34 | disposition home or self-care (01) ==
LOC: HO.LAB 14:33
PROVIDERS: PCP Physician Assistant; Visit Provider Physician Assistant
DX: R10.32 Left lower quadrant pain (principal)
CPT/HCPCS: 36415; 85025; 99212

== ENCOUNTER 2025-04-29 14:33 | Outpatient (AMB) | payer OTHER, SELFPAY ==
--- NOTE | 2025-04-29 14:36 | MHC.PC.OV ---
Vital Signs 04/29/25 14:42 Height 5 ft 0.62 in BP 132/74 Respiration 16 Pulse 82 Pulse Source Pulse Oximeter Temp 97.0 F Temp Source Temporal Artery Scan Pulse Oximetry (%) 97 Oxygen Delivery Method Room Air Intake Visit Reasons: Oscar Mascorro Pain Optical Lens Manufacturing Tech Required: No Accompanied by: Self / Same As Patient Allergies No Known Allergies Allergy (Verified 04/29/25 14:39) Medication List - Last Reconciled 04/29/25 by JASPAL Downing apixaban (Eliquis) 5 mg PO BID Held on 10/19/23. Instructions: Resume on 10/28/23. hold until on iv heparin aspirin 81 mg PO DAILY nonfedtbl-salwdngp-bwhuwzj ala 50-200-25 mg (Biktarvy) 1 tab PO DAILY 90 days levothyroxine (Levoxyl) 75 mcg PO DAILY lisinopril 40 mg PO QAM 90 days metformin ER 500 mg PO DAILY metoprolol succinate ER 100 mg See Protocol PO QPM multivitamin 1 tab PO DAILY olopatadine 0.1% 1 drp ophthalmic (eye) BID omega 6-ors-lwg-fish oil 60-90-500 mg (Fish Oil) 1 cap PO BID omeprazole 20 mg PO DAILY@0630 rosuvastatin 40 mg PO DAILY semaglutide (weight loss) (Wegovy) 1.7 mg (0.75 mL) subcut QWEEK sertraline 25 mg PO DAILY terazosin 5 mg PO BEDTIME Tobacco use date assessed: 10/04/24 Dental Screening Dental Screen Date: 10/04/24 HPI HPI Comments History of Present Illness Details The patient is a 69 year old female with a past medical history of diabetes, hypertension, CAD s/p NSTEMI, aflutter/afib s/p ablation, GERD with interval AICD placement CV: On eliquis, metoprolol, crestor, imdur, ASA. seeing Dr Swain in [place]. s/p AICD placement. Doing well DM: on metformin 500mg daily, wegovy 0.5mg. Last A1C 6.7%. BPH: s/p TURP. Continues terazosin COPD/KENYON; remote tobacco use. Uses cpap HIV: on meds. Follows with Dr. Polanco. Says undetectable for quite some time Depression: is stable on zoloft Concerns: LLQ pain- ongoing several months intermittently. Has worsened significantly over the last few days. Normal stool, occ constipation- attributes to wegovy- uses Miralax. Occ straining which does worsen pain. Stabbing pain 8/10 lasts for about how long does it last for when it comes on for a about 1 hour. No radiation of pain. Not brought on by specific foods. No nausea/vomiting. No melena or hematochezia. No fevers or chills. Has never undergone colonoscopy. Overdue for Cologuard ROS: General: No fevers, malaise, unintentional weight loss HEENT: see hpi. No blurred vision, diplopia. No sore throat, nasal congestion, rhinorrhea, sinus pain, ear pain Cardiovascular: No chest pain, palpitations, or leg edema Respiratory: No shortness of breath, wheezing, cough GI: See HPI : No dysuria, hematuria, increased urinary frequency, decreased urinary output MSK: No myalgia, back pain Neuro: No headaches, weakness, paresthesias Skin: No rashes or lesions EXAM: Constitutional - Awake and Alert, No apparent distress Eyes - PERRL. Bilateral conjunctival injection. No purulent drainage Cardiovascular - S1S2, RRR, No edema Respiratory - Normal lung expansion, Normal respiratory effort, No respiratory distress, CTA bilaterally Abdomen-soft, nondistended. Left lower quadrant tenderness to palpation with guarding. No rebound tenderness. 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 Mother No problems noted. Social History Household Members: None Household Members Other:: none; lives alone with his cat (Conrad) Housing: Apartment Do you presently have visiting nurse or other home services: No Alcohol intake: current Alcohol intake frequency: holidays/special occasions only Patient Tobacco Use Status: Former Tobacco user e-Cigarette/Vaping Use: Former Use Substance Use Type: Marijuana service: No Current occupational status: retired Cognitive needs: No Hearing needs: No Vision needs: No Questionnaire Thrive Questionnaire Date Thrive assessed: 10/04/24 ISAIAS-7 AMB Questionnaire ISAIAS-7 Date ISAIAS - 7 assessed: 10/04/24 Source: Developed by Drs. Lang Ji, Martha Melendrez, Myles Macedo and colleagues, with an educational elsa from [employer]. Physical exam (Primary Care) Vital Signs: Last Vital Signs Temp 97.0 F 04/29/25 14:42 Pulse 82 04/29/25 14:42 Resp 16 04/29/25 14:42 BP 132/74 04/29/25 14:42 Pulse Ox 97 04/29/25 14:42 Oxygen Delivery Method Room Air 04/29/25 14:42 Tobacco/Smoking Status: Tobacco use Status Tobacco use date assessed 10/04/24 04/29/25 14:38 Patient Tobacco Use Status Former Tobacco user 04/29/25 14:38 e-Cigarette/Vaping Use Former Use 04/29/25 14:38 Thrive Assessment: Date of Thrive Assessment Date Thrive assessed 10/04/24 04/29/25 14:38 Coding Level of Care Code Est Pt Level 4 (96806) Complex visit Add On G2211 Diagnoses LLQ pain R10.32 Assessment & Plan Assessment & Plan (1) LLQ pain: Code(s): R10.32 - Left lower quadrant pain Category: Medical Plan: Based on clinical history and exam, question acute diverticulitis. Stat CT of the abdomen/pelvis ordered. Pending results, may initiate antibiotic therapy. Continue diet as tolerated. No alarm symptoms at this time, however if pain worsens with any fevers, chills, nausea, vomiting, change in bowel habits, advised to go to the ER. CBC also ordered. Plan Follow up in the office in 3 months as scheduled Orders: Orders CT abdomen pelvis wo IV con Today R10.32 - Left lower quadrant pain Complete Blood Count Auto Diff Today R10.32 - Left lower quadrant pain
[2025-04-29 14:42] VITALS: BP 132/74; PULSE 82; RESP 16; TEMP 36.1; O2SAT 97
--- OUTSIDE RECORDS SUMMARY | 2025-04-29 23:41 | XMS_ITS | Clinical Summary ---
Author Organization [address] [place] [address] Address [address] [place] [address] Phone Care Team Providers Care Rock Singer Name Role Phone Makayla Couch MD Primary Care Provider [phone] Allergies No known active allergies Medications No [...] [place] [facility] Care Teams Rock Singer Relationship Specialty Start Date End Date Makayla Couch MD PCP - General Internal Medicine 08/23/24
== END 2025-04-29 16:19 | disposition home or self-care (01) ==
LOC: HO.HMCHD 14:33
PROVIDERS: PCP Physician Assistant; Visit Provider Physician Assistant
DX: R10.32 Left lower quadrant pain (principal)

== ENCOUNTER 2025-05-08 14:49 | Outpatient (AMB) | payer OTHER, SELFPAY ==
--- OUTSIDE RECORDS SUMMARY | 2025-05-02 23:59 | XMS_ITS | Continuity of Care Document ---
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 Refills 0, Maintenance, 12/16/20 12:22:00 PM EDT, Route to Pharmacy Electronically, [facility], Partial fill upon patient request if the prescription is for a schedule II opioid drug., 170.18, cm, 12/15/20 23:52:00 EDT, Height, 119.9, kg, 12/15/20 23:52:00 EDT, Dry Weight Start Date: 12/16/20 Status: Ordered Medication Dispense Status: Completed Quantity: 30.0 Unit: tablet Total Allowed Fills: 1 Fills Dispensed: 0 Biktarvy oral tablet 0 Refills, Maintenance, 03/06/25 10:50:00 AM EDT, Partial fill upon patient request if the prescription is for a schedule II opioid drug. Start Date: 03/06/25 Status: Ordered Medication Dispense Status: Completed Total Allowed Fills: 1 Fills Dispensed: 0 efavirenz/emtricitabine/tenofovir disoproxil fumarate 600 mg-200 mg-300 mg oral tablet 1 tablet, By Mouth, Daily at bedtime, 0 Refills, Maintenance, 12/15/20 5:50:00 PM EDT, Tablet, ; Start Date: 12/15/20 Status: Ordered Medication Dispense Status: Completed Total Allowed Fills: 1 Fills Dispensed: 0 Eliquis 5 mg oral tablet See Instructions, TAKE 1 TABLET BY MOUTH TWICE A DAY, # 180 tablet, 3 Refills, Maintenance, :31:00 AM [facility] [id number], 172, cm, 03/23/24 13:25:00 EDT, Height, 118.8, kg, 01/12/24 23:37:00 EDT, Dry Weight Start Date: 06/04/24 Status: Ordered Medication Dispense Status: Completed Quantity: 180.0 Unit: tablet Total Allowed Fills: 1 Fills Dispensed: 0 Fish Oil By Mouth, 0 Refills, Maintenance, 11/12/24 1:18:00 PM EDT, Partial fill upon patient request if the prescription is for a schedule II opioid drug. Start Date: 11/12/24 Status: Ordered Medication Dispense Status: Completed Total Allowed Fills: 1 Fills Dispensed: 0 isosorbide mononitrate 30 mg oral tablet, extended release 1 tablet, By Mouth, Daily in AM, # 90 tablet, 2 Refills, Maintenance, 06/04/24 8:16:00 AM [facility]/pharmacy #[id number], 172, cm, 03/23/24 13:25:00 EDT, Height, 118.8, kg, 01/12/24 23:37:00 EDT, Dry Weight Start Date: 06/04/24 Status: Ordered Medication Dispense Status: Completed Quantity: 90.0 Unit: tablet Total Allowed Fills: 3 Fills Dispensed: 0 levothyroxine 0.025 mg oral tablet 1 tablet = 25 mcg, By Mouth, Daily, # 30 tablet, 0 Refills, Maintenance, 01/04/25 11:57:00 AM EDT, Tablet, Partial fill upon patient request if the prescription is for a schedule II opioid drug. Start Date: 01/04/25 Status: Ordered Medication Dispense Status: Completed Quantity: 30.0 Unit: tablet Total Allowed Fills: 1 Fills Dispensed: 0 lisinopril 40 mg oral tablet 1 tablet, By Mouth, Daily, # 30 tablet, 11 Refills, 01/04/22 12:42:00 PM EDT, [facility]/pharmacy #[id number], 170.18, cm, 12/07/21 16:09:00 EDT, Height, 119.9, kg, 12/15/20 23:52:00 EDT, Dry Weight Start Date: 01/04/22 Status: Ordered Medication Dispense Status: Completed Quantity: 30.0 Unit: tablet Total Allowed Fills: 12 Fills Dispensed: 0 melatonin 10 mg oral tablet, extended release 1 tablet = 10 mg, By Mouth, Daily at bedtime, PRN as needed for sleep, # 60 tablet, 0 Refills, Maintenance, 01/12/24 10:01:00 PM EDT, ER Tablet, Partial fill upon patient request if the prescription is for a schedule II opioid drug. Start Date: 01/12/24 Status: Ordered Medication Dispense Status: Completed Quantity: 60.0 Unit: tablet Total Allowed Fills: 1 Fills Dispensed: 0 metFORMIN 500 mg oral tablet 1 tablet = 500 mg, By Mouth, Daily, 0 Refills, Maintenance, 12/15/20 5:50:00 PM EDT, Tablet, ; Start Date: 12/15/20 Status: Ordered Medication Dispense Status: Completed Total Allowed Fills: 1 Fills Dispensed: 0 Metoprolol Succinate ER 100 mg oral tablet, extended release 1, tablet, By Mouth, Daily, # 90 tablet, Refills 1, Maintenance, 05/01/25 7:14:00 AM EST, Route to Pharmacy Electronically, [facility] [id number], 170, cm, 03/06/25 10:51:00 EDT, Height, 122, kg, 08/31/24 18:52:00 EDT, Dry Weight Start Date: 05/01/25 Status: Ordered Medication Dispense Status: Completed Quantity: 90.0 Unit: tablet Total Allowed Fills: 1 Fills Dispensed: 0 Multivitamin 1 tablet, By Mouth, Daily, 0 Refills, Maintenance, 10/19/23 6:54:00 PM EDT, Partial fill upon patient request if the prescription is for a schedule II opioid drug. Start Date: 10/19/23 Status: Ordered Medication Dispense Status: Completed Total Allowed Fills: 1 Fills Dispensed: 0 nitroglycerin 0.4 mg sublingual tablet 1 tablet, Sublingual, Every 5 minutes, PRN NEEDED FOR CHEST PAIN,INSTR, NOT TO EXCEED 3 DOSES/15MIN--IF PAIN PERSISTS, SEEK MEDICAL ATTENTION, # 25 tablet, 3 Refills, Maintenance, 02/13/24 9:27:00AM EDT, [id number], 172, cm, 01/13/24 10:25:00 EDT, Height, 118.8, kg, 01/12/24 23:37:00 EDT, Dry Weight Start Date: 02/13/24 Status: Ordered Medication Dispense Status: Completed Quantity: 25.0 Unit: tablet Total Allowed Fills: 1 Fills Dispensed: 0 omeprazole 20 mg oral enteric coated capsule 1 capsule = 20 mg, By Mouth, Daily Start Date: 12/15/20 Status: Ordered Medication Dispense Status: Completed Total Allowed Fills: 1 Fills Dispensed: 0 rosuvastatin 20 mg oral tablet 1 tablet = 20 mg, By Mouth, Daily, # 30 tablet, 1 Refills, Maintenance, 10/20/23 12:47:00 PM EDT, Tablet, [facility]/pharmacy #[id number], Partial fill upon patient request if the prescription is for a schedule IIopioid drug., 170, cm, 10/20/23 7:12:00 EDT, Height, 118, kg, 10/19/23 12:37:00 EDT, Dry Weight Start Date: 10/20/23 Stop Date: 12/19/23 Status: Ordered Medication Dispense Status: Completed Quantity: 30.0 Unit: tablet Total Allowed Fills: 2 Fills Dispensed: 0 sertraline 25 mg oral tablet = 25 mg, By Mouth, Daily, # 30 each, 0 Refills, Maintenance, 01/14/24 9:00:00 AM EDT, Tablet, [facility]/pharmacy #[id number], Partial fill upon patient request if the prescription is for a schedule II opioid drug., 172, cm, 01/13/24 10:25:00 EDT, Height, 118.8, kg, 01/12/24 23:37:00 EDT, Dry Weight Start Date: 01/14/24 Status: Ordered Medication Dispense Status: Completed Quantity: 30.0 Unit: each Total Allowed Fills: 1 Fills Dispensed: 0 terazosin 5 mg oral capsule 5 mg, 1, capsule, By Mouth, Daily at bedtime, Refills 0, Maintenance, 06/07/23 11:16:00 AM EST, Partial fill upon patient request if the prescription is for a schedule II opioid drug. Start Date: 06/07/23 Status: Ordered Medication Dispense Status: Completed Total Allowed Fills: 1 Fills Dispensed: 0 Tylenol 8 Hour 650 mg oral tablet, extended release 2 tablet = 1,300 mg, By Mouth, Every 8 hours, 0 Refills, Maintenance, 06/22/21 1:49:00 PM EST, ; Start Date: 06/22/21 Status: Ordered Medication Dispense Status: Completed Total Allowed Fills: 1 Fills Dispensed: 0 Wegovy Pen Subcutaneous Infusion, 0 Refills, Maintenance, 01/04/25 11:57:00 AM EDT, Partial fill upon patient request if the prescription is for a schedule II opioid drug. 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 Confirmed Active Systolic CHF, chronic Confirmed Active Coronary artery disease Confirmed Active HIV disease Confirmed Active Hyperlipidemia Confirmed Active Hypertension Confirmed Active Mild HOCM (hypertrophic obstructive cardiomyopathy) Confirmed Active Obstructive sleep apnea hypopnea, severe Confirmed Active Old non-ST elevation myocardial infarction (NSTEMI) Confirmed Active Right ventricular failure Confirmed Active Severe obesity Confirmed Active Diabetes mellitus type 2 in obese Confirmed Active Social History Social History Type Response Smoking Status Former smoker, quit more than 30 days ago; Other: Smoked for 25yrs, quit 7yrs ago; entered on: 12/15/20 Sex Sex Representation Male (finding) Patient Care team information Care Team Personnel Name: Chester Hackett RN Position: S RN Member Role: Primary Care Nurse Name: Minnie Hartmann RN Position: S RN Member Role: Primary Care Nurse Name: Makayla Couch MD Position: Reference Physician Member Role: PCP Address: [address] [place] [address]- Telecom: Name: Radha Cisneros LPN Position: S RN Member Role: Primary Care Nurse Care Team Related Persons Name: NAKIA HER Insurance Providers Guarantor name: BORA HER [facility] Information #: 1 Payer: DEMETRIO SAMS [employer]Katt Payer Identifier: MONIKA Member Number: [id number] Group Number: [id number] Subscriber Identifier: NA Relationship to Subscriber: self Coverage Type: Medicare Managed Care (Includes Medicare Advantage Plans) Coverage Verification Date: MNOIKA Telecom: MONIKA Address: NA
--- NOTE | 2025-05-08 15:00 | MHC.OFFVIS ---
Vital Signs 05/08/25 15:06 Height 5 ft 6 in Weight 261 lb BMI 42.1 Pulse 91 Pulse Source Pulse Oximeter Pulse Oximetry (%) 97 Oxygen Delivery Method Room Air Intake Visit Reasons: Medication Review Allergies No Known Allergies Allergy (Verified 05/15/25 10:11) [facility] HPI Medication Review: Details: He takes Biktarvy now His CD4 count is 650 on 04/12 and viral load undetectable. He has no complaints but was concerned if Biktarvy causes LFT elevation He is not drinking alcohol but sometimes eats fatty foods. [facility] Medical History Current use of retirement anticoagulation Allergic conjunctivitis Urinary hesitancy Non-insulin dependent type 2 diabetes mellitus CAD (coronary artery disease) HIV (human immunodeficiency virus infection) KENYON (obstructive sleep apnea) Tear of left hamstring Diabetes High cholesterol High blood pressure Family History Father No problems noted. Mother No problems noted. Social History Household Members: None Household Members Other:: none; lives alone with his cat () Housing: Apartment Do you presently have visiting nurse or other home services: No Alcohol intake: current Alcohol intake frequency: holidays/special occasions only Patient Tobacco Use Status: Former Tobacco user e-Cigarette/Vaping Use: Former Use Substance Use Type: Marijuana service: No Current occupational status: retired Cognitive needs: No Hearing needs: No Vision needs: No Review of Systems Const All systems reviewed & are unremarkable except as noted in HPI and below Physical Exam Vital Signs: Last Vital Signs Pulse 91 05/08/25 15:06 Pulse Ox 97 05/08/25 15:06 Oxygen Delivery Method Room Air 05/08/25 15:06 BMI result Body Mass Index 42.1 Const General: cooperative Orientation/consciousness: patient oriented x3 HEENT Head: Yes normal to inspection Mouth: Normal oral and palatal mucosa present Eyes General: appearance normal, both eyes and all related structures Pupils: Equal, round and reactive pupils present Resp Effort & Inspection: normal respiratory effort Cardio Rate: regular rate Rhythm: regular rhythm GI Palpation (GI): Soft to palpation and nontender General: Yes no CVA tenderness Back/Spine/Pelvis Back: no CVA tenderness Skin General skin exam: no rashes or lesions noted Neuro General: patient oriented x3 Cranial nerves: Yes CN's II-XII intact bilaterally and Yes Equal, round and reactive pupils present Extrem General: Yes normal to inspection Psych Appearance: grossly normal Assessment & Plan Assessment & Plan (1) HIV (human immunodeficiency virus infection): Comment: He has been doing well with intermediate HIV virus. Code(s): B20 - Human immunodeficiency virus [HIV] disease Category: Medical Plan: He has slightly elevated LFTs Plan Check Hepatitis C I dont think Biktarvy cause of elevated LFTs and offered to switch but patient wanted to remain on for now. See in six months with labs before. Coding Level of Care Code Est Pt Level 4 (30608) Diagnoses HIV (human immunodeficiency virus infection) B20
[2025-05-08 15:06] VITALS: PULSE 91; O2SAT 97; BMI 42.1
--- OUTSIDE RECORDS SUMMARY | 2025-05-08 19:44 | XMS_ITS | Clinical Summary ---
Author Organization [address] [place] [address] Address [address] [place] [address] Phone Care Team Providers Care Dolphin Trainer Name Role Phone Makayla Couch MD Primary Care Provider Allergies No known active allergies Medications No [...] [place] [facility] [employer] Care Teams Dolphin Trainer Relationship Specialty Start Date End Date Makayla Couch MD PCP - General Internal Medicine 08/23/24
--- OUTSIDE RECORDS SUMMARY | 2025-05-08 19:44 | XMS_ITS | Patient Health Record ---
Author Organization [facility] Address [address] [place] [address] Care Team Providers Care Farm Loan Inspector Name Role Phone Mihir (RETIRED) Harris FERNANDES Primary Care Provide r Lang Lawton Unavailable [phone] Reason For Referral No Information Medications Medication [...] Problem Screening for malignant neoplasm of colon (065014885) Encounter for screening for malignant neoplasm of colon (Z12.11) Active confirmed Problem History of adenomatous polyp of colon (064310663) History of adenomatous polyp of colon (Z86.010) Active confirmed Problem Screening for malignant neoplasm of rectum (917164174) Encounter for screening for malignant neoplasm of rectum (Z12.12) Active confirmed Problem Gastroesophageal reflux disease (635696011) Gastroesophageal reflux disease, esophagitis presence not specified (K21.9) Active confirmed Plan Of Treatment Future Test Test Name Order Date UPPER GI ENDOSCOPY 12/30/2015 COLONOSCOPY 12/30/2015 Insurance Providers Payer Name Payer Address Payer Phone Subscriber Number Group Number Insured Name Patient Relationship to Insured Coverage Start Date Coverage End Date MEDICARE OF [place] [address] JACKY MENDES [id number] BORA HER Self - patient is the insured MEDICAID OF [facility] [address] [place] [address] [id number] BORA HER Self - patient is the insured Medical (General) History Medical History History ICD Code Screening colonosocpy 20 06--one small tubular adenoma removed, sigmoid diverticulosis, and internal hemorrhoids Hypertension HIV infection Denies [place],DM,CVA,Lung disease,renal dise ase Neuropathy Hyperlipidemia BPH GERD Surgical History Surgery Date(Month/Year) cholecystectomy exploratory laparotomy for a bowel obstr uction appendectomy hernia surgery--right inguinal knee surgery teeth removed for dentures Carpal tunnel on the right
== END 2025-05-08 15:40 | disposition home or self-care (01) ==
LOC: HO.HID 14:49
PROVIDERS: PCP Physician Assistant; Visit Provider Internal Medicine
DX: B20 Human immunodeficiency virus [HIV] disease (principal)
CPT/HCPCS: 99214

== ENCOUNTER → 2025-05-08 14:49 | Outpatient (BNVA) | payer OTHER, SELFPAY | PROVIDERS: PCP Physician Assistant; Visit Provider Internal Medicine | DX: B20 Human immunodeficiency virus [HIV] disease (principal); R79.89 Other specified abnormal findings of blood chemistry | CPT/HCPCS: 99212 ==

== ENCOUNTER 2025-05-14 09:09 | Outpatient (REF) | payer OTHER, SELFPAY ==
--- NOTE | ~2025-05-14 | CT_ITS ---
EXAMINATION: CT ABDOMEN PELVIS WITH IV CONTRAST HISTORY: R10.32 - Left lower quadrant pain COMPARISON: Comparison is made with the prior examination dated 06/16/2023. TECHNIQUE: CT scan of the abdomen and pelvis was performed following administration of 85 mL Omnipaque 350 using standard departmental protocol. Coronal and sagittal reformatted images were generated and reviewed. The patient received oral contrast material. This CT exam was performed with one or more of the following dose reduction techniques: automated exposure control, adjustment of the mA and/or kV according to patient size, use of iterative reconstruction technique. DLP: 759 mGy-cm FINDINGS: LOWER CHEST: The visualized lung bases are clear. There is no pleural effusion. CARDIOVASCULATURE: The heart is normal in size. There is no pericardial effusion. LIVER: The liver appears mildly enlarged. No liver mass is identified. The hepatic and portal veins are patent. GALLBLADDER / BILE DUCTS: The gallbladder is surgically absent. There is no intra or extrahepatic biliary ductal dilatation. SPLEEN: The spleen is mildly enlarged. No focal splenic lesion is identified. PANCREAS: The pancreas is unremarkable in appearance. ADRENAL GLANDS: The right adrenal gland is unremarkable. There is mild nodularity of the left adrenal gland without change. KIDNEYS/RETROPERITONEUM: No renal calculi are identified. There is no hydronephrosis. There are bilateral cortical renal cysts measuring 1.3 cm on the right and 2.1 cm on the left. There is a 3.3 cm left renal parapelvic cysts. LYMPH NODES: No abdominal or pelvic lymphadenopathy. VASCULATURE: The abdominal aorta demonstrates atherosclerotic calcification, but is normal in caliber. MESENTERY/PERITONEUM: No free fluid. No masses. There is no free intraperitoneal gas. STOMACH: There is a small hiatal hernia. The stomach is otherwise unremarkable. SMALL BOWEL: The small bowel is normal in caliber. COLON: There is diverticulosis of the descending and sigmoid colon. There is mild inflammatory stranding about the sigmoid colon, compatible with diverticulitis. There is no extraluminal gas or loculated fluid collection. APPENDIX: The appendix is not seen, however no inflammatory changes are seen adjacent to the cecum. URINARY BLADDER/PELVIC ORGANS: The urinary bladder is collapsed, limiting evaluation. The prostate is normal in size. BONES / SOFT TISSUES: No suspicious bony or soft tissue abnormalities. CT/CT abdomen pelvis w IV con IMPRESSION: 1. Findings consistent with mild sigmoid diverticulitis as described. 2. Hepatosplenomegaly. Electronically signed by: Lang Cason MD 05/14/2025 01:13 PM [facility]
--- OUTSIDE RECORDS SUMMARY | 2025-05-14 09:43 | XMS_ITS | Patient Health Record ---
Author Organization [facility] Address [address] [place] [address] Care Team Providers Care Commercial Lease Administrator Name Role Phone Mihir (RETIRED) Harris FERNANDES Primary Care Provide r Lang Lawton Unavailable [phone] Reason For Referral No Information Medications Medication [...] Problem Screening for malignant neoplasm of colon (807850191) Encounter for screening for malignant neoplasm of colon (Z12.11) Active confirmed Problem History of adenomatous polyp of colon (214681571) History of adenomatous polyp of colon (Z86.010) Active confirmed Problem Screening for malignant neoplasm of rectum (990161386) Encounter for screening for malignant neoplasm of rectum (Z12.12) Active confirmed Problem Gastroesophageal reflux disease (934640857) Gastroesophageal reflux disease, esophagitis presence not specified (K21.9) Active confirmed Plan Of Treatment Future Test Test Name Order Date UPPER GI ENDOSCOPY 12/30/2015 COLONOSCOPY 12/30/2015 Insurance Providers Payer Name Payer Address Payer Phone Subscriber Number Group Number Insured Name Patient Relationship to Insured Coverage Start Date Coverage End Date MEDICARE OF [place] [address] JACK[place] MENDES [id number] BORA HER Self - patient is the insured MEDICAID OF [facility] [address] [place] [address] [id number] BORA HER Self - patient is the insured Medical (General) History Medical History History ICD Code Screening colonosocpy 20 06--one small tubular adenoma removed, sigmoid diverticulosis, and internal hemorrhoids Hypertension HIV infection Denies [place],DM,CVA,Lung disease,renal dise ase Neuropathy Hyperlipidemia BPH GERD Surgical History Surgery Date(Month/Year) cholecystectomy exploratory laparotomy for a bowel obstr uction appendectomy hernia surgery--right inguinal knee surgery teeth removed for dentures Carpal tunnel on the right
--- OUTSIDE RECORDS SUMMARY | 2025-05-14 09:44 | XMS_ITS | Clinical Summary ---
Author Organization [address] [place] [address] Address [address] [place] [address] Phone Care Team Providers Care Thermocouple Tester Name Role Phone Makayla Couch MD Primary Care Provider [phone] Allergies No known active allergies Medications No [...] [place] [facility] [employer] Care Teams Thermocouple Tester Relationship Specialty Start Date End Date Makayla Couch MD PCP - General Internal Medicine 08/23/24
[2025-05-14] MEDS: iohexoL 350 MG/ML 100 ML INFUS..BTL IV (12:09)
[2025-05-14] MEDS: Barium Sulfate Oral (Mocha) 450 ML ORAL.SUSP 900 ML PO (12:49)
[2025-05-14 15:20] LABS: Creatinine POC 0.9 mg/dL (0.5-1.4); GFR POC > 60
== END 2025-05-14 09:10 ==
LOC: HO.CT 09:09
PROVIDERS: PCP Physician Assistant; Visit Provider Physician Assistant
DX: R10.32 Left lower quadrant pain (principal)
CPT/HCPCS: 74177; 82565; Q9967

== ENCOUNTER → 2025-05-14 09:11 | Outpatient (BNV) | payer OTHER, SELFPAY | PROVIDERS: PCP Physician Assistant; Visit Provider Radiology Diagnostic Radiology | DX: R16.2 Hepatomegaly with splenomegaly, not elsewhere classified (principal) | CPT/HCPCS: 74177 ==

== ENCOUNTER 2025-05-15 09:49 | Outpatient (REF) | payer OTHER, SELFPAY ==
[2025-05-15 16:01] LABS: Resp Syncy Virus RNA Qual PCR NEGATIVE (Negative); SARS COV2 PCR INHOUSE NEGATIVE (Negative)
== END 2025-05-15 09:50 | disposition home or self-care (01) ==
LOC: HO.LNP 09:49
PROVIDERS: Nurse Practitioner Family; PCP Physician Assistant
DX: Z03.818 Encounter for observation for suspected exposure to other biological agents ruled out (principal)
CPT/HCPCS: 87637; 99212

== ENCOUNTER 2025-05-15 09:49 | Outpatient (AMB) | payer OTHER, SELFPAY ==
--- OUTSIDE RECORDS SUMMARY | 2025-05-15 09:54 | XMS_ITS | Patient Health Record ---
Author Organization [facility] Address [address] [place] [address] Care Team Providers Care Railroad Car Cleaning Supervisor Name Role Phone Mihir (RETIRED) Harris FERNANDES Primary Care Provide r Lang Lawton Unavailable [phone] Reason For Referral No Information Medications Medication [...] Problem Screening for malignant neoplasm of colon (887957869) Encounter for screening for malignant neoplasm of colon (Z12.11) Active confirmed Problem History of adenomatous polyp of colon (123192710) History of adenomatous polyp of colon (Z86.010) Active confirmed Problem Screening for malignant neoplasm of rectum (203137981) Encounter for screening for malignant neoplasm of rectum (Z12.12) Active confirmed Problem Gastroesophageal reflux disease (833395244) Gastroesophageal reflux disease, esophagitis presence not specified (K21.9) Active confirmed Plan Of Treatment Future Test Test Name Order Date UPPER GI ENDOSCOPY 12/30/2015 COLONOSCOPY 12/30/2015 Insurance Providers Payer Name Payer Address Payer Phone Subscriber Number Group Number Insured Name Patient Relationship to Insured Coverage Start Date Coverage End Date MEDICARE OF [place] [address] [place] MEND[place] [id number] BORA HER Self - patient is the insured MEDICAID OF [facility] [address] [place] [address] [id number] BORA HER Self - patient is the [...]
--- OUTSIDE RECORDS SUMMARY | 2025-05-15 09:54 | XMS_ITS | Clinical Summary ---
Author Organization [address] [place] [address] Address [address] [place] [address] Phone Care Team Providers Care Costumer Assistant Name Role Phone Makayla Couch MD Primary Care Provider [phone] Allergies No known active allergies Medications No [...] [place] [facility] [employer] Care Teams Costumer Assistant Relationship Specialty Start Date End Date Makayla Couch MD PCP - General Internal Medicine 08/23/24
--- NOTE | 2025-05-15 10:03 | AM.OFFWIN_ITS ---
Intake Vital Signs 05/15/25 10:04 Height 5 ft 6 in Weight 260 lb BMI 42.0 BP 122/66 Blood Pressure Location Lt brachial Position Sitting Pulse 83 Pulse Source Pulse Oximeter Temp 98.2 F Temp Source Oral Pulse Oximetry (%) 96 Oxygen Delivery Method Room Air Intake Visit Reasons: EP SOB, cough, headache, sore throat, aches Intake Note: pt presents with SOB, chest congestion with productive coughing, body aches, sore throat for 3 days- rx'd with augmentin from pcp yesteray- hasn't picked up yet Patient Tobacco Use Status: Former Tobacco user Allergies No Known Allergies Allergy (Verified 05/15/25 10:11) Do you need a note to return to daycare/school/sports/work: No HPI EP SOB, cough, headache, sore throat, aches HPI Details This is a 70 year old male patient who presents with a 2-3 day history of chest congestion, productive cough with yellow sputum, coughing, body aches, sore throat. He denies any known exposure to sick contacts. Tmax 100.5. Took some Nyquil last night which was helpful for sleep. Using CPAP at night. PCP sent him augmentin yesteray however patient was unaware and has not picked this up yet. [facility] Medical History Current use of intermediate anticoagulation Allergic conjunctivitis Urinary hesitancy Non-insulin dependent type 2 diabetes mellitus CAD (coronary artery disease) HIV (human immunodeficiency virus infection) KENYON (obstructive sleep apnea) Tear of left hamstring Diabetes High cholesterol High blood pressure Family History Father No problems noted. Mother No problems noted. Social History Household Members: None Household Members Other:: none; lives alone with his cat () Housing: Apartment Do you presently have visiting nurse or other home services: No Alcohol intake: current Alcohol intake frequency: holidays/special occasions only Patient Tobacco Use Status: Former Tobacco user e-Cigarette/Vaping Use: Former Use Substance Use Type: Marijuana service: No Current occupational status: retired Cognitive needs: No Hearing needs: No Vision needs: No Review of Systems Const All systems reviewed & are unremarkable except as noted in HPI and below Physical Exam Vital Signs: Last Vital Signs Temp 98.2 F 05/15/25 10:04 Pulse 83 05/15/25 10:04 BP 122/66 05/15/25 10:04 Pulse Ox 96 05/15/25 10:04 Oxygen Delivery Method Room Air 05/15/25 10:04 BMI result Body Mass Index 42.0 Const General: cooperative and no acute distress Nutritional Appearance: obese HEENT Head: Yes normal to inspection Ears: hearing grossly normal bilaterally and TM's normal bilaterally General nose exam: Normal external nose present and Normal nasal mucous membranes and turbinates present Face and sinus: Yes normal facial exam and Yes sinuses nontender Mouth: Normal oral and palatal mucosa present Throat: Yes posterior oropharynx abnormal (mild erythema) Neck Neck: Yes no lymphadenopathy Resp Effort & Inspection: normal respiratory effort and Actively coughing Quality: dry Auscultation: clear to auscultation bilaterally Cardio Rate: regular rate Rhythm: regular rhythm Skin General skin exam: no rashes or lesions noted Extrem General: Yes capillary refill normal and Yes no clubbing, cyanosis or edema Psych Appearance: grossly normal Mental Status: mental status grossly normal Speech and movement: Normal speech and movement present Assessment & Plan Assessment & Plan (1) Upper respiratory infection: Code(s): J06.9 - Acute upper respiratory infection, unspecified Qualifiers: URI type: unspecified viral URI Qualified Code(s): J06.9 - Acute upper respiratory infection, unspecified Plan: Symptoms consistent with viral URI. COVID/flu/RSV swab was obtained in the office today, and patient is aware he will be notified of results once these are available. We discussed conservative treatment modalities for such illness, including rest, hydration, healthy food/vitamin intake, [id number] cold/ flu products as needed. He will continue to use Nyquil prn. He has not filled Augmentin rx yet, and we discussed potentially waiting to see if he improves with time and conservative measures first. We discussed lack of abx efficacy for viral illnesses. If he does not improve with time and conservative measures however, or if symptoms worsen, he will start the rx, and will return to the clinic for further evaluation if needed. Patient verbalizes understanding and agrees to plan. Orders: Orders SARS-CoV2/FLU/RSV Today R09.89 - Other specified symptoms and signs involving the circulatory and respiratory systems Coding Level of Care Code Est Pt Level 4 (64801) Diagnoses Viral upper respiratory tract infection J06.9 URI type: unspecified viral URI
[2025-05-15 10:04] VITALS: BP 122/66; PULSE 83; TEMP 36.8; O2SAT 96; BMI 42.0
== END 2025-05-15 10:49 | disposition home or self-care (01) ==
PROVIDERS: PCP Physician Assistant; Visit Provider Nurse Practitioner Family
DX: J06.9 Acute upper respiratory infection, unspecified (principal)